=== PATIENT | female | born 1975 ===

== ENCOUNTER → 2020-09-18 08:17 | Outpatient (BNVA) | payer MEDICARE, MEDICAID, SELFPAY | PROVIDERS: PCP Internal Medicine; Visit Provider Dietitian, Registered | DX: Z76.89 Persons encountering health services in other specified circumstances (principal) ==

== ENCOUNTER 2020-11-13 10:55 | Outpatient (REF) | payer MEDICARE, MEDICAID, SELFPAY | END 2020-11-13 10:56 | disposition home or self-care (01) | LOC: HO.LAB 10:55 | PROVIDERS: Visit Provider Internal Medicine | DX: Z20.822 Contact with and (suspected) exposure to COVID-19 (principal) | CPT/HCPCS: 36415; C9803; U0003 ==

== ENCOUNTER → 2021-03-07 09:10 | Outpatient (BNVA) | payer MEDICARE, MEDICAID, SELFPAY | PROVIDERS: PCP Internal Medicine; Visit Provider Physician Assistant | DX: E66.3 Overweight (principal); L98.7 Excessive and redundant skin and subcutaneous tissue; Z68.26 Body mass index [BMI] 26.0-26.9, adult; Z98.84 Bariatric surgery status | CPT/HCPCS: 99212 ==

== ENCOUNTER 2021-03-24 08:21 | Outpatient (REF) | payer MEDICARE, MEDICAID, SELFPAY ==
[2021-03-24 08:41] LABS: MANUAL DIFF FLAG NO
[2021-03-24 08:48] LABS: Basophils Percent Auto 0.8 % (0-2); Eosinophils Absolute Auto 0.3 X10*3/uL (0.0-0.4); Eosinophils Percent Auto 6.4 % (0-4); Hematocrit 28.2 % (37-47); Hemoglobin 8.7 g/dl (12.0-16.0); Imm Gran Abs Auto 0.01 X10*3/uL (0.00-0.03); Imm Gran Pct Auto 0.3 % (0.0-0.4); Lymphocytes Absolute Auto 1.4 X10*3/uL (1.2-4.9); Lymphocytes Percent Auto 35.8 % (20-40); Mean Corpuscular HGB Conc 30.9 g/dl (31.0-35.0); Mean Corpuscular Hemoglobin 23.2 pg (27.0-33.0); Mean Corpuscular Volume 75.2 fL (80-98); Mean Platelet Volume 8.8 fL (9.4-12.3); Monocytes Absolute Auto 0.4 X10*3/uL (0.1-1.2); Monocytes Percent Auto 10.3 % (2-11); Neutrophils Absolute Auto 1.8 X10*3/uL (2.0-8.3); Neutrophils Percent Auto 46.4 % (45-73); Platelet Count 349 X10*3/uL (160-400); Red Blood Count 3.75 X10*6/uL (4.20-5.50); Red Cell Distribution Width 16.6 % (11.0-16.0); White Blood Count 3.9 X10*3/uL (4.8-10.8)
[2021-03-24 09:08] LABS: Partial Thromboplastin Time 31.4 SEC (24.1-38.0)
[2021-03-24 09:13] LABS: Estimated Average Glucose 108 mg/dL; Hemoglobin A1c % 5.4 %
[2021-03-24 09:24] LABS: Alanine Aminotransferase 14 U/L (0-31); Albumin Level 4.2 g/dL (3.5-5.0); Alkaline Phosphatase 49 U/L (39-117); Anion Gap 10 (12-20); Aspartate Amino Transferase 16 U/L (5-31); Bilirubin Total 0.5 mg/dL (0.0-1.0); Blood Urea Nitrogen 19 mg/dL (9-16); C Reactive Protein 0.03 mg/dL (< or = 0.50); Calcium 9.5 mg/dL (8.4-10.2); Carbon Dioxide 28 mmol/L (22-29); Chloride 107 mmol/L (96-108); Cholesterol 157 mg/dL; Estimated Glomerular Filt Rate > 60; Glucose Random 95 mg/dL (60-115); HDL Cholesterol 70 mg/dL; Iron 18 mcg/dL (30-160); LDL Cholesterol Calculated 80 mg/dl; Percent Iron Saturation 4 % (15-50); Sodium 141 mmol/L (135-145); Total Iron Binding Capacity 502 mcg/dL (228-428); Total Protein 6.8 g/dL (6.5-8.0); Triglycerides 38 mg/dL; Unsaturated Iron Binding 484 ug/dL
[2021-03-24 09:47] LABS: Ferritin < 1 ng/mL (10-250); TSH reflex Free T4 0.81 uIU/mL (0.32-4.0)
[2021-03-26 09:59] LABS: Folate 18.9 ng/mL (> or = 4.0); Vitamin B12 1172 pg/mL (200-900)
[2021-03-27 00:26] LABS: Zinc 78 mcg/dL (60-130)
[2021-03-27 10:27] LABS: Calcium (PTHI) 9.7 mg/dL (8.6-10.2); PTHI 13 pg/mL (14-64)
[2021-03-28 15:11] LABS: Vitamin A 34 mcg/dL (38-98)
[2021-03-28 15:56] LABS: Vitamin B1 29 nmol/L (8-30)
== END 2021-03-24 08:22 | disposition home or self-care (01) ==
LOC: HO.LAB 08:21
PROVIDERS: PCP Internal Medicine; Visit Provider Physician Assistant
DX: Z01.818 Encounter for other preprocedural examination (principal); E66.3 Overweight; Z68.35 Body mass index [BMI] 35.0-35.9, adult; Z90.3 Acquired absence of stomach [part of]; Z98.84 Bariatric surgery status; Z98.890 Other specified postprocedural states
CPT/HCPCS: 36415; 80053; 80061; 82306; 82607; 82728; 82746; 83036; 83525; 83540; 83970; 84425; 84443; 84590; 84630; 85025; 85730; 86140

== ENCOUNTER 2021-05-16 09:44 | Outpatient (REF) | payer MEDICARE, MEDICAID, SELFPAY ==
[2021-05-16 11:14] LABS: MANUAL DIFF FLAG NO
[2021-05-16 11:28] LABS: Basophils Absolute Auto 0.1 X10*3/uL (0.0-0.2); Basophils Percent Auto 0.9 % (0-2); Eosinophils Absolute Auto 0.2 X10*3/uL (0.0-0.4); Eosinophils Percent Auto 3.2 % (0-4); Hematocrit 31.8 % (37-47); Hemoglobin 9.7 g/dl (12.0-16.0); Imm Gran Abs Auto 0.01 X10*3/uL (0.00-0.03); Imm Gran Pct Auto 0.2 % (0.0-0.4); Lymphocytes Absolute Auto 1.5 X10*3/uL (1.2-4.9); Lymphocytes Percent Auto 26.8 % (20-40); Mean Corpuscular HGB Conc 30.5 g/dl (31.0-35.0); Mean Corpuscular Hemoglobin 23.9 pg (27.0-33.0); Mean Corpuscular Volume 78.3 fL (80-98); Mean Platelet Volume 9.6 fL (9.4-12.3); Monocytes Absolute Auto 0.6 X10*3/uL (0.1-1.2); Monocytes Percent Auto 11.3 % (2-11); Neutrophils Absolute Auto 3.3 X10*3/uL (2.0-8.3); Neutrophils Percent Auto 57.6 % (45-73); Platelet Count 300 X10*3/uL (160-400); Red Blood Count 4.06 X10*6/uL (4.20-5.50); Red Cell Distribution Width 21.2 % (11.0-16.0); White Blood Count 5.6 X10*3/uL (4.8-10.8)
[2021-05-22 16:42] LABS: Vitamin A 46 mcg/dL (38-98)
== END 2021-05-16 09:45 | disposition home or self-care (01) ==
LOC: HO.LAB 09:44
PROVIDERS: PCP Internal Medicine; Referring Provider Internal Medicine; Visit Provider Physician Assistant
DX: D64.9 Anemia, unspecified (principal); L98.7 Excessive and redundant skin and subcutaneous tissue; E50.9 Vitamin A deficiency, unspecified; Z98.84 Bariatric surgery status; Z90.3 Acquired absence of stomach [part of]
CPT/HCPCS: 36415; 84590; 85025; 99212

== ENCOUNTER → 2021-08-02 08:08 | Outpatient (BNVA) | payer MEDICARE, MEDICAID, SELFPAY | PROVIDERS: PCP Internal Medicine; Visit Provider Surgery | DX: E66.3 Overweight (principal); L98.7 Excessive and redundant skin and subcutaneous tissue; Z68.26 Body mass index [BMI] 26.0-26.9, adult | CPT/HCPCS: Q3014 ==

== ENCOUNTER 2021-08-16 07:59 | Inpatient (IN) | payer MEDICARE, MEDICAID, SELFPAY ==
[2021-08-03 06:17] LABS: MANUAL DIFF FLAG NO
[2021-08-03 07:17] LABS: Basophils Percent Auto 0.6 % (0-2); Eosinophils Absolute Auto 0.2 X10*3/uL (0.0-0.4); Eosinophils Percent Auto 6.2 % (0-4); Hematocrit 34.1 % (37-47); Hemoglobin 10.7 g/dl (12.0-16.0); Imm Gran Abs Auto 0.01 X10*3/uL (0.00-0.03); Imm Gran Pct Auto 0.3 % (0.0-0.4); Lymphocytes Absolute Auto 1.3 X10*3/uL (1.2-4.9); Lymphocytes Percent Auto 41.1 % (20-40); Mean Corpuscular HGB Conc 31.4 g/dl (31.0-35.0); Mean Corpuscular Hemoglobin 25.2 pg (27.0-33.0); Mean Corpuscular Volume 80.2 fL (80-98); Mean Platelet Volume 9.9 fL (9.4-12.3); Monocytes Absolute Auto 0.3 X10*3/uL (0.1-1.2); Neutrophils Absolute Auto 1.4 X10*3/uL (2.0-8.3); Neutrophils Percent Auto 42.8 % (45-73); Platelet Count 250 X10*3/uL (160-400); Red Blood Count 4.25 X10*6/uL (4.20-5.50); Red Cell Distribution Width 17.4 % (11.0-16.0); White Blood Count 3.2 X10*3/uL (4.8-10.8)
[2021-08-03 07:23] LABS: Prothrombin Time 11.9 SEC (9.9-13.0)
[2021-08-03 07:25] LABS: Estimated Average Glucose 108 mg/dL; Hemoglobin A1c % 5.4 %; Partial Thromboplastin Time 32.5 SEC (24.1-38.0)
[2021-08-03 07:43] LABS: Alanine Aminotransferase 12 U/L (0-31); Albumin Level 4.3 g/dL (3.5-5.0); Alkaline Phosphatase 60 U/L (39-117); Anion Gap 11 (12-20); Aspartate Amino Transferase 21 U/L (5-31); Bilirubin Total 0.4 mg/dL (0.0-1.0); Blood Urea Nitrogen 15 mg/dL (9-16); C Reactive Protein 0.05 mg/dL (< or = 0.50); Calcium 9.5 mg/dL (8.4-10.2); Carbon Dioxide 29 mmol/L (22-29); Chloride 104 mmol/L (96-108); Cholesterol 160 mg/dL; Estimated Glomerular Filt Rate > 60; Glucose Random 91 mg/dL (60-115); HDL Cholesterol 71 mg/dL; Iron 32 mcg/dL (30-160); LDL Cholesterol Calculated 80 mg/dl; Percent Iron Saturation 6 % (15-50); Potassium 4.2 mmol/L (3.3-5.1); Sodium 140 mmol/L (135-145); Total Iron Binding Capacity 498 mcg/dL (228-428); Total Protein 6.9 g/dL (6.5-8.0); Triglycerides 47 mg/dL; Unsaturated Iron Binding 466 ug/dL
[2021-08-03 08:05] LABS: Ferritin 8 ng/mL (10-250); TSH reflex Free T4 1.65 uIU/mL (0.32-4.0); Vitamin D 25-OH Total 40.4 ng/mL (>30)
[2021-08-03 08:40] LABS: Folate > 20.0 ng/mL (> or = 4.0); Vitamin B12 878 pg/mL (200-900)
[2021-08-03 10:33] VITALS: BMI 25.7
--- NOTE | 2021-08-05 18:31 | P.HPSUR_ITS ---
Pre-Procedural Eval Section A Date of Service: 08/05/21 The patient is an INPATIENT: No The History & Physical has been completed within 30 days and I have reviewed it.: Yes Section B Chief Complaint: Excessive and redundant skin & subcutaneous tissue Relevant Family History (Specify if Yes): No Relevant Social History: None Present Medications: None Medical History: No relevant PMH History of Previous Operations: Relevant previous surgery/procedure and date(s) (lap gastric bypass) Allergies: Allergies Allergy/AdvReac Type Severity Reaction Status Date / Time No Known Allergies Allergy Verified 08/03/21 10:33 [No Known Allergies*] Review of Systems Sugical H&P ROS: Negative: Constitution, Cardiovascular, Respiratory, Neurological, Psychiatric, Hem-Onc, Allergic/Immunologic, Gastrointestinal, Gen itourinary, Musculoskeletal, Integumentary, Endocrine and Eyes/Ears/Nose/Throat Exam Surgical H&P Exam: Normal: HEENT, Normal: Heart, Normal: Lungs, Normal: Extremities, Normal: Abdomen, Normal: Skin and Normal: Neurological Plan Diagnosis/Plan: Unchanged I have reviewed the history and physical and performed a pertinent physical examination on my patient. No changes have occurred unless specified.
[2021-08-06 13:27] LABS: Calcium (PTHI) 9.3 mg/dL (8.6-10.2); PTHI 34 pg/mL (14-64)
[2021-08-09 00:06] LABS: Zinc 87 mcg/dL (60-130)
[2021-08-09 00:12] LABS: Vitamin A 36 mcg/dL (38-98)
[2021-08-10 11:26] LABS: Vitamin B1 22 nmol/L (8-30)
--- NOTE | 2021-08-15 09:44 | HO.ANESPROP2 ---
Documented by User: Linda Arboleda NP 08/15/21 09:46 HPI - Anesthesia Eval Consult details Narrative: 46yo F for Panniculectomy, Bilateral Brachioplasty s/p gastric bypass 2017 [facility] Active Problems Active Problems: All Active Problems (Updated 08/02/21 @ 12:05 by Eyad Ambrosio MD) Overweight (BMI 25.0-29.9) (Acute) Excess skin (Acute) Vitamin A deficiency (Acute) Anemia (Acute) Cellulitis (Acute) Overweight (Acute) Hx of gastric bypass (Acute) Past Medical History Medical History (Updated 08/02/21 @ 12:05 by Eyad Ambrosio MD) Overweight Family History Family History Mother Hypertension Diabetes Asthma Father Hypertension Brother No problems noted. Brother No problems noted. Brother No problems noted. Sister No problems noted. Sister No problems noted. Sister No problems noted. Son No problems noted. Daughter No problems noted. Daughter No problems noted. Surgical History Surgical History (Updated 08/03/21 @ 10:31 by Lorena Hewitt RN) Hx of section Hx of gastric bypass Social History Social History (Updated 08/03/21 @ 10:32 by Lorena Hewitt RN) Alcohol intake: current Alcohol intake frequency: holidays/special occasions only Patient Tobacco Use Status: Never used Tobacco Use of substances other than those prescribed or required for medical reasons: No Are you DNR?: No Advance Directives: No Advance Directives Information Provided: Yes (info mailed) Advance Directives on File: No Patient : No FDLMP: 07/17/2021 : No Poor oral hygiene: No Meds Allergies Allergy/AdvReac Type Severity Reaction Status Date / Time No Known Allergies Allergy Verified 08/03/21 10:33 [No Known Allergies*] Home Medications Medication Instructions Recorded Confirmed Last Taken Type cqyptdus-[id number]-ajgk 45 mg-folic cap PO 03/07/21 Unknown History acid 800 mcg-vit K 120 mcg capsule (Bariatric Multivitamins) Exam Exam Date and Time: August 15, 2021 0944 Height,Weight and Vital Signs: Height 5 ft 2 in Weight 63.957 kg Pertinent Lab Results Pertinent Lab Results: Laboratory Tests 08/03/21 08/03/21 08/03/21 06:10 06:10 06:10 WBC 3.2 L RBC 4.25 Hgb 10.7 L Hct 34.1 L MCV 80.2 MCH 25.2 L MCHC 31.4 RDW 17.4 H Plt Count 250 MPV 9.9 Immature Gran % (Auto) 0.3 Neut % (Auto) 42.8 L Lymph % (Auto) 41.1 H [place] % (Auto) 9.0 Eos % (Auto) 6.2 H Baso % (Auto) 0.6 Lymph # (Auto) 1.3 [place] # (Auto) 0.3 Eos # (Auto) 0.2 Baso # (Auto) 0.0 Abs Immat Gran (auto) 0.01 Absolute Neuts (auto) 1.4 L Absolute Nucleated RBC 0.000 Nucleated RBC % (auto) 0.0 PT 11.9 INR 1.0 APTT 32.5 Sodium 140 Potassium 4.2 Chloride 104 Carbon Dioxide 29 Anion Gap 11 L BUN 15 Creatinine 0.72 Estim Creat Clear Calc TNP Estimated GFR > 60 Random Glucose 91 Estimat Average Glucose Hemoglobin A1c % Calcium 9.5 Iron 32 TIBC 498 H % Saturation 6 L Unsat Iron Binding 466 Ferritin 8 L Total Bilirubin 0.4 AST 21 ALT 12 Alkaline Phosphatase 60 D C-Reactive Protein 0.05 Total Protein 6.9 Albumin 4.3 Triglycerides 47 Cholesterol 160 LDL Cholesterol, Calc 80 HDL Cholesterol 71 Vitamin A Vitamin B1 Vitamin B12 25-OH Vitamin D Total 40.4 Folate TSH 1.65 PTH Intact Calcium (PTH Intact) Zinc Blood Type Antibody Screen 08/03/21 08/03/21 08/03/21 06:10 06:10 06:10 WBC RBC Hgb Hct MCV MCH MCHC RDW Plt Count MPV Immature Gran % (Auto) Neut % (Auto) Lymph % (Auto) [place] % (Auto) Eos % (Auto) Baso % (Auto) Lymph # (Auto) [place] # (Auto) Eos # (Auto) Baso # (Auto) Abs Immat Gran (auto) Absolute Neuts (auto) Absolute Nucleated RBC Nucleated RBC % (auto) PT INR APTT Sodium Potassium Chloride Carbon Dioxide Anion Gap BUN Creatinine Estim Creat Clear Calc Estimated GFR Random Glucose Estimat Average Glucose 108 Hemoglobin A1c % 5.4 Calcium Iron TIBC % Saturation Unsat Iron Binding Ferritin Total Bilirubin AST ALT Alkaline Phosphatase C-Reactive Protein Total Protein Albumin Triglycerides Cholesterol LDL Cholesterol, Calc HDL Cholesterol Vitamin A 36 L Vitamin B1 22 Vitamin B12 878 25-OH Vitamin D Total Folate > 20.0 TSH PTH Intact Calcium (PTH Intact) Zinc Blood Type Antibody Screen 08/03/21 08/03/21 08/03/21 06:10 06:10 06:10 WBC RBC Hgb Hct MCV MCH MCHC RDW Plt Count MPV Immature Gran % (Auto) Neut % (Auto) Lymph % (Auto) [place] % (Auto) Eos % (Auto) Baso % (Auto) Lymph # (Auto) [place] # (Auto) Eos # (Auto) Baso # (Auto) Abs Immat Gran (auto) Absolute Neuts (auto) Absolute Nucleated RBC Nucleated RBC % (auto) PT INR APTT Sodium Potassium Chloride Carbon Dioxide Anion Gap BUN Creatinine Estim Creat Clear Calc Estimated GFR Random Glucose Estimat Average Glucose Hemoglobin A1c % Calcium Iron TIBC % Saturation Unsat Iron Binding Ferritin Total Bilirubin AST ALT Alkaline Phosphatase C-Reactive Protein Total Protein Albumin Triglycerides Cholesterol LDL Cholesterol, Calc HDL Cholesterol Vitamin A Vitamin B1 Vitamin B12 25-OH Vitamin D Total Folate TSH PTH Intact 34 Calcium (PTH Intact) 9.3 Zinc 87 Blood Type A Positive Antibody Screen NEGATIVE Assessment and Plan Assessment Anesthesia Assessment: Chart Reviewed Documented by User: Pato Arguello MD 08/16/21 07:16 [facility] Past Medical History Medical History (Updated 08/02/21 @ 12:05 by Eyad Ambrosio MD) Overweight Family History Family History Mother Hypertension Diabetes Asthma Father Hypertension Brother No problems noted. Brother No problems noted. Brother No problems noted. Sister No problems noted. Sister No problems noted. Sister No problems noted. Son No problems noted. Daughter No problems noted. Daughter No problems noted. Family history of problems with anesthesia: No Surgical History Surgical History (Updated 08/03/21 @ 10:31 by Lorena Hewitt RN) Hx of section Hx of gastric bypass History of Problems with Anesthesia: No Social History Social History (Updated 08/03/21 @ 10:32 by Lorena Hewitt RN) Alcohol intake: current Alcohol intake frequency: holidays/special occasions only Patient Tobacco Use Status: Never used Tobacco Use of substances other than those prescribed or required for medical reasons: No Are you DNR?: No Advance Directives: No Advance Directives Information Provided: Yes (info mailed) Advance Directives on File: No Patient : No FDLMP: 07/17/2021 : No Poor oral hygiene: No Meds Allergies Allergy/AdvReac Type Severity Reaction Status Date / Time No Known Allergies Allergy Verified 08/03/21 10:33 [No Known Allergies*] Home Medications Medication Instructions Recorded Confirmed Last Taken Type liqtkpmd-ecnfzxqn-pkns 45 mg-folic cap PO 03/07/21 Unknown History acid 800 mcg-vit K 120 mcg capsule (Bariatric Multivitamins) Exam Airway Mallampati Class: II TM Dist: >3cm Neck ROM: Full Loose/Missing/Broken Teeth: No Heart: rrr+[id number] Lungs: cta b/l Assessment and Plan Final Anesthetic Review Family History of Problems with Anesthesia: No History of Problems with Anesthesia: No NPO: Yes ASA Class: II Final Preanesthetic Review: No Changes in Pt Med Stat, Meds/Allgs Chart Reviewed, Consent Obtained/Reviewed and Anes Risks/Benef Reviewed Patient Risk: Intermediate Procedure Risk: Intermediate Assessment/Block/Sedation in SS: Assess/Block/Sedation-SS Anesthetic Plan Anesthetic Plan: GA and Agree w/ Assess. and Plan Disposition: Standard PACU
[2021-08-16] VITALS (13 sets, daily range): BP systolic 103–145; BP diastolic 55–82; PULSE 61–81; RESP 12–18; TEMP 35.8–37.2; O2SAT 98–100
[2021-08-16 06:32] LABS: UPreg QC Valid YES; Urine Pregnancy NEGATIVE (NEGATIVE)
[2021-08-16] MEDS: Lactated Ringers 1,000 ML 80 ML IVCONT (06:43)
[2021-08-16 06:49] LABS: COVID-19 Test Negative (Negative)
--- NOTE | 2021-08-16 08:05 | P.BOP_ITS ---
Brief Operative Note Date of Service: 08/16/21 Pre-op diagnosis: panniculitis Post-op diagnosis: same Procedure: PROCEDURE: Panniculectomy with umbilical transposition and omental flap, bilateral brachioplasty INDICATION: This a 46 year old female who underwent laparoscopic Hugh-en-Y gastric bypass on 04/21/2018. She had an excellent result achieving a BMI of 26.3 kg/m2 with a total weight loss of 108.8lbs, or 43.5% of her TBWL. As a result, she has developed panniculitis which has not resolved despite continuous use of clotrimazole ointment as well as skin irritation and intetrigo in both upper arms. On exam she has extreme skin laxity due to massive weight loss and age with the abdominal pannus completely hiding the genitalia and the upper arms 6 cm below the level of the triceps. Panniculectomy with bilateral brachioplasty was recommended. We discussed the two options for the panniculectomy of using a combined vertical and horizontal incisions or just a horizontal (bikini) incision. It was my recommendation to do only horizontal incision based on her body habitus and skin laxity. The patient agreed with this. Risks and complications were discussed with the patient including bleeding, infection, umbilical loss, flap necrosis, asymmetry, dehiscence, seroma, VTE. The patient understood the risks and was in agreement to proceed with surgery. PROCEDURE: The incisions were appropriately marked at the preop area with the p atient standing and laying down. After induction of general anesthesia a Ricardo catheter and pneumatic compression devices were placed. The patient was prepped and draped in the usual sterile manner and the incisions were marked again and confirmed. In similar fashion both upper arms were also marked when the patient was standing. The upper arms were performed first. The skin was infiltrated with lidocaine and epinephrine. Skin was excised with the #15 blade. Cautery was used to separate the skin from subcutaneous tissues. Careful attention was paid to make sure that the plain of excision was superficial as close to the skin as possible. The right upper arm skin was 25 cm x 7 cm and the left 23 cm x 7 cm. Skin was closed in two layers using interrupted 3.0 Monocryl sutures for the dermis and 4.0 subcuticular Monocryl suture for the skin. The skin was infiltrated with lidocaine and epinephrine. The #10 blade scalpel was used for the large incisions and the #15 blade scalpel for the umbilicus. Cautery was used to divide the subcutaneous tissues until the fascia was identified. Then I used the Thunderbeat (Olympus) to separate the pannus from the fascia. The inferior incision was made initially and I mobilized the flap for a several centimeters cephalad to the umbilicus. The umbilicus was incised circumferentially and detached from the surrounding tissues all the way to the fascia while its stalk was preserved. With the patient in reflex position I confirmed that the skin flaps were appropriate and would allow for the tissues to come together with reasonable tension. At that point a horizontal incision was made 4 cm above the umbilicus. #10 blade was used for the skin, cautery for the dermis and the Thunderbeat for the remaining tissues. An omental flap was raised from the upper flap in order to fill the space under the skin and support the closure of the two flaps. In addition the inferior flap was mobilized caudally for a few centimeters to create a space for the omental flap as well as relieve tension from the closure. A circumferential incision was made at the area where the umbilicus would be re-implanted. The umbilicus was appropriately oriented and was delivered through the defect and was secured in place with a Thais. No bleeding was noted anywhere. One 15Fr Zak drain was placed from the right corner of the horizontal incision across the wound and was secured in place with a silk suture. The omental flap was secured under the inferior flap with several interrupted 3.0 Monocryl sutures. The two flaps were brought together and were attached at the midline of the horizontal incision with a #3.0 Monocryl suture. At that point the umbilicus was properly oriented and was re-approximated to the skin with 8 interrupted 3.0 Monocryl sutures. In a similar fashion the skin flaps were re-approximated with multiple 3.0 Monocryl sutures. The skin was closed in all incisions and umbilicus with 4.0 Monocryl sutures. Steri-strips, xeroform gauzes and gauzes were used to cover the incisions. An abdominal binder was also placed. The was awaken and was transferred to the recover room in a stable condition. I was present and performed the entire procedure. Ms. Marrero was the assistant corporate secretary. Rafael Ambrosio MD, PhD, FACS Surgeon: Eyad Ambrosio MD Surgeon: Eyad Ambrosio MD Anesthesia: GETA and local Was an Telecommunications Network Planner used for this Procedure?: No Telecommunications Network Planner: Amelia Marrero Estimated blood loss (mL): 10 IV fluids (mL): 1,500 Pathology: other (1) abdominal pannus, 2) left arm skin, 3) right arm skin) Condition: stable Disposition: PACU
--- NOTE | 2021-08-16 13:25 | P.DS_ITS ---
DS: Providers Provider Date of Service: 08/17/21 Date of admission: 08/16/21 07:59 Primary care physician: Dhaval Bills MD DS: Summary Hospital Course Hospital Course: DISCHARGE SUMMARY ADMITTING DIAGNOSIS: panniculitis, excess skin, s/p lapgastric bypass DISCHARGE DIAGNOSIS: The same. PAST SURGICAL HISTORY: Lap RNY gastric bypass PROCEDURE: Panniculectomy and bilteral brachioplasties HISTORY OF PRESENT ILLNESS: The patient is a 46 year-old woman with a BMI of 25.8 kg/m2 and associated co- morbidities as described previous. The patient had a laparoscopic RNYGBP and has lost a total of 108.8 lbs, or 43.5% of her initial weight and her BMI reduced to 25.8 kg/m2. As a result of the massive weight loss she developed a large abdominal pannus and persistent panniculitis with excess skin on upper arms recalcitrant to medical treatment. The patient was electively scheduled for panniculectomy and bilateral brachioplasties. Risks and complications of the surgery were discussed with the patient in advance, particularly the possibility of , pulmonary embolism, skin necrosis, loss of umbilicus, flap necrosis, wound dehiscence, flap asymmetry, bleeding requiring transfusion. The patient understood all the risks and was in agreement with the surgical plan. On postoperative day #1 the patient was started on Phase 3 bariatric diet. The Ricardo was discontinued. She was allowed to ambulate and she had no dizziness. During the first day, the patient did fairly well, having some incisional pain, but able to ambulate adequately and to tolerate liquids well. All dressings were taken down and the all incisions were inspected. There was no evidence of infection or bleeding or significant discharge. All flaps and umbilicus were viable and there was no dehiscence. KATIE drains had minimal output with serosanguinous fluid. Since the patient is doing well, we decided that the patient was ready to be discharged. The patient was given instructions to follow-up with me next week and to call my office for any fever over 101, persistent abdominal pain, nausea, vomiting, and symptoms of DVT such as calf tenderness, or leg swelling, or pulmonary embolism such as chest pain or shortness of breath. The patient was also instructed to drink 40-60 ounces of liquids per day using the 1-ounce cups and start on 3 Pure protein shakes per day. The patient was given prescription for Tylenol for pain, Zofran prn for nausea and a 10-day course of Keflex twice a day. The patient was encouraged to ambulate and use the incentive spirometer. However it was strongly recommended to do so with assistance and avoid any abdominal straining for at least one month. The patient was allowed only to do sponge baths, and encouraged to use the recliner at home and not the bed. All of these instructions were given to the patient personally. All questions were answered and the patient understood all instructions. The instructions were given to the patient in print as well. Time Spent with Patient Time attestation: Total time spent providing and/or coordinating discharge services: Discharge coordination time: Less than 30 minutes Quality: Stroke Does the patient have a stroke diagnosis?: No Physical Exam Vital Signs: Vital Signs: Last Vital Signs Temp 98.1 F 08/16/21 06:26 Pulse 62 08/16/21 06:26 Resp 16 08/16/21 06:26 BP 126/74 08/16/21 06:26 Pulse Ox 100 08/16/21 06:26 Body Mass Index 25.7 DS: Data Data Completed and Pending Pending studies at discharge: Pending at discharge 08/16/21 11:26 Surgical [PTH] Routine Labs on day of discharge: Laboratory Results - last 24 hr 08/16/21 08/16/21 06:10 06:10 Urine Test NEGATIVE COVID[place]19 ([place]) Negative COVID-19 Clin Com See Note Discharge Plan Discharge Anticipated Discharge Date/Time: 08/17/21 12:22 Patient Disposition: Home Health Service Discharge Diagnosis: s/p panniculectomy and brachioplasty Referrals: Dhaval Bills MD [Primary Care Provider] - 1 Week Discharge Medications: New oxycodone 5 mg Tablet 5 mg PO Q6H PRN (Reason: Pain, Severe (Pain Scale 7-10)) Qty: 10 RF: 0 Continued Vitron-C 65 mg iron- 125 mg tablet,delayed release (DR/EC) 1 tab PO BID Qty: 60 RF: 5 vitamin A palmitate 10,000 unit tablet 10,000 unit PO DAILY Qty: 30 RF: 0 Bariatric Multivitamins 45 mg iron- 800 mcg-120 mcg capsule PO RF: 0 cephalexin 500 mg capsule 500 mg PO Q12H Qty: 14 RF: 2 (DME) Xeroform Petrolatum Dressing 1 X 8 bandage See Rx Instructions .ROUTE .MEDSUPPLY Qty: 200 RF: 0 Discontinued clotrimazole 1 % cream 1 appl topical BID Qty: 45 RF: 2 Discharge Orders: Discharge Order (Routine); Ordered 08/17/21 Ordered By: Yoshi Jackson Diet: other Activity on Discharge: Rest with bed elevated Stand Alone Forms: Patient Portal Discharge page Activity Restrictions/Additional Instructions: 1) Start Keflex antibiotic 2) No showers. Only sponge baths 3) Avoid any tension on the arms and abdomen and always have help getting up. Keep them elevated 4) Take 1 tab of Colace and one tablespoon of Metamucil daily Diet: 4 Celebrate protein shakes with 1 scoop in 8oz of almond milk each one, or 3 shakes and one bar, or 3 shakes and one meal (2oz meat and 2oz salad) 5) Change dressings daily and send pictures to Dr. Ambrosio. Replace loose steri-strips and xeroform gauze along the incisions. 6) Supplies needed: Kerlex rolls, 4x4 dressings, xeroform gauze, 1/2'' steri- strips, paper tape. You will need to use several of the above supplies on a daily basis. 7) Avoid heavy lifting for 3 weeks 8) Take Tylenol 500mg every 4 hours, around the clock for the next 3-4 days. If pain has improved you may slowly reduce its frequency 9) Avoid aspirin, Motrin, Aleve, Advil, Naproxyn, Ibuprofen for 2 weeks 7) Call Dr. Amborsio at [phone] for fever >101F, persistent incisional pain,, discharge from any of the incisions, swelling, redness, shortness of breath, calf pain. Care Plan Goals: resolution of panniculitits Health Concerns: excess skin Plan of Treatment: see above Assessment: s/p panniculectomy and bilateral brachiplasties Discharge Date/Time: 08/17/21 13:48
[2021-08-16] MEDS: ondansetron HCL 4 MG/2 ML VIAL IVPUSH ×3 (13:43→23:16)
[2021-08-16] MEDS: Lactated Ringers 1,000 ML 100 ML IVCONT ×2 (16:19→23:12)
[2021-08-16] MEDS: ceFAZolin Sodium/Dextrose,Iso 2 GM/50 ML PIGGYBACK IV (17:19)
[2021-08-16] MEDS: 0.9 % Sodium Chloride Flush 3 ML SYRINGE IVFLUSH ×2 (17:20→23:16)
[2021-08-16] MEDS: HYDROmorphone HCl 0.5 MG/0.5 ML SYRINGE 0.25 MG IVPUSH (23:20)
[2021-08-17] MEDS: HYDROmorphone HCl 0.5 MG/0.5 ML SYRINGE 0.25 MG IVPUSH ×2 (03:26→09:40)
[2021-08-17 03:30] VITALS: BP 116/56; PULSE 53; RESP 16; TEMP 36.7; O2SAT 98
[2021-08-17 06:30] LABS: MANUAL DIFF FLAG NO
[2021-08-17 06:42] LABS: Basophils Percent Auto 0.5 % (0-2); Eosinophils Absolute Auto 0.1 X10*3/uL (0.0-0.4); Eosinophils Percent Auto 0.7 % (0-4); Hematocrit 29.1 % (37-47); Hemoglobin 9.3 g/dl (12.0-16.0); Imm Gran Abs Auto 0.03 X10*3/uL (0.00-0.03); Imm Gran Pct Auto 0.3 % (0.0-0.4); Lymphocytes Absolute Auto 1.7 X10*3/uL (1.2-4.9); Lymphocytes Percent Auto 19.1 % (20-40); Mean Corpuscular Hemoglobin 25.8 pg (27.0-33.0); Mean Corpuscular Volume 80.8 fL (80-98); Mean Platelet Volume 10.6 fL (9.4-12.3); Monocytes Absolute Auto 0.7 X10*3/uL (0.1-1.2); Monocytes Percent Auto 8.3 % (2-11); Neutrophils Absolute Auto 6.2 X10*3/uL (2.0-8.3); Neutrophils Percent Auto 71.1 % (45-73); Platelet Count 238 X10*3/uL (160-400); Red Cell Distribution Width 18.3 % (11.0-16.0); White Blood Count 8.7 X10*3/uL (4.8-10.8)
[2021-08-17 07:06] LABS: Anion Gap 10 (12-20); Blood Urea Nitrogen 7 mg/dL (9-16); Calcium 8.3 mg/dL (8.4-10.2); Carbon Dioxide 24 mmol/L (22-29); Chloride 109 mmol/L (96-108); Creatinine Clr Calc Pharmacy 97.5; Estimated Glomerular Filt Rate > 60; Glucose Random 79 mg/dL (60-115); Potassium 4.1 mmol/L (3.3-5.1); Sodium 139 mmol/L (135-145)
[2021-08-17 07:36] VITALS: BP 121/55; PULSE 57; RESP 18; TEMP 36.4; O2SAT 100
[2021-08-17] MEDS: Lactated Ringers 1,000 ML 100 ML IVCONT (09:40)
--- NOTE | 2021-08-17 10:38 | P.F2F_ITS ---
Service Date Service Date: 08/17/21 Encounter Date of encounter: 08/17/21 Reasons for Services Reason for penitentiary: postoperative assessment and/or care (daily dressing care) MD Overseeing Care: Eyad Ambrosio Homebound: Leaving the home is medically contraindicated at this time without the asist of a device and/or another person due th the listed conditions above and below. Reason homebound: pain with ambulation and pain with transfers Certification: Based on the above findings, I certify that this patient is confined to the home and needs intermittent penitentiary care, physical therapy and/or speech therapy, or continues to need occupational therapy. The patient is under my care, and I have initiated the establishment of the plan of care. The patient will be followed by a physician who will periodically review the plan of care.
[2021-08-17 10:49] VITALS: BP 108/50; PULSE 51; RESP 18; O2SAT 98
[2021-08-17] MEDS: ondansetron HCL 4 MG/2 ML VIAL IVPUSH (10:54)
[2021-08-17 12:11] VITALS: BP 146/61; PULSE 61; RESP 18; TEMP 36.1; O2SAT 99
--- NOTE | 2021-08-17 12:36 | MHC.CM.PN ---
met with pt who is being dcd today md ordered wound care dsging awaiting an accepting vna
--- NOTE | 2021-08-17 15:50 | MHC.CM.PN ---
This fha underwriter spoke with Yoshi Jackson re: new frequency for VNA visits. [facility] able to accept patient with visit tomorrow (Saturday 08/18)- Friday and Friday. Patient called and informed of plan, provided phone number for VNA agency. Yoshi Jackson aware of plan. New Face to Face provided to [facility].
--- NOTE | 2021-08-17 16:59 | HO.POSTANES ---
Post Anesthesia Evaluation Post Anesthesia Evaluation Vital Signs: Vital Signs Temp Pulse Resp BP Pulse Ox 08/17/21 12:11 97.0 F 61 18 146/61 H 99 08/17/21 10:49 51 18 108/50 L 98 08/17/21 07:36 97.5 F 57 18 121/55 L 100 Anesthesia: General Endotracheal-GETA Mental Status: Awake Pain Control: Satisfactory Nausea/Vomiting: None Hydration: Adequate Anesthesia-Related Issues: No Anes. Related Issues
== END 2021-08-17 13:48 | disposition home health service (06) | DRG 572 ==
LOC: HO.SSSA 08:06 → HO.S3 16:25
PROVIDERS: Nurse Practitioner; Physician Assistant; Admitting Provider Surgery; PCP Internal Medicine; Visit Provider Surgery
PROC: 0JB80ZZ Excision of Abdomen Subcutaneous Tissue and Fascia, Open Approach (ICD-10-PCS; CPT 15836; principal; 2021-08-16 07:30)
PROC: 0JB80ZZ Excision of Abdomen Subcutaneous Tissue and Fascia, Open Approach (ICD-10-PCS; CPT 15830; 2021-08-16 07:30)
DX: M79.3 Panniculitis, unspecified (principal); L98.7 Excessive and redundant skin and subcutaneous tissue; Z20.822 Contact with and (suspected) exposure to COVID-19; Z79.899 Other long term (current) drug therapy
CPT/HCPCS: 15830; 15847; 15836; 36415; 80048; 80053; 80061; 81025; 82306; 82607; 82728; 82746; 83036; 83540; 83970; 84425; 84443; 84590; 84630; 85025; 85610; 85730; 86140; 86850; 86900; 86901; 87635; 88304; C1758; J0131; J0690; J1100; J1170; J2250; J2405; J2550; J3010

== ENCOUNTER → 2021-08-24 08:51 | Outpatient (BNVA) | payer MEDICARE, MEDICAID, SELFPAY | PROVIDERS: PCP Internal Medicine; Referring Provider Internal Medicine; Visit Provider Surgery | DX: M79.3 Panniculitis, unspecified (principal); Z98.84 Bariatric surgery status; Z98.890 Other specified postprocedural states | CPT/HCPCS: 99212 ==

== ENCOUNTER → 2021-09-07 08:55 | Outpatient (BNVA) | payer MEDICARE, MEDICAID, SELFPAY | PROVIDERS: PCP Internal Medicine; Referring Provider Internal Medicine; Visit Provider Surgery | DX: E66.3 Overweight (principal); Z98.890 Other specified postprocedural states; Z3A.25 25 weeks gestation of pregnancy | CPT/HCPCS: 99212 ==

== ENCOUNTER → 2021-10-08 08:53 | Outpatient (BNVA) | payer MEDICARE, MEDICAID, SELFPAY | PROVIDERS: PCP Internal Medicine; Referring Provider Internal Medicine; Visit Provider Physician Assistant | DX: Z98.890 Other specified postprocedural states (principal); Z98.84 Bariatric surgery status | CPT/HCPCS: 99212 ==

== ENCOUNTER 2021-10-22 07:58 | Outpatient (REF) | payer MEDICARE, MEDICAID, SELFPAY ==
--- NOTE | ~2021-10-22 | CT_ITS ---
EXAMINATION: CT ABDOMEN AND PELVIS WITH CONTRAST CLINICAL INFORMATION: Other specified complications of surgery COMPARISON: GI series 04/23/2018 and abdominal ultrasound 03/03/2018 TECHNIQUE: Multidetector volumetric images were obtained from the superior aspect of the liver through the pubic symphysis following administration 85 mL of Omnipaque 350 intravenous contrast. Sagittal and coronal reformatted images were obtained on the technologist's workstation. This CT examination was performed using dose optimization techniques as appropriate, variously including the following: *Automated exposure control *Adjustment of mA and/or kV according to patient size (this includes techniques or standardized protocols for targeted exams where dose is matched to indication/reason for exam; i.e. extremities or head) *Use of iterative reconstruction technique DLP: 325 mGy-cm FINDINGS: Visualized lung bases are well aerated. There is minimal atelectasis versus scarring of the posterior left lung base. The liver demonstrates normal size, contour and attenuation. The gallbladder is normal in appearance. The pancreas, spleen and adrenal glands are unremarkable. Symmetrically enhancing kidneys. No hydronephrosis bilaterally. Surgical changes of the GE junction and stomach consistent with gastric bypass. Loops of small bowel are normal in caliber and well opacified with oral contrast. There is a loop of small bowel within the central abdomen which demonstrates circumferential mucosal thickening but no obstructive features, nonspecific (images 38 through , series 3). The colon is normal in caliber. Normal appendix. Normal caliber abdominal aorta. No retroperitoneal lymphadenopathy. Mild subcutaneous edema/haziness within the ventral aspect of the lower abdomen, nonspecific. The bladder is relatively decompressed but grossly unremarkable. 2.5 cm fluid attenuation structure within the cervix, nonspecific. Trace free pelvic fluid, often times physiologic. Bilateral shotty inguinal lymph nodes, nonspecific. Mild to moderate diffuse degenerative changes of the spine. CT/CT abdomen pelvis w con IMPRESSION: 1. Surgical changes of the GE junction and stomach consistent with gastric bypass. There is a loop of small bowel within the central abdomen which demonstrates circumferential mucosal thickening but no obstructive features. This is a nonspecific finding. Clinical correlation recommended. 2. Mild subcutaneous edema/haziness within the ventral aspect of the lower abdomen, also nonspecific. There are shotty bilateral inguinal lymph nodes which may be associated with this finding. 3. 2.5 cm fluid attenuation structure within the cervix. This is a nonspecific finding but may represent a nabothian cyst. This may further evaluated with dedicated pelvic ultrasound as clinically indicated. Fleischner guidelines were followed.
[2021-10-22] MEDS: iohexoL 350 MG/ML 100 ML INFUS..BTL 85 ML IV (10:46)
[2021-10-22] MEDS: Barium Sulfate Oral (Vanilla) 450 ML ORAL.SUSP 900 ML PO (10:46)
== END 2021-10-22 07:59 | disposition home or self-care (01) ==
LOC: HO.CT 07:58
PROVIDERS: PCP Internal Medicine; Visit Provider Physician Assistant
DX: T88.8XXA Other specified complications of surgical and medical care, not elsewhere classified, initial encounter (principal); X58.XXXA Exposure to other specified factors, initial encounter; Y93.9 Activity, unspecified; Y92.9 Unspecified place or not applicable; Y99.9 Unspecified external cause status
CPT/HCPCS: 74177; Q9967

== ENCOUNTER → 2021-12-05 09:41 | Outpatient (BNVA) | payer MEDICARE, MEDICAID, SELFPAY | PROVIDERS: PCP Internal Medicine; Referring Provider Internal Medicine; Visit Provider Physician Assistant | DX: T88.8XXD Other specified complications of surgical and medical care, not elsewhere classified, subsequent encounter (principal); Z98.890 Other specified postprocedural states; Z98.84 Bariatric surgery status | CPT/HCPCS: 99212 ==

== ENCOUNTER 2022-02-06 10:40 | Outpatient (REF) | payer MEDICARE, MEDICAID, SELFPAY ==
--- NOTE | ~2022-02-06 | XR_ITS ---
EXAMINATION: XR SHOULDER, LEFT CLINICAL INFORMATION: Pain COMPARISON: None TECHNIQUE: Four views of the left shoulder. FINDINGS: No fracture or dislocation. Calcifications in the soft tissues adjacent to the humeral greater tuberosity could be associated with calcific tendinosis of the rotator cuff. The acromioclavicular joint is intact with mild hypertrophic degenerative change. The visualized lung is clear. The visualized ribs are intact. XR/XR shoulder LT min 2V IMPRESSION: Suspect calcific tendinosis of the rotator cuff.
--- NOTE | ~2022-02-06 | XR_ITS ---
EXAMINATION: XR CERVICAL SPINE CLINICAL INFORMATION: Pain COMPARISON: None TECHNIQUE: 3 views of the cervical spine were obtained. FINDINGS: There are no prevertebral soft tissue or bony abnormalities demonstrated. No compression fractures or subluxations are identified. Alignment is maintained at the atlanto-axial articulation. The disc spaces are preserved. No endplate changes are seen. The prevertebral soft tissues are normal. The lung apices are clear. XR/XR cervical spine 3V IMPRESSION: Unremarkable examination.
[2022-02-06 12:06] LABS: Uric Acid 2.1 mg/dL (2.4-5.7)
[2022-02-08 01:16] LABS: Lyme Abs Screen <0.90 index
== END 2022-02-06 10:41 | disposition home or self-care (01) ==
LOC: HO.XRAY 10:40
PROVIDERS: Absent Provider Internal Medicine; PCP Internal Medicine; Visit Provider Emergency Medicine
DX: M25.512 Pain in left shoulder (principal); M54.2 Cervicalgia
CPT/HCPCS: 36415; 72040; 73030; 84550; 86617; 86618

== ENCOUNTER 2022-02-10 09:21 | Emergency (ER) | payer MEDICARE, MEDICAID, SELFPAY ==
[2022-02-10 09:29] VITALS: BP 125/76; PULSE 61; RESP 16; TEMP 36.8; O2SAT 100; BMI 25.0
--- NOTE | 2022-02-10 09:46 | ED_ITS ---
HPI - Extremity Problem General Chief complaint: Extremity Injury, Upper Stated complaint: L shoulder pain Time Seen by Provider: 02/10/22 09:38 Source: patient Mode of arrival: ambulatory Limitations: no limitations History of Present Illness HPI Narrative: 46-year-old female with past medical history bariatric surgery, panniculitis, anemia, presents to ED for left shoulder pain. Patient states having this for 1 week. Patient states pain on range of motion of left shoulder pain. Left shoulder pain radiating down arm. Patient was seen at [facility]. Patient states she had blood work done at [facility] and x-ray which showed calcific tendinitis of her shoulder. Patient denies any chest pain or shortness of breath. Related Data Home Medications Medication Instructions Recorded Confirmed [id number] 45 mg-folic cap PO 03/07/21 12/05/21 acid 800 mcg-vit K 120 mcg capsule (Bariatric Multivitamins) Previous Rx's Medication Instructions Recorded iron,carbonyl 65 mg-vitamin C 125 1 tab PO BID #60 tab 03/26/21 mg tablet,delayed release (Vitron-C) vitamin A palmitate 10,000 unit 10,000 unit PO DAILY #30 tab 04/04/21 tablet hydrocortisone 1 % topical cream 1 appl TOPICAL TID PRN #28.4 g 09/07/21 (Anti-Itch (hydrocortisone)) oxycodone-acetaminophen 5 mg-325 1 tab PO TID PRN 3 Days #9 tab 02/10/22 mg tablet (Percocet) prednisone 20 mg tablet 60 mg PO DAILY 5 Days #15 tab 02/10/22 Allergies Allergy/AdvReac Type Severity Reaction Status Date / Time No Known Allergies Allergy Verified 12/05/21 09:58 [No Known Allergies*] Review of Systems Review of Systems: Left shoulder pain Yes all other systems are reviewed and are negative PMFSH Past Medical History Medical History (Updated 02/10/22 @ 11:18 by RASHAWN Johnson) Overweight Surgical History Hx of section Hx of gastric bypass Family History Family History Mother Hypertension Diabetes Asthma Father Hypertension Brother No problems noted. Brother No problems noted. Brother No problems noted. Sister No problems noted. Sister No problems noted. Sister No problems noted. Son No problems noted. Daughter No problems noted. Daughter No problems noted. Social History Social History Alcohol intake: current Alcohol intake frequency: holidays/special occasions only Patient Tobacco Use Status: Never used Tobacco Advance Directives: No Advance Directives Information Provided: No Patient : No service: No Physical Exam Vital Signs: Vital Signs: Last Vital Signs Temp 98.2 F 02/10/22 09:29 Pulse 61 02/10/22 09:29 Resp 16 02/10/22 09:29 BP 125/76 02/10/22 09:29 Pulse Ox 100 02/10/22 09:29 BMI result Body Mass Index 25.0 Const: General: cooperative, healthy appearing, comfortable, no acute distress, well developed, alert, awake and Physically active Orientation/consciousness: oriented to time and patient oriented x3 HEENT: Head: Yes normal to inspection, Yes No palpable skull fracture present, Yes normocephalic, Yes atraumatic and No abrasion Eyes: General: appearance normal, both eyes and all related structures Neck: Neck: Yes normal visual inspection, Yes full ROM, Yes no lymphadenopathy, Yes no meningeal signs, Yes trachea midline, Yes supple, No anterior neck swelling and No tender Chest: Chest palpation & inspection: normal inspection of the chest and normal palpation of entire chest wall Resp: Effort & Inspection: normal respiratory effort and able to speak in complete sentences Auscultation: clear to auscultation bilaterally Cardio: Jugular venous distension: no JVD Heart sounds: S1 normal heart sound present and S2 normal heart sound present GI: Inspection: Yes normal to inspection and No abdominal wall ecchymosis Palpation (GI): Soft to palpation, not firm, nontender, no guarding and not rigid : General: No CVA tenderness and Yes no CVA tenderness Back/Spine/Pelvis: Back: no CVA tenderness, No CVA tenderness and No back tenderness Skin: General skin exam: no rashes or lesions noted and elasticity normal Neuro: General: oriented to time, patient oriented x3, gait normal, tone normal, moves all extremities and no meningeal signs Cranial nerves: Yes CN's II-XII intact bilaterally Extrem: General: Yes normal to inspection and Yes full ROM Shoulder/upper arm images: 1. Positive for tenderness on palpation. Negative for any ecchymosis, swelling, redness, or deformity. Significant decrease in range of motion of shoulder due to pain. Rest of left upper extremity negative for swelling, ecchymosis, erythema, deformity, warmth, coolness, or crepitus. Vascular and neuro exam motor exam intact. Once again left shoulder motor exam limited due to pain. Psych: Appearance: grossly normal, well kempt and not disheveled Course Course Course Narrative: Initially will give oxycodone and steroid. Reevaluation(s) Reevaluation #1: The patient's left shoulder pain most likely due to tendinitis but due to age will do EKG was done. EKG was negative for STEMI. Troponin negative. Patient is safe for discharge. Patient has follow-up with orthopedic for March 30 patient was informed to call them tomorrow for early appointment. Time: 11:14 MDM - Extremity (Nontraumatic) MDM Narrative Medical decision making narrative: Shoulder tendinitis Lab Data Result diagrams: 02/10/22 10:27 02/10/22 10:27 Labs: Lab Results 02/10/22 02/10/22 02/10/22 Range/Units 10:27 10:27 10:27 WBC 5.4 (4.8-10.8) X10*3/uL RBC 3.89 L (4.20-5.50) X10*6/uL Hgb 9.9 L (12.0-16.0) g/dl Hct 31.9 L (37.0-47.0) % MCV 82.0 (80.0-98.0) fL MCH 25.4 L (27.0-33.0) pg MCHC 31.0 (31.0-35.0) g/dl RDW 15.9 (11.0-16.0) % Plt Count 215 (160-400) X10*3/uL MPV 9.9 (9.4-12.3) fL Immature Gran % (Auto) 0.4 (0.0-0.4) % Neut % (Auto) 67.6 (45-73) % Lymph % (Auto) 18.6 L (20-40) % Austin % (Auto) 10.6 (2-11) % Eos % (Auto) 2.2 (0-4) % Baso % (Auto) 0.6 (0-2) % Lymph # (Auto) 1.0 L (1.2-4.9) X10*3/uL Austin # (Auto) 0.6 (0.1-1.2) X10*3/uL Eos # (Auto) 0.1 (0.0-0.4) X10*3/uL Baso # (Auto) 0.0 (0.0-0.2) X10*3/uL Abs Immat Gran (auto) 0.02 (0.00-0.03) X10*3/uL Absolute Neuts (auto) 3.6 (2.0-8.3) x10*3/uL Absolute Nucleated RBC 0.000 (0.0-0.012) X10*3/uL Nucleated RBC % (auto) 0.0 (0.0-0.2) /100WBC PT 11.6 (9.9-13.0) SEC INR 1.0 (0.9-1.1) APTT 31.9 (24.1-38.0) SEC Sodium 140 (135-145) mmol/L Potassium 4.3 (3.3-5.1) mmol/L Chloride 109 H (96-108) mmol/L Carbon Dioxide 25 (22-29) mmol/L Anion Gap 10 L (12-20) BUN 16 (9-16) mg/dL Creatinine 0.68 (0.5-1.4) mg/dL Estim Creat Clear Calc 90.5 Estimated GFR > 60 Random Glucose 99 (60-115) mg/dL Calcium 9.1 D (8.4-10.2) mg/dL Total Bilirubin 0.3 (0.0-1.0) mg/dL AST 17 (5-31) U/L ALT 13 (0-31) U/L Alkaline Phosphatase 63 (39-117) U/L Troponin I High Sens (<3.5-17.0) ng/L Total Protein 6.9 (6.5-8.0) g/dL Albumin 4.1 (3.5-5.0) g/dL 02/10/22 Range/Units 10:27 WBC (4.8-10.8) X10*3/uL RBC (4.20-5.50) X10*6/uL Hgb (12.0-16.0) g/dl Hct (37.0-47.0) % MCV (80.0-98.0) fL MCH (27.0-33.0) pg MCHC (31.0-35.0) g/dl RDW (11.0-16.0) % Plt Count (160-400) X10*3/uL MPV (9.4-12.3) fL Immature Gran % (Auto) (0.0-0.4) % Neut % (Auto) (45-73) % Lymph % (Auto) (20-40) % Austin % (Auto) (2-11) % Eos % (Auto) (0-4) % Baso % (Auto) (0-2) % Lymph # (Auto) (1.2-4.9) X10*3/uL Austin # (Auto) (0.1-1.2) X10*3/uL Eos # (Auto) (0.0-0.4) X10*3/uL Baso # (Auto) (0.0-0.2) X10*3/uL Abs Immat Gran (auto) (0.00-0.03) X10*3/uL Absolute Neuts (auto) (2.0-8.3) x10*3/uL Absolute Nucleated RBC (0.0-0.012) X10*3/uL Nucleated RBC % (auto) (0.0-0.2) /100WBC PT (9.9-13.0) SEC INR (0.9-1.1) APTT (24.1-38.0) SEC Sodium (135-145) mmol/L Potassium (3.3-5.1) mmol/L Chloride (96-108) mmol/L Carbon Dioxide (22-29) mmol/L Anion Gap (12-20) BUN (9-16) mg/dL Creatinine (0.5-1.4) mg/dL Estim Creat Clear Calc Estimated GFR Random Glucose (60-115) mg/dL Calcium (8.4-10.2) mg/dL Total Bilirubin (0.0-1.0) mg/dL AST (5-31) U/L ALT (0-31) U/L Alkaline Phosphatase (39-117) U/L Troponin I High Sens < 3.5 (<3.5-17.0) ng/L Total Protein (6.5-8.0) g/dL Albumin (3.5-5.0) g/dL ECG Data Interpretation: Normal sinus rhythm. Ventricular rate 60. Pr interval 142. QRS 86 pr QTC 375. Negative STEMI Discharge Plan Discharge Clinical Impression: Left shoulder tendinitis Patient Disposition: Home, Self-Care Instructions: Calcific Tendinitis (ED) Additional Instructions: Rick electrocardiograma y an?lisis de rico resultaron negativos para un ataque al coraz?n. Lo m?s probable es que kailey s?ntomas se deban a elliot tendinitis en el hombro babar. Llame a rick ortop?dico para elliot jill m?s temprana. Se le yohana? de sanjuanita con analg?sicos y esteroides. Regrese al servicio de urgencias si empeora el dolor en el hombro, hinchaz?n de las extremidades superiores, enrojecimiento, calor, equimosis, fiebre, escalofr?os, dolor en el pecho, dificultad para respirar, coloraci?n james azulada de las yemas de los dedos o cualquier otro s?ntoma preocupante. Prescriptions: New prednisone 20 mg tablet 60 mg PO DAILY 5 Days Qty: 15 0RF oxycodone-acetaminophen [Percocet] 5-325 mg tablet 1 tab PO TID PRN (Reason: pain) 3 Days Qty: 9 0RF Rx Instructions: side effect is drowsiness. Do not take at work or while driving. No Action Vitron-C 65 mg iron- 125 mg tablet,delayed release (DR/EC) 1 tab PO BID Qty: 60 5RF vitamin A palmitate 10,000 unit tablet 10,000 unit PO DAILY Qty: 30 0RF Bariatric Multivitamins 45 mg iron- 800 mcg-120 mcg capsule PO 0RF hydrocortisone [Anti-Itch (HC)] 1 % cream 1 appl topical TID PRN (Reason: skin irritation) Qty: 28.4 2RF Stand Alone Forms: Work/School Release Interventions: ED Discharge Assessment Last Done: 02/10/22 11:46 Discharge Date/Time: 02/10/22 11:48 Print Language: Taiwanese
--- NOTE | 2022-02-10 10:04 | ECG_ITS ---
Test Reason : LEFT SHOULDER PAIN Blood Pressure : / mmHG Vent. Rate : 060 BPM Atrial Rate : 060 BPM P-R Int : 142 ms QRS Dur : 086 ms QT Int : 376 ms P-R-T Axes : 037 030 035 degrees QTc Int : 376 ms Normal sinus rhythm Normal ECG When compared to the previous EKG of No significant changes seen Referred By: Tyrell Jasso Electronically Signed By:Hamilton Monreal
[2022-02-10] MEDS: predniSONE 20 MG TABLET 60 MG PO (10:11)
[2022-02-10] MEDS: oxyCODONE HCl Immed Release 5 MG TABLET PO (10:11)
[2022-02-10 10:32] LABS: MANUAL DIFF FLAG NO
[2022-02-10 10:34] LABS: Basophils Percent Auto 0.6 % (0-2); Eosinophils Absolute Auto 0.1 X10*3/uL (0.0-0.4); Eosinophils Percent Auto 2.2 % (0-4); Hematocrit 31.9 % (37.0-47.0); Hemoglobin 9.9 g/dl (12.0-16.0); Imm Gran Abs Auto 0.02 X10*3/uL (0.00-0.03); Imm Gran Pct Auto 0.4 % (0.0-0.4); Lymphocytes Percent Auto 18.6 % (20-40); Mean Corpuscular Hemoglobin 25.4 pg (27.0-33.0); Mean Platelet Volume 9.9 fL (9.4-12.3); Monocytes Absolute Auto 0.6 X10*3/uL (0.1-1.2); Monocytes Percent Auto 10.6 % (2-11); Neutrophils Absolute Auto 3.6 x10*3/uL (2.0-8.3); Neutrophils Percent Auto 67.6 % (45-73); Platelet Count 215 X10*3/uL (160-400); Red Blood Count 3.89 X10*6/uL (4.20-5.50); Red Cell Distribution Width 15.9 % (11.0-16.0); White Blood Count 5.4 X10*3/uL (4.8-10.8)
[2022-02-10 10:39] LABS: Prothrombin Time 11.6 SEC (9.9-13.0)
[2022-02-10 10:42] LABS: Partial Thromboplastin Time 31.9 SEC (24.1-38.0)
[2022-02-10 11:03] LABS: Alanine Aminotransferase 13 U/L (0-31); Albumin Level 4.1 g/dL (3.5-5.0); Alkaline Phosphatase 63 U/L (39-117); Anion Gap 10 (12-20); Aspartate Amino Transferase 17 U/L (5-31); Bilirubin Total 0.3 mg/dL (0.0-1.0); Blood Urea Nitrogen 16 mg/dL (9-16); Calcium 9.1 mg/dL (8.4-10.2); Carbon Dioxide 25 mmol/L (22-29); Chloride 109 mmol/L (96-108); Creatinine Clr Calc Pharmacy 90.5; Estimated Glomerular Filt Rate > 60; Glucose Random 99 mg/dL (60-115); Potassium 4.3 mmol/L (3.3-5.1); Sodium 140 mmol/L (135-145); Total Protein 6.9 g/dL (6.5-8.0)
[2022-02-10 11:06] LABS: Troponin-I High Sensitivity < 3.5 ng/L (<3.5-17.0)
== END 2022-02-10 11:48 | disposition home or self-care (01) ==
PROVIDERS: Physician Assistant; Emergency Provider Emergency Medicine; PCP Internal Medicine
DX: M25.512 Pain in left shoulder (principal); R07.89 Other chest pain; Z79.899 Other long term (current) drug therapy
CPT/HCPCS: 36415; 80053; 84484; 85025; 85610; 85730; 93005; 99284

== ENCOUNTER → 2022-02-28 09:37 | Outpatient (BNVA) | payer MEDICARE, MEDICAID, SELFPAY | PROVIDERS: PCP Internal Medicine; Visit Provider Physician Assistant | DX: M75.32 Calcific tendinitis of left shoulder (principal) | CPT/HCPCS: 20610; 99202; J1040 ==

== ENCOUNTER → 2022-04-08 09:13 | Outpatient (BNVA) | payer MEDICARE, MEDICAID, SELFPAY | PROVIDERS: PCP Internal Medicine; Visit Provider Physician Assistant | DX: T88.8XXA Other specified complications of surgical and medical care, not elsewhere classified, initial encounter (principal); Z98.84 Bariatric surgery status | CPT/HCPCS: 99212 ==

== ENCOUNTER 2022-11-18 15:16 | Outpatient (REF) | payer MEDICARE, MEDICAID, SELFPAY ==
--- NOTE | ~2022-11-18 | XR_ITS ---
EXAMINATION: XR SHOULDER, LEFT CLINICAL INFORMATION: Pain. COMPARISON: None TECHNIQUE: AP external rotation, Grashey, scapular Y, and axillary views of the left shoulder. FINDINGS: The bones and soft tissues are normal. No fracture. Glenohumeral and acromioclavicular alignment is anatomic with normal joint space. No abnormal soft tissue calcifications. XR/XR shoulder LT min 2V IMPRESSION: Unremarkable left shoulder exam.
== END 2022-11-18 15:17 | disposition home or self-care (01) ==
LOC: HO.HOSX 15:16
PROVIDERS: Visit Provider Physician Assistant
DX: M75.32 Calcific tendinitis of left shoulder (principal)
CPT/HCPCS: 20610; 73030; 99212; J1040

== ENCOUNTER 2022-12-04 08:15 | Outpatient (REF) | payer MEDICARE, MEDICAID, SELFPAY ==
[2022-12-04 10:44] LABS: Syphilis Screen Nonreactive (Nonreactive)
[2022-12-04 10:45] LABS: HBc Num1 0.07 S/CO (0.00-0.79); HIV AB/AG Nonreactive (Nonreactive); HIV Num 1 0.07 S/CO (0.00-0.99); Hepatitis B Core Antibody Nonreactive (Nonreactive); ~HepC Num1 0.08 S/CO (0.00-0.79); ~Hepatitis C Antibody Nonreactive (Nonreactive)
[2022-12-04 16:43] LABS: CT PCR NOT DETECTED (Not Detect.); NG PCR NOT DETECTED (Not Detect.)
[2022-12-05 12:42] LABS: BV Int Neg Control Negative (Negative); BV Int Pos Control Positive (Positive)
== END 2022-12-04 08:16 | disposition home or self-care (01) ==
LOC: HO.LAB 08:15
PROVIDERS: PCP Nurse Practitioner; Visit Provider Advanced Practice Midwife
DX: Z01.419 Encounter for gynecological examination (general) (routine) without abnormal findings (principal); Z11.51 Encounter for screening for human papillomavirus (HPV); Z11.4 Encounter for screening for human immunodeficiency virus [HIV]; Z20.2 Contact with and (suspected) exposure to infections with a predominantly sexual mode of transmission
CPT/HCPCS: 0353U; 86704; 86780; 86803; 87389; 87480; 87510; 87624; 87660; 88142

== ENCOUNTER 2022-12-04 08:57 | Outpatient (REF) | payer MEDICARE, MEDICAID, SELFPAY ==
[2022-12-07 07:33] LABS: HPV mRNA E6/E7 rflx Not Detected (Not Detected)
== END 2022-12-04 08:58 | disposition home or self-care (01) ==
LOC: HO.LNP 08:57
PROVIDERS: Visit Provider Advanced Practice Midwife
DX: Z13.89 Encounter for screening for other disorder (principal)
CPT/HCPCS: 87624; 88142

== ENCOUNTER 2022-12-10 08:56 | Outpatient (REF) | payer MEDICARE, MEDICAID, SELFPAY ==
[2022-12-10 11:34] LABS: Folate 19.1 ng/mL (> or = 4.0); Vitamin B12 1128 pg/mL (200-900); Vitamin D 25-OH Total 33.7 ng/mL (>30)
[2022-12-11 11:49] LABS: Calcium (PTHI) 9.7 mg/dL (8.6-10.2); PTHI 43 pg/mL (16-77)
[2022-12-13 16:09] LABS: Zinc 74 mcg/dL (60-130)
[2022-12-15 16:24] LABS: Vitamin A 39 mcg/dL (38-98)
[2022-12-16 02:10] LABS: Vitamin B1 18 nmol/L (8-30)
== END 2022-12-10 08:57 | disposition home or self-care (01) ==
LOC: HO.LAB 08:56
PROVIDERS: Absent Provider Physician Assistant; PCP Nurse Practitioner; Visit Provider Physician Assistant Surgical
DX: E66.3 Overweight (principal); Z98.84 Bariatric surgery status; Z98.890 Other specified postprocedural states
CPT/HCPCS: 36415; 82306; 82607; 82746; 83970; 84425; 84590; 84630; 99212

== ENCOUNTER 2022-12-17 13:08 | Outpatient (REF) | payer MEDICARE, MEDICAID, SELFPAY ==
--- NOTE | ~2022-12-17 | MM_ITS ---
EXAMINATION: MM SCREENING DIGITAL BREAST TOMOSYNTHESIS, BILATERAL CLINICAL INFORMATION: Screening. Asymptomatic. Intentional weight loss 135 pounds since prior mammography (bariatric surgery). The lifetime risk of breast cancer based on the Tyrer-Cuzick Model is 8%. COMPARISON: Mammography: 03/03/2018 (baseline) TECHNIQUE: Digital breast tomosynthesis is performed in both the craniocaudal and mediolateral oblique views along with computer-aided detection (CAD). Synthesized 2D images are generated from the tomosynthesis. FINDINGS: There are scattered areas of fibroglandular density (ACR BI-RADS breast composition Category b). There are no significant masses, abnormal calcifications, or other abnormalities. No developing density or architectural abnormality. The breasts are symmetrically smaller consistent with the clinical history. There are some scattered benign dermal calcifications at the posterior medial breasts. No significant changes. MM/MM tomosynthesis screening BI IMPRESSION: No mammographic evidence of malignancy. ASSESSMENT: BI-RADS 2: Benign RECOMMENDATION: Routine annual mammography screening. This patient's information was entered into a reminder system with a target due date for their next mammogram.
== END 2022-12-17 13:09 | disposition home or self-care (01) ==
LOC: HO.MAMMO 13:08
PROVIDERS: Visit Provider Advanced Practice Midwife
DX: Z12.31 Encounter for screening mammogram for malignant neoplasm of breast (principal)
CPT/HCPCS: 77063; 77067

== ENCOUNTER 2022-12-27 08:23 | Outpatient (REF) | payer MEDICARE, MEDICAID, SELFPAY ==
--- NOTE | ~2022-12-27 | CT_ITS ---
EXAMINATION: CT ABDOMEN AND PELVIS WITH CONTRAST CLINICAL INFORMATION: Previously stable seroma under panniculectomy incision- now larger and painful COMPARISON: CT abdomen pelvis 10/22/2021. TECHNIQUE: Multidetector volumetric images were obtained from the superior aspect of the liver through the pubic symphysis following administration 85 mL of Omnipaque 350 intravenous contrast. Sagittal and coronal reformatted images were obtained on the technologist's workstation. Oral contrast: No This CT examination was performed using dose optimization techniques as appropriate, variously including the following: *Automated exposure control *Adjustment of mA and/or kV according to patient size (this includes techniques or standardized protocols for targeted exams where dose is matched to indication/reason for exam; i.e. extremities or head) *Use of iterative reconstruction technique DLP: 335 mGy-cm. FINDINGS: LUNG BASES: The visualized lung bases are unremarkable. LIVER, GALLBLADDER, AND BILIARY TREE: The liver is normal in size, shape, and attenuation. No focal hepatic lesion or biliary ductal dilatation is present. The gallbladder is unremarkable with no evidence of radiopaque gallstones, gallbladder wall thickening, or obvious pericholecystic inflammatory changes. PANCREAS: Unremarkable. SPLEEN: Unremarkable. ADRENAL GLANDS: Unremarkable. KIDNEYS AND URETERS: The kidneys are normal in size, shape, and attenuation. No hydronephrosis, hydroureter, or calculi seen. No perinephric stranding. BLADDER: Unremarkable. GASTROINTESTINAL TRACT: Again seen are postsurgical changes at the GE junction and stomach consistent with gastric bypass. The previously seen thickened loop of small bowel in the central abdomen is no longer appreciated. The small and large bowel are unremarkable. The appendix is unremarkable. ABDOMINAL WALL: Streaky changes are seen in the abdominal wall in the left lower quadrant. LYMPH NODES: No retroperitoneal lymphadenopathy. VASCULAR: Unremarkable. PELVIC VISCERA: Anteverted retroflexed uterus. An abnormal adnexal mass is not seen. A cyst is present in the midline vagina which may be a Susannah's duct cyst, unchanged from prior. OSSEOUS STRUCTURES: Unremarkable. Mild degenerative changes in the spine. CT/CT abdomen pelvis w IV con IMPRESSION: No evidence of bowel obstruction. Stable postop findings. The previously seen thickened small bowel loop is no longer appreciated. Other incidental findings as described above. Fleischner guidelines were followed.
[2022-12-27] MEDS: iohexoL 350 MG/ML 100 ML INFUS..BTL 85 ML IV (09:24)
== END 2022-12-27 08:24 | disposition home or self-care (01) ==
LOC: HO.CT 08:23
PROVIDERS: PCP Nurse Practitioner; Visit Provider Physician Assistant Surgical
DX: T88.8XXA Other specified complications of surgical and medical care, not elsewhere classified, initial encounter (principal); X58.XXXA Exposure to other specified factors, initial encounter; Y93.9 Activity, unspecified; Y92.9 Unspecified place or not applicable; Y99.9 Unspecified external cause status
CPT/HCPCS: 74177; Q9967

== ENCOUNTER 2023-04-29 15:48 | Outpatient (REF) | payer MEDICARE, MEDICAID, SELFPAY ==
--- NOTE | ~2023-04-29 | XR_ITS ---
EXAMINATION: XR SHOULDER, RIGHT CLINICAL INFORMATION: Shoulder pain COMPARISON: None available. TECHNIQUE: AP external rotation, Grashey, scapular Y, and axillary views of the right shoulder. FINDINGS: No acute fracture or dislocation. Glenohumeral and acromioclavicular alignment is anatomic with normal joint space. There are multiple densities seen projected posterior to the humeral head/neck, as seen on the scapular Y view, of uncertain etiology, possibly reflecting calcific tendinitis/bursitis, or loose bodies. XR/XR shoulder RT min 2V IMPRESSION: No evidence of acute osseous abnormality. Multiple calcific densities adjacent to the humeral head/neck, of uncertain etiology, could reflect calcific tendinitis/bursitis or loose bodies.
== END 2023-04-29 15:49 | disposition home or self-care (01) ==
LOC: HO.HHCX 15:48
PROVIDERS: Visit Provider Student in an Organized Health Care Education/Training Program
DX: M25.511 Pain in right shoulder (principal)
CPT/HCPCS: 73030

== ENCOUNTER 2023-05-14 10:26 | Outpatient (REF) | payer MEDICARE, MEDICAID, SELFPAY ==
[2023-05-14 12:00] LABS: Estimated Average Glucose 105 mg/dL; Hemoglobin A1c % 5.3 %
[2023-05-14 12:31] LABS: Alanine Aminotransferase 12 U/L (0-31); Albumin Level 4.1 g/dL (3.5-5.0); Alkaline Phosphatase 62 U/L (39-117); Anion Gap 13 (12-20); Aspartate Amino Transferase 16 U/L (5-31); Bilirubin Total 0.8 mg/dL (0.0-1.0); Blood Urea Nitrogen 12 mg/dL (9-16); Carbon Dioxide 25 mmol/L (22-29); Chloride 104 mmol/L (96-108); Cholesterol 162 mg/dL; Estimated Glomerular Filt Rate > 60; Glucose Random 92 mg/dL (60-115); HDL Cholesterol 76 mg/dL; LDL Cholesterol Calculated 77 mg/dl; Potassium 3.9 mmol/L (3.3-5.1); Sodium 138 mmol/L (135-145); Triglycerides 49 mg/dL
[2023-05-14 12:47] LABS: TSH reflex Free T4 1.05 uIU/mL (0.32-4.0)
[2023-05-14 13:17] LABS: ~HepC Num1 0.06 S/CO (0.00-0.79); ~Hepatitis C Antibody Nonreactive (Nonreactive)
[2023-05-14 13:18] LABS: Syphilis Screen Nonreactive (Nonreactive)
[2023-05-17 12:44] LABS: HIV RNA PCR Qn Copies NOT DETECTED copies/mL (NOT DETECTED); HIV RNA PCR Qn Log Copies NOT DETECTED (NOT DETECTED)
== END 2023-05-14 10:27 | disposition home or self-care (01) ==
LOC: HO.HHCL 10:26
PROVIDERS: Visit Provider Nurse Practitioner Family
DX: Z00.00 Encounter for general adult medical examination without abnormal findings (principal); L63.9 Alopecia areata, unspecified
CPT/HCPCS: 36415; 80053; 80061; 83036; 84443; 86780; 86803; 87536

== ENCOUNTER 2023-12-15 07:28 | Outpatient (REF) | payer MEDICARE, MEDICAID, SELFPAY ==
--- NOTE | ~2023-12-15 | CT_ITS ---
EXAMINATION: CT HEAD WITHOUT CONTRAST CLINICAL INFORMATION: New onset diffuse headache. COMPARISON: None available. TECHNIQUE: Contiguous axial imaging was performed from the skull base to vertex without intravenous administration of contrast. This CT examination was performed using dose optimization techniques as appropriate, variously including the following: *Automated exposure control *Adjustment of mA and/or kV according to patient size (this includes techniques or standardized protocols for targeted exams where dose is matched to indication/reason for exam; i.e. extremities or head) *Use of iterative reconstruction technique DLP: 739 mGy-cm FINDINGS: The brain parenchyma has normal attenuation. The lu-white matter differentiation is well preserved. No evidence of an acute major vascular territory infarction. No intracranial hemorrhage, extra-axial fluid collection, focal mass effect or midline shift. The ventricles have normal size and configuration; no hydrocephalus. The brainstem and cerebellum have a normal appearance. The cerebellar tonsils are in normal position. The calvarium is intact. The visualized paranasal sinuses, mastoid air cells and middle ear cavities are well aerated. The orbits and globes are unremarkable. The temporomandibular joints are normal. CT/CT head/brain wo IV con IMPRESSION: No acute intracranial pathology.
== END 2023-12-15 07:29 | disposition home or self-care (01) ==
LOC: HO.CT 07:28
PROVIDERS: PCP Nurse Practitioner Family; Visit Provider Family Medicine
DX: R51.9 Headache, unspecified (principal)
CPT/HCPCS: 70450

== ENCOUNTER 2024-01-09 10:27 | Outpatient (REF) | payer MEDICARE, MEDICAID, SELFPAY ==
--- NOTE | ~2024-01-09 | XR_ITS ---
EXAMINATION: XR FOOT, LEFT CLINICAL INFORMATION: Pain of left foot, acute pain and swelling to middle toe of left foot. Patient states acute pain and swelling to middle toe of left foot for 3 days. COMPARISON: None available. TECHNIQUE: AP, lateral, and oblique views of the left foot. FINDINGS: Moderate spurring along the dorsal aspect of the calcaneus. Faint vascular calcifications. Mild degenerative changes with hypertrophic change in the first metatarsophalangeal joint. Amorphous soft tissue calcifications along the lateral mid aspect of the third toe, largest just lateral to the middle phalanx. Multiple additional smaller calcifications are seen with examples medial to the second middle phalanx head, medial to the fifth metatarsal head, along the medial aspect of the second metatarsal head and adjacent to the base of the fifth metatarsal. Some of these calcifications may represent chronic/degenerative process and/or normal variants. XR/XR foot LT min 3V IMPRESSION: 1. Amorphous soft tissue calcifications, largest 7 mm, lateral to the middle phalange of the third toe. Additional smaller soft tissue calcifications as detailed above. Correlation with clinical exam recommended to determine further management. 2. Mild degenerative changes first metatarsophalangeal joint. 3. Moderate spurring along the dorsal aspect of the calcaneus. 4. Recommend follow up imaging in 10-14 days if fracture is suspected.
== END 2024-01-09 10:28 | disposition home or self-care (01) ==
LOC: HO.HHCX 10:27
PROVIDERS: Visit Provider Nurse Practitioner Family
DX: M79.675 Pain in left toe(s) (principal)
CPT/HCPCS: 73630

== ENCOUNTER 2024-01-12 08:12 | Outpatient (REF) | payer MEDICARE, MEDICAID, SELFPAY ==
[2024-01-12 11:12] LABS: MANUAL DIFF FLAG NO
[2024-01-12 11:38] LABS: Basophils Absolute Auto 0.1 X10*3/uL (0.0-0.2); Basophils Percent Auto 1.5 % (0-2); Eosinophils Absolute Auto 0.1 X10*3/uL (0.0-0.4); Hematocrit 24.8 % (37.0-47.0); Imm Gran Abs Auto 0.01 X10*3/uL (0.00-0.03); Imm Gran Pct Auto 0.3 % (0.0-0.4); Lymphocytes Absolute Auto 1.2 X10*3/uL (1.2-4.9); Lymphocytes Percent Auto 36.4 % (20-40); Mean Corpuscular HGB Conc 29.4 g/dl (31.0-35.0); Mean Corpuscular Hemoglobin 19.6 pg (27.0-33.0); Mean Corpuscular Volume 66.7 fL (80.0-98.0); Mean Platelet Volume 9.6 fL (9.4-12.3); Monocytes Absolute Auto 0.4 X10*3/uL (0.1-1.2); Monocytes Percent Auto 11.3 % (2-11); Neutrophils Absolute Auto 1.6 x10*3/uL (2.0-8.3); Neutrophils Percent Auto 47.5 % (45-73); Platelet Count 221 X10*3/uL (160-400); Red Blood Count 3.72 X10*6/uL (4.20-5.50); Red Cell Distribution Width 19.9 % (11.0-16.0); White Blood Count 3.4 X10*3/uL (4.8-10.8)
[2024-01-12 11:54] LABS: Hemoglobin 7.3 g/dl (12.0-16.0)
[2024-01-12 12:05] LABS: Estimated Average Glucose 100 mg/dL; Hemoglobin A1c % 5.1 % (<6.0)
[2024-01-12 12:08] LABS: Alanine Aminotransferase 12 U/L (0-31); Alkaline Phosphatase 68 U/L (39-117); Anion Gap 9 (12-20); Aspartate Amino Transferase 19 U/L (5-31); Bilirubin Total 0.5 mg/dL (0.0-1.0); Blood Urea Nitrogen 11 mg/dL (9-16); Calcium 9.1 mg/dL (8.4-10.2); Carbon Dioxide 29 mmol/L (22-29); Chloride 109 mmol/L (96-108); Cholesterol 148 mg/dL (<200); Estimated Glomerular Filt Rate > 60; Glucose Random 95 mg/dL (60-115); HDL Cholesterol 62 mg/dL (>40); LDL Cholesterol Calculated 74 mg/dL (<100); Potassium 3.9 mmol/L (3.3-5.1); Sodium 143 mmol/L (135-145); Total Protein 6.8 g/dL (6.5-8.0); Triglycerides 60 mg/dL (<150)
[2024-01-12 12:24] LABS: TSH reflex Free T4 1.55 uIU/mL (0.32-4.0)
[2024-01-13 05:18] LABS: HIV AB/AG Nonreactive (Nonreactive); HIV Num 1 0.06 S/CO (0.00-0.99); ~HepC Num1 0.11 S/CO (0.00-0.79); ~Hepatitis C Antibody Nonreactive (Nonreactive)
[2024-01-14 06:48] LABS: RPR Rapid Plasma Reagin NON-REACTIVE (NON-REACTIVE)
== END 2024-01-12 08:13 | disposition home or self-care (01) ==
LOC: HO.HHCL 08:12
PROVIDERS: Visit Provider Nurse Practitioner Family
DX: Z00.00 Encounter for general adult medical examination without abnormal findings (principal); R53.83 Other fatigue; L63.9 Alopecia areata, unspecified
CPT/HCPCS: 36415; 80053; 80061; 83036; 84443; 85025; 86592; 86803; 87389

== ENCOUNTER 2024-01-12 18:40 | Emergency (ER) | payer MEDICARE, MEDICAID, SELFPAY ==
[2024-01-12 19:11] VITALS: BP 139/81; PULSE 75; RESP 14; TEMP 36.6; O2SAT 100; BMI 28.9
--- NOTE | 2024-01-12 19:22 | ED.GENADULT ---
HPI - General Adult General Chief complaint: Recheck/Abnormal Lab/Rx Stated complaint: abnormal labs, referred by pcp Time Seen by Provider: 01/13/24 00:07 Source: patient, family and environmental health technician Mode of arrival: ambulatory History of Present Illness HPI narrative: 48-year-old female with history of anemia presents with being sent in by her primary care doctor for lab work that demonstrated worsening anemia. She denies any fevers or chills. And the headache that she describes has been ongoing for months and she was diagnosed with a migraine by her primary care doctor and had an outpatient CT scan as well. Related Data Home Medications Medication Instructions Recorded Confirmed fhtcogcw-dbsnafrx-mhdf 45 mg-folic cap PO 03/07/21 12/10/22 acid 800 mcg-vit K 120 mcg capsule (Bariatric Multivitamins) cetirizine 10 mg tablet 10 mg PO DAILY PRN itch 12/04/22 12/10/22 epinephrine 0.3 mg/0.3 mL IM 12/04/22 12/10/22 injection, auto-injector Previous Rx's Medication Instructions Recorded iron,carbonyl 65 mg-vitamin C 125 1 tab PO BID #60 tabs 03/26/21 mg tablet,delayed release (Vitron-C) vitamin A palmitate 3,000 mcg 10,000 unit PO DAILY #30 tabs 04/04/21 (10,000 unit) tablet Allergies Allergy/AdvReac Type Severity Reaction Status Date / Time No Known Allergies Allergy Verified 01/12/24 19:11 [No Known Allergies*] Review of Systems Review of Systems: Pertinent positives and negatives as stated in HPI PMFSH Past Medical History Source: nursing notes reviewed Medical History Overweight Surgical History Hx of section Hx of gastric bypass Family History Family History Mother Hypertension Diabetes Asthma Father Hypertension Brother No problems noted. Brother No problems noted. Brother No problems noted. Sister No problems noted. Sister No problems noted. Sister No problems noted. Son No problems noted. Daughter No problems noted. Daughter No problems noted. Maternal Grandfather Prostate cancer Social History Social History Alcohol intake: current Alcohol intake frequency: does not drink Patient Tobacco Use Status: Never used Tobacco Smoked in Last 30 Days: No Use of substances other than those prescribed or required for medical reasons: No Advance Directives: No Advance Directives Information Provided: No Patient : No service: No Current occupational status: disabled Current occupation: left hand Physical Exam ED Vital Signs: Vital Signs - 24 hr 01/12/24 19:11 01/13/24 01:05 01/13/24 01:05 Temperature 97.9 F Pulse Rate 75 62 69 Respiratory Rate 14 Blood Pressure 139/81 124/77 129/78 Pulse Oximetry 100 Oxygen Delivery Method Room Air 01/13/24 01:06 01/13/24 02:57 01/13/24 03:27 Temperature 97.4 F 98.1 F Pulse Rate 66 67 65 Respiratory Rate 19 16 Blood Pressure 140/75 H 133/74 110/61 Pulse Oximetry 99 Oxygen Delivery Method Room Air 01/13/24 03:44 01/13/24 05:48 01/13/24 06:51 Temperature 97.9 F 97.9 F 97.9 F Pulse Rate 66 60 66 Respiratory Rate 12 15 13 Blood Pressure 127/55 L 117/74 111/60 Pulse Oximetry 99 Oxygen Delivery Method Room Air BMI result Body Mass Index 28.9 VITAL SIGNS: Reviewed. GENERAL: Well developed, well nourished, in no acute distress. HEAD: Normocephalic/atraumatic EYES: PERRLA, EOMI, pale conjunctiva EARS: Ext canals without abnormality NOSE: Nares patent bilateral OROPHARYNX: no oral lesions noted, posterior pharynx clear NECK: Supple, no adenopathy LUNGS: Normal breath sounds. No adventitious sounds or accessory muscle use. SpO2-100 CARDIOVASCULAR: Regular rate and rhythm without noted murmurs, no JVD or lower extremity edema. ABDOMEN: Soft, non-tender, non-distended with bowel sounds. MUSCULOSKELETAL: No tenderness, deformities, or effusions noted on gross inspection. EXTREMITIES: No cyanosis, clubbing or edema. SKIN: Inspection of the skin reveals no rashes NEUROLOGIC: Alert and oriented x 4. Strength and sensation to light touch were grossly intact x 4. Course Course Course Narrative: RME: 48 year old female presents to ED for headache dizziness and low blood count. Patient was sent by primary care for low hemoglobin hematocrit. Patient denies any rectal bleeding or vaginal discharge. Hemoglobin 7 0.4/24. Will order repeat. Spoke with charge nurse for patient to come to the ED. repeat labs guaiac type and screen ordered. Medications Administered Discontinued Medications Generic Name Dose Route Start Last Admin Trade Name Ag PRN Reason Stop Dose Admin Acetaminophen 975 mg 01/13/24 00:48 01/13/24 01:26 Acetaminophen 325 Mg Tablet PO 01/13/24 00:49 975 mg ONCE ONE Administration Sodium Chloride 100 mls @ 100 mls/hr 01/13/24 01:13 01/13/24 05:33 Ns IV 01/13/24 02:12 Infused ONCE ONE Infusion Ibuprofen 400 mg 01/13/24 00:48 01/13/24 01:26 Ibuprofen 400 Mg Tablet PO 01/13/24 00:49 400 mg ONCE ONE Administration Medical Decision Making Medical Decision Making [facility] Narrative: 48-year-old female with history and clinical presentation significant for prior bariatric surgery and also chronic/longstanding anemia that I suspect is secondary to iron deficiency/absorption issues, on review of vital signs I see no evidence of tachycardia or hypotension, patient's headache has been ongoing and she was recently diagnosed with migraines and I reviewed the CT scan that was done in the outpatient setting and there were no acute intracranial pathologies. I reviewed all investigations and patient has a leukopenia with microcytic anemia although the comparison lab work is from 2 years ago, there is no thrombocytopenia. Coagulation studies are within normal limits. Chemistry indices do not demonstrated KATRIN or electrolyte/liver enzyme derangements. Orthostatics are negative, there is no tachycardia or hypotension. Given patient's symptom will transfuse with 1 unit RBC. 0603: Transfusion is complete, patient feels better and is instructed follow-up with primary care doctor. Differential Diagnosis Differential Diagnoses: The differential diagnosis associated with the presentation includes Please see the discussion above Admission/Observation Consideration of admission/observation: Escalation of care including admission/observation considered Please see the discussion above Lab Data [facility] Lab Attestation statement: I reviewed the patient's lab results. Please see the discussions about 01/12/24 19:50 01/12/24 19:50 Labs: Lab Results 01/12/24 01/13/24 Range/Units 19:50 01:32 WBC 4.6 L (4.8-10.8) X10*3/uL RBC 3.80 L (4.20-5.50) X10*6/uL Hgb 7.3 L (12.0-16.0) g/dl Hct 25.0 L (37.0-47.0) % MCV 65.8 L (80.0-98.0) fL MCH 19.2 L (27.0-33.0) pg MCHC 29.2 L (31.0-35.0) g/dl RDW 19.9 H (11.0-16.0) % Plt Count 202 (160-400) X10*3/uL MPV 9.0 L (9.4-12.3) fL Immature Gran % (Auto) 0.2 (0.0-0.4) % Neut % (Auto) 49.4 (45-73) % Lymph % (Auto) 37.4 (20-40) % Bullock % (Auto) 9.1 (2-11) % Eos % (Auto) 2.8 (0-4) % Baso % (Auto) 1.1 (0-2) % Lymph # (Auto) 1.7 (1.2-4.9) X10*3/uL Bullock # (Auto) 0.4 (0.1-1.2) X10*3/uL Eos # (Auto) 0.1 (0.0-0.4) X10*3/uL Baso # (Auto) 0.1 (0.0-0.2) X10*3/uL Abs Immat Gran (auto) 0.01 (0.00-0.03) X10*3/uL Absolute Neuts (auto) 2.3 (2.0-8.3) x10*3/uL Absolute Nucleated RBC 0.000 (0.0-0.012) X10*3/uL Nucleated RBC % (auto) 0.0 (0.0-0.2) /100WBC PT 11.9 (11.1-13.3) SEC INR 1.0 (0.9-1.1) APTT 27.3 (26.0-36.8) SEC Sodium 143 (135-145) mmol/L Potassium 4.3 (3.3-5.1) mmol/L Chloride 109 H (96-108) mmol/L Carbon Dioxide 29 (22-29) mmol/L Anion Gap 9 L (12-20) BUN 12 (9-16) mg/dL Creatinine 0.75 (0.5-1.4) mg/dL Estim Creat Clear Calc 85.9 Estimated GFR > 60 Random Glucose 96 (60-115) mg/dL Calcium 9.4 (8.4-10.2) mg/dL Total Bilirubin 0.3 (0.0-1.0) mg/dL AST 19 (5-31) U/L ALT 12 (0-31) U/L Alkaline Phosphatase 72 (39-117) U/L Total Protein 7.2 (6.5-8.0) g/dL Albumin 4.2 (3.5-5.0) g/dL Blood Type A Positive Antibody Screen NEGATIVE Crossmatch See Detail External Record Review External record reviewed: Office record, Outpatient record, Prior outpatient labs and Prior outpatient radiology Chronic Conditions Chronic anemia Critical Care Time Critical Care Time Critical Care Time: Yes Total Critical Care Time: 60 Attestation: I personally attest to this time spent taking care of the patient. Discharge Plan Discharge Clinical Impression: Hx of gastric bypass, Microcytic anemia Patient Disposition: Home, Self-Care Instructions: Iron Rich Diet (ED), Anemia (ED) Additional Instructions: Seguimiento con m?dico de atenci?n primaria en los pr?ximos 1-2 d?as. Regrese a la melva de emergencias si los s?ntomas empeoran. Follow-up with primary care doctor in the next 1-2 days. Return to the ER for worsening symptoms. Prescriptions: No Action Vitron-C 65 mg iron- 125 mg tablet,delayed release (DR/EC) 1 tab PO BID Qty: 60 5RF vitamin A palmitate 10,000 unit tablet 10,000 unit PO DAILY Qty: 30 0RF Bariatric Multivitamins 45 mg iron- 800 mcg-120 mcg capsule PO cetirizine 10 mg tablet 10 mg PO DAILY PRN (Reason: itch) epinephrine 0.3 mg/0.3 mL auto-injector IM Referrals: Criselda Gallardo NP [Primary Care Provider] - Interventions: ED Discharge Assessment Last Done: 01/13/24 07:13 Discharge Date/Time: 01/13/24 07:13 Print Language: [place] Verdean
[2024-01-12 19:54] LABS: MANUAL DIFF FLAG NO
[2024-01-12 19:55] LABS: Basophils Absolute Auto 0.1 X10*3/uL (0.0-0.2); Basophils Percent Auto 1.1 % (0-2); Eosinophils Absolute Auto 0.1 X10*3/uL (0.0-0.4); Eosinophils Percent Auto 2.8 % (0-4); Hemoglobin 7.3 g/dl (12.0-16.0); Imm Gran Abs Auto 0.01 X10*3/uL (0.00-0.03); Imm Gran Pct Auto 0.2 % (0.0-0.4); Lymphocytes Absolute Auto 1.7 X10*3/uL (1.2-4.9); Lymphocytes Percent Auto 37.4 % (20-40); Mean Corpuscular HGB Conc 29.2 g/dl (31.0-35.0); Mean Corpuscular Hemoglobin 19.2 pg (27.0-33.0); Mean Corpuscular Volume 65.8 fL (80.0-98.0); Monocytes Absolute Auto 0.4 X10*3/uL (0.1-1.2); Monocytes Percent Auto 9.1 % (2-11); Neutrophils Absolute Auto 2.3 x10*3/uL (2.0-8.3); Neutrophils Percent Auto 49.4 % (45-73); Platelet Count 202 X10*3/uL (160-400); Red Cell Distribution Width 19.9 % (11.0-16.0); White Blood Count 4.6 X10*3/uL (4.8-10.8)
[2024-01-12 20:01] LABS: Prothrombin Time 11.9 SEC (11.1-13.3)
[2024-01-12 20:04] LABS: Partial Thromboplastin Time 27.3 SEC (26.0-36.8)
[2024-01-12 20:09] LABS: Alanine Aminotransferase 12 U/L (0-31); Albumin Level 4.2 g/dL (3.5-5.0); Alkaline Phosphatase 72 U/L (39-117); Anion Gap 9 (12-20); Aspartate Amino Transferase 19 U/L (5-31); Bilirubin Total 0.3 mg/dL (0.0-1.0); Blood Urea Nitrogen 12 mg/dL (9-16); Calcium 9.4 mg/dL (8.4-10.2); Carbon Dioxide 29 mmol/L (22-29); Chloride 109 mmol/L (96-108); Creatinine Clr Calc Pharmacy 85.9; Estimated Glomerular Filt Rate > 60; Glucose Random 96 mg/dL (60-115); Potassium 4.3 mmol/L (3.3-5.1); Sodium 143 mmol/L (135-145); Total Protein 7.2 g/dL (6.5-8.0)
[2024-01-13] VITALS (7 sets, daily range): BP systolic 110–140; BP diastolic 55–78; PULSE 60–69; RESP 12–19; TEMP 36.3–36.7; O2SAT 99
[2024-01-13] MEDS: Acetaminophen 325 MG TABLET 975 MG PO (01:26)
[2024-01-13] MEDS: Ibuprofen 400 MG TABLET PO (01:26)
--- NOTE | 2024-01-13 03:49 | PC.NURSE ---
One unit of RBC's started with no complications. VSS. Reports headache, 4/10. Denies chest pain or sob. Pt is tolerating it well.
--- NOTE | 2024-01-13 05:48 | PC.NURSE ---
One unit of RBC's transfused with no complication or reactions. Denies any pain or sob at this time. Pt tolerated well.
== END 2024-01-13 07:13 | disposition home or self-care (01) ==
PROVIDERS: Physician Assistant; Emergency Provider Student in an Organized Health Care Education/Training Program; PCP Nurse Practitioner Family
DX: D50.9 Iron deficiency anemia, unspecified (principal); R79.89 Other specified abnormal findings of blood chemistry; R51.9 Headache, unspecified; Z98.84 Bariatric surgery status; Z79.899 Other long term (current) drug therapy
CPT/HCPCS: 36415; 36430; 80053; 80061; 83036; 84443; 85025; 85610; 85730; 86592; 86803; 86850; 86900; 86901; 86923; 87389; 96360; 96361; 99284; P9016

== ENCOUNTER 2024-01-19 11:41 | Outpatient (REF) | payer MEDICARE, MEDICAID, SELFPAY | END 2024-01-19 11:42 | disposition home or self-care (01) | LOC: HO.MAMMO 11:41 | PROVIDERS: PCP Nurse Practitioner Family; Visit Provider Nurse Practitioner Family | DX: Z12.31 Encounter for screening mammogram for malignant neoplasm of breast (principal) | CPT/HCPCS: 77063; 77067 ==

== ENCOUNTER → 2024-01-19 12:15 | Outpatient (BNV) | payer MEDICARE, MEDICAID, SELFPAY | PROVIDERS: PCP Nurse Practitioner Family; Visit Provider Radiology Diagnostic Radiology | DX: Z12.31 Encounter for screening mammogram for malignant neoplasm of breast (principal) | CPT/HCPCS: 77063; 77067 ==

== ENCOUNTER 2024-01-21 09:22 | Outpatient (AMB) | payer MEDICARE, MEDICAID, SELFPAY ==
--- NOTE | 2024-01-21 09:24 | A.OFFVIS_ITS ---
Intake VS Expanded 01/21/24 09:33 BP 140/68 H Blood Pressure Location Rt brachial Blood Pressure Position Sitting Pulse 67 Pulse Source Pulse Oximeter Temp 97.8 F Temperature Source Tympanic Pulse Oximetry 100 Oxygen Delivery Method Room Air Height 5 ft 1.5 in Weight 152 lb 3.2 oz BMI 28.3 Body Fat % 28.0 Body Fat Mass 42.8 Fat Free Mass 109.8 Visceral Fat Rating 6.0 Body Water % 51.2 Body Water Mass 78.0 Muscle Mass/Score 104.2 Basal Metabolic Rate/Score 1,466 Intake Visit Reasons: (OV) PO GBP 04/21/18 Business Continuity Global Director Required: Yes Allergies No Known Allergies [No Known Allergies*] Allergy (Verified 01/21/24 09:25) Medication List - Last Reconciled 01/21/24 by RASHAWN Fischer cetirizine 10 mg PO DAILY PRN epinephrine IM iron,carbonyl-vitamin C 65 mg iron- 125 mg (Vitron-C) 1 tab PO BID oakoeigyjehk-ndh-crko-FA-vit K 45 mg iron- 800 mcg-120 mcg (Bariatric Multivitamins) caps PO vitamin A palmitate 10,000 units PO DAILY HPI HPI Comments History of Present Illness Details This?is a?48?yo female who is s/p RYGB 04/21/2018. Weight change of +13.6lbs since last OV 1 year ago.? No complaints of nausea, emesis, abdominal pain or reflux, or constipation. Pt reports ongoing bothersome area under previous panniculectomy incision, worse when she gets a menstrual cycle. Thinks area is a bit larger. No fevers. Recently was in ER for anemia, has appt with PCP scheduled in early February to f/u on this; currently taking PO iron. Present meal plan includes: 1 shake in am, and 2 meals of 3oz/3oz rick ggested at last office visit Exercise routine includes: finds it difficult to exercise due to pain of abdominal wall PFSH Medical History Overweight Surgical History Hx of section Hx of gastric bypass Family History Mother Hypertension Diabetes Asthma Father Hypertension Brother No problems noted. Brother No problems noted. Brother No problems noted. Sister No problems noted. Sister No problems noted. Sister No problems noted. Son No problems noted. Daughter No problems noted. Daughter No problems noted. Maternal Grandfather Prostate cancer Social History Alcohol intake: current Alcohol intake frequency: does not drink Patient Tobacco Use Status: Never used Tobacco service: No Current occupational status: disabled Current occupation: left hand Female Reproductive History Menstrual Age of Menarche: 13 Physical Exam Vital Signs: Last Vital Signs Temp 97.8 F 01/21/24 09:33 Pulse 67 01/21/24 09:33 BP 140/68 H 01/21/24 09:33 Pulse Ox 100 01/21/24 09:33 Oxygen Delivery Method Room Air 01/21/24 09:33 BMI result Body Mass Index 28.3 Const General: cooperative, comfortable and no acute distress Orientation/consciousness: patient oriented x3 GI Other: soft, nondistended, previous incisions well healed, 4x2cm firm and tender area u nder previous panniculectomy incision at midline, no open areas, no erythema, no fluctuance Neuro General: patient oriented x3 Assessment & Plan Assessment & Plan (1) S/P panniculectomy: Code(s): Z98.890 - Other specified postprocedural states (2) Overweight (BMI 25.0-29.9): Code(s): E66.3 - Overweight (3) Hx of gastric bypass: Comment: 2019 Code(s): Z98.84 - Bariatric surgery status (4) Fluid collection at surgical site: Code(s): T88.8XXA - Other specified complications of surgical and medical care, not elsewhere classified, initial encounter Plan Based on previous CT scans, there was some edematous streaking of abdominal wall but I do not believe there was a discrete collection amenable to drainage, based on report. Will repeat CT scan as pt reports possible increase in size and pain of area. On exam, the area is more firm than fluctuant, ? scar tissue. Follow up in office after CT scan complete. Patient is overweight and is not considered stable at this time. I spent a total of 30 minutes reviewing/updating records, examining the patient and counseling the patient on weight management as detailed above. Coding Level of Care Code Est Pt Level 4 (31869) Diagnoses S/P panniculectomy Z98.890 Overweight (BMI 25.0-29.9) E66.3 Hx of gastric bypass Z98.84 Fluid collection at surgical site T88.8XXA
[2024-01-21 09:33] VITALS: BP 140/68; PULSE 67; TEMP 36.6; O2SAT 100; BMI 28.3
== END 2024-01-21 10:16 | disposition home or self-care (01) ==
PROVIDERS: PCP Nurse Practitioner Family; Visit Provider Physician Assistant Surgical
DX: E66.3 Overweight (principal); Z68.28 Body mass index [BMI] 28.0-28.9, adult; Z98.84 Bariatric surgery status; T88.8XXA Other specified complications of surgical and medical care, not elsewhere classified, initial encounter
CPT/HCPCS: 99214

== ENCOUNTER → 2024-01-21 09:22 | Outpatient (BNVA) | payer MEDICARE, MEDICAID, SELFPAY | PROVIDERS: PCP Nurse Practitioner Family; Visit Provider Physician Assistant Surgical | DX: Z98.890 Other specified postprocedural states (principal) | CPT/HCPCS: 99212 ==

== ENCOUNTER 2024-02-09 14:18 | Outpatient (REF) | payer MEDICARE, MEDICAID, SELFPAY ==
[2024-02-09 16:16] LABS: MANUAL DIFF FLAG NO
[2024-02-09 16:20] LABS: Basophils Absolute Auto 0.1 X10*3/uL (0.0-0.2); Basophils Percent Auto 0.9 % (0-2); Eosinophils Absolute Auto 0.1 X10*3/uL (0.0-0.4); Eosinophils Percent Auto 2.5 % (0-4); Hematocrit 32.8 % (37.0-47.0); Hemoglobin 9.9 g/dl (12.0-16.0); Imm Gran Abs Auto 0.01 X10*3/uL (0.00-0.03); Imm Gran Pct Auto 0.2 % (0.0-0.4); Lymphocytes Absolute Auto 1.8 X10*3/uL (1.2-4.9); Lymphocytes Percent Auto 33.2 % (20-40); Mean Corpuscular HGB Conc 30.2 g/dl (31.0-35.0); Mean Corpuscular Hemoglobin 22.4 pg (27.0-33.0); Mean Corpuscular Volume 74.2 fL (80.0-98.0); Monocytes Absolute Auto 0.6 X10*3/uL (0.1-1.2); Monocytes Percent Auto 10.3 % (2-11); Neutrophils Absolute Auto 2.9 x10*3/uL (2.0-8.3); Neutrophils Percent Auto 52.9 % (45-73); Platelet Count 273 X10*3/uL (160-400); Red Blood Count 4.42 X10*6/uL (4.20-5.50); Red Cell Distribution Width 27.1 % (11.0-16.0); White Blood Count 5.5 X10*3/uL (4.8-10.8)
== END 2024-02-09 14:19 | disposition home or self-care (01) ==
LOC: HO.HHCL 14:18
PROVIDERS: Visit Provider Nurse Practitioner Family
DX: R53.83 Other fatigue (principal)
CPT/HCPCS: 36415; 85025

== ENCOUNTER 2024-02-26 09:57 | Outpatient (REF) | payer MEDICARE, MEDICAID, SELFPAY ==
[2024-02-26 13:42] LABS: CT PCR NOT DETECTED (Not Detect.); NG PCR NOT DETECTED (Not Detect.)
[2024-02-27 12:49] LABS: BV Int Neg Control Negative (Negative); BV Int Pos Control Positive (Positive)
== END 2024-02-26 09:58 | disposition home or self-care (01) ==
LOC: HO.LNP 09:57
PROVIDERS: PCP Nurse Practitioner Family; Visit Provider Advanced Practice Midwife
DX: Z01.419 Encounter for gynecological examination (general) (routine) without abnormal findings (principal); N89.8 Other specified noninflammatory disorders of vagina; N92.0 Excessive and frequent menstruation with regular cycle
CPT/HCPCS: 0353U; 87480; 87510; 87660; 99212; G0101

== ENCOUNTER 2024-02-26 09:57 | Outpatient (AMB) | payer MEDICARE, MEDICAID, SELFPAY ==
[2024-02-26 09:59] VITALS: BP 134/76; BMI 29.6
--- NOTE | 2024-02-26 09:59 | MHC.OFFVIS ---
Vital Signs 02/26/24 09:59 Height 5 ft 1.5 in Weight 159 lb BMI 29.6 BP 134/76 Intake Visit Reasons: ORDER DETAILER annual exam Intake Note: having heavy bleeding and she is anemic. Tube Former Operator Required: Yes Tube Former Operator Language: Insecticide Expert Name: Lilly [id number] Information Interpreted: non-clinical & clinical Photographic Artist: Photographic Artist Present (Mark) Allergies No Known Allergies [No Known Allergies*] Allergy (Verified 02/26/24 10:04) Is last menstrual period known: Yes Last menstrual period: 02/07/24 Post menopausal: No HPI Comments Details: She is a premenopausal woman presenting for annual examination. Doing well with no concerns. Admits to not eating healthy, she reports GI issues and a stomach mass causing her pain. She has a CT scan 03/19/24 and a follow up with her provide booked. Regular monthly menses are painful, HMB x 3/6d. She reports increased vaginal fluids, no odor or irritation. She admits to anemia and recent blood transfusion. Currently is sexually active. Denies family history of breast, ovarian or colon cancer. Last pap smear 2020, negative. Mammogram: 2023. [facility] Medical History (Updated 02/26/24 @ 10:58 by Virginie Ruelas CNM) Overweight Surgical History (Updated 02/26/24 @ 10:21 by Virginie Ruelas CNM) History of bilateral tubal ligation Hx of abdominoplasty Hx of section Hx of gastric bypass Family History Mother Hypertension Diabetes Asthma Father Hypertension Brother No problems noted. Brother No problems noted. Brother No problems noted. Sister No problems noted. Sister No problems noted. Sister No problems noted. Son No problems noted. Daughter No problems noted. Daughter No problems noted. Maternal Grandfather Prostate cancer Social History Alcohol intake: current Alcohol intake frequency: does not drink Patient Tobacco Use Status: Never used Tobacco service: No Current occupational status: disabled Current occupation: left hand Female Reproductive History Menstrual Age of Menarche: 13 Duration of menses: 3-5 days Date of last menstrual period: 02/07/24 control method: none and permanent sterilization Permanent Sterilization: Vasectomy Total pregnancies: 4 Full term: 3 Number of Living Children: 3 Ab spontaneous: 1 Date of last pap smear: 12/04/22 (negative) History of abnormal pap smear: No Date of Mammogram: 01/19/24 Review of Systems Const All systems reviewed & are unremarkable except as noted in HPI and below Reports as per HPI Eyes Reports no additional complaints ENT Reports no additional complaints Card Reports no additional complaints Resp Reports no additional complaints GI Reports as per HPI and Reports no additional complaints Reports as per HPI Musc Reports no additional complaints Skin/Breast Reports as per HPI Neuro Reports no additional complaints Psych Reports no additional complaints Endo Reports no additional complaints Cory/Lymph Reports no additional complaints Aller/Immun Reports no additional complaints Physical Exam Vital Signs: Last Vital Signs BP 134/76 02/26/24 09:59 BMI result Body Mass Index 29.6 Const General: cooperative, healthy appearing, no acute distress, well developed and alert Orientation/consciousness: patient oriented x3 HEENT Head: Yes normal to inspection Eyes General: appearance normal, both eyes and all related structures Neck Neck: Yes normal visual inspection Thyroid: Thyroid normal Chest Chest palpation & inspection: normal inspection of the chest and other (no puckering, dimpling, peau de orange, retraction, discharge, masses) Breast/axilla inspection: normal inspection of the breasts Breast/axilla palpation: normal palpation of the breasts Resp Effort & Inspection: normal respiratory effort GI Other: Scar lower transverse region with a firm, tender mass to the left side of the scar anterior wall of abdomen Inspection: Yes normal to inspection Palpation (GI): Soft to palpation Rectal Exam - Female: deferred General: Yes bladder normal to palpation External Female Exam: normal external appearance and normal appearance of the urethra Speculum Exam - Vagina: normal appearance of the vagina, normal palpation and normal vaginal discharge Speculum Exam - Cervix: normal appearance of the cervix and normal palpation Bimanual exam- vagina & uterus: normal bimanual exam, normal palpation, uterine size normal, bladder normal to palpation, normal palpation and non-tender Bimanual Exam- Adnexa, other: no masses Skin General skin exam: no rashes or lesions noted Rashes: no rashes Neuro General: patient oriented x3 Cognition (Neuro): normal cognition Extrem General: Yes normal to inspection Psych Attitude: cooperative Thought process: Normal thought process present Assessment & Plan Assessment & Plan (1) Encounter for well woman exam with routine gynecological exam: Code(s): Z01.419 - Encounter for gynecological examination (general) (routine) without abnormal findings (2) Heavy menses: Code(s): N92.0 - Excessive and frequent menstruation with regular cycle Category: Medical Qualifiers: Menorrhagia type: with regular cycle Qualified Code(s): N92.0 - Excessive and frequent menstruation with regular cycle Plan Discussed: Current recommendations for pap smears per ASCCP guidelines. Breast awareness and periodic breast exams. Maintain a healthy lifestyle including a well balanced diet and routine exercise. Workup for heavy menstrual bleeding including an ultrasound, cultures, endometrial biopsy. Patient will schedule appointments today and follow up in the office to discuss results of ultrasound, EMB same day or alternative testing if indicated. Mammogram yearly. Patient verbalizes understanding and agrees to the plan of care. She was given opportunity to ask questions and all questions were answered to the best of my ability. RTO in one year for annual shagger examination. This note is constructed using voice recognition software. While every effort has been made to ensure accuracy, fairing worker errors may have been included. Orders: Orders US pelvic and transvaginal Today N92.0 - Excessive and frequent menstruation with regular cycle Bacterial Vaginosis Panel Today N89.8 - Other specified noninflammatory disorders of vagina CT NG by PCR Today N89.8 - Other specified noninflammatory disorders of vagina Coding Level of Care Code Est Pt Prev Care 40-64y(75903) Diagnoses Encounter for well woman exam with routine gynecological exam Z01.419 Menorrhagia with regular cycle N92.0 Menorrhagia type: with regular cycle
== END 2024-02-26 10:45 | disposition home or self-care (01) ==
PROVIDERS: PCP Nurse Practitioner Family; Visit Provider Advanced Practice Midwife
DX: Z01.419 Encounter for gynecological examination (general) (routine) without abnormal findings (principal); N92.0 Excessive and frequent menstruation with regular cycle
CPT/HCPCS: 99214; G0101

== ENCOUNTER 2024-03-09 10:21 | Outpatient (REF) | payer MEDICARE, MEDICAID, SELFPAY ==
--- NOTE | ~2024-03-09 | US_ITS ---
EXAMINATION: US PELVIS COMPLETE CLINICAL INFORMATION: Excessive and frequent menstruation COMPARISON: CT abdomen pelvis 07/27/2023 TECHNIQUE: Transabdominal and transvaginal imaging was performed, though transvaginal imaging was terminated prematurely at the patient's discretion. FINDINGS: The uterus is of normal size and echogenicity measuring 12.7 x 3.8 x 7.1 cm. A regular homogeneous endometrium is identified measuring 0.9 cm. Nabothian cysts in the cervix. A 2.7 cm midline cystic lesion containing debris of uncertain etiology but previously 2.6 cm differential considerations could include a urethral diverticulum or a Susannah's duct cyst, which can be confirmed with MR if warranted clinically. Both ovaries are of normal size and echogenicity. The right measures 3.0 x 1.1 x 2.0 cm for a volume of 3.5 mL. The left measures 2.0 x 1.0 x 2.0 cm for a volume of 2.1 mL. There is no pelvic free fluid. US/US pelvic and transvaginal IMPRESSION: 1. A 2.7 cm midline cystic lesion containing debris of uncertain etiology differential considerations could include a urethral diverticulum or a Susannah's duct cyst, which can be confirmed with MR pelvis if warranted clinically, though similar in size to prior. 2. Nabothian cysts in the cervix.
== END 2024-03-09 10:22 | disposition home or self-care (01) ==
LOC: HO.US 10:21
PROVIDERS: PCP Nurse Practitioner Family; Visit Provider Advanced Practice Midwife
DX: N92.0 Excessive and frequent menstruation with regular cycle (principal)
CPT/HCPCS: 76830; 76856

== ENCOUNTER 2024-03-19 08:07 | Outpatient (REF) | payer MEDICARE, MEDICAID, SELFPAY ==
--- NOTE | ~2024-03-19 | CT_ITS ---
EXAMINATION: CT ABDOMEN AND PELVIS WITH CONTRAST CLINICAL INFORMATION: Follow-up seroma. COMPARISON: 12/27/2022 TECHNIQUE: Multidetector volumetric images were obtained from the superior aspect of the liver through the pubic symphysis following administration 85 mL of Omnipaque 350 intravenous contrast. Sagittal and coronal reformatted images were obtained on the technologist's workstation. Oral contrast: No This CT examination was performed using dose optimization techniques as appropriate, variously including the following: *Automated exposure control *Adjustment of mA and/or kV according to patient size (this includes techniques or standardized protocols for targeted exams where dose is matched to indication/reason for exam; i.e. extremities or head) *Use of iterative reconstruction technique DLP: 377 mGy-cm FINDINGS: LUNG BASES: No pleural or pericardial effusion. LIVER, GALLBLADDER, AND BILIARY TREE: The liver is normal in size and contour. No focal hepatic lesion or biliary ductal dilatation is present. The gallbladder is unremarkable with no evidence of radiopaque gallstones, gallbladder wall thickening, or obvious pericholecystic inflammatory changes. PANCREAS: Unremarkable. SPLEEN: Unremarkable. ADRENAL GLANDS: Unremarkable. KIDNEYS AND URETERS: The kidneys are symmetric in size and enhancement. No hydronephrosis or perinephric stranding. BLADDER: Underdistended. 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 GASTROINTESTINAL TRACT: Status post gastric bypass. No small bowel obstruction. Appendix is within normal limits. ABDOMINAL WALL: Postsurgical changes in the lower left anterior abdominal wall with fat necrosis measuring 6.7 x 2.5 cm in transverse. Previous measurements 7.8 x 2.2 cm. LYMPH NODES: No bulky lymphadenopathy. VASCULAR: Normal caliber abdominal aorta. PELVIC VISCERA: Unremarkable. OSSEOUS STRUCTURES: No destructive bone lesions. CT/CT abdomen pelvis w IV con IMPRESSION: Postsurgical changes in the lower left anterior abdominal wall with fat necrosis measuring 6.7 x 2.5 cm in transverse. There is infiltration of the surrounding subcutaneous tissues. 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
[2024-03-19] MEDS: iohexoL 350 MG/ML 100 ML INFUS..BTL 85 ML IV (09:13)
== END 2024-03-19 08:08 | disposition home or self-care (01) ==
LOC: HO.CT 08:07
PROVIDERS: PCP Nurse Practitioner Family; Visit Provider Physician Assistant Surgical
DX: T88.8XXA Other specified complications of surgical and medical care, not elsewhere classified, initial encounter (principal)
CPT/HCPCS: 74177; Q9967

== ENCOUNTER 2024-04-07 10:38 | Outpatient (AMB) | payer MEDICARE, MEDICAID, SELFPAY ==
--- NOTE | 2024-04-07 10:40 | MHC.OFFVISWM ---
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 Seen in followup after abdominal CT scan. Weight loss of 4.4lbs since last OV. Pt reports ongoing bothersome area under previous panniculectomy incision, worse when she gets a menstrual cycle. No fevers. Pt feels area has gotten larger since last visit. No redness or open areas over incision. Feels pain more on the left side. Present meal plan includes: 1 shake in am, and 2 meals of 3oz/3oz Exercise routine includes: finds it difficult to exercise due to pain of abdominal wall PFSH Medical History (Updated 04/07/24 @ 11:15 by RASHAWN Fischer) Overweight Surgical History (Updated 02/26/24 @ 10:21 by Virginie Ruelas CNM) History of bilateral tubal ligation Hx of abdominoplasty Hx of section Hx of gastric bypass Family History Mother Hypertension Diabetes Asthma Father Hypertension Brother No problems noted. Brother No problems noted. Brother No problems noted. Sister No problems noted. Sister No problems noted. Sister No problems noted. Son No problems noted. Daughter No problems noted. Daughter No problems noted. Maternal Grandfather Prostate cancer Social History Alcohol intake: current Alcohol intake frequency: does not drink Patient Tobacco Use Status: Never used Tobacco service: No Current occupational status: disabled Current occupation: left hand Female Reproductive History Menstrual Age of Menarche: 13 Physical Exam Vital Signs: Last Vital Signs Temp 97.7 F 04/07/24 10:45 Pulse 59 04/07/24 10:45 BP 144/84 H 04/07/24 10:45 Pulse Ox 100 04/07/24 10:45 Oxygen Delivery Method Room Air 04/07/24 10:45 BMI result Body Mass Index 28.7 GI Other: well healed panniculectomy incision, firm and tender area to left of midline measuring ~7x2cm, no overlying erythema, no open areas Results Reviewed Results Reviewed: EXAMINATION: CT ABDOMEN AND PELVIS WITH CONTRAST CLINICAL INFORMATION: Follow-up seroma. COMPARISON: 12/27/2022 TECHNIQUE: Multidetector volumetric images were obtained from the superior aspect of the liver through the pubic symphysis following administration 85 mL of Omnipaque 350 intravenous contrast. Sagittal and coronal reformatted images were obtained on the technologist's workstation. Oral contrast: No This CT examination was performed using dose optimization techniques as appropriate, variously including the following: *Automated exposure control *Adjustment of mA and/or kV according to patient size (this includes techniques or standardized protocols for targeted exams where dose is matched to indication/reason for exam; i.e. extremities or head) *Use of iterative reconstruction technique DLP: 377 mGy-cm FINDINGS: LUNG BASES: No pleural or pericardial effusion. LIVER, GALLBLADDER, AND BILIARY TREE: The liver is normal in size and contour. No focal hepatic lesion or biliary ductal dilatation is present. The gallbladder is unremarkable with no evidence of radiopaque gallstones, gallbladder wall thickening, or obvious pericholecystic inflammatory changes. PANCREAS: Unremarkable. SPLEEN: Unremarkable. ADRENAL GLANDS: Unremarkable. KIDNEYS AND URETERS: The kidneys are symmetric in size and enhancement. No hydronephrosis or perinephric stranding. BLADDER: Underdistended. 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 GASTROINTESTINAL TRACT: Status post gastric bypass. No small bowel obstruction. Appendix is within normal limits. ABDOMINAL WALL: Postsurgical changes in the lower left anterior abdominal wall with fat necrosis measuring 6.7 x 2.5 cm in transverse. Previous measurements 7.8 x 2.2 cm. LYMPH NODES: No bulky lymphadenopathy. VASCULAR: Normal caliber abdominal aorta. PELVIC VISCERA: Unremarkable. OSSEOUS STRUCTURES: No destructive bone lesions. CT/CT abdomen pelvis w IV con IMPRESSION: Postsurgical changes in the lower left anterior abdominal wall with fat necrosis measuring 6.7 x 2.5 cm in transverse. There is infiltration of the surrounding subcutaneous tissues. 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 Assessment & Plan Assessment & Plan (1) S/P panniculectomy: Code(s): Z98.890 - Other specified postprocedural states Category: Surgical (2) Overweight (BMI 25.0-29.9): Code(s): E66.3 - Overweight Category: Medical (3) Hx of gastric bypass: Comment: 2019 Code(s): Z98.84 - Bariatric surgery status Category: Surgical (4) Fat necrosis: Code(s): M79.89 - Other specified soft tissue disorders Category: Medical Plan Options discussed with patient. Discussed that area of fat necrosis is not dangerous, not infected at this time. NSAIDs not an option for pain management due to pt's history of bypass. Offered trial of lidocaine patch. Discussed risks vs benefits of surgery, including infection, poor wound healing, creation of more scar tissue, lack of complete relief of discomfort. Pt expresses understanding of risks and would like to proceed with surgical intervention due to her ongoing pain without relief. Will discuss with Dr. Arenas and contact pt. Patient is overweight with abdominal wall fat necrosis and is not considered stable at this time. I spent a total of 30 minutes reviewing/updating records, examining the patient and counseling the patient on weight management as detailed above.
[2024-04-07 10:45] VITALS: BP 144/84; PULSE 59; TEMP 36.5; O2SAT 100; BMI 28.7
== END 2024-04-07 11:41 | disposition home or self-care (01) ==
PROVIDERS: PCP Nurse Practitioner Family; Visit Provider Physician Assistant Surgical
DX: E66.3 Overweight (principal); Z68.28 Body mass index [BMI] 28.0-28.9, adult; Z98.84 Bariatric surgery status; M79.89 Other specified soft tissue disorders
CPT/HCPCS: 99214

== ENCOUNTER → 2024-04-07 10:38 | Outpatient (BNVA) | payer MEDICARE, MEDICAID, SELFPAY | PROVIDERS: PCP Nurse Practitioner Family; Visit Provider Physician Assistant Surgical | DX: E66.3 Overweight (principal); M79.89 Other specified soft tissue disorders; Z68.28 Body mass index [BMI] 28.0-28.9, adult; Z48.817 Encounter for surgical aftercare following surgery on the skin and subcutaneous tissue; Z98.84 Bariatric surgery status | CPT/HCPCS: 99212 ==

== ENCOUNTER → 2024-04-08 15:30 | Outpatient (BNVA) | payer MEDICARE, MEDICAID, SELFPAY | PROVIDERS: PCP Nurse Practitioner Family; Visit Provider Advanced Practice Midwife | DX: R35.0 Frequency of micturition (principal); R93.89 Abnormal findings on diagnostic imaging of other specified body structures | CPT/HCPCS: 81003; 99212 ==

== ENCOUNTER 2024-05-14 08:18 | Outpatient (REF) | payer MEDICARE, MEDICAID, SELFPAY ==
[2024-05-14 11:15] LABS: MANUAL DIFF FLAG NO
[2024-05-14 11:20] LABS: Basophils Absolute Auto 0.1 X10*3/uL (0.0-0.2); Basophils Percent Auto 1.1 % (0-2); Eosinophils Absolute Auto 0.2 X10*3/uL (0.0-0.4); Eosinophils Percent Auto 3.8 % (0-4); Imm Gran Abs Auto 0.01 X10*3/uL (0.00-0.03); Imm Gran Pct Auto 0.2 % (0.0-0.4); Lymphocytes Absolute Auto 1.4 X10*3/uL (1.2-4.9); Lymphocytes Percent Auto 29.2 % (20-40); Mean Corpuscular HGB Conc 32.4 g/dl (31.0-35.0); Mean Corpuscular Hemoglobin 27.8 pg (27.0-33.0); Mean Corpuscular Volume 85.9 fL (80.0-98.0); Mean Platelet Volume 10.4 fL (9.4-12.3); Monocytes Absolute Auto 0.5 X10*3/uL (0.1-1.2); Monocytes Percent Auto 11.4 % (2-11); Neutrophils Absolute Auto 2.6 x10*3/uL (2.0-8.3); Neutrophils Percent Auto 54.3 % (45-73); Platelet Count 222 X10*3/uL (160-400); Red Blood Count 3.96 X10*6/uL (4.20-5.50); Red Cell Distribution Width 16.7 % (11.0-16.0); White Blood Count 4.7 X10*3/uL (4.8-10.8)
[2024-05-14 11:40] LABS: Iron 35 mcg/dL (30-160); Percent Iron Saturation 9 % (15-50); Total Iron Binding Capacity 394 mcg/dL (228-428); Unsaturated Iron Binding 359 ug/dL
== END 2024-05-14 08:19 | disposition home or self-care (01) ==
LOC: HO.HHCL 08:18
PROVIDERS: Visit Provider Nurse Practitioner Family
DX: D64.9 Anemia, unspecified (principal); R53.83 Other fatigue
CPT/HCPCS: 36415; 83540; 85025

== ENCOUNTER 2024-05-25 07:48 | Outpatient (REF) | payer MEDICARE, MEDICAID, SELFPAY ==
--- NOTE | ~2024-05-25 | MR_ITS ---
EXAMINATION: MR PELVIS WITHOUT AND WITH CONTRAST CLINICAL INFORMATION: Possible urethral diverticulum versus vaginal cyst COMPARISON: Pelvic ultrasound 03/09/2024. CT abdomen and pelvis 03/19/2024. TECHNIQUE: Multiplanar multisequence MRI of the pelvis was performed before and after intravenous administration of 7 mL of gadavist. FINDINGS: Evaluation is slightly limited due to motion artifact. The uterus is retroflexed and normal in size measuring approximately 10 cm in length. The endometrial thickness is within normal limits measuring up to 5 mm. Junctional zone appears intact. No focal myometrial lesions. The right ovary is not well-visualized.There is a 4.8 x 3.6 cm T1 hypointense, T2 hyperintense nonenhancing left adnexal lesion favored to represent a hemorrhagic cyst. Nabothian cyst in the region of the cervix. The urinary bladder is partially distended and appears unremarkable There is a T2 hyperintense non-enhancing midline cystic structure measuring approximately 2.1 x 2 cm, 6:21 which appears to be arising from the posterior wall of the urethra with possible communication to the urethral lumen, 4:10 and favored to represent a urethral diverticulum. Included bowel loops are nondilated. No enlarged pelvic lymph nodes. Again noted postsurgical changes in the left anterior pelvic wall with fat necrosis measuring approximately 5.9 x 1.8 cm. There is infiltration of the surrounding subcutaneous tissues. No acute or suspicious osseous abnormality. MR/MR pelvis wo/w con IMPRESSION: 1. 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 2. 4.8 cm T1 hypointense, T2 hyperintense nonenhancing left adnexal lesion, may represent hemorrhagic cyst. No dedicated follow-up imaging is required in the absence of symptoms. 3. Again noted postsurgical changes in the left anterior pelvic wall with fat necrosis. Electronically signed by: Landon Malloy MD 06/24/2024 11:30 AM EDT
[2024-05-25] MEDS: gadobutroL 7.5 ML VIAL IVPUSH (09:44)
== END 2024-05-25 07:49 | disposition home or self-care (01) ==
LOC: HO.MRI 07:48
PROVIDERS: PCP Nurse Practitioner Family; Visit Provider Advanced Practice Midwife
DX: R93.89 Abnormal findings on diagnostic imaging of other specified body structures (principal)
CPT/HCPCS: 72197; A9585

== ENCOUNTER 2024-07-06 10:46 | Outpatient (AMB) | payer MEDICARE, MEDICAID, SELFPAY ==
--- NOTE | 2024-07-06 10:51 | A.OFFVIS_ITS ---
Vital Signs 3 07/06/24 10:53 Height 5 ft 1.5 in Weight 163 lb 2.273 oz BMI 30.3 BP 137/84 Blood Pressure Location Lt brachial Position Sitting Pulse 63 Intake Visit Reasons: Fatty Liver Intake Note: Michael presents as a new patient for fatty liver. 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 She is referred by [facility]. PMX - resolved after wt loss DEMETRIS Hypertension Alopecia areata * SURGICAL HISTORY Gastric bypass Abdominoplasty section Tubal ligation - ot denies * ALLERGIES: NKDA * [employer] LABS: Laboratory Tests 01/12/24 01/12/24 05/14/24 08:16 19:50 08:23 WBC 4.7 L Hgb 11.0 L Hct 34.0 L MCV 85.9 MCH 27.8 Plt Count 222 Estimated GFR > 60 Total Bilirubin 0.3 AST 19 ALT 12 Alkaline Phosphatase 72 TSH 1.55 Laboratory Tests 01/12/24 08:16 Hepatitis C Ab (EIA) Nonreactive HIV 1&2 Ab/P[address] ABD AND PELVIS 03/31/24 FINDINGS: LUNG BASES: No pleural or pericardial effusion. LIVER, GALLBLADDER, AND BILIARY TREE: The liver is normal in size and contour. No focal hepatic lesion or biliary ductal dilatation is present. The gallbladder is unremarkable with no evidence of radiopaque gallstones, gallbladder wall thickening, or obvious pericholecystic inflammatory changes. PANCREAS: Unremarkable. SPLEEN: Unremarkable. ADRENAL GLANDS: Unremarkable. KIDNEYS AND URETERS: The kidneys are symmetric in size and enhancement. No hydronephrosis or perinephric stranding. BLADDER: Underdistended. 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 GASTROINTESTINAL TRACT: Status post gastric bypass. No small bowel obstruction. Appendix is within normal limits. ABDOMINAL WALL: Postsurgical changes in the lower left anterior abdominal wall with fat necrosis measuring 6.7 x 2.5 cm in transverse. Previous measurements 7.8 x 2.2 cm. LYMPH NODES: No bulky lymphadenopathy. VASCULAR: Normal caliber abdominal aorta. PELVIC VISCERA: Unremarkable. OSSEOUS STRUCTURES: No destructive bone lesions. CT/CT abdomen pelvis w IV con IMPRESSION: Postsurgical changes in the lower left anterior abdominal wall with fat necrosis measuring 6.7 x 2.5 cm in transverse. There is infiltration of the surrounding subcutaneous tissues. 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 TODAY'S VISIT PT DOES NOT HAVE FATTY LIVER. With a normal CT and normal transaminases this is not a condition that has any need for further work up . So instead we discuss screening colonoscopy. She denies any cardiac or respiratory problems No ID problems. There are no prior problems with anesthesia or sedation. There is no known FHX or crc or polyps. PENDING SALE TO [facility] Medical History (Updated 07/06/24 @ 11:28 by HARVEY Snider) Cellulitis Fat necrosis Fluid collection at surgical site Panniculitis Overweight Surgical History (Updated 07/06/24 @ 11:28 by HARVEY Snider) Hx of gastric bypass S/P panniculectomy Hx of abdominoplasty Hx of section Family History Mother Hypertension Diabetes Asthma Father Hypertension Brother No problems noted. Brother No problems noted. Brother No problems noted. Sister No problems noted. Sister No problems noted. Sister No problems noted. Son No problems noted. Daughter No problems noted. Daughter No problems noted. Maternal Grandfather Prostate cancer Social History Alcohol intake: current Alcohol intake frequency: does not drink Patient Tobacco Use Status: Never used Tobacco service: No Current occupational status: disabled Current occupation: left hand Female Reproductive History Menstrual Age of Menarche: 13 Review of Systems Const Denies fatigue, Denies fever(s), Denies night sweats, Denies poor appetite and Denies weight loss ENT Reports Normal hearing present, Denies dysphagia, Denies odynophagia, Denies throat swelling and Denies tongue swelling Card Reports no additional complaints Resp Reports no additional complaints GI Details: Denies abdominal pain, Denies melena, Denies bloating, Denies hematochezia, Denies constipation, Denies GI cramping, Denies dysphagia, Denies excessive flatus, Denies early satiety, Reports heartburn, Denies diarrhea, Denies nausea, Denies odynophagia, Denies vomiting and Denies hematemesis Skin/Breast Denies pruritus, Denies lesions, Denies rash and Denies jaundice Neuro Reports Normal hearing present and Denies Abnormal speech present Endo Denies fatigue Aller/Immun Denies throat swelling and Denies tongue swelling Physical Exam Const General: cooperative, no acute distress, well developed and well groomed Nutritional Appearance: average body habitus and well nourished Orientation/consciousness: oriented to person, oriented to place and oriented to time Limitations: language barrier HEENT Head: Yes normocephalic and Yes atraumatic Eyes General: appearance normal, both eyes and all related structures Pupils: Equal, round and reactive pupils present Neck Neck: Yes normal visual inspection and Yes no lymphadenopathy Thyroid: Thyroid normal Resp Effort & Inspection: normal respiratory effort and able to speak in complete sentences Auscultation: clear to auscultation bilaterally Cardio Rate: regular rate Rhythm: regular rhythm Heart sounds: Normal, physiologic split S2 sound present Peripheral pulses: radial pulses present and posterior tibial pulses present GI Inspection: No distended and No Abdominal panniculus present Palpation (GI): Soft to palpation, nontender, no guarding, not rigid and No hepatosplenomegaly present Percussion: Yes normal to percussion Auscultation: normal bowel sounds Rectal Exam - Female: deferred Abdomen image: 2 1. surgical scars 2. Skin General skin exam: no rashes or lesions noted, turgor normal, skin not dry, no jaundice, No spider nevi and no striae Rashes: no rashes Nails: normal Neuro General: oriented to person, oriented to place and oriented to time Cranial nerves: Yes Equal, round and reactive pupils present and Yes Normal hearing present Speech: No Abnormal speech present Extrem General: Yes normal to inspection, No clubbing, No cyanosis and No edema Psych Appearance: grossly normal and well kempt Mental Status: mental status grossly normal Speech and movement: Normal speech and movement present Affect: normal affect Attitude: cooperative Thought process: Normal thought process present and not confabulating Thought content: Normal thought content present Insight: Limited insight present (Psych) Judgement: Limited judgement present (Psych) Results Reviewed Results Reviewed: Laboratory Tests 01/12/24 01/12/24 05/14/24 08:16 19:50 08:23 WBC 4.7 L Hgb 11.0 L Hct 34.0 L MCV 85.9 MCH 27.8 Plt Count 222 Estimated GFR > 60 Total Bilirubin 0.3 AST 19 ALT 12 Alkaline Phosphatase 72 TSH 1.55 Laboratory Tests 01/12/24 08:16 Hepatitis C Ab (EIA) Nonreactive HIV 1&2 Ab/P[address] ABD AND PELVIS 03/31/24 FINDINGS: LUNG BASES: No pleural or pericardial effusion. LIVER, GALLBLADDER, AND BILIARY TREE: The liver is normal in size and contour. No focal hepatic lesion or biliary ductal dilatation is present. The gallbladder is unremarkable with no evidence of radiopaque gallstones, gallbladder wall thickening, or obvious pericholecystic inflammatory changes. PANCREAS: Unremarkable. SPLEEN: Unremarkable. ADRENAL GLANDS: Unremarkable. KIDNEYS AND URETERS: The kidneys are symmetric in size and enhancement. No hydronephrosis or perinephric stranding. BLADDER: Underdistended. 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 GASTROINTESTINAL TRACT: Status post gastric bypass. No small bowel obstruction. Appendix is within normal limits. ABDOMINAL WALL: Postsurgical changes in the lower left anterior abdominal wall with fat necrosis measuring 6.7 x 2.5 cm in transverse. Previous measurements 7.8 x 2.2 cm. LYMPH NODES: No bulky lymphadenopathy. VASCULAR: Normal caliber abdominal aorta. PELVIC VISCERA: Unremarkable. OSSEOUS STRUCTURES: No destructive bone lesions. CT/CT abdomen pelvis w IV con IMPRESSION: Postsurgical changes in the lower left anterior abdominal wall with fat necrosis measuring 6.7 x 2.5 cm in transverse. There is infiltration of the surrounding subcutaneous tissues. 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 With a normal CT and normal transaminases this is not a condition that has any need for further work up . So instead we discuss screening colonoscopy. She denies any cardiac or respiratory problems No ID problems. There are no prior problems with anesthesia or sedation. There is no known FHX or crc or polyps. Coding Level of Care Code New Pt Level 3 (21539) Diagnoses Pre-op examination Z01.818
[2024-07-06 10:53] VITALS: BP 137/84; PULSE 63; BMI 30.3
== END 2024-07-06 11:25 | disposition home or self-care (01) ==
PROVIDERS: PCP Nurse Practitioner Family; Visit Provider Nurse Practitioner
DX: Z01.818 Encounter for other preprocedural examination (principal); Z12.11 Encounter for screening for malignant neoplasm of colon
CPT/HCPCS: 99024

== ENCOUNTER → 2024-07-06 10:46 | Outpatient (BNVA) | payer MEDICARE, MEDICAID, SELFPAY | PROVIDERS: PCP Nurse Practitioner Family; Visit Provider Nurse Practitioner | DX: Z01.818 Encounter for other preprocedural examination (principal) | CPT/HCPCS: 99212 ==

== ENCOUNTER 2024-08-05 14:22 | Outpatient (REF) | payer MEDICARE, MEDICAID, SELFPAY | END 2024-08-05 14:23 | disposition home or self-care (01) | LOC: HO.LAB 14:22 | PROVIDERS: PCP Nurse Practitioner Family; Visit Provider Advanced Practice Midwife | DX: N93.9 Abnormal uterine and vaginal bleeding, unspecified (principal); N36.1 Urethral diverticulum; N92.0 Excessive and frequent menstruation with regular cycle | CPT/HCPCS: 58100; 81025; 88305 ==

== ENCOUNTER 2024-08-05 14:22 | Outpatient (AMB) | payer MEDICARE, MEDICAID, SELFPAY ==
--- NOTE | 2024-08-05 14:30 | A.OFFVIS_ITS ---
Vital Signs 08/05/24 14:41 BP 112/76 Intake Visit Reasons: MRI follow up/EMB Hydraulic Miner Required: Yes Hydraulic Miner Language: Pest Controller Assistant Name: Estella Information Interpreted: non-clinical & clinical Apparel Designer: Apparel Designer Present (Estella) Allergies No Known Allergies [No Known Allergies*] Allergy (Verified 08/05/24 14:30) Is last menstrual period known: Yes Last menstrual period: 07/19/24 HPI Comments Details: Patient is here today for a follow up pelvic MRI, previous pelvic ultrasound was abnormal findings with possible urethral diverticulum versus Susannah cyst. Additionally EMB is planned today due to HMB, history of anemia currently on iron therapy. PFSH Medical History (Updated 08/05/24 @ 15:17 by Virginie Ruelas CNM) Cellulitis Fat necrosis Fluid collection at surgical site Panniculitis Overweight Surgical History (Updated 07/06/24 @ 11:28 by HARVEY Snider) Hx of gastric bypass S/P panniculectomy Hx of abdominoplasty Hx of section Family History Mother Hypertension Diabetes Asthma Father Hypertension Brother No problems noted. Brother No problems noted. Brother No problems noted. Sister No problems noted. Sister No problems noted. Sister No problems noted. Son No problems noted. Daughter No problems noted. Daughter No problems noted. Maternal Grandfather Prostate cancer Social History Alcohol intake: current Alcohol intake frequency: does not drink Patient Tobacco Use Status: Never used Tobacco service: No Current occupational status: disabled Current occupation: left hand Female Reproductive History Menstrual Age of Menarche: 13 Date of last menstrual period: 07/19/24 Review of Systems Const All systems reviewed & are unremarkable except as noted in HPI and below Physical Exam Vital Signs: Last Vital Signs BP 112/76 08/05/24 14:41 Const General: cooperative, healthy appearing and no acute distress Orientation/consciousness: patient oriented x3 GI Inspection: Yes normal to inspection Palpation (GI): Soft to palpation and Other GI palpation findings present (Nontender) Rectal Exam - Female: visual inspection normal General: Yes bladder normal to palpation External Female Exam: normal appearance of the urethra Speculum Exam - Vagina: normal appearance of the vagina, normal palpation and normal vaginal discharge Speculum Exam - Cervix: normal appearance of the cervix and normal palpation Bimanual exam- vagina & uterus: normal bimanual exam, normal palpation, uterine size normal, bladder normal to palpation, normal palpation, uterine shape normal and non-tender Bimanual Exam- Adnexa, other: normal adnexae Neuro General: patient oriented x3 Office Procedures Endometrial Biopsy Details: The patient is here today for an endometrial biopsy due to AUB to rule out any pathology including atypical, hyperplasia or cancer cells of the uterus. She was counseled regarding anticipatory guidance for the procedure including the risks for pain, infection, bleeding, perforation, potential injury to the tissues may include the cervix, uterus, tubes, bladder and bowels. These injuries may include further treatment and evaluation including surgery, blood transfusions, antibiotics, hospitalizations and anesthesia. Permanent injury and scarring can occur. She was consented for the procedure, and the consent forms were signed. She is agreeable to have the procedure today. All questions were answered. Endometrial Biopsy Procedure: The patient was placed in the dorsal lithotomy position and a sterile speculum inserted. Using aseptic technique for the procedure. The cervix was cleansed with Betadine x 3 swabs. A single toothed tenaculum was placed on the cervix for stabilization and the uterus was sounded to 8 cm with a 4mm pipelle, and tissue sample obtained. Minimal bleeding was observed. The tissue sample was placed in formalin in a patient labeled container by staff assisting and sent to the pathology department for processing and interpretation. The patient tolerate the procedure well and was in good condition when leaving the department. Endometrial Biopsy Post Procedure Care: Nothing in the vagina including: tampons, douching or intimacy until all the bleeding has subsided. There may be some post procedure bleeding for several days, this bleeding is usually light and may turn to a light brown or pink color. Mild cramps may occurs. Nothing in the vaginal including: tampons, douching, or intimacy until all the bleeding has subsided. You may take an over the counter mild analgesic such as Tylenol or Advil (if no allergies) per the manufactures recommendation on dosing, frequency, and follow the directions completely. Call the office if any: fever (over 100.4), flu like symptoms, abdominal pain (worse than cramping), foul smelling, infected appearing vaginal discharge, or heavy bleeding. No intimacy for 1-2 weeks until bleeding has subsided. Return to the office in 2 weeks for results and plan of care. This note is constructed using voice recognition software. While every effort has been made to ensure accuracy, computer network engineer errors may have been included. [id number] Biopsy Results AMB Test Urine AMB Test Urine Negative Last Edit by LISY Patricia on 08/05/24 14:44 Results Reviewed Results Reviewed: Laboratory Last Values Tst Clinic Negative 08/05/24 14:[address] [address] Magnetic Resonance Report Signed Patient: Michael Shirley MR#: [id number] : 1975 Acct:[id number] Age/Sex: 49 / F ADM Date: 05/25/24 Loc: HO.MRI Attending Dr: Virginie Ruelas CNM Ordering Physician: Virginie Ruelas CNM Date of Service: 05/25/24 Procedure(s): MR pelvis wo/w con Accession Number(s): [id number] cc: Criselda Gallardo SCREEN AND CYCLONE REPAIRER; Virginie Ruelas CNM~ EXAMINATION: MR PELVIS WITHOUT AND WITH CONTRAST CLINICAL INFORMATION: Possible urethral diverticulum versus vaginal cyst COMPARISON: Pelvic ultrasound 03/09/2024. CT abdomen and pelvis 03/19/2024. TECHNIQUE: Multiplanar multisequence MRI of the pelvis was performed before and after intravenous administration of 7 mL of gadavist. FINDINGS: Evaluation is slightly limited due to motion artifact. The uterus is retroflexed and normal in size measuring approximately 10 cm in length. The endometrial thickness is within normal limits measuring up to 5 mm. Junctional zone appears intact. No focal myometrial lesions. The right ovary is not well-visualized.There is a 4.8 x 3.6 cm T1 hypointense, T2 hyperintense nonenhancing left adnexal lesion favored to represent a hemorrhagic cyst. Nabothian cyst in the region of the cervix. The urinary bladder is partially distended and appears unremarkable There is a T2 hyperintense non-enhancing midline cystic structure measuring approximately 2.1 x 2 cm, 6:21 which appears to be arising from the posterior wall of the urethra with possible communication to the urethral lumen, 4:10 and favored to represent a urethral diverticulum. Included bowel loops are nondilated. No enlarged pelvic lymph nodes. Again noted postsurgical changes in the left anterior pelvic wall with fat necrosis measuring approximately 5.9 x 1.8 cm. There is infiltration of the surrounding subcutaneous tissues. No acute or suspicious osseous abnormality. MR/MR pelvis wo/w con IMPRESSION: 1. 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 2. 4.8 cm T1 hypointense, T2 hyperintense nonenhancing left adnexal lesion, may represent hemorrhagic cyst. No dedicated follow-up imaging is required in the absence of symptoms. 3. Again noted postsurgical changes in the left anterior pelvic wall with fat necrosis. 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 See endometrial biopsy procedure notes. Discuss treatment for cycle control recommended to consider the Mirena IUD, booklet dispensed, plan further discussion at her follow-up in 2 weeks. All of her questions and concerns were addressed to the best of my ability and shared decision making. She is agreeable to the plan of care. This note is constructed using voice recognition software. While every effort has been made to ensure accuracy, computer network engineer errors may have been included. Orders: Orders Surgical Today N93.9 - Abnormal uterine and vaginal bleeding, unspecified AMB HCG Urine Test Today N92.0 - Excessive and frequent menstruation with regular cycle Referrals Urology Referral N36.1 - Urethral diverticulum Coding Level of Care Code Procedure Only Diagnoses Encounter to discuss test results Z71.2 Urethral diverticulum N36.1 Abnormal uterine bleeding (AUB) N93.9 CPT Codes Endometrial Biopsy - CPT: 63132-[id number] Biopsy ([id number])
[2024-08-05 14:41] VITALS: BP 112/76
== END 2024-08-05 15:20 | disposition home or self-care (01) ==
PROVIDERS: PCP Nurse Practitioner Family; Visit Provider Advanced Practice Midwife
DX: N36.1 Urethral diverticulum (principal); N93.9 Abnormal uterine and vaginal bleeding, unspecified; N92.0 Excessive and frequent menstruation with regular cycle; Z32.02 Encounter for pregnancy test, result negative
CPT/HCPCS: 58100

== ENCOUNTER 2024-08-13 03:25 | Emergency (ER) | payer MEDICARE, MEDICAID, SELFPAY ==
[2024-08-13 04:02] VITALS: BP 135/83; PULSE 60; RESP 16; TEMP 36.8; O2SAT 100
--- NOTE | 2024-08-13 04:05 | MHC.EDTECH ---
this tech assumed care of this pt at 0400, VS taken and were stable, pt was giving ice pacl for her eye irritation per her request. Resting quietly and appears to be in no apparent distress. Breathing is equal and unlabored. Call light given for safety, verbal reassurance given.
[2024-08-13 04:12] VITALS: BP 135/80; PULSE 58; RESP 18; TEMP 36.9; O2SAT 100; BMI 28.3
--- NOTE | 2024-08-13 04:33 | ED.GENADULT ---
HPI - General Adult General Chief complaint: Allergic Reaction Stated complaint: eye irritation/swelling Time Seen by Provider: 08/13/24 05:39 Source: patient Mode of arrival: ambulatory Limitations: no limitations History of Present Illness ED Provider: Dr. Savita Brown HPI narrative: Patient comes to the emergency room complaining of itching around her face right eye, nose that started 2 days ago. Patient states that she has been pitting her house and since then she started having an allergic like reaction. Patient states that 2 years ago when she pain in her how she had the same reaction. Patient denies any lip swelling tongue swelling or difficulty breathing. Related Data Home Medications ?Medication ?Instructions ?Recorded ?Confirmed [id number] 45 mg-folic cap PO 03/07/21 04/07/24 acid 800 mcg-vit K 120 mcg capsule (Bariatric Multivitamins) cetirizine 10 mg tablet 10 mg PO DAILY PRN itch 12/04/22 04/07/24 epinephrine 0.3 mg/0.3 mL IM 12/04/22 04/07/24 injection, auto-injector Previous Rx's ?Medication ?Instructions ?Recorded iron,carbonyl 65 mg-vitamin C 125 1 tab PO BID #60 tabs 03/26/21 mg tablet,delayed release (Vitron-C) pantoprazole 40 mg tablet,delayed 40 mg PO DAILY #90 tabs 04/07/24 release fexofenadine 180 mg tablet 180 mg PO DAILY #10 tabs 08/13/24 ([facility]) prednisone 50 mg tablet 50 mg PO DAILY #5 tabs 08/13/24 Allergies Allergy/AdvReac Type Severity Reaction Status Date / Time No Known Allergies Allergy Verified 08/13/24 04:17 [No Known Allergies*] Review of Systems Review of Systems: Constitutional : No Weight loss, No Fever, No Chills, No Night Sweats, No Fatigue, No Malaise ENT/Mouth : Complaining of itchy eyes No Hearing loss, No Ear Pain, No Nasal Congestion, No Sinus Pain, No Hoarseness, No sore throat, No Rhinorrhea, No Swallowing Difficulty Eyes: No Eye Pain, No Swelling, No Redness, No Foreign Body, No Discharge, No Vision Changes Cardiovascular : No Chest Pain, No SOB, No Dyspnea on Exertion, No Orthopnea, No Edema, No Palpitations Respiratory : No Cough, No Sputum, No Wheezing, No Smoke Exposure, No Dyspnea Gastrointestinal : No Nausea, No Vomiting, No Diarrhea, No Constipation, No abdominal Pain, No Hematochezia, No Melena Genitourinary : no irregular bleeding, No Dysuria, No Urinary Frequency, No Hematuria, No Urinary Incontinence, No Urgency, No Flank Pain, No Urinary Flow Changes, No Hesitancy Musculoskeletal : No joint pain, No Myalgias, No Joint Swelling Skin : Complaining of itchy she skin around the face No Skin Lesions, No rash Neuro : No Weakness, No Numbness, No Paresthesias, No Loss of Consciousness, No Dizziness, No Headache Psych : No Anxiety/Panic, No Depression, No SI/HI/AH/VH, No Social Issues, Heme/Lymph: No Bruising, No Bleeding,No Lymphadenopathy Endocrine : No Polyuria, No Polydipsia, No Temperature Intolerance PMFSH Past Medical History Medical History Cellulitis Fat necrosis Fluid collection at surgical site Panniculitis Overweight Surgical History (Updated 07/06/24 @ 11:28 by HARVEY Snider) Hx of gastric bypass S/P panniculectomy Hx of abdominoplasty Hx of section Family History Family History Mother Hypertension Diabetes Asthma Father Hypertension Brother No problems noted. Brother No problems noted. Brother No problems noted. Sister No problems noted. Sister No problems noted. Sister No problems noted. Son No problems noted. Daughter No problems noted. Daughter No problems noted. Maternal Grandfather Prostate cancer Social History Social History Alcohol intake: current Alcohol intake frequency: does not drink Patient Tobacco Use Status: Never used Tobacco Smoked in Last 30 Days: No Use of substances other than those prescribed or required for medical reasons: No Advance Directives: No Do you have a plan to hurt others: No Plan Patient : No service: No Current occupational status: disabled Current occupation: left hand Physical Exam ED Vital Signs: Vital Signs - 24 hr 08/13/24 04:02 08/13/24 04:12 08/13/24 06:13 Temperature 98.3 F 98.4 F 98.2 F Pulse Rate 60 58 62 Respiratory Rate 16 18 16 Blood Pressure 135/83 135/80 147/78 H Pulse Oximetry 100 100 100 Oxygen Delivery Method Room Air Room Air Room Air BMI result Body Mass Index 28.3 Const Other: Appearance: Alert. Oriented X3. No acute distress. Eyes: Pupils equal, round and reactive to light. patient has mild periorbital edema in the upper eyelid on the right side ENT: Pharynx normal. Neck: Normal inspection. Neck supple. No lymph nodes noted. No crepitus CVS: Normal heart rate and rhythm. Pulses normal. Normal S1 and S2 Respiratory: No respiratory distress. Breath sounds normal. No Wheezing. No rales Abdomen: Soft and nontender. No rigidity. No distention. Skin: Skin warm and dry. Normal skin color. Normal skin turgor. Patient's seems to have contact dermatitis around the face from the eyes down to the chin Extremities: No lower extremity edema. No Lacerations. No Rash Neuro: Oriented X 3. No motor deficit. No sensory deficit. Moving all extremities. No slurred speech. CN 2 through 12 grossly intact Psych: calm, cooperative, normal affect Medications Administered Discontinued Medications Generic Name Dose Route Start Last Admin Trade Name Freq PRN Reason Stop Dose Admin Diphenhydramine HCl 50 mg 08/13/24 05:44 08/13/24 05:51 Diphenhydramine Hcl 50 Mg/Ml Vial IVPUSH 08/13/24 05:45 50 mg ONCE ONE Administration Famotidine 20 mg 08/13/24 05:44 08/13/24 05:51 Famotidine/Pf 20 Mg/2 Ml Vial IVPUSH 08/13/24 05:45 20 mg ONCE ONE Administration Methylprednisolone Sodium Succinate 125 mg 08/13/24 05:44 08/13/24 05:51 Methylprednisolone Sod Succ 125 Mg/2 Ml Vial IVPUSH 08/13/24 05:45 125 mg ONCE ONE Administration Medical Decision Making Medical Decision Making [facility] Narrative: Patient was given IV medication, Solu-Medrol, Pepcid and Benadryl. -patient likely has an allergic reaction versus contact dermatitis. -discussed with the patient that it will take a few days for the symptoms to resolve. At this time, patient has no airway compromise Differential Diagnosis Differential Diagnoses: The differential diagnosis associated with the presentation includes (As above) Critical Care Time Critical Care Time Critical Care Time: Yes Total Critical Care Time: 35 Attestation: I have personally provided critical care time. Time includes review of lab data, radiology results, discussion with consultants, and monitoring for potential decompensation. Intervention performed as documented. Discharge Plan Discharge Clinical Impression: Contact dermatitis Patient Disposition: Home, Self-Care Instructions: Contact Dermatitis (ED) Additional Instructions: Please follow-up with your primary care physician tomorrow. If you have any worsening or new symptoms, please return to the emergency room or call 911 Prescriptions: New prednisone 50 mg tablet 50 mg PO DAILY Qty: 5 0RF fexofenadine [Shelby Allergy] 180 mg tablet 180 mg PO DAILY Qty: 10 0RF No Action Vitron-C 65 mg iron- 125 mg tablet,delayed release (DR/EC) 1 tab PO BID Qty: 60 5RF Bariatric Multivitamins 45 mg iron- 800 mcg-120 mcg capsule PO cetirizine 10 mg tablet 10 mg PO DAILY PRN (Reason: itch) epinephrine 0.3 mg/0.3 mL auto-injector IM pantoprazole 40 mg tablet,delayed release (DR/EC) 40 mg PO DAILY Qty: 90 3RF Print Language: Turkmen
[2024-08-13] MEDS: methylPREDNISolone Sod Succ 125 MG/2 ML VIAL IVPUSH (05:51)
[2024-08-13] MEDS: Famotidine/PF 20 MG/2 ML VIAL IVPUSH (05:51)
[2024-08-13] MEDS: diphenhydrAMINE HCL 50 MG/ML VIAL IVPUSH (05:51)
[2024-08-13 06:13] VITALS: BP 147/78; PULSE 62; RESP 16; TEMP 36.8; O2SAT 100
[2024-08-13 07:04] VITALS: BP 142/76; PULSE 60; RESP 18; TEMP 36.7; O2SAT 100
== END 2024-08-13 07:05 | disposition home or self-care (01) ==
PROVIDERS: Emergency Provider Emergency Medicine; PCP Nurse Practitioner Family
DX: L25.9 Unspecified contact dermatitis, unspecified cause (principal); L29.9 Pruritus, unspecified
CPT/HCPCS: 96374; 96375; 99284; J1200; J2919

== ENCOUNTER 2024-09-17 08:08 | Outpatient (AMB) | payer MEDICARE, MEDICAID, SELFPAY ==
--- NOTE | 2024-09-17 08:06 | MHC.OFFVIS ---
Intake Visit Reasons: TV EMB Results Well Drill Operator Cable Tool Required: Yes Well Drill Operator Cable Tool Language: Dam Tender Assistant Services: Well Drill Operator Cable Tool Present (in person) Well Drill Operator Cable Tool Name: Estella WASSERMAN Information Interpreted: non-clinical & clinical Allergies No Known Allergies [No Known Allergies*] Allergy (Verified 08/13/24 04:17) HPI Comments Details: Tele saltese visit 08:13-08:23. visit. I spent 10 minutes speaking with the patient on the phone plus an additional 5 minutes reviewing the chart and 5 minutes updating the medical record for a total of 20 minutes. Patient declined video portion of tele. Patient presents via phone to discuss: Endometrial biopsy results, history of AUB. Hemoglobin 11.0. [facility] Medical History Cellulitis Fat necrosis Fluid collection at surgical site Panniculitis Overweight Surgical History (Updated 07/06/24 @ 11:28 by HARVEY Snider) Hx of gastric bypass S/P panniculectomy Hx of abdominoplasty Hx of section Family History Mother Hypertension Diabetes Asthma Father Hypertension Brother No problems noted. Brother No problems noted. Brother No problems noted. Sister No problems noted. Sister No problems noted. Sister No problems noted. Son No problems noted. Daughter No problems noted. Daughter No problems noted. Maternal Grandfather Prostate cancer Social History Alcohol intake: current Alcohol intake frequency: does not drink Patient Tobacco Use Status: Never used Tobacco service: No Current occupational status: disabled Current occupation: left hand Female Reproductive History Menstrual Age of Menarche: 13 Telehealth Telehealth Telehealth Platform: Telephone Location of provider rendering services: practice address Location of patient: address on file Patient Identification confirmed using: Name, : Yes Telehealth method: voice only Patient verbally consented to treatment: Yes Patient verbally consented to billing insurance company: Yes Patient informed of any privacy concerns related to visit: Yes Results Reviewed Results Reviewed: Surgical Pathology [id number] Name: Travis ValeriaMichael Age/Sex: 49/F Attending: Virginie Ruelas CNM : 1975 Submitted by: Virginie Ruelas CNM Copies to: Criselda Gallardo NP MR #: [id number] Status: DEP REF Collected: 08/05/24 Location: [facility] Received: 08/06/24 Diagnosis Endometrium, biopsy: Benign proliferative endometrium and benign endocervical glandular mucosa; no atypia or carcinoma. Clinical History AUB Microscopic Description Microscopic sections reviewed. Material Received Endometrial biopsy Gross Description Received in formalin is a 2.0 x 2.0 x 0.5 cm aggregrate of castillo, glistening, irregular soft tissue admixed with clotted blood and gelatinous tissue. The specimen is totally submitted in cassette A1. (BUBBA) Copies To Criselda Gallardo NP [address] [place] [address] Virginie Ruelas CNM [facility] [address] [place] [id number] NOTE: Unless otherwise stated, all tissue is formalin-fixed and paraffin-embedded. Some or all of the immunohistochemical tests reported herein may have been developed and their performance characteristics determined by [facility]. They have not been cleared or approved by the U.S. Food and Drug Administration (FDA). However, the FDA has determined that such clearance or approval is not necessary. This laboratory is certified under the Clinical Laboratory Improvement Amendments of 1988 (CLIA) as qualified to perform high complexity clinical laboratory testing. Electronically Signed By: Lorena Rocha 08/09/24 5585 Patient: Michael Shirley Age/Sex: 49/F MR#: [id number] Page 1 of 1 Assessment & Plan Assessment & Plan (1) Heavy menses: Code(s): N92.0 - Excessive and frequent menstruation with regular cycle Category: Medical Qualifiers: Menorrhagia type: with regular cycle Qualified Code(s): N92.0 - Excessive and frequent menstruation with regular cycle (2) Encounter to discuss test results: Code(s): Z71.2 - Person consulting for explanation of examination or test findings Plan Discussed: Endometrial biopsy results no atypia or carcinoma. She reports having her cycle today not feeling great, is not taking her iron supplements. Counseled regarding options to treat her cycles she is adamant not to use any control as she does not like any of the side effects. She is open to having a consult for a uterine ablation, arrangements will be made to speak with Dr. Ding regarding the procedure. Advised to hydrate well. Importance of maintaining iron intake on a regular basis. Reviewed symptoms of when to call if anemia worsens such as lightheadedness, dizziness, shortness of breath, chest pain, feeling faint, to go to the emergency room immediately for evaluation. Yeast Maker annual is booked for February of 2025. All of her questions and concerns were addressed to the best of my ability and shared decision making. She is agreeable to the plan of care. This note is constructed using voice recognition software. While every effort has been made to ensure accuracy, adjunct instructor chemistry errors may have been included. Coding Level of Care Code Tele Est Pt Level 3 (21733) Diagnoses Menorrhagia with regular cycle N92.0 Menorrhagia type: with regular cycle Encounter to discuss test results Z71.2
== END 2024-09-17 09:50 | disposition home or self-care (01) ==
LOC: HO.HWS 08:08
PROVIDERS: PCP Nurse Practitioner Family; Visit Provider Advanced Practice Midwife
DX: N92.0 Excessive and frequent menstruation with regular cycle (principal); Z71.2 Person consulting for explanation of examination or test findings
CPT/HCPCS: 99441

== ENCOUNTER 2024-09-27 09:26 | Outpatient (AMB) | payer MEDICARE, MEDICAID, SELFPAY ==
--- NOTE | 2024-09-27 09:29 | A.OFFVIS_ITS ---
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 She has had CT and MRI imaging-findings consistent with urethral diverticulum. The patient was referred by customer acquisition specialist, being worked up for heavy menstrual bleeding, she had complains of dysuria and difficulty with urinary stream. The patient complains of pain with urination persistent, denies blood in the urine. She declines pelvic exam today, states she is not prepared for exam but we will reschedule. Discussed trial of doxycycline for urethritis. Follow-up cystoscopy with pelvic exam. [facility] Medical History Cellulitis Fat necrosis Fluid collection at surgical site Panniculitis Overweight Surgical History Hx of gastric bypass S/P panniculectomy Hx of abdominoplasty Hx of section Family History Mother Hypertension Diabetes Asthma Father Hypertension Brother No problems noted. Brother No problems noted. Brother No problems noted. Sister No problems noted. Sister No problems noted. Sister No problems noted. Son No problems noted. Daughter No problems noted. Daughter No problems noted. Maternal Grandfather Prostate cancer Social History Alcohol intake: current Alcohol intake frequency: does not drink Patient Tobacco Use Status: Never used Tobacco service: No Current occupational status: disabled Current occupation: left hand Female Reproductive History Menstrual Age of Menarche: 13 Review of Systems Const All systems reviewed & are unremarkable except as noted in HPI and below Reports no additional complaints Eyes Reports no additional complaints ENT Reports no additional complaints Card Reports no additional complaints Resp Reports no additional complaints GI Reports no additional complaints Reports as per HPI Musc Reports no additional complaints Skin/Breast Reports system reviewed and no additional complaints, except as documented Neuro Reports no additional complaints Psych Reports no additional complaints Endo Reports no additional complaints Cory/Lymph Reports no additional complaints Aller/Immun Reports no additional complaints Physical Exam Const General: cooperative, healthy appearing and no acute distress Orientation/consciousness: patient oriented x3 HEENT Head: Yes normal to inspection, Yes normocephalic and Yes atraumatic Eyes Conjunctivae: conjunctivae normal Neck Neck: Yes normal visual inspection and Yes trachea midline Chest Chest palpation & inspection: normal inspection of the chest Resp Effort & Inspection: normal respiratory effort Cardio Rate: regular rate GI Inspection: Yes normal to inspection Skin General skin exam: no rashes or lesions noted Neuro General: patient oriented x3 Extrem General: No edema Psych Appearance: grossly normal Results AMB Urinalysis, Automated UA Leukoctes 70 Austen/uL Last Edit by RADHA Leggett on 09/27/24 09:53 UA Nitrite Negative Last Edit by RADHA Leggett on 09/27/24 09:53 UA Urobilinogen 0.2 mg/dL Last Edit by RADHA Leggett on 09/27/24 09:5 3 UA Protein 15 mg/dL Last Edit by RADHA Leggett on 09/27/24 09:53 UA pH 6.5 Last Edit by RADHA Leggett on 09/27/24 09:53 UA Blood 0 Baudilio/uL Last Edit by RADHA Leggett on 09/27/24 09:53 UA Specific [place] 1.015 Last Edit by RADHA Leggett on 09/27/24 09: 53 UA Ketone Negative Last Edit by RADHA Leggett on 09/27/24 09:53 UA Bilirubin 0 mg/dL Last Edit by RADHA Leggett on 09/27/24 09:53 UA Glucose 0 mg/dL Last Edit by RADHA Leggett on 09/27/24 09:53 Results Reviewed Results Reviewed: Date of Service: 05/25/24 MR PELVIS WITHOUT AND WITH CONTRAST CLINICAL INFORMATION: Possible urethral diverticulum versus vaginal cyst COMPARISON: Pelvic ultrasound 03/09/2024. CT abdomen and pelvis 03/19/2024. TECHNIQUE: Multiplanar multisequence MRI of the pelvis was performed before and after intravenous administration of 7 mL of gadavist. FINDINGS: Evaluation is slightly limited due to motion artifact. The uterus is retroflexed and normal in size measuring approximately 10 cm in length. The endometrial thickness is within normal limits measuring up to 5 mm. Junctional zone appears intact. No focal myometrial lesions. The right ovary is not well-visualized.There is a 4.8 x 3.6 cm T1 hypointense, T2 hyperintense nonenhancing left adnexal lesion favored to represent a hemorrhagic cyst. Nabothian cyst in the region of the cervix. The urinary bladder is partially distended and appears unremarkable There is a T2 hyperintense non-enhancing midline cystic structure measuring approximately 2.1 x 2 cm, 6:21 which appears to be arising from the posterior wall of the urethra with possible communication to the urethral lumen, 4:10 and favored to represent a urethral diverticulum. Included bowel loops are nondilated. No enlarged pelvic lymph nodes. Again noted postsurgical changes in the left anterior pelvic wall with fat necrosis measuring approximately 5.9 x 1.8 cm. There is infiltration of the surrounding subcutaneous tissues. No acute or suspicious osseous abnormality. IMPRESSION: 1. 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 2. 4.8 cm T1 hypointense, T2 hyperintense nonenhancing left adnexal lesion, may represent hemorrhagic cyst. No dedicated follow-up imaging is required in the absence of symptoms. 3. Again noted postsurgical changes in the left anterior pelvic wall with fat necrosis. Date of Service: 03/19/24 CT ABDOMEN AND PELVIS WITH CONTRAST CLINICAL INFORMATION: Follow-up seroma. COMPARISON: 12/27/2022 TECHNIQUE: Multidetector volumetric images were obtained from the superior aspect of the liver through the pubic symphysis following administration 85 mL of Omnipaque 350 intravenous contrast. Sagittal and coronal reformatted images were obtained on the technologist's workstation. Oral contrast: No This CT examination was performed using dose optimization techniques as appropriate, variously including the following: *Automated exposure control *Adjustment of mA and/or kV according to patient size (this includes techniques or standardized protocols for targeted exams where dose is matched to indication/reason for exam; i.e. extremities or head) *Use of iterative reconstruction technique DLP: 377 mGy-cm FINDINGS: LUNG BASES: No pleural or pericardial effusion. LIVER, GALLBLADDER, AND BILIARY TREE: The liver is normal in size and contour. No focal hepatic lesion or biliary ductal dilatation is present. The gallbladder is unremarkable with no evidence of radiopaque gallstones, gallbladder wall thickening, or obvious pericholecystic inflammatory changes. PANCREAS: Unremarkable. SPLEEN: Unremarkable. ADRENAL GLANDS: Unremarkable. KIDNEYS AND URETERS: The kidneys are symmetric in size and enhancement. No hydronephrosis or perinephric stranding. BLADDER: Underdistended. 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 GASTROINTESTINAL TRACT: Status post gastric bypass. No small bowel obstruction. Appendix is within normal limits. ABDOMINAL WALL: Postsurgical changes in the lower left anterior abdominal wall with fat necrosis measuring 6.7 x 2.5 cm in transverse. Previous measurements 7.8 x 2.2 cm. LYMPH NODES: No bulky lymphadenopathy. VASCULAR: Normal caliber abdominal aorta. PELVIC VISCERA: Unremarkable. OSSEOUS STRUCTURES: No destructive bone lesions. IMPRESSION: Postsurgical changes in the lower left anterior abdominal wall with fat necrosis measuring 6.7 x 2.5 cm in transverse. There is infiltration of the surrounding subcutaneous tissues. 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 Assessment & Plan Assessment & Plan (1) Urethral diverticulum: Code(s): N36.1 - Urethral diverticulum Category: Medical (2) Urethritis: Code(s): N34.2 - Other urethritis Category: Medical (3) Pain with urination: Code(s): R30.9 - Painful micturition, unspecified Category: Medical Plan She declines pelvic exam today, states she is not prepared for exam but we will reschedule. Discussed trial of doxycycline for urethritis. Follow-up cystoscopy with pelvic exam. Orders: Orders AMB Urinalysis Automated Today Z13.9 - Encounter for screening, unspecified Urine Culture Today N39.0 - Urinary tract infection, site not specified Medications: New doxycycline hyclate 100 mg PO BID 7 days 14 tabs 0RF urethral irritation Patient Instructions: The patient had an opportunity to ask questions regarding treatment plan. The patient expressed understanding and agreement with the above treatment plan. The patient is aware they should contact our office by phone for worsening of their current condition or the appearance of new symptoms. Compliance is encouraged with any medications and followup testing that is ordered. It is a privilege to be allowed the opportunity to participate in the urologic care of your patient. If you have any questions or concerns regarding treatment for the above conditions please do not hesitate to contact me. The office telephone contact is [phone]. This note is constructed in part using voice recognition software. While every effort has been made to ensure accuracy transporter radiology errors may have been included. Yours sincerely, Nicolas Barrientos MD Coding Level of Care Code New Pt Level 4 (12522) Diagnoses Urethral diverticulum N36.1 Urethritis N34.2 Pain with urination R30.9
== END 2024-09-27 10:17 | disposition home or self-care (01) ==
PROVIDERS: PCP Nurse Practitioner Family; Visit Provider Urology
DX: N36.1 Urethral diverticulum (principal); N34.2 Other urethritis; R30.9 Painful micturition, unspecified; Z13.9 Encounter for screening, unspecified
CPT/HCPCS: 99204

== ENCOUNTER 2024-09-27 09:26 | Outpatient (REF) | payer MEDICARE, MEDICAID, SELFPAY | END 2024-09-27 09:27 | disposition home or self-care (01) | LOC: HO.LNP 09:26 | PROVIDERS: PCP Nurse Practitioner Family; Visit Provider Urology | DX: N36.1 Urethral diverticulum (principal); N34.2 Other urethritis | CPT/HCPCS: 81003; 87086; 99202 ==

== ENCOUNTER 2024-12-03 08:11 | Outpatient (REF) | payer MEDICARE, MEDICAID, SELFPAY ==
--- OUTSIDE RECORDS SUMMARY | 2024-12-03 08:13 | XMS_ITS | Encounter Summary ---
Author Organization [employer] Address [address] [facility] [address] [place] [address] Care Team Providers Care Dairy Feed Worker Name Role Phone Eun Reed NP Primary Care Provider [phone] Reason for Visit * Reason Onset Date Comments Chart Prep 11/17/2024 Encounter Details Date Type Department Care Team ([facility] st Contact Info) Description 11/17/2024 Telephone [facility] [address] [place] [address] Maryan Stinson MA Chart Prep Social History Tobacco Use Types Packs/Day Years Used Date Smoking Tobacco: Never Passive Smoke Exposure: Never Smokeless Tobacco: Never Alcohol Use Standard Drinks/Week Comments Yes 0 (1 standard drink = 0.6 oz pur e alcohol) sometimes Depression Answer Date Recorded Patient Health Questionnaire-9 Score 9 01/09/2024 Patient Health Questionnaire-9 Score 9 01/09/2024 Last PHQ-9: Questionnaire Data Not on file 0 01/09/2024 Housing Stability Answer Date Recorded What is your housing situation today? I have kita alberto 09/01/[address] you li ve. Do you have problems with any of the following? None of the above 09/01/2023 Food Insecurity Answer Date Recorded Within the past 12 months, y ou worried that your food would run out before you got money to buy more: Never True 09/01/2023 Within the past 12 months,th e food you bought just didn't last and you didn't have enough money to get more: Never True Transportation Answer Date Recorded In the past 12 months, has l ack of transportation kept you from medical appts, meetings, work or from getting things needed for daily living? No 09/01/2023 Utilities Answer Date Recorded In the past 12 months, has t he electric, gas, oil or water company threatened to shut off services in your home? No 09/01/2023 Depression Answer Date Recorded Patient Health Questionnaire-2 Score 2 01/09/2024 Comments No Sex and Gender Information Value Date Recorded Sex Assigned at Female 09/02/2022 10:18 AM EDT Legal Sex Female 10:18 AM EDT Gender Identity Female 09/02/2022 10:18 AM EDT Sexual Orientation Choose not to disclose 2021 10:18 AM EDT documented as of this encounter Miscellaneous Notes * Telephone Encounter - Maryan Stinson MA - 11/17/2024 3:50 PM EST Chart Prep Labs: done Images: done Vaccines due: Covid Due, Tdap Due, Hep B Due, and Flu Due Referrals: Garage Laborer pending appt Screenings: Colonoscopy Overdue care gaps: Sbirt, SDOH, PHQ-9, and Oral Health documented in this encounter Plan of Treatment Upcoming Encounters Date Type Department Care Team (Late st Contact Info) Description 01/04/2025 10:00 AM EST Office Visit [facility] ADULT DENTAL [address] [place] [address] Diomedes Laboy documented as of this encounter Visit Diagnoses Not on filedocumented in this encounter Additional Health Concerns Assessment Noted Time PHQ-9 Depression Total Score: 9 01/09/20 10:42 AM EST documented as of this encounter Care Teams Dairy Feed Worker Relationship Specialty Start Date End Date Eun Reed NP [address] [place] [id number] PCP - General Family Medicine 07/06/24 documented as of this encounter
--- OUTSIDE RECORDS SUMMARY | 2024-12-03 08:14 | XMS_ITS | Encounter Summary ---
Author Organization [employer] Address [address] [facility] 7[address] [place] [address] Care Team Providers Care Mortician Supplies Sales Representative Name Role Phone Dhaval Osborn MD Primary Care Provide r Salvadro Yeager TAPPER HELPER Primary Care Provider Emily Seay MD Primary Care Provider [phone] Criselda Gallardo TAPPER HELPER Primary Care Provider [phone] Eun Reed NP Primary Care Provider [phone] Encounter Details Date Type Department Care Team (Latest Contact Info) Description 03/05/2022 Abstract [facility] CONVERSIONS Dental, Provider, DDS Social History Tobacco Use Types Packs/Day Years Used Date Smoking Tobacco: Never Assessed Comments Unknown Sex and Gender Information Value Date Recorded Sex Assigned at Female 09/02/2022 10:18 AM EDT Legal Sex Female 10:18 AM EDT Gender Identity Female 09/02/2022 10:18 AM EDT Sexual Orientation Choose not to disclose 2021 10:18 AM EDT documented as of this encounter Plan of Treatment Upcoming Encounters Date Type Department Care Team (Late st Contact Info) Description 01/04/2025 10:00 AM EST Office Visit [facility] ADULT D[facility]AL [address] [place], [place] [phone] Diomedes Laboy documented as of this encounter Visit Diagnoses Not on filedocumented in this encounter Care Teams Mortician Supplies Sales Representative Relationship Specialty Start Date End Date Dhaval Osborn MD [address] [place] [address] PCP - General Internal Medicine 05/12/18 10/29/22 Salvador Yeager FNP [address] [place] [address] PCP - General Family Medicine 10/30/22 01/01/23 Emily Tapia MD [address] [place] [address] PCP - General Family Medicine 01/02/23 01/05/23 Criselda Gallardo FNP [address] [place] [address] PCP - General Family Medicine 01/06/23 07/05/24 Eun Reed NP [address] [place] [address] PCP - General Family Medicine 07/06/24 documented as of this encounter
--- OUTSIDE RECORDS SUMMARY | 2024-12-03 08:14 | XMS_ITS | Encounter Summary ---
Author Organization [employer] Address [address] [facility] [address] [place] [address] Care Team Providers Care Pullman Conductor Name Role Phone Eun Reed NP Primary Care Provider [phone] Reason for Visit * Reason Comments Pre-visit Planning (Unable to reach for PVP screening, LVM) Encounter Details Date Type Department Care Team ([facility] st Contact Info) Description 11/18/2024 Patient Outreach [facility] [address] [place] [address] Eun Reed NP [address] [place] [address] Pre-visit Planning ((Unable to reach for PVP screening, LVM)) Social History Tobacco Use Types Packs/Day Years [...] AM EDT documented as of this encounter Progress Notes * Chantal Oquendo - 11/18/2024 9:30 AM EST CC Chantal placed successful outbound call to patient for pre-visit planning. Patient name and confirmed. Patient confirms appt date and time, and has transportation. Biggest concern for appointment at this time is none Patient advised to bring to appointment a photo id and insurance card. Appropriate screenings completed in anticipation of appointment. documented in this encounter Plan of Treatment Upcoming Encounters Date Type Department Care Team (Late st Contact Info) Description 01/04/2025 10:00 AM EST Office Visit [facility] ADULT DENTAL [address] [place] [address] Diomedes Laboy documented as of this encounter Visit Diagnoses Not on filedocumented in this encounter Additional Health Concerns Assessment Noted Time PHQ-9 Depression Total Score: 9 01/09/20 10:42 AM EST documented as of this encounter Care Teams Pullman Conductor Relationship Specialty Start Date End Date Eun Reed NP [address] [place] [address] PCP - General Family Medicine 07/06/24 documented as of this encounter
--- OUTSIDE RECORDS SUMMARY | 2024-12-03 08:14 | XMS_ITS | Encounter Summary ---
Author Organization [employer] Address [address] [facility] [address] [place] [address] Care Team Providers Care Passport Support Associate Name Role Phone Criselda GallardoP Primary Care Provider [phone] Eun Reed NP Primary Care Provider [phone] Reason for Visit * Reason Onset Date Comments Nurse Triage 05/01/2023 Encounter Details Date Type Department Care Team ([facility] st Contact Info) Description 05/01/2023 Telephone [facility] [address] [place] [address] Criselda Gallardo FNP [address] [place], [place] [phone] Nurse Triage Social History Tobacco Use Types Packs/Day Years Used Date Smoking Tobacco: Never Passive Smoke Exposure: Never Smokeless Tobacco: Never Alcohol Use Standard Drinks/Week Comments Yes 0 (1 standard drink = 0.6 oz pur e alcohol) sometimes Depression Answer Date Recorded Patient Health Questionnaire-2 Score 0 01/08/2023 Comments Unknown Sex and Gender Information Value Date Recorded Sex Assigned at Female 09/02/2022 10:18 AM EDT Legal Sex Female 10:18 AM EDT Gender Identity Female 09/02/2022 10:18 AM EDT Sexual Orientation Choose not to disclose 2021 10:18 AM EDT COVID-19 Exposure Response Date Recorded In the last 10 days, have yo u been in contact with someone who was confirmed or suspected to have Coronavirus/COVID-19? No / Unsure 05/01/2023 1:15 PM EDT documented as of this encounter Miscellaneous Notes * Telephone Encounter - Nena Che RN - 05/01/2023 11:38 AM EDT Triage call with [employer] Machine Operator Id [id number] Pt reports severe right arm pain. Pt was seen in [facility] 04/29 and started ibuprofen and flexeril. Pt reports pain has gotten worse, the flexeril only makes Pt tired doesn't relieve pain. Pt is unable touse arm normally and can't raise arm at all. Pt is requesting injection. Pt has transfer Pt appt with PCP 05/14 but, is unable to wait that long due to pain. No apts with other providers today or tomorrow. Pt is advised to come to [facility] again to be seen by provider and Pt agrees with this disposition. Protocol Used: Arm Pain (Adult) Protocol-Based Disposition: Go to Office or Video Visit Now Video visit not offered Positive Triage Questions: * Severe pain (e.g., excruciating, unable to do any normal activities) * Arm pain is a chronic symptom (recurrent or ongoing AND lasting > 4 weeks) * All higher-acuity triage questions were negative Care Advice Discussed: * Pain Medicines * Pain Medicines - Extra Notes and Warnings * Reasons To Call Back - Moderate pain (e.g., interferes with normal activities) lasts more than 3 days - Mild pain lasts more than 7 days - Arm swelling occurs - Signs of infection occur (e.g., spreading redness, warmth, fever) - You become worse * Use a Cold Pack for Pain * Use Heat on Area After 48 Hours * Telephone Encounter - Henna Cardona - 05/01/2023 10:49 AM EDT Symptom: Arm Pain - Not From Injury Outcome: Schedule an urgent appointment (within 1 hour) or talk to a nurse or provider soon Reason: Can't use the arm normally The caller accepted this outcome Please contact pt at [phone] (Indonesian speaker) documented in this encounter Plan of Treatment Upcoming Encounters Date Type Department Care Team (Late st Contact Info) Description 01/04/2025 10:00 AM EST Office Visit [facility] ADULT DENTAL [address] [place] [address] Diomedes Laboy documented as of this encounter Visit Diagnoses Not on filedocumented in this encounter Care Teams Passport Support Associate Relationship Specialty Start Date End Date Criselda Gallardo FNP [address] [place] [address] PCP - General Family Medicine 01/06/23 07/05/24 Eun Reed NP [address] [place] [address] PCP - General Family Medicine 07/06/24 documented as of this encounter
--- OUTSIDE RECORDS SUMMARY | 2024-12-03 08:14 | XMS_ITS | Encounter Summary ---
Author Organization [employer] Address [address] [place] [address] Care Team Providers Care Household Personal Assistant Name Role Phone Eun Reed NP Primary Care Provider [phone] Encounter Details Date Type Department Care Team (Latest Contact Info) Description 11/30/2024 Travel Social History Tobacco Use Types Packs/Day Years Used Date Smoking Tobacco: Never Passive Smoke Exposure: Never Smokeless Tobacco: Never Alcohol Use Standard Drinks/Week Comments Yes 0 (1 standard drink = 0.6 oz pur e alcohol) sometimes Depression Answer Date Recorded Patient Health Questionnaire-9 Score 12 11/30/2024 Patient Health Questionnaire-9 Score 12 11/30/2024 Last PHQ-9: Questionnaire Data Not on file 0 11/30/2024 Housing Stability Answer Date Recorded What is your housing situation today? I have kita alberto 11/30/[address] you li ve. Do you have problems with any of the following? None of the above 11/30/2024 Food Insecurity Answer Date Recorded Within the past 12 months, y ou worried that your food would run out before you got money to buy more: Never True 11/30/2024 Within the past 12 months,th e food you bought just didn't last and you didn't have enough money to get more: Never True Transportation Answer Date Recorded In the past 12 months, has l ack of transportation kept you from medical appts, meetings, work or from getting things needed for daily living? No 11/30/2024 Utilities Answer Date Recorded In the past 12 months, has t he electric, gas, oil or water company threatened to shut off services in your home? I am not sure 11/30/2024 Depression Answer Date Recorded Patient Health Questionnaire-2 Score 2 11/30/2024 Internet Access Answer Date Recorded Internet Access Q1 Yes 11/30/2024 Internet Access Q2 Not on file 11/30/2024 Comments No Sex and Gender Information Value [...] Description 01/04/2025 10:00 AM EST Office Visit [facility] ADULT D[facility] [address] [place] [address] Diomedes Laboy documented as of this encounter Visit Diagnoses Not on filedocumented in this encounter Additional Health Concerns Assessment Noted Time PHQ-9 Depression Total Score: 12 025 11:43 AM EST documented as of this encounter Care Teams Household Personal Assistant Relationship Specialty Start Date End Date Eun Reed NP [address] [place] [address] PCP - General Family Medicine 07/06/24 documented as of this encounter
--- OUTSIDE RECORDS SUMMARY | 2024-12-03 08:14 | XMS_ITS | Encounter Summary ---
Author Organization [employer] Address [address] [facility] [address] [place] [address] Care Team Providers Care Floor Surfacer Name Role Phone Criselda GallardoP Primary Care Provider [phone] Eun Reed NP Primary Care Provider [phone] Reason for Visit * Reason Onset Date Comments Appointment Request 05/01/2023 Encounter Details Date Type Department Care Team ([facility] st Contact Info) Description 05/01/2023 Telephone [facility] [address] [place] [address] Criselda Gallardo FNP [address] [place], [place] [phone] Appointment Request Social History Tobacco Use Types Packs/Day Years [...] encounter Miscellaneous Notes * Telephone Encounter - Cira Suárez RN - 05/02/2023 10:53 AM EDT Pt was referred to Orthopedics at appointment yesterday. * Telephone Encounter - Crista Beltran - 05/01/2023 9:16 AM EDT Tc from patient states she was seen at the [facility] on 04/29/23 for right arm pain and was told if pain persist or gets worse she can call to get a injection. Patient is requesting a appt for the injection. Patient speaks austrian. documented in this encounter Plan of Treatment Upcoming Encounters Date Type Department Care Team (Late st Contact Info) Description 01/04/2025 10:00 AM EST Office Visit [facility] ADULT DENTAL [address] [place] [address] Diomedes Laboy documented as of this encounter Visit Diagnoses Not on filedocumented in this encounter Care Teams Floor Surfacer Relationship Specialty Start Date End Date Criselda Gallardo FNP [address] [place] [address] PCP - General Family Medicine 01/06/23 07/05/24 Eun Reed NP [address] [place] [address] PCP - General Family Medicine 07/06/24 documented as of this encounter
--- OUTSIDE RECORDS SUMMARY | 2024-12-03 08:14 | XMS_ITS | Encounter Summary ---
Author Organization [employer] Address [address] [facility] 7[address] [place] [address] Care Team Providers Care Cafe Server Name Role Phone Criselda Gallardo Primary Care Provider [phone] Eun Reed NP Primary Care Provider [phone] Encounter Details Date Type Department Care Team (Late st Contact Info) Description 02/24/2024 Orders Only [facility] [address] [place] [address] Criselda Gallardo FNP [address] [place] [address] Fatigue, unspecified type (Primary Dx); Low hemoglobin and low hematocrit Social History Tobacco Use Types Packs/Day Years [...] Description 01/04/2025 10:00 AM EST Office Visit [facility] ADULT DENTAL [address] [place] [address] Diomedes Laboy documented as of this encounter Procedures Procedure Name Priority Date/Time Associated Diagnosis Comments CBC WITH AUTO DIFFERENTIAL Routine 05/14/2024 8:23 AM EDT Fatigue, unspecified type IRON AND TOTAL IRON BINDING CAPACITY Routine 05/14/2024 8:23 AM EDT Low hemoglobin and low hematocrit documented in this encounter Results * (ABNORMAL) Iron And Total Iron Binding Capacity (05/14/2024 8:23 AM EDT) Iron 35 30 - 160 mcg/dL [facility] Total Iron Binding Capacity 394 228 - 428 mcg/dL [facility] Percent Iron Saturation 9(L) 15 - 50 % [facility] Unsaturated Iron Binding 359 ug/dL [facility] Blood Venous blood specimen / Unknown 05/14/2024 8:23 AM EDT 05/14/2024 11:06 AM EDT Criselda Gallardo [facility] LAB BLOOD ORDERABLES Final Resu lt [facility] [address] [place], [place] [phone] * (ABNORMAL) CBC auto differential (05/14/2024 8:23 AM EDT) White Blood Count 4.7(L) 4.8 - 10.8 X10*3/uL [facility] Red Blood Count 3.96(L) 4.20 - 5.50 X10*6/uL [facility] Hemoglobin 11.0(L) 12.0 - 16.0 g/dl [facility] Hematocrit 34.0(L) 37.0 - 47.0 % [facility] Mean Corpuscular Volume 85.9 80.0 - 98.0 fL [facility] Mean Corpuscular Hemoglobin 27.8 27.0 - 33.0 pg [facility] Mean Corpuscular HGB Conc 32.4 31.0 - 35.0 g/dl [facility] Red Cell Distribution Width 16.7(H) 11.0 - 16.0 % [facility] Platelet Count 222 160 - 400 X10*3/uL [facility] Mean Platelet Volume 10.4 9.4 - 12.3 fL [facility] Neutrophils Percent Auto 54.3 45 - 73 % [facility] Imm Gran Pct Auto 0.2 0.0 - 0.4 % [facility] Lymphocytes Percent Auto 29.2 20 - 40 % [facility] Monocytes Percent Auto 11.4(H) 2 - 11 % [facility] Eosinophils Percent Auto 3.8 0 - 4 % [facility] Basophils Percent Auto 1.1 0 - 2 % [facility] NRBC Pct Auto 0.0 0.0 - 0.2 /100WBC [facility] Neutrophils Absolute Auto 2.6 2.0 - 8.3 x10*3/uL [facility] Imm Gran Abs Auto 0.01 0.00 - 0.03 X10*3/uL [facility] Lymphocytes Absolute Auto 1.4 1.2 - 4.9 X10*3/uL [facility] Monocytes Absolute Auto 0.5 0.1 - 1.2 X10*3/uL [facility] Eosinophils Absolute Auto 0.2 0.0 - 0.4 X10*3/uL [facility] Basophils Absolute Auto 0.1 0.0 - 0.2 X10*3/uL [facility] NRBC Abs Auto 0.000 0.0 - 0.012 X10*3/uL [facility] Blood Venous blood specimen / Unknown 05/14/2024 8:23 AM EDT 05/14/2024 11:11 AM EDT Criselda RG LAB BLOOD ORDERABLES Final Resu lt [facility] [address] [place] [address] [phone] documented in this encounter Visit Diagnoses Diagnosis Fatigue, unspecified type- Primary Low hemoglobin and low hematocrit documented in this encounter Additional Health Concerns Assessment Noted Time PHQ-9 Depression Total Score: 9 01/09/20 24 10:42 AM EST documented as of this encounter Care Teams Cafe Server Relationship Specialty Start Date End Date Criselda Gallardo FNP [address] [place] [address] PCP - General Family Medicine 01/06/23 07/05/24 Eun Reed NP [address] [place] [address] PCP - General Family Medicine 07/06/24 documented as of this encounter
--- OUTSIDE RECORDS SUMMARY | 2024-12-03 08:14 | XMS_ITS | Encounter Summary ---
Author Organization [employer] Address [address] [facility] 7[address] [place] [address] Care Team Providers Care Dispatcher Motor Vehicle Name Role Phone Dhaval Osborn MD Primary Care Provide r Salvador Yeager MANAGER COMMODITIES Primary Care Provider Emily Seay MD Primary Care Provider [phone] Criselda Gallardo MANAGER COMMODITIES Primary Care Provider [phone] Eun Reed NP Primary Care Provider [phone] Encounter Details Date Type Department Care Team (Latest Contact Info) Description 06/14/2019 Abstract [facility] CONVERSIONS Dental, Provider, DDS Social History Tobacco [...] 01/04/2025 10:00 AM EST Office Visit [facility] AD[facility] D[facility] [address] [place], [place] [phone] Diomedes Laboy documented as of this encounter Visit Diagnoses Not on filedocumented in this encounter Care Teams Dispatcher Motor Vehicle Relationship Specialty Start Date End Date Dhaval Osborn MD [address] [place], [place] [phone] PCP - General Internal Medicine 05/12/18 10/29/22 Salvador Yeager FNP [address] [facility] [place] [address] PCP - General Family Medicine 10/30/22 01/01/23 Emily Tapia MD [address] [place] [address] PCP - General Family Medicine 01/02/23 01/05/23 Criselda Gallardo FNP [address] [place] [address] PCP - General Family Medicine 01/06/23 07/05/24 Eun Reed NP [address] [place] [address] PCP - General Family Medicine 07/06/24 documented as of this encounter
--- OUTSIDE RECORDS SUMMARY | 2024-12-03 08:14 | XMS_ITS | Encounter Summary ---
Author Organization [employer] Address [address] [facility] 7[address] [place] [address] Care Team Providers Care Cdl B Driver Name Role Phone Eun Reed NP Primary Care Provider Encounter Details Date Type Department Care Team ([facility] st Contact Info) Description 11/30/2024 11:00 AM EST Office Visit [facility] [address] [place], [place] [phone] Eun Reed NP [address] [place], [place] [phone] Urethral diverticulum (Primary Dx); Dietary counseling; Exercise counseling; Encounter for screening for malignant neoplasm of colon; Screening for colon cancer; Healthcare maintenance; Obesity (BMI 30-39.9); Fat necrosis; Elevated BP without diagnosis of hypertension Social History Tobacco Use Types Packs/Day Years [...] AM EDT documented as of this encounter Last Filed Vital Signs Vital Sign Reading Time Taken Comments Blood Pressure 160/94 11/30/2024 10:57 AM EST Pulse 65 11/30/2024 10:57 AM EST Temperature 35.2 ??C (95.3 ??F) 11/30/2024 10:[address] Respiratory Rate 16 11/30/2024 10:57 AM EST Oxygen Saturation 98% 11/30/2024 10:57 AM EST Inhaled Oxygen Concentration - - Weight 74.8 kg (165 lb) 11/30/2024 10:57 AM EST Height 157.5 cm (5' 2 ) 11/30/2024 10:57 AM EST Body Mass Index 30.18 11/30/2024 10:57 AM EST documented in this encounter Progress Notes * Eun Reed NP - 11/30/2024 11:00 AM EST Subjective: Michael Robles is a 49 y.o. female who presents to the office for a transfer patient visit. Interim history: Htn- at home measure regularly at goal of 120/70s only high here Mental health- no concerns Current concerns: Weight gain, hx of gastric bypass 2018 Has gained weight over 1 year, has been eating a bit more of less healthy foods, 30 lbs Would like to be referred to a plastic surgeon or general surgeon for left lower quadrant Sometimes hurts, and gets inflamed and fills with liquid, not certain weather it fills with pus or blood Initially they were going to empty it with a procedure, then was referred to radiologist, not sure where process stands now Patient Active Problem List Diagnosis Acute pain of right shoulder Alopecia areata Dental calculus Dental plaque Angio-edema Spasm of thoracic back muscle Urethral diverticulum Encounter for screening for malignant neoplasm of colon Dietary counseling Exercise counseling Obesity (BMI 30-39.9) Fat necrosis Elevated BP without diagnosis of hypertension Past Surgical History: Procedure Laterality Date SECTION, CLASSIC x 3 COSMETIC SURGERY GASTRIC BYPASS N/A Family History Problem Relation Name Age of Onset Diabetes type II Mother Hypertension Mother Hypertension Maternal Grandmother Diabetes type II Maternal Grandmother Prostate cancer Maternal Grandfather Social History Living situation: daughter Employment/Education: unemployed Diet/exercise: nothing, sometimes Substance use: -alcohol sometimes -tobacco none -opioids none Sexual activity: Mental health: Patient Health Questionnaire-9 Score: 12 (11/30/2024 11:43 AM) Patient Health Questionnaire-2 Score: 2 (11/30/2024 11:43 AM) Thoughts that you would be better off or hurting yourself in some way: Not at all (11/30/2024 11:43 AM) ANNIKA-7 Total Score: 16 (11/30/2024 11:43 AM) Pt denies concerns re mh, Declines counselor No LMP recorded. Monthly No Known Allergies Review of Systems Constitutional: Negative for activity change and appetite change. Eyes: Negative for discharge and itching. Respiratory: Negative for apnea. Genitourinary: Negative for difficulty urinating. Musculoskeletal: Negative for arthralgias. Vitals: 11/30/24 1057 BP: (!) 160/94 BP Location: Left arm Patient Position: Sitting BP Cuff Size: Adult Pulse: 65 Resp: 16 Temp: 95.3 ??F (35.2 ??C) TempSrc: Temporal SpO2: 98% Weight: 165 lb (74.8 kg) Height: 5' 2 (1.575 m) Physical Exam Vitals reviewed. HENT: Head: Normocephalic and atraumatic. Nose: Nose normal. Eyes: Conjunctiva/sclera: Conjunctivae normal. Cardiovascular: Rate and Rhythm: Normal rate and regular rhythm. Heart sounds: Normal heart sounds. Pulmonary: Effort: Pulmonary effort is normal. Breath sounds: Normal breath sounds. Musculoskeletal: Cervical back: Normal range of motion and neck supple. Neurological: General: No focal deficit present. Mental Status: She is alert. Problem List Items Addressed This Visit Urethral diverticulum - Primary Encounter for screening for malignant neoplasm of colon Dietary counseling Current Assessment & Plan Encouraged minimizing processed foods and increasing whole foods particularly vegetables Exercise counseling Current Assessment & Plan Encouraged daily movement, working up to 30 minutes daily Obesity (BMI 30-39.9) Current Assessment & Plan Pt reports she knows what she needs to do, declines nutrition today, Will set activity goals Follow up in 6 months Fat necrosis Current Assessment & Plan Care coordinated with weight management team who advised pt call office Elevated BP without diagnosis of hypertension Current Assessment & Plan Pt with elevated bp reading with home bp measurements consistently at goal Continue home bp readings Call for readings >130/>80 Other Visit Diagnoses Screening for colon cancer Relevant Orders Cologuard?? colon cancer screening Healthcare maintenance Relevant Orders Lipid Panel, Standard Comprehensive Metabolic Panel CBC auto differential Iron And Total Iron Binding Capacity TSH W/Reflex to FT4 Hemoglobin A1c Routine Screening and Health Maintenance ASCVD risk: 49 y.o. femaleobese Lab Review: orders written for new lab studies as appropriate; see orders Routine Cancer Screening Breast CA: 02/24 Cervical CA: pap 2022 Colon CA: never, cologuard ordered Current Outpatient Medications Medication Sig Dispense Refill Blood Pressure Monitor kit 1 kit 2 times daily. 1 kit 0 cetirizine (ZyrTEC) 10 MG tablet Take 1 tablet (10 mg) by mouth Once per day. 30 tablet 2 EPINEPHrine (Epipen) 0.3 MG/0.3ML injection syringe Inject 0.3 mL into the shoulder, thigh, or buttocks. ferrous sulfate (Fe Tabs) 325 (65 Fe) MG EC tablet Take one tab po every other day. Do not crush, chew, or split. 30 tablet 0 Multiple Vitamins-Minerals (Opurity Bypass Optimized) chewable tablet pantoprazole (ProtoNix) 40 MG EC tablet TOME ARELI TABLETA POR V A ORAL TODOS LOS D tiZANidine (Zanaflex) 4 MG tablet Take 1 tablet (4 mg) by mouth every 8 (eight) hours if needed formuscle spasms. 30 tablet 1 triamcinolone (Kenalog) 0.025 % cream Apply topically every 12 (twelve) hours. No current facility-administered medications for this visit. Immunization History Administered Date(s) Administered Hep B, Adolescent or Pediatric 10/12/2009, 01/12/2010 Influenza injectable quadrivalent preservative free 08/12/2019, 08/31/2020, 07/21/2023 Influenza, IIV3, injectable 10/03/2011 Influenza, Split (incl. purified surface antigen) 08/03/2013 Moderna Covid-19 Vaccine 12+ 03/03/2021, 03/31/2021, 11/20/2021 Tdap 10/03/2011 Pt declines immunizations today Visit Conducted in: Portuguese Translation by: Provided by [employer] Phone Service ID # [id number] documented in this encounter Miscellaneous Notes * Assessment & Plan Note - Eun Reed NP - 11/30/2024 12:30 PM ESTAssociated Problem(s): Elevated BP without diagnosis of hypertension Pt with elevated bp reading with home bp measurements consistently at goal Continue home bp readings Call for readings >130/>80 * Assessment & Plan Note - Eun Reed NP - 11/30/2024 12:28 PM ESTAssociated Problem(s): Exercise counseling Encouraged daily movement, working up to 30 minutes daily * Assessment & Plan Note - Eun Reed NP - 11/30/2024 12:28 PM ESTAssociated Problem(s): Dietary counseling Encouraged minimizing processed foods and increasing whole foods particularly vegetables * Assessment & Plan Note - Eun Reed NP - 11/30/2024 12:28 PM ESTAssociated Problem(s): Fat necrosis Care coordinated with weight management team who advised pt call office * Assessment & Plan Note - Eun Reed NP - 11/30/2024 12:28 PM ESTAssociated Problem(s): Obesity (BMI 30-39.9) Pt reports she knows what she needs to do, declines nutrition today, Will set activity goals Follow up in 6 months documented in this encounter Plan of Treatment Upcoming Encounters Date Type Department Care Team (Late st Contact Info) Description 01/04/2025 10:00 AM EST Office Visit [facility] ADULT DENTAL [address] [place] [address] Diomedes Laboy Scheduled Orders Name Type Priority Associated Diagnoses Orde r Schedule Cologuard?? colon cancer screening Lab Routine Screening for colon cancer Ordered: 11/30/2024 Lipid Panel, Standard Lab Routine Healthcare maintenance Expected: 11/30/2024 (Approximate), Expires: 11/30/2025 Comprehensive Metabolic Panel Lab Routine Healthcare maintenance Expected: 11/30/2024 (Approximate), Expires: 11/30/2025 CBC auto differential Lab Routine Healthcare maintenance Expected: 11/30/2024 (Approximate), Expires: 11/30/2025 Iron And Total Iron Binding Capacity Lab Routine Healthcare maintenance Expected: 11/30/2024, Expires: 11/30/2025 TSH W/Reflex to FT4 Lab Routine Healthcare maintenance Expected: 11/30/2024 (Approximate), Expires: 11/30/2025 Hemoglobin A1c Lab Routine Healthcare maintenance Expected: 11/30/2024 (Approximate), Expires: 11/30/2025 documented as of this encounter Visit Diagnoses Diagnosis Urethral diverticulum- Primary Dietary counseling Dietary surveillance and counseling Exercise counseling Encounter for screening for malignant neoplasm of colon Screening for colon cancer Special screening for malignant neoplasms, colon Healthcare maintenance Obesity (BMI 30-39.9) 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
--- OUTSIDE RECORDS SUMMARY | 2024-12-03 08:14 | XMS_ITS | Clinical Summary ---
Author Organization [employer] Address [address] [facility] [address] [place] [address] Care Team Providers Care Steel Chipper Name Role Phone Eun Reed NP Primary Care Provider [phone] Allergies No known active allergies Medications EPINEPHrine (Epipen) 0.3 MG/0.3ML injection syringe Inject 0.3 mL into the shoulder, thigh, or buttocks. 2 Active Multiple Vitamins-Minera ls (Opurity Bypass Optimized) chewable tablet Acti ve triamcinolone (Kenalog) 0.025 % cream Apply topically every 12 (twelve) hours. 8 Active tiZANidine (Zanaflex) 4 MG tabletIndicatio ns:Acute pain of right shoulder Take 1 tablet (4 mg) by mouth every 8 (eight) hours if needed for muscle spasms. 30 tablet 1 3 Active Blood Pressure Monitor kit 1 kit 2 times daily. 1 kit 4 Active ferrous sulfate (Fe Tabs) 325 (65 Fe) MG EC tablet Take one tab po every other day. Do not crush, chew, or split. 30 tablet 4 Active pantoprazole (ProtoNix) 40 MG EC tablet TOME ARELI TABLETA POR V A ORAL TODOS LOS D 4 Active cetirizine (ZyrTEC) 10 MG tablet Take 1 tablet (10 mg) by mouth Once per day. 30 tablet 2 4 12/19/19 25 Active Active Problems Problem Noted Date Diagnosed Date Encounter for screening for malignant neoplasm o f colon 11/30/2024 Dietary counseling 11/30/2024 Assessment & Plan (11/30/2024 12:28 PM EST): Encouraged minimizing processed foods and increasing whole foods particularly vegetables Exercise counseling 11/30/2024 Assessment & Plan (11/30/2024 12:28 PM EST): Encouraged daily movement, working up to 30 minutes daily Obesity (BMI 30-39.9) 11/30/2024 Assessment & Plan (11/30/2024 12:28 PM EST): Pt reports she knows what she needs to do, declines nutrition today, Will set activity goals Follow up in 6 months Fat necrosis 11/30/2024 Assessment & Plan (11/30/2024 12:28 PM EST): Care coordinated with weight management team who advised pt call office Elevated BP without diagnosis of hypertension Assessment & Plan (11/30/2024 12:30 PM EST): Pt with elevated bp reading with home bp measurements consistently at goal Continue home bp readings Call for readings >130/>80 Urethral diverticulum 11/29/2024 Angio-edema 09/20/2024 Assessment & Plan (09/20/2024 10:28 AM EST): Very mild sxs today. Rx medrol pack, continue Zyrtec. Advised to wash clothing and bed sheets with anti allergenic soap, avoid contact with potential allergens. Refer to global sourcing manager. Spasm of thoracic back muscle 09/20/2024 Assessment & Plan (09/20/2024 9:41 AM EST): Apply heat to affected area, use diclofenac gel bid Advised to do stretching exercises bid Take Tylenol TID prn, re consult prn to refer to PT if sxs last more than 2w Dental calculus 07/06/2024 Dental plaque 07/06/2024 Alopecia areata 05/16/2023 Acute pain of right shoulder 05/01/2023 Resolved Problems Problem Noted Date Diagnosed Date Resolved Date Essential hypertension 09/11/201701/08 Obesity 08/03/2013 01/08/2023 Sleep apnea 08/03/2013 01/08/2023 Steatosis of liver 08/03/2013 Encounters Date Type Department Care Team Description 11/30/2024 11:00 AM EST Office Visit [facility] [address] [place] [phone] Eun Reed NP Urethral diverticulum (Primary Dx); Dietary counseling; Exercise counseling; Encounter for screening for malignant neoplasm of colon; Screening for colon cancer; Healthcare maintenance; Obesity (BMI 30-39.9); Fat necrosis; Elevated BP without diagnosis of hypertension 11/30/2024 Travel 11/18/2024 Patient Outreach [facility] [address] [place] [phone] Eun Reed NP Pre-visit Planning ((Unable to reach for PVP screening, LVM)) 11/17/[address] [address] Maryan Stinson MA Chart Prep 09/27/2024 Orders Only GENERIC EXTERNAL DATA DEPARTMENT Provider, Generic External Data 09/20/2024 9:20 AM EST Office Visit [facility] [address] [place] [phone] Patrica Desai MD Angioedema, initial encounter (Primary Dx); Spasm of thoracic back muscle from Last 3 Months Immunizations Name Administration Dates Next Due Hep B, Adolescent or Pediatric 01/12/2010,2008 Influenza injectable quadriv alent preservative free 07/21/2023,08/31/2020,08/12/2019 Influenza, IIV3, injectable 10/03/2011 Influenza, Split (incl. bobby fied surface antigen) 08/03/2013 Tdap 10/03/2011 Family History Medical History Relation Name Comments Prostate cancer Maternal Grandfather Diabetes type II Maternal Grandmother Hypertension Maternal Grandmother Diabetes type II Mother Hypertension Mother Relation Name Status Comments Maternal Grandfather Maternal Grandmother Mother Social History Tobacco Use Types Packs/Day Years Used Date Smoking Tobacco: Never Passive Smoke Exposure: Never Smokeless Tobacco: Never Tobacco Cessation:Counseling Given: Not Answered Alcohol Use Standard Drinks/Week Comments Yes 0 [...] not to disclose 2021 10:18 AM EDT Last Filed Vital Signs Vital Sign Reading [...] Mass Index 30.18 11/30/2024 10:57 AM EST Plan of Treatment Upcoming Encounters Date Type Department Care Team (Late st Contact Info) Description 01/04/2025 10:00 AM EST Office Visit [facility] [address] [place] [address] Diomedes Laboy Health Maintenance Due Date Last Done Comments CT Colonography 1975 Colonoscopy 1975 Colorectal Cancer Screening 1975 FIT DNA/Cologuard 1975 FIT 1975 FOBT 1975 Sigmoidoscopy 1975 Family Planning (PISQ) 02/22/1991 Hepatitis B Vaccines (1 of 3 - 19+ 3-dose series) 02/22/1995 01/12/2010, 10/12/2009 DTaP/Tdap/Td Vaccines (2 - Td or Tdap) 10/03/2021 10/03/2011 COVID-19 Vaccine ( season) 2024 11/20/2021, 03/31/2021, 03/03/2021 Influenza Vaccine (#1) 2024 3, 08/31/2020, 08/12/2019, Additional history exists Dental Oral Exam 01/04/2025 07/06/2024, 01/2022, 06/14/2019, Additional history exists Dental Prophylaxis 01/04/2025 07/06/2024, 0 03/05/2022, 12/21/2019, Additional history exists Dental X-Ray: Full Mouth 03/06/2025 022, 10/07/2017, 09/07/2009 Depression Monitoring (PHQ-9) 05/30/2025 11/30/2024, 11/30/2024 Dental X-Ray: Bitewings 07/07/2025 07/06/20 24, 03/05/2022, 06/14/2019, Additional history exists Alcohol/Substance Use Screening 11/30/2025 11/30/2024 Depression Screening 11/30/2025 11/30/2024, 11/30/19 25 SDOH Screening 11/30/2025 11/30/2024 Tobacco Screening 11/30/2025 11/30/2024 Pap Smear 12/04/2025 12/04/2022 Mammogram 01/18/2026 01/19/2024 Zoster Vaccines (1 of 2) 02/22/2026 Cervical Cancer Screening 12/04/2027 HPV/Cotest 12/04/2027 12/04/2022 Lipid Panel 01/11/2029 01/12/2024, 05/14/2023 RSV Patients and Patients Aged 60 years or older (1 - 1-dose 75+ series) 02/22/2051 HIV Screening Completed 01/12/2024, 05/14/2023 Hepatitis C Screening Completed 01/12/2024, 023 HIB Vaccines Aged Out No longer eligi ble based on patient's age to complete this topic HPV Vaccines Aged Out No longer eligi ble based on patient's age to complete this topic Hepatitis A Vaccines Aged Out No long er eligible based on patient's age to complete this topic IPV Vaccines Aged Out No longer eligi ble based on patient's age to complete this topic Meningococcal Vaccine Aged Out No leena blake eligible based on patient's age to complete this topic Pneumococcal Vaccine: Pediatrics (0 to 5 Years) and At-Risk Patients (6 to 49) Years) Aged Out No longer eligible based on patient's age to complete this topic RSV under 20 months Aged Out No longe r eligible based on patient's age to complete this topic Rotavirus Vaccines Aged Out No longer eligible based on patient's age to complete this topic Procedures Procedure Name Priority Date/Time Associated Diagnosis Comments CULTURE, URINE, ROUTINE Routine 09/27/2024 4:14 PM EST PROPHYLAXIS - ADULT Routine 07/06/2024 8 :00 AM EDT BITEWINGS - 4 RADIOGRAPHIC IMAGES Routine 07/06/2024 8:00 AM EDT PERIODIC ORAL EVALUATION - ESTABLISHED PATIENT Routine 07/06/2024 8:00 AM EDT BI MAMMOGRAM SCREENING TOMOSYNTHESIS BILATERAL Routine 01/19/2024 12:00 PM EDT HEPATITIS C AB W/REFL TO HCV RNA, QN, PCR Routine 01/12/2024 8:16 AM EDT HIV 1/2 ANTIGEN/ANTIBODY, FOURTH GENERATION W/RFL Routine 01/12/2024 8:16 AM EDT LIPID PANEL, STANDARD Routine 01/12/2024 8:16 AM EDT HPV MRNA E6/E7 REFLEX TO HPV 16, 18/45 Routine 12/04/2022 8:57 AM EST BV (bacterial vaginosis) PAP SMEAR Routine 12/04/2022 8:57 AM EST BV (bacterial vaginosis) DIAGNOSTIC - DIAGNOSTIC IMAGING - INTRAORAL - COMPREHENSIVE SERIES OF RADIOGRAPHIC IMAGES Routine 03/05/2022 12:00 AM EDT from Last 3 Months or Most Recently Relevant to Health Maintenance Results * Culture, Urine, Routine (09/27/2024 4:14 PM EST) Urine Urine specimen obtained by clean catch procedure / Unknown 09/27/2024 4:14 PM EST 09/27/2024 4:25 PM EST Comment:UACC Narrative [facility] - 09/29/2024 11:07 AM EST Urine Culture No growth. Specimen Source: Urine clean catch us Generic External Data Provider LAB MICROBIOLOGY - GENERAL ORDERABLES Final Result [facility] [address] [place] [address] [phone] * BI Mammogram Screening Tomosynthesis Bilateral (01/19/2024 12:00 PM EDT) Anatomical Region Laterality Modality Breast Bilateral Mammography 01/19/2024 12:0 0 PM EDT Narrative 02/10/2024 11:18 PM EDT ? [facility] [place] ? [address] ?[place] [address] ? Mammography Report ? Signed ? Patient: Travis Carrasquill,Sachalyn ? MR#: [id number] ? : 1975 ?Acct:[id number] ? Age/Sex: 48 / F ?ADM Date: 03/18/24 ? Loc: HO.MAMMO ? Attending Dr: Criselda Gallardo COLLEGE SPORTS COACH ? Ordering Physician: Criselda Gallardo COLLEGE SPORTS COACH ?Results: 1Negativ ?? e ? Date of Service: 01/19/24 ?Follow Up: 1 Year From Orig ?? inal Mammogram ? Procedure(s): MM tomosynthesis screening BI ?? Accession Number(s): [id number] ? cc: Criselda Gallardo COLLEGE SPORTS COACH ? EXAMINATION: ?? MM SCREENING DIGITAL BREAST TOMOSYNTHESIS, BILATERAL ? CLINICAL INFORMATION: ? Screening. Asymptomatic. ? COMPARISON: ?? Mammography: This study is compared with prior exams dating back to ?? 2018. ? TECHNIQUE: ?? Digital breast tomosynthesis is performed in both the craniocaudal and ?? mediolateral oblique views along with computer-aided detection (CAD). ?? Synthesized 2D images are generated from the tomosynthesis. ? FINDINGS: ?? There are scattered areas of fibroglandular density (ACR BI-RADS breast ?? composition Category b). ? There are no significant masses, abnormal calcifications, or other ?? abnormalities. ? MM/MM tomosynthesis screening BI ?? IMPRESSION: ?? No mammographic evidence of malignancy. ? ASSESSMENT: ? BI-RADS BI-RADS 1 - Negative ? RECOMMENDATION: ?? Routine annual mammography screening. ? 1 year F/U ? This examination should not preclude the clinical evaluation of a ?? suspicious palpable abnormality. ? This patient's information was entered into a reminder system with a ?? target due date for their next mammogram. ? Dictated By: ?Heather Etienne MD ? Signed By: ?<Electronically signed by Heather Etienne MD in OV> ? 02/10/244 ? DD/ 1200 ? TD/TT: ? Language Arts Teacher: ? Procedure Note Donyarater, Image - 02/10/2024 Martine [facility] [address] [place] [address] Mammography Report Signed Patient: Michael Shirley MR#: [id number] : 1975Acct:[id number] Age/Sex: 48 / FADM Date: 01/19/24 Loc: HO.MAMMO Attending Dr: Criselda Gallardo COLLEGE SPORTS COACH Ordering Physician: Criselda Gallardo NPResults: 1Negativ e Date of Service: 01/19/24Follow Up: 1 Year From Orig inal Mammogram Procedure(s): MM tomosynthesis screening BI Accession Number(s): [id number] cc: Criselda Gallardo NP EXAMINATION: MM SCREENING DIGITAL BREAST TOMOSYNTHESIS, BILATERAL CLINICAL INFORMATION: Screening. Asymptomatic. COMPARISON: Mammography: This study is compared with prior exams dating back to 2018. TECHNIQUE: Digital breast tomosynthesis is performed in both the craniocaudal and mediolateral oblique views along with computer-aided detection (CAD). Synthesized 2D images are generated from the tomosynthesis. FINDINGS: There are scattered areas of fibroglandular density (ACR BI-RADS breast composition Category b). There are no significant masses, abnormal calcifications, or other abnormalities. MM/MM tomosynthesis screening BI IMPRESSION: No mammographic evidence of malignancy. ASSESSMENT: BI-RADS BI-RADS 1 - Negative RECOMMENDATION: Routine annual mammography screening. 1 year F/U This examination should not preclude the clinical evaluation of a suspicious palpable abnormality. This patient's information was entered into a reminder system with a target due date for their next mammogram. Dictated By: Heather Etienne MD Signed By: <Electronically signed by Heather Etienne MD in OV> 02/10/24 2314 DD/ 1200 TD/TT: Language Arts Teacher: Criselda Gallardo [facility] BI PROCEDURES Final Result * Hepatitis C Antibody with Reflex to HCV, RNA, Quantitative, Real-Time PCR (01/12/2024 8:16 AM EDT) Hepatitis C Antibody Nonreactive Nonreactive [facility] Comment:Antibodies to HCV no t detected; does not exclude early acuteHCV infection. 01/12/2024 8:16 AM EDT 01/12/2024 11:04 AM EDT [facility] LAB BLOOD ORDERABLES Final Resu lt [facility] [address] [place] [phone] * HIV-1/2 Antigen and Antibodies, Fourth Generation, with Reflexes (01/12/2024 8:16 AM EDT) HIV AB/AG Nonreactive Nonreactive [facility] Comment:HIV-1 p24 Ag and/or HIV-1/HIV-2 Ab not detected.A test result that is nonreactive does not exclude thepossibility of exposure to or infection with HIV-1 and/orHIV-2. Nonreactive results in this assay for individualswith prior exposure to HIV-1 and/or HIV-2 may be due toantigen and antibody levels that are below the limit ofdetection of this assay.The Zipnosis HIV Ag/Ab Combo assay result andsupplemental assay results should be interpreted inconjunction with the patient's clinical presentation,history and other laboratory results. If the results areinconsistent with clinical evidence, additional testing issuggested to confirm the result. 01/12/2024 8:16 AM EDT 01/12/2024 11:04 AM EDT Criselda [facility] LAB BLOOD ORDERABLES Final Resu lt Performing Organization Address City/[facility]/ZIP Co de Phone Number [facility] [address] [place] [address] [phone] * Lipid Panel, Standard (01/12/2024 8:16 AM EDT) Triglycerides 60 <150 mg/dL [facility] Comment:Desirable Triglyceri de: less than 150 mg/dLBorderline High Triglyceride 150-199 mg/dLHigh Triglyceride: 200-499 mg/dLVery High Triglyceride: greater than or equal to 5OO mg/dL Cholesterol 148 <200 mg/dL [facility] Comment:Desirable Cholestero l: less than 200 mg/dLBorderline High Cholesterol: 200-239 mg/dLHigh Cholesterol: greater than 239 mg/dL LDL Cholesterol Calculated 74 <100 mg/dL [facility] Comment:Desirable LDL: less than 100 mg/dLNear Optimal/Above Optimal LDL: 110- 129 mg/dLBorderline High LDL: 130-159 mg/dLHigh LDL: 160-189 mg/dLVery High LDL: greater than or equal to 190 mg/dL HDL Cholesterol 62 >40 mg/dL [facility] Comment:Desirable HDL: great er than 40 mg/dL Note: This HDL assay may give artificially low results in patients with liver disease. 01/12/2024 8:16 AM EDT 01/12/2024 11:04 AM EDT Criselda [facility] LAB BLOOD ORDERABLES Final Resu lt Performing Organization Address City/[facility]/ZIP Co de Phone Number [facility] [address] [place] [address] [phone] * HPV mRNA E6/E7 w/Reflex to HPV Genotypes 16, 18/45 (12/04/2022 8:57 AM EST) HPV nRNA E6/E7 Not Detected Not Detected [facility] Comment:Methodology: Transcr iption-Mediated AmplificationThis assay detects E6/E7 viral messenger RNA (mRNA) from 14high-risk HPV types (16,18,31,33,35,39,45,51,52,56,58,59,66,68).Cervical sources are required for HPV testing.If a vaginal source from a patient who has had atotal hysterectomy with removal of cervix wassubmitted, please contact the testing laboratoryfor alternative testing options.For additional information, please refer tohttp://education.Raptr/faq/WMK588l0(This link if provided for information/educational purposes only.)THIS TEST WAS PERFORMED AT:[facility] [place] [address] (1)[place] [phone] MCNEAL MD HPV mRNA E6/E7 [facility] HPV 16 RNA [facility] HPV 18/45 RNA [facility] 12/04/2022 8:57 AM EST 12/04/2022 4:00 PM EST [facility] External Provider LAB CYT OLOGY ORDERABLES Final Result Performing Organization Address City/State/[facility] Co de Phone Number [facility] [address] [place] [phone] * Pap Smear (12/04/2022 8:57 AM EST) 12/04/2022 8:57 AM EST 12/04/2022 4:00 PM EST Narrative [facility] - 12/07/2022 1:40 PM EST ----- ------- Name: Michael Shirley ? Age/Sex: 47/F ? : 1975 Unit#: [id number] ?? Attend Dr: Virginie Ruelas CNM ?Re12/04/22 ?Status: DEP REF ? Location: HO.LNP ?Disch: ? ----- ------- SPEC : [id number] ? RECD: 12/04/22-1599 ? STATUS: ??SOUT ? REQ NUM: [id number] ? AMARA: 12/04/22 ? SUBM DR: Virginie Ruelas CNM ? ENTERED: ??12/04/22 ?SP TYPE: Pap Smr ?OTHR DR: ? ORDERED: ??Pap Smear ? Interpretation ?? Satisfactory for evaluation. ?? Negative for intraepithelial lesion or malignancy. ? HPV mRNA E6/E7: ?NOT DETECTED ? This assay detects E6/E7 viral messenger RNA (mRNA) from 14 high-risk HPV types (16, 18, ?? 31, 33, 35, 39, 45, 51, 52, 56, 58, 59, 66, 68) ? HPV testing performed by [facility], [place], [place]. ??See reference laboratory ?? portion of the EMR for entire report. ?Clinical Information LMP: 11/03/22 Previous PAP test: 2017, WNL ? Material Received ?? ThinPrep-Cervical ----- ------- Signed (signature on file) Catalina Argueta 12/07/22 1340 ? ----- ------- ? END OF REPORT ? [facility] External Provider LAB CYT OLOGY ORDERABLES Final Result [facility] [address] [place] [address] [phone] from Last 3 Months or Most Recently Relevant to Health Maintenance Insurance [facility] STANDARD MEDICARE Member Subscriber Plan / Payer (Ef fective 2023-Present) Name:Mitchell Roblesstevensrtuhi Member ID:[id number] Relation to Subscriber:Self Name:Michael Robles Subscriber ID:[id number] Payer ID:STATE Group ID:Not on file Type:Medicare Address: [facility].[address] [address] [facility] MEDICAID STAND ADULT Care Teams Steel Chipper Relationship Specialty Start Date End Date Eun Reed NP [address] [place] [address] PCP - General Family Medicine 07/06/24
[2024-12-03 11:56] LABS: MANUAL DIFF FLAG NO
[2024-12-03 12:35] LABS: Basophils Absolute Auto 0.1 X10*3/uL (0.0-0.2); Basophils Percent Auto 0.9 % (0-2); Eosinophils Absolute Auto 0.2 X10*3/uL (0.0-0.4); Eosinophils Percent Auto 3.1 % (0-4); Hematocrit 34.7 % (37.0-47.0); Hemoglobin 11.1 g/dl (12.0-16.0); Imm Gran Abs Auto 0.01 X10*3/uL (0.00-0.03); Imm Gran Pct Auto 0.2 % (0.0-0.4); Lymphocytes Absolute Auto 1.4 X10*3/uL (1.2-4.9); Lymphocytes Percent Auto 25.6 % (20-40); Mean Corpuscular Hemoglobin 26.5 pg (27.0-33.0); Mean Corpuscular Volume 82.8 fL (80.0-98.0); Mean Platelet Volume 10.5 fL (9.4-12.3); Monocytes Absolute Auto 0.6 X10*3/uL (0.1-1.2); Neutrophils Absolute Auto 3.2 x10*3/uL (2.0-8.3); Neutrophils Percent Auto 59.2 % (45-73); Platelet Count 244 X10*3/uL (160-400); Red Blood Count 4.19 X10*6/uL (4.20-5.50); Red Cell Distribution Width 15.8 % (11.0-16.0); White Blood Count 5.5 X10*3/uL (4.8-10.8)
[2024-12-03 12:47] LABS: Estimated Average Glucose 105 mg/dL; Hemoglobin A1C 102.1266 umol/L; Hemoglobin A1c % 5.3 % (<6.0)
[2024-12-03 12:49] LABS: Alanine Aminotransferase 11 U/L (0-31); Albumin Level 4.3 g/dL (3.5-5.0); Alkaline Phosphatase 70 U/L (39-117); Anion Gap 13 (12-20); Aspartate Amino Transferase 24 U/L (5-31); Bilirubin Total 0.6 mg/dL (0.0-1.0); Blood Urea Nitrogen 13 mg/dL (9-16); Calcium 9.7 mg/dL (8.4-10.2); Carbon Dioxide 26 mmol/L (22-29); Chloride 106 mmol/L (96-108); Cholesterol 153 mg/dL (<200); Estimated Glomerular Filt Rate > 60; Glucose Random 93 mg/dL (60-115); HDL Cholesterol 67 mg/dL (>40); Iron 67 mcg/dL (30-160); LDL Cholesterol Calculated 77 mg/dL (<100); Percent Iron Saturation 15 % (15-50); Potassium 4.1 mmol/L (3.3-5.1); Sodium 141 mmol/L (135-145); Total Iron Binding Capacity 456 mcg/dL (228-428); Total Protein 7.5 g/dL (6.5-8.0); Triglycerides 47 mg/dL (<150); Unsaturated Iron Binding 389 ug/dL
[2024-12-03 13:20] LABS: TSH reflex Free T4 1.02 uIU/mL (0.32-4.0)
== END 2024-12-03 08:12 | disposition home or self-care (01) ==
LOC: HO.HHCL 08:11
PROVIDERS: Visit Provider Nurse Practitioner Family
DX: Z00.00 Encounter for general adult medical examination without abnormal findings (principal); Z13.1 Encounter for screening for diabetes mellitus; Z13.6 Encounter for screening for cardiovascular disorders
CPT/HCPCS: 36415; 80053; 80061; 83036; 83540; 84443; 85025

== ENCOUNTER 2025-01-17 09:13 | Outpatient (AMB) | payer MEDICARE, MEDICAID, SELFPAY ==
--- NOTE | 2025-01-17 09:51 | MHC.OFFVIS ---
Intake Visit Reasons: Cysto Intake Note: Patient is present to office today for a cysto Urology Medication:none Antibiotic Allergy:none Blood Thinner:vitamin k Rice Farmworker Required: No Rice Farmworker Name: Crystal Hanks Information Interpreted: non-clinical & clinical Allergies No Known Allergies [No Known Allergies*] Allergy (Verified 01/24/25 08:34) Medication List - Last Reconciled 01/17/25 by Nicolas Barrientos MD cetirizine 10 mg PO DAILY PRN doxycycline hyclate 100 mg PO BID 7 days epinephrine IM estradiol 0.01%(0.1mg/gram) (Estrace) 1 g vaginally apply a pea sized amount to fingertip and apply qhs vaginally; fexofenadine ([facility]) 180 mg PO DAILY iron,carbonyl-vitamin C 65 mg iron- 125 mg (Vitron-C) 1 tab PO BID xviecirxxytq-bvn-vyty-FA-vit K 45 mg iron- 800 mcg-120 mcg (Bariatric Multivitamins) caps PO pantoprazole 40 mg PO DAILY prednisone 50 mg PO DAILY HPI Comments Details: 01/17/25--Here for office cystoscopy: Cystoscopy findings: WNL, no suspicious bladder lesions visualized exam: tenderness on palpation urethra, no cyst/bulge noted. 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 Imaging studies conducted earlier this year, including a CT scan on 03/19/24 and an MRI on 05/25/24, demonstrated findings consistent with urethral diverticulum. Presenting symptoms include episodic pain during urination and sensations of incomplete voiding, with reports of these symptoms becoming more frequent over time. Previously, doxycycline treatment provided relief but resulted in mild stomach upset. The patient also experiences vaginal atrophy, managed with an estrogen cream. She has not reported other urinary symptoms or incontinence in the discussion. The primary plan involves referral to a urogynecologist for further evaluation of the urethral diverticulum depicted on imaging. In the interim, I have prescribed doxycycline to manage potential infections and Estrace cream for vaginal atrophy symptoms. 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 She has had CT and MRI imaging-findings consistent with urethral diverticulum. The patient was referred by drafter cartographic, being worked up for heavy menstrual bleeding, she had complains of dysuria and difficulty with urinary stream. The patient complains of pain with urination persistent, denies blood in the urine. She declines pelvic exam today, states she is not prepared for exam but we will reschedule. Discussed trial of doxycycline for urethritis. Follow-up cystoscopy with pelvic exam. [facility] Medical History Cellulitis Fat necrosis Fluid collection at surgical site Panniculitis Overweight Surgical History Hx of gastric bypass S/P panniculectomy Hx of abdominoplasty Hx of section Family History Mother Hypertension Diabetes Asthma Father Hypertension Brother No problems noted. Brother No problems noted. Brother No problems noted. Sister No problems noted. Sister No problems noted. Sister No problems noted. Son No problems noted. Daughter No problems noted. Daughter No problems noted. Maternal Grandfather Prostate cancer Social History Alcohol intake: current Alcohol intake frequency: does not drink Patient Tobacco Use Status: Never used Tobacco service: No Current occupational status: disabled Current occupation: left hand Female Reproductive History Menstrual Age of Menarche: 13 Review of Systems Const All systems reviewed & are unremarkable except as noted in HPI and below Reports no additional complaints Eyes Reports no additional complaints ENT Reports no additional complaints Card Reports no additional complaints Resp Reports no additional complaints GI Reports no additional complaints Reports as per HPI Musc Reports no additional complaints Skin/Breast Reports system reviewed and no additional complaints, except as documented Neuro Reports no additional complaints Psych Reports no additional complaints Endo Reports no additional complaints Cory/Lymph Reports no additional complaints Aller/Immun Reports no additional complaints Physical Exam Other: tenderness on palpation urethra, no cyst/bulge noted. Office Procedures Cystoscopy Consent Discussed risk and benefit or proposed procedure with the patient. Information consent for procedure given to the patient. Discussed technical aspects, risks, benefits and alternatives in full. Addressed all of the patient's questions and concerns regarding the procedure. The patient demonstrated knowledge and understanding. They wish to proceed with this procedure. Preparation The patient was prepped in the usual manner. A development technician was present and in the room. Genitalia was prepped with betadine solution in a sterile manner. Lidocaine Jelly 2% was placed into the urethra and 16Fr flexible Olympus cystoscope was inserted into the meatus after adequate lubrication. Procedure Time out per protocol performed. Bladder Inspection Bladder Inspection: The bladder was inspected in its entirety with utilization retroflexion displaying: Tumor(s): no suspicious bladder lesions visualized Trabeculation: NA Mucosal Erthema: NA Orifices: normal shape and position Urethra: normal Cystoscopy findings: WNL, no suspicious bladder lesions visualized [id number] DISPOSABLE SCOPE URO-G FLEXIBLE SCOPE Procedure code (CPT) selection complete Office Meds lidocaine HCl 2 % mucosal jelly in applicator Performing Provider: Nicolas Barrientos MD [place] [facility] [place] [facility] Administered by: Juan Briones LPN on 01/17/25 10:13 Dose Route Admin Location Dispensed Lot Number Expiration Date ND Solar Field Service Technician 10 mL intra-urethral 10 mL ciprofloxacin HCl 500 mg tablet Performing Provider: Nicolas Barrientos MD [place] [facility] [place] [facility] Administered by: Juan Briones LPN on 01/17/25 10:13 Dose Route Admin Location Dispensed Lot Number Expiration Date ND Solar Field Service Technician 500 mg PO 1 tab phenazopyridine 200 mg tablet Performing Provider: Nicolas Barrientos MD [place] [facility] [place] [facility] Administered by: Juan Briones LPN on 01/17/25 10:13 Dose Route Admin Location Dispensed Lot Number Expiration Date NDC Solar Field Service Technician 200 mg PO 1 tab Results AMB Urinalysis, Automated UA Leukoctes 0 Austen/uL Last Edit by Ling Altman on 01/17/25 11:27 UA Nitrite Negative Last Edit by Ling Altman on 01/17/25 11:27 UA Urobilinogen 3.5 mg/dL Last Edit by Ling Altman on 01/17/25 11:27 UA Protein 1 mg/dL Last Edit by Ling Agapito on 01/17/25 11:27 UA pH 5.5 Last Edit by Ling Agapito on 01/17/25 11:27 UA Blood 0 Baudilio/uL Last Edit by Ling Altman on 01/17/25 11:27 UA Specific [place] 1.025 Last Edit by Ling Altman on 01/17/25 11:27 UA Ketone Negative Last Edit by Ling Agapito on 01/17/25 11:27 UA Bilirubin 17 mg/dL Last Edit by Ling Altman on 01/17/25 11:27 UA Glucose 0 mg/dL Last Edit by Ling Altman on 01/17/25 11:27 Results Reviewed Results Reviewed: Laboratory Last Values Urine pH (Auto) 5.5 01/17/25 10:47 Specific [place] (Auto) 1.025 01/17/25 10:47 Urine Protein (Auto) 1 mg/dL 01/17/25 10:47 Glucose (UA)(Auto) 0 mg/dL 01/17/25 10:47 Urine Ketones (Auto) Negative 01/17/25 10:47 Urine Blood (Auto) 0 Baudilio/uL 01/17/25 10:47 Urine Nitrite (Auto) Negative 01/17/25 10:47 Urine Bilirubin (Auto) 17 mg/dL 01/17/25 10:47 Urine Urobilinogen (Auto) 3.5 mg/dL 01/17/25 10:47 Leukocyte Esterase (Auto) 0 Austen/uL 01/17/25 10:47 Date of Service: 05/25/24 MR PELVIS WITHOUT AND WITH CONTRAST CLINICAL INFORMATION: Possible urethral diverticulum versus vaginal cyst COMPARISON: Pelvic ultrasound 03/09/2024. CT abdomen and pelvis 03/19/2024. TECHNIQUE: Multiplanar multisequence MRI of the pelvis was performed before and after intravenous administration of 7 mL of gadavist. FINDINGS: Evaluation is slightly limited due to motion artifact. The uterus is retroflexed and normal in size measuring approximately 10 cm in length. The endometrial thickness is within normal limits measuring up to 5 mm. Junctional zone appears intact. No focal myometrial lesions. The right ovary is not well-visualized.There is a 4.8 x 3.6 cm T1 hypointense, T2 hyperintense nonenhancing left adnexal lesion favored to represent a hemorrhagic cyst. Nabothian cyst in the region of the cervix. The urinary bladder is partially distended and appears unremarkable There is a T2 hyperintense non-enhancing midline cystic structure measuring approximately 2.1 x 2 cm, 6:21 which appears to be arising from the posterior wall of the urethra with possible communication to the urethral lumen, 4:10 and favored to represent a urethral diverticulum. Included bowel loops are nondilated. No enlarged pelvic lymph nodes. Again noted postsurgical changes in the left anterior pelvic wall with fat necrosis measuring approximately 5.9 x 1.8 cm. There is infiltration of the surrounding subcutaneous tissues. No acute or suspicious osseous abnormality. IMPRESSION: 1. 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 2. 4.8 cm T1 hypointense, T2 hyperintense nonenhancing left adnexal lesion, may represent hemorrhagic cyst. No dedicated follow-up imaging is required in the absence of symptoms. 3. Again noted postsurgical changes in the left anterior pelvic wall with fat necrosis. Date of Service: 03/19/24 CT ABDOMEN AND PELVIS WITH CONTRAST CLINICAL INFORMATION: Follow-up seroma. COMPARISON: 12/27/2022 TECHNIQUE: Multidetector volumetric images were obtained from the superior aspect of the liver through the pubic symphysis following administration 85 mL of Omnipaque 350 intravenous contrast. Sagittal and coronal reformatted images were obtained on the technologist's workstation. Oral contrast: No This CT examination was performed using dose optimization techniques as appropriate, variously including the following: *Automated exposure control *Adjustment of mA and/or kV according to patient size (this includes techniques or standardized protocols for targeted exams where dose is matched to indication/reason for exam; i.e. extremities or head) *Use of iterative reconstruction technique DLP: 377 mGy-cm FINDINGS: LUNG BASES: No pleural or pericardial effusion. LIVER, GALLBLADDER, AND BILIARY TREE: The liver is normal in size and contour. No focal hepatic lesion or biliary ductal dilatation is present. The gallbladder is unremarkable with no evidence of radiopaque gallstones, gallbladder wall thickening, or obvious pericholecystic inflammatory changes. PANCREAS: Unremarkable. SPLEEN: Unremarkable. ADRENAL GLANDS: Unremarkable. KIDNEYS AND URETERS: The kidneys are symmetric in size and enhancement. No hydronephrosis or perinephric stranding. BLADDER: Underdistended. 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 GASTROINTESTINAL TRACT: Status post gastric bypass. No small bowel obstruction. Appendix is within normal limits. ABDOMINAL WALL: Postsurgical changes in the lower left anterior abdominal wall with fat necrosis measuring 6.7 x 2.5 cm in transverse. Previous measurements 7.8 x 2.2 cm. LYMPH NODES: No bulky lymphadenopathy. VASCULAR: Normal caliber abdominal aorta. PELVIC VISCERA: Unremarkable. OSSEOUS STRUCTURES: No destructive bone lesions. IMPRESSION: Postsurgical changes in the lower left anterior abdominal wall with fat necrosis measuring 6.7 x 2.5 cm in transverse. There is infiltration of the surrounding subcutaneous tissues. 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 Assessment & Plan Assessment & Plan (1) Urethral diverticulum: Code(s): N36.1 - Urethral diverticulum Category: Medical (2) Urethritis: Code(s): N34.2 - Other urethritis Category: Medical (3) Pain with urination: Code(s): R30.9 - Painful micturition, unspecified Category: Medical (4) Perimenopausal atrophic vaginitis: Code(s): N95.2 - Postmenopausal atrophic vaginitis Category: Medical Plan Discussion Notes We discussed the findings from her CT and MRI scans, which are consistent with a urethral diverticulum. I explained that during today's cystoscopy, no definitive cyst was visible; however, these structures can potentially collapse and refill, misleading direct visualization. I recommended a referral to a specialist in urogynecology for further evaluation and to consider surgical intervention if necessary. Repeat doxycycline, cont estrace cream Orders: Orders AMB Urinalysis Automated 01/17/25 Z13.9 - Encounter for screening, unspecified AMB Cystoscopy 01/17/25 R30.9 - Painful micturition, unspecified, N34.2 - Other urethritis Referrals Urogynecology Referral N36.1 - Urethral diverticulum Medications: New estradiol 0.01%(0.1mg/gram) (Estrace) 1 g vaginally apply a pea sized amount to fingertip and apply qhs vaginally; 42.5 grams 0RF Refilled doxycycline hyclate 100 mg PO BID 14 tabs 0RF urethral irritation 7 days Patient Instructions: The patient had an opportunity to ask questions regarding treatment plan. The patient expressed understanding and agreement with the above treatment plan. The patient is aware they should contact our office by phone for worsening of their current condition or the appearance of new symptoms. Compliance is encouraged with any medications and followup testing that is ordered. It is a privilege to be allowed the opportunity to participate in the urologic care of your patient. If you have any questions or concerns regarding treatment for the above conditions please do not hesitate to contact me. The office telephone contact is [phone]. This note is constructed in part using voice recognition software. While every effort has been made to ensure accuracy suspect artist supervisor errors may have been included. Yours sincerely, Nicolas Barrientos MD Scribe Plan - Not visible on output: Patient was informed and verbally consented to the use of an ambient scribe for clinic note documentation during this visit. Coding Level of Care Code Est Pt Level 4 (32603) Diagnoses Urethral diverticulum N36.1 Urethritis N34.2 Pain with urination R30.9 Perimenopausal atrophic vaginitis N95.2 CPT Codes Cystoscopy - CPT: [id number] ([id number])
== END 2025-01-17 11:25 | disposition home or self-care (01) ==
LOC: HO.HUSH 09:14
PROVIDERS: PCP Nurse Practitioner Family; Visit Provider Urology
DX: N36.1 Urethral diverticulum (principal); N34.2 Other urethritis; R30.9 Painful micturition, unspecified; N95.2 Postmenopausal atrophic vaginitis
CPT/HCPCS: 52000; 99214

== ENCOUNTER → 2025-01-17 09:13 | Outpatient (BNVA) | payer MEDICARE, MEDICAID, SELFPAY | PROVIDERS: PCP Nurse Practitioner Family; Visit Provider Urology | DX: N36.1 Urethral diverticulum (principal); N34.2 Other urethritis; N95.2 Postmenopausal atrophic vaginitis; R30.9 Painful micturition, unspecified | CPT/HCPCS: 52000; 81003; 99212 ==

== ENCOUNTER 2025-01-24 08:13 | Outpatient (AMB) | payer MEDICARE, MEDICAID, SELFPAY ==
--- NOTE | 2025-01-24 08:28 | MHC.OFFVIS ---
Vital Signs 01/24/25 08:33 Height 5 ft 2 in Weight 155 lb BMI 28.3 BP 110/80 Intake Visit Reasons: Ablation consult/DO NOT RS Senior Java Programmer Required: Yes Senior Java Programmer Language: Cotton Ball Bagger Services: Senior Java Programmer Present (in person) Senior Java Programmer Name: Estella WASSERMAN Information Interpreted: non-clinical & clinical Accompanied by: Self / Same As Patient Allergies No Known Allergies [No Known Allergies*] Allergy (Verified 01/24/25 08:34) Is last menstrual period known: Yes Last menstrual period: 12/11/24 HPI Comments Details: The patient is presenting for follow-up to discuss the results of her abnormal uterine bleeding workup and options of treatment. The following workup was done.: H&H= 11.1/34.7 TSH within normal GC/CT negative 12/26 co testing negative TSH, hCG, GC and chlamydia were negative. 01/24 mammogram BI-RADS 1, the patient is scheduled for next screening mammogram on 01/31/202508/26 Endometrial biopsy pathology showed following: Benign proliferative endometrium and benign endocervical glandular mucosa; no atypia or carcinoma Pelvic ultrasound showed the followin/24 pelvic ultrasound showed the following: IMPRESSION: 1. A 2.7 cm midline cystic lesion containing debris of uncertain etiology differential considerations could include a urethral diverticulum or a Susannah's duct cyst, which can be confirmed with MR pelvis if warranted clinically, though similar in size to prior. 2. Nabothian cysts in the cervix. 06/26 pelvic MRI showed the following: IMPRESSION: 1. 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 2. 4.8 cm T1 hypointense, T2 hyperintense nonenhancing left adnexal lesion, may represent hemorrhagic cyst. No dedicated follow-up imaging is required in the absence of symptoms. 3. Again noted postsurgical changes in the left anterior pelvic wall with fat necrosis. The patient has a vasectomy PFSH Medical History Cellulitis Fat necrosis Fluid collection at surgical site Panniculitis Overweight Surgical History Hx of gastric bypass S/P panniculectomy Hx of abdominoplasty Hx of section Family History Mother Hypertension Diabetes Asthma Father Hypertension Brother No problems noted. Brother No problems noted. Brother No problems noted. Sister No problems noted. Sister No problems noted. Sister No problems noted. Son No problems noted. Daughter No problems noted. Daughter No problems noted. Maternal Grandfather Prostate cancer Social History Alcohol intake: current Alcohol intake frequency: does not drink Patient Tobacco Use Status: Never used Tobacco service: No Current occupational status: disabled Current occupation: left hand Female Reproductive History Menstrual Age of Menarche: 13 Date of last menstrual period: 12/11/24 Review of Systems Const All systems reviewed & are unremarkable except as noted in HPI and below Reports as per HPI and Reports no additional complaints GI Reports no additional complaints Reports no additional complaints Physical Exam Vital Signs: Last Vital Signs BP 110/80 01/24/25 08:33 BMI result Body Mass Index 28.3 Assessment & Plan Assessment & Plan (1) Abnormal uterine bleeding (AUB): Code(s): N93.9 - Abnormal uterine and vaginal bleeding, unspecified Category: Medical Plan: Iron sulfate 325 mg p.o. q.d., CBC to be repeated in 3 months, order placed. Discussed with the patient the results of the work up done and options of treatment including Lysteda, BCP's, Mirena IUD, endometrial ablation and hysterectomy. All pros, cons, risks and benefits if each option was discussed with the patient and the patient decided to go ahead with Lysteda , so a more detailed discussion re: Lysteda including mechanism of action, benefits, risks including but not limited to thrombosis and strokes, Instructions were given on how to use, 2 tablets p.o. 3 times a day day 1 up to 3-5 days of menses and to schedule a 3 months follow-up appointment. The patient verbalized understanding and agreed with the plan. (2) Urethral diverticulum: Code(s): N36.1 - Urethral diverticulum Category: Medical Plan: The patient has seen Urology (3) Ovarian cyst: Code(s): N83.209 - Unspecified ovarian cyst, unspecified side Category: Medical Plan: Will repeat pelvic ultrasound, order placed. Instructions given the patient to schedule an ultrasound follow-up appointment in few weeks. Orders: Orders US pelvic and transvaginal Today N83.209 - Unspecified ovarian cyst, unspecified side Complete Blood Count no Diff 3 Months N93.9 - Abnormal uterine and vaginal bleeding, unspecified Medications: New tranexamic acid Start 1st day of menses and take it up to 3-5 days of menses. 1,300 mg (2 x 650 mg) PO TID 5 days 30 tabs 2RF Coding Level of Care Code Est Pt Level 3 (94822) Diagnoses Abnormal uterine bleeding (AUB) N93.9 Urethral diverticulum N36.1 Ovarian cyst N83.209
[2025-01-24 08:33] VITALS: BP 110/80; BMI 28.3
== END 2025-01-24 08:59 | disposition home or self-care (01) ==
LOC: HO.HWS 08:14
PROVIDERS: PCP Nurse Practitioner Family; Visit Provider Obstetrics & Gynecology
DX: N93.9 Abnormal uterine and vaginal bleeding, unspecified (principal); N36.1 Urethral diverticulum; N83.209 Unspecified ovarian cyst, unspecified side
CPT/HCPCS: 99213

== ENCOUNTER → 2025-01-24 08:13 | Outpatient (BNVA) | payer MEDICARE, MEDICAID, SELFPAY | PROVIDERS: PCP Nurse Practitioner Family; Visit Provider Obstetrics & Gynecology | DX: N93.9 Abnormal uterine and vaginal bleeding, unspecified (principal); N36.1 Urethral diverticulum; N83.209 Unspecified ovarian cyst, unspecified side | CPT/HCPCS: 99212 ==

== ENCOUNTER 2025-01-31 11:03 | Outpatient (REF) | payer MEDICARE, MEDICAID, SELFPAY ==
--- OUTSIDE RECORDS SUMMARY | 2025-01-31 12:35 | XMS_ITS | Encounter Summary ---
Author Organization [employer] Address [address] [place] [address] Care Team Providers Care Manager Transition Name Role Phone Criselda GallardoP Primary Care Provider [phone] Eun Reed NP Primary Care Provider [phone] Reason for Visit * Reason Onset Date Comments Appointment Request 05/01/2023 Encounter Details Date Type Department Care Team ([facility] st Contact Info) Description 05/01/2023 Telephone [facility] [address] [place] [address] Criselda Gallardo FNP [address], [place] [id number] Appointment Request Social History Tobacco Use Types [...] patient states she was seen at the [facility] on 04/29/23 for right arm pain and was told if pain persist or gets worse she can call to get a injection. Patient is requesting a appt for the injection. Patient speaks bulgarian. documented in this encounter Plan of Treatment Upcoming Encounters Date Type Department Care Team (Late st Contact Info) Description 06/06/2025 9:00 AM EDT Office Visit [facility] [address] [place], [place] [phone] ButchAlexandria day, OD [address] [place] [address] documented as of this encounter Visit Diagnoses Not on filedocumented in this encounter Care Teams Manager Transition Relationship Specialty Start Date End Date Criselda Gallardo FNP [address] [place] [address] PCP - General Family Medicine 01/06/23 07/05/24 Eun Reed NP [address] [place] [address] PCP - General Family Medicine 07/06/24 documented as of this encounter
--- OUTSIDE RECORDS SUMMARY | 2025-01-31 12:36 | XMS_ITS | Encounter Summary ---
Author Organization [employer] Address [address] [facility] [address] [place] [address] Care Team Providers Care Modeling Manager Name Role Phone Criselda Gallardo Primary Care Provider [phone] Eun Reed NP Primary Care Provider [phone] Encounter Details Date Type Department Care Team (Late st Contact Info) Description 02/24/2024 Orders Only [facility] [address] [place] [address] Criselda Gallardo FNP [address] [place] [address] Fatigue, unspecified type (Primary Dx); Low hemoglobin [...] Description 06/06/2025 9:00 AM EDT Office Visit [facility] [address] [place] [address] Butch, [place], OD [address] [place] [address] documented as of this encounter Procedures Procedure [...] EDT) Iron 35 30 - 160 mcg/dL [facility] Total Iron Binding Capacity 394 228 - 428 mcg/dL [facility] Percent Iron Saturation 9(L) 15 - 50 % [facility] Unsaturated Iron Binding 359 ug/dL [facility] Blood Venous blood specimen / Unknown 05/14/2024 8:23 AM EDT 05/14/2024 11:06 AM EDT us Criselda Gallardo REVENUE COLLECTOR LAB BLOOD ORDERABLES Final Resu lt [facility] [address] [place] [address] [phone] * (ABNORMAL) CBC auto differential (05/14/2024 8:23 AM EDT) White Blood Count 4.7(L) 4.8 - 10.8 X10*3/uL [facility] Red Blood Count 3.96(L) 4.20 - 5.50 X10*6/uL [facility] Hemoglobin 11.0(L) 12.0 - 16.0 g/dl [facility] Hematocrit 34.0(L) 37.0 - 47.0 % [facility] Mean Corpuscular Volume 85.9 80.0 - 98.0 fL [facility] Mean Corpuscular Hemoglobin 27.8 27.0 - 33.0 pg [facility] Mean Corpuscular HGB Conc 32.4 31.0 - 35.0 g/dl [facility] Red Cell Distribution Width 16.7(H) 11.0 - 16.0 % [facility] Platelet Count 222 160 - 400 X10*3/uL [facility] Mean Platelet Volume 10.4 9.4 - 12.3 fL [facility] Neutrophils Percent Auto 54.3 45 - 73 % [facility] Imm Gran Pct Auto 0.2 0.0 - 0.4 % [facility] Lymphocytes Percent Auto 29.2 20 - 40 % [facility] Monocytes Percent Auto 11.4(H) 2 - 11 % [facility] Eosinophils Percent Auto 3.8 0 - 4 % [facility] Basophils Percent Auto 1.1 0 - 2 % [facility] NRBC Pct Auto 0.0 0.0 - 0.2 /100WBC [facility] Neutrophils Absolute Auto 2.6 2.0 - 8.3 x10*3/uL [facility] Imm Gran Abs Auto 0.01 0.00 - 0.03 X10*3/uL [facility] Lymphocytes Absolute Auto 1.4 1.2 - 4.9 X10*3/uL [facility] Monocytes Absolute Auto 0.5 0.1 - 1.2 X10*3/uL [facility] Eosinophils Absolute Auto 0.2 0.0 - 0.4 X10*3/uL [facility] Basophils Absolute Auto 0.1 0.0 - 0.2 X10*3/uL [facility] NRBC Abs Auto 0.000 0.0 - 0.012 X10*3/uL [facility] Blood Venous blood specimen / Unknown 05/14/2024 8:23 AM EDT 05/14/2024 11:11 AM EDT us Criselda RG LAB BLOOD ORDERABLES Final Resu lt Performing Organization Address City/State/[facility] Co de Phone Number [facility] [address] [place] [address] [phone] documented in this encounter Visit Diagnoses Diagnosis Fatigue, unspecified type- Primary Low hemoglobin and low hematocrit documented in this encounter Additional Health Concerns Assessment Noted Time PHQ-9 Depression Total Score: 9 01/09/20 24 10:42 AM EST documented as of this encounter Care Teams Modeling Manager Relationship Specialty Start Date End Date Criselda Gallardo FNP [address] [place] [address] PCP - General Family Medicine 01/06/23 07/05/24 Eun Reed NP [address] [place] [address] PCP - General Family Medicine 07/06/24 documented as of this encounter
--- OUTSIDE RECORDS SUMMARY | 2025-01-31 12:36 | XMS_ITS | Encounter Summary ---
Author Organization [employer] Address [address] [facility] [address] [place] [address] Care Team Providers Care Shovel Handle Assembler Name Role Phone Eun Reed NP Primary Care Provider [phone] Reason for Visit * Reason Comments Filling #27, #29, #30 Encounter Details Date Type Department Care Team ([facility] Contact Info) Description 01/31/2025 9:00 AM EDT Office Visit [facility] [address] [place] [address] Nik Alvares [address] [place] [address] Social History Tobacco Use Types Packs/Day Years [...] is your housing situation today? I have kitabrayan alberto 11/30/[address] you [...] Sign Reading Time Taken Comments Blood Pressure 118/70 01/31/2025 9:15 AM EDT Pulse - - Temperature - - Respiratory Rate - - Oxygen Saturation - - Inhaled Oxygen Concentration - - Weight - - Height - - Body Mass Index - - documented in this encounter Progress Notes * Nik Alvares - 01/31/2025 9:00 AM EDT Patient ID: Michael Robles is a 49 y.o. female. Time Out: Timeout Date: 01/31/25 (restorations #27, #29, #30), Timeout Time: 09 Location: [facility] Tooth: #27, #29, and #30 Procedure: [place] Verified the above with patient, assistant service manager, and provider. Confirmed via patient's chart, intraorally and by radiographs. Wrapper Selector: Yes. Language: Korean. Wrapper Selector's Name: Pt can understand Comoran partially Chief Complaint Patient presents with Filling #27, #29, #30 Medical Hx: Vitals: Blood pressure 118/70. Medications, Med Hx reviewed with patient and updated in chart. Consent Obtained: The risks, benefits, indications, potential complications, and alternatives were explained to the patient and informed consent was obtained with good understanding. Treatment Provided: Dental procedures in this visit [id number] - RESIN-BASED COMPOSITE - 1 SURF, ANTERIOR 27 F(V) (Completed) Service provider: Nik Alvares Billing provider: Nik Alvares [id number] - RESIN-BASED COMPOSITE - 1 SURF, POSTERIOR 29 B(V) (Completed) Service provider: Nik Alvares Billing provider: Ginawayne Alvares [id number] - RESIN-BASED COMPOSITE - 1 SURF, POSTERIOR 30 B(V) (Completed) Service provider: Nik Alvares Billing provider: Nik Alvares [id number] - CASE PRESENTATION, DETAILED AND EXTENSIVE TREATMENT PLANNING (Completed) Service provider: Nik Alvares Billing provider: Nik Alvares Diagnosis: Cervical abrasion causing sensitivity to cold Topical: 20% Benzocaine Anesthesia: 4% Septocaine (Articaine) w/ 1:200,000 epinephrine Number of Cartridges: 1 Injection Type: Buccal infiltration Confirmed profound anesthesia. Isolation: high speed suction and cotton rolls and bite block Prep: Preparation finalized Matrix: None Etch: 37% Phosphoric Acid Etch Desensitizer: Gluma Liner/Base: None Daniel: I-Daniel Latter Day Material: Voco [employer] Packable Shade: A4 Polished. Occlusion & contacts verified. Patient satisfied with comfort and esthetics. Patient tolerated procedure well. Post-operative instructions were given. Pt was advised to do lukewarm water rinses and avoid eating anything hard, crunchy and sticky food. Patient departed alert, oriented, and in stable condition. NOTE- Pt was informed that if any tooth becomes symptomatic or any other dental concerns, schedule appointment and patient care will be provided as needed. Pt understood and agreed. All questions answered. NV: periodic exam Model Technician: Ilana Newberry Dentist: Dr. Nik Alvares, DMD documented in this encounter Plan of Treatment Upcoming Encounters Date Type Department Care Team (Late st Contact Info) Description 06/06/2025 9:00 AM EDT Office Visit [facility] [address] [place] [address] [place] Rae, OD [address] [place], [place] [phone] Scheduled Orders Name Type Priority Associated Diagnoses Orde r Schedule PROPHYLAXIS - ADULT Dental Routine 1 Occ urrences starting 01/31/2025 documented as of this encounter Procedures Procedure Name Priority Date/Time Associated Diagnosis Comments 30 B(V) RESIN-BASED COMPOSITE - 1 SURF, POSTERIOR Routine 01/31/2025 9:00 AM EDT 29 B(V) RESIN-BASED COMPOSITE - 1 SURF, POSTERIOR Routine 01/31/2025 9:00 AM EDT 27 F(V) RESIN-BASED COMPOSITE - 1 SURF, ANTERIOR Routine 01/31/2025 9:00 AM EDT CASE PRESENTATION, DETAILED AND EXTENSIVE TREATMENT PLANNING Routine 01/31/2025 9:00 AM EDT documented in this encounter Visit Diagnoses Not on filedocumented in this encounter Additional Health Concerns Assessment Noted Time PHQ-9 Depression Total Score: 12 025 11:43 AM EST documented as of this encounter Care Teams Shovel Handle Assembler Relationship Specialty Start Date End Date Eun Reed NP [address] [place] [phone] PCP - General Family Medicine 07/06/24 documented as of this encounter
--- OUTSIDE RECORDS SUMMARY | 2025-01-31 12:36 | XMS_ITS | Clinical Summary ---
Author Organization [employer] Address [address] [facility] [address] [place] [address] Care Team Providers Care Bean Roaster Name Role Phone Eun Reed NP Primary Care Provider [phone] Allergies No known active allergies Medications EPINEPHrine [...] Once per day. 30 tablet 2 4 Active Active Problems Problem Noted Date Diagnosed [...] avoid contact with potential allergens. Refer to hog killer. Spasm of thoracic back muscle 09/20/2024 Assessment [...] Encounters Date Type Department Care Team Description 01/31/2025 9:00 AM EDT Office Visit [facility] ADULT DENTAL [address] [place] [address] Dia Ginaelizabetet 01/14/2025 Population Health Risk Score [facility] (C3) Department [address] [place] [phone] Provider, Population Health Generic 01/13/2025 2:30 PM EDT Office Visit [facility] OPT[facility] [address] [place] [address] Alexandria Rae, OD Presbyopia of both eyes (Primary Dx) 01/05/2025 2:00 PM EST Office Visit [facility] ADULT D[facility] [address] [place] [address] Gina Alvaresanpreet 01/04/2025 10:00 AM EST Office Visit [facility] AD[facility] [address] [place] [address] Diomedes Laboy Dental calculus (Primary Dx) 12/06/2024 9:30 AM EST Office Visit [facility] [address] [place] [address] Alexandria Rae, OD Glaucoma suspect of both eyes (Primary Dx); White without pressure, peripheral retina, left eye; Presbyopia of both eyes 12/06/2024 Travel 11/30/2024 11:00 AM EST Office Visit [facility] [address] [place] [phone] Eun Reed NP Urethral diverticulum (Primary Dx); Dietary counseling; Exercise counseling; Encounter for screening for malignant neoplasm of colon; Screening for colon cancer; Healthcare maintenance; Obesity (BMI 30-39.9); Fat necrosis; Elevated BP without diagnosis of hypertension 11/30/2024 Travel 11/18/2024 Patient Outreach [address] [address] Eun Reed NP Pre-visit Planning ((Unable to reach for PVP screening, LVM)) 11/17/[address] [place] [address] Maryan Stinson MA Chart Prep from Last 3 Months Immunizations Name Administration [...] Pressure 118/70 01/31/2025 9:15 AM EDT Pulse 70 01/04/2025 9:56 AM EST Temperature 35.2 ??C (95.3 ??F) [...] Description 06/06/2025 9:00 AM EDT Office Visit [facility] [address] [place] [address] Butch, Alexandria, OD [address] [place] [address] Health Maintenance Due Date Last Done Comments CT Colonography 1975 Colonoscopy 1975 FIT 1975 FOBT 1975 Sigmoidoscopy 1975 Family Planning (PISQ) 02/22/1991 Hepatitis B Vaccines (1 of 3 - 19+ 3-dose series) 02/22/1995 01/12/2010, 10/12/2009 DTaP/Tdap/Td Vaccines (2 - Td or Tdap) 10/03/2021 10/03/2011 COVID-19 Vaccine ( season) 2024 11/20/2021, 03/31/2021, 03/03/2021 Influenza Vaccine (#1) 2024 , 08/31/2020, 08/12/2019, Additional history exists Dental Oral Exam 01/04/2025 07/06/2024, 01/2022, 06/14/2019, Additional history exists Dental X-Ray: Full Mouth 03/06/2025 022, 10/07/2017, 09/07/2009 Depression Monitoring (PHQ-9) 05/30/2025 11/30/2024, 11/30/2024 Dental Prophylaxis 07/08/2025 01/04/2025, 0 07/06/2024, 03/05/2022, Additional history exists Alcohol/Substance Use Screening 11/30/2025 11/30/2024 Depression Screening 11/30/2025 11/30/2024, 11/30/19 SDOH Screening 11/30/2025 11/30/2024 Pap Smear 12/04/2025 12/04/2022 Dental X-Ray: Bitewings 01/06/2026 01/06/20 25, 07/06/2024, 03/05/2022, Additional history exists Mammogram 01/18/2026 01/19/2024 Tobacco Screening 01/31/2026 01/31/2025 Zoster Vaccines (1 of 2) 02/22/2026 Cervical Cancer Screening 12/04/2027 HPV/Cotest 12/04/2027 12/04/2022 Colorectal Cancer Screening 12/06/2027 FIT DNA/Cologuard 12/06/2027 12/06/2024 Lipid Panel 12/03/2029 12/03/2024, 0311/2023, 05/14/2023 RSV Patients and Patients Aged 60 [...] Procedure Name Priority Date/Time Associated Diagnosis Comments CASE PRESENTATION, DETAILED AND EXTENSIVE TREATMENT PLANNING Routine 01/31/2025 9:00 AM EDT 30 B(V) RESIN-BASED COMPOSITE - 1 SURF, POSTERIOR Routine 01/31/2025 9:00 AM EDT 29 B(V) RESIN-BASED COMPOSITE - 1 SURF, POSTERIOR Routine 01/31/2025 9:00 AM EDT 27 F(V) RESIN-BASED COMPOSITE - 1 SURF, ANTERIOR Routine 01/31/2025 9:00 AM EDT CASE PRESENTATION, DETAILED AND EXTENSIVE TREATMENT PLANNING Routine 01/05/2025 2:00 PM EST BITEWING - SINGLE RADIOGRAPHIC IMAGE Routine 01/05/2025 2:00 PM EST LIMITED ORAL EVALUATION - PROBLEM FOCUSED Routine 01/05/2025 2:00 PM EST INTRAORAL - PERIAPICAL FIRST RADIOGRAPHIC IMAGE Routine 01/05/2025 2:00 PM EST ORAL HYGIENE INSTRUCTIONS Routine 01/04/2025 10:00 AM EST Full PROPHYLAXIS - ADULT Routine 01/04/2025 10:00 AM EST CASE PRESENTATION, DETAILED AND EXTENSIVE TREATMENT PLANNING Routine 01/04/2025 10:00 AM EST OCT, OPTIC NERVE - OU - BOTH EYES Routine 12/06/2024 9:30 AM EST Glaucoma suspect of both eyes LAB COLOGUARD?? COLON CANCER SCREEN Routine 12/06/2024 4:45 AM EST Screening for colon cancer HEMOGLOBIN A1C Routine 12/03/2024 8:13 AM EST Healthcare maintenance TSH W/REFLEX TO FT4 Routine 12/03/2024 8 :13 AM EST Healthcare maintenance IRON AND TOTAL IRON BINDING CAPACITY Routine 12/03/2024 8:13 AM EST Healthcare maintenance CBC WITH AUTO DIFFERENTIAL Routine 12/03/2024 8:13 AM EST Healthcare maintenance COMPREHENSIVE METABOLIC PANEL Routine 12/03/2024 8:13 AM EST Healthcare maintenance LIPID PANEL, STANDARD Routine 12/03/2024 8:13 AM EST Healthcare maintenance PERIODIC ORAL EVALUATION - ESTABLISHED PATIENT Routine 07/06/2024 8:00 AM EDT BI MAMMOGRAM SCREENING TOMOSYNTHESIS BILATERAL Routine 01/19/2024 12:00 PM EDT HEPATITIS C AB W/REFL TO HCV RNA, QN, PCR Routine 01/12/2024 8:16 AM EDT HIV 1/2 ANTIGEN/ANTIBODY, FOURTH GENERATION W/RFL Routine 01/12/2024 8:16 AM EDT HPV MRNA E6/E7 REFLEX TO HPV 16, 18/45 Routine 12/04/2022 8:57 AM EST BV (bacterial vaginosis) PAP SMEAR Routine 12/04/2022 8:57 AM EST BV (bacterial vaginosis) INTRAORAL - COMPLETE SERIES OF RADIOGRAPHIC IMAGES Routine 03/05/2022 12:00 AM EDT from Last 3 Months or Most Recently Relevant to Health Maintenance Results * Cologuard?? colon cancer screening (12/06/2024 4:45 AM EST) Cologuard Result Negative Negative 12/10/19 25 7:20 PM EST [employer] (CLIA #:[id number]) Comment: NEGATIVE TEST RESULT. A negative Cologuard result indicates a low likelihood that a colorectal cancer (CRC) or advanced adenoma (adenomatous polyps with more advanced pre-malignant features) ??is present. The chance that a person with a negative Cologuard test has a colorectal cancer is less than 1 in 1500 (negative predictive value >99.9%) or has an ??advanced adenoma is less than ??5.3% (negative predictive value 94.7%). These data are based on a prospective cross-sectional study of 10,000 individuals at average risk for colorectal cancer who were screened with both Cologuard and colonoscopy. (Bernard Varner al, N Engl J Med 2014;370(14):1286- 1297) The normal value (reference range) for this assay is negative. COLOGUARD RE-SCREENING RECOMMENDATION: Periodic colorectal cancer screening is an important part of preventive healthcare for asymptomatic individuals at average risk for colorectal cancer. ??Following a negative Cologuard result, the [place] [employer] and U.S. Multi-Society Task Force screening guidelines recommend a Cologuard re-screening interval of 3 years. References: [place] [employer] Guideline for Colorectal Cancer Screening: https://www.cancer.org/cancer/cszam-mctftz-dbvjuq/uekdhltev-kogxlsgab-ffjwgbp/ac s-rec ommendations.html.; Tom ROWE, Ren SANTORO, Lyn KaminskiK, Colorectal Cancer Screening: Recommendations for Physicians and Patients from the U.S. Multi-Society Task Force on Colorectal Cancer Screening , Am J Gastroenterology 2017; 112:0220-7676. TEST DESCRIPTION: Composite algorithmic analysis of stool DNA-biomarkers with hemoglobin immunoassay. ?? Quantitative values of individual biomarkers are not reportable and are not associated with individual biomarker result reference ranges. Cologuard is intended for colorectal cancer screening of adults of either sex, 45 years or older, who are at average-risk for colorectal cancer (CRC). Cologuard has been approved for use by the U.S. FDA. The performance of Cologuard was established in a cross sectional study of average-risk adults aged 50-84. Cologuard performance in patients ages 45 to 49 years was estimated by sub-group analysis of near-age groups. Colonoscopies performed for a positive result may find as the most clinically significant lesion: colorectal cancer [4.0%], advanced adenoma (including sessile serrated polyps greater than or equal to 1cm diameter) [20%] or non- advanced adenoma [31%]; or no colorectal neoplasia [45%]. These estimates are derived from a prospective cross-sectional screening study of 10,000 individuals at average risk for colorectal cancer who were screened with both Cologuard and colonoscopy. (Bernard Varner al, N Engl J Med 2014;370(14):3112-5591.) Cologuard may produce a false negative or false positive result (no colorectal cancer or precancerous polyp present at colonoscopy follow up). A negative Cologuard test result does not guarantee the absence of CRC or advanced adenoma (pre-cancer). The current Cologuard screening interval is every 3 years. ([place] [employer] and U.S. Multi-Society Task Force). Cologuard performance data in a 10,000 patient pivotal study using colonoscopy as the reference method can be accessed at the following location: www.[employer]/results. Additional description of the Cologuard test process, warnings and precautions can be found at www.[employer].SOASTA. Stool specimen (specimen) 12/06/2024 4:45 AM EST 12/07/2024 10:51 AM EST Eun Reed NP LAB MOLECULAR DIAGNOSTICS ORDERA BLES Final Result [employer] (CLIA #:[id number]) [place] [address], * TSH W/Reflex to FT4 (12/03/2024 8:13 AM EST) TSH reflex Free T4 1.02 0.32 - 4.0 uIU/mL [facility] Blood Venous blood specimen / Unknown 12/03/2024 8:13 AM EST 12/03/2024 11:56 AM EST Eun Reed NP LAB BLOOD ORDERABLES Final Resul t [facility] [address] [place] [phone] * (ABNORMAL) CBC auto differential (12/03/2024 8:13 AM EST) White Blood Count 5.5 4.8 - 10.8 X10*3/uL [facility] Red Blood Count 4.19(L) 4.20 - 5.50 X10*6/uL [facility] Hemoglobin 11.1(L) 12.0 - 16.0 g/dl [facility] Hematocrit 34.7(L) 37.0 - 47.0 % [facility] Mean Corpuscular Volume 82.8 80.0 - 98.0 fL [facility] Mean Corpuscular Hemoglobin 26.5(L) 27.0 - 33.0 pg [facility] Mean Corpuscular HGB Conc 32.0 31.0 - 35.0 g/dl [facility] Red Cell Distribution Width 15.8 11.0 - 16.0 % [facility] Platelet Count 244 160 - 400 X10*3/uL [facility] Mean Platelet Volume 10.5 9.4 - 12.3 fL [facility] Neutrophils Percent Auto 59.2 45 - 73 % [facility] Imm Gran Pct Auto 0.2 0.0 - 0.4 % [facility] Lymphocytes Percent Auto 25.6 20 - 40 % [facility] Monocytes Percent Auto 11.0 2 - 11 % [facility] Eosinophils Percent Auto 3.1 0 - 4 % [facility] Basophils Percent Auto 0.9 0 - 2 % [facility] NRBC Pct Auto 0.0 0.0 - 0.2 /100WBC [facility] Neutrophils Absolute Auto 3.2 2.0 - 8.3 x10*3/uL [facility] Imm Gran Abs Auto 0.01 0.00 - 0.03 X10*3/uL [facility] Lymphocytes Absolute Auto 1.4 1.2 - 4.9 X10*3/uL [facility] Monocytes Absolute Auto 0.6 0.1 - 1.2 X10*3/uL [facility] Eosinophils Absolute Auto 0.2 0.0 - 0.4 X10*3/uL [facility] Basophils Absolute Auto 0.1 0.0 - 0.2 X10*3/uL [facility] NRBC Abs Auto 0.000 0.0 - 0.012 X10*3/uL [facility] Blood Venous blood specimen / Unknown 12/03/2024 8:13 AM EST 12/03/2024 11:54 AM EST us Eun Reed SENIOR NETWORK ARCHITECT LAB BLOOD ORDERABLES Final Resul t Performing Organization Address [facility] Co de Phone Number [facility] [address] [place] [phone] * (ABNORMAL) Iron And Total Iron Binding Capacity (12/03/2024 8:13 AM EST) Iron 67 30 - 160 mcg/dL [facility] Total Iron Binding Capacity 456(H) 228 - 428 mcg/dL [facility] Percent Iron Saturation 15 15 - 50 % [facility] Unsaturated Iron Binding 389 ug/dL [facility] Blood Venous blood specimen / Unknown 12/03/2024 8:13 AM EST 12/03/2024 11:56 AM EST us Eun Reed SENIOR NETWORK ARCHITECT LAB BLOOD ORDERABLES Final Resul t Performing Organization Address [facility] Co de Phone Number [facility] [address] [place] [phone] * Hemoglobin A1c (12/03/2024 8:13 AM EST) Hemoglobin A1c 5.3 <6.0 % [facility] Comment:Hemoglobin A1C Refer ence Range Adults: 4.8 - 6.0 % Non diabetic: < 6.0 % Goal: < 7.0 %Additional Action Suggested: > 8.0 %Note: Hemoglobin A1c results are invalid for patients with abnormal amounts of HbF. Blood transfusions may impact the HbA1c concentration in the patient sample. Estimated Average Glucose 105 mg/dL [facility] Comment:eAG = Estimated ave rage glucose which is %A1C expressed asaverage glucose, using the formula of the G7A-BgwxrnqEdkqtlm Glucose study (ADAG), Diabetes Care, Vol.31,#8,2007 Blood Venous blood specimen / Unknown 12/03/2024 8:13 AM EST 12/03/2024 11:56 AM EST us Eun Reed SENIOR NETWORK ARCHITECT LAB BLOOD ORDERABLES Final Resul t Performing Organization Address [facility] Co de Phone Number [facility] [address] [place] [phone] [phone] * Lipid Panel, Standard (12/03/2024 8:13 AM EST) Triglycerides 47 <150 mg/dL [facility] Comment:Desirable Triglyceri de: less than 150 mg/dLBorderline High Triglyceride 150-199 mg/dLHigh Triglyceride: 200-499 mg/dLVery High Triglyceride: greater than or equal to 5OO mg/dL Cholesterol 153 <200 mg/dL [facility] Comment:Desirable Cholestero l: less than 200 mg/dLBorderline High Cholesterol: 200-239 mg/dLHigh Cholesterol: greater than 239 mg/dL LDL Cholesterol Calculated 77 <100 mg/dL [facility] Comment:Desirable LDL: less than 100 mg/dLNear Optimal/Above Optimal LDL: 110- 129 mg/dLBorderline High LDL: 130-159 mg/dLHigh LDL: 160-189 mg/dLVery High LDL: greater than or equal to 190 mg/dL HDL Cholesterol 67 >40 mg/dL [facility] Comment:Desirable HDL: great er than 40 mg/dL Note: This HDL assay may give artificially low results in patients with liver disease. Blood Venous blood specimen / Unknown 12/03/2024 8:13 AM EST 12/03/2024 11:56 AM EST us Eun Reed SENIOR NETWORK ARCHITECT LAB BLOOD ORDERABLES Final Resul t Performing Organization Address City/[facility]/ZIP Co de Phone Number [facility] [address] [place] [phone] [phone] * Comprehensive Metabolic Panel (12/03/2024 8:13 AM EST) Sodium 141 135 - 145 mmol/L [facility] Potassium 4.1 3.3 - 5.1 mmol/L [facility] Chloride 106 96 - 108 mmol/L [facility] Carbon Dioxide 26 22 - 29 mmol/L [facility] Anion Gap 13 12 - 20 [facility] Urea Nitrogen (BUN) 13 9 - 16 mg/dL [facility] Creatinine, Serum 0.66 0.5 - 1.4 mg/dL [facility] Estimated Glomerular Filt Rate >60 [facility] Comment:Chronic Kidney Disea se: Estimated GFR < 60 mL/min/1.38q5Psomaw Kidney Disease: Estimated GFR < 15 mL/min/1.73m2 Glucose 93 60 - 115 mg/dL [facility] Calcium 9.7 8.4 - 10.2 mg/dL [facility] Bilirubin, Total 0.6 0.0 - 1.0 mg/dL [facility] Aspartate Amino Transferase 24 5 - 31 U/L [facility] Alanine Aminotransferase 11 0 - 31 U/L [facility] Total Protein 7.5 6.5 - 8.0 g/dL [facility] Albumin Level 4.3 3.5 - 5.0 g/dL [facility] Alkaline Phosphatase 70 39 - 117 U/L [facility] Blood Venous blood specimen / Unknown 12/03/2024 8:13 AM EST 12/03/2024 11:56 AM EST us Eun Reed NP LAB BLOOD ORDERABLES Final Resul t [facility] [address] [place] [phone] [phone] * BI Mammogram Screening Tomosynthesis Bilateral (01/19/2024 12:00 PM EDT) Anatomical Region Laterality Modality Breast Bilateral Mammography 01/19/2024 12:0 0 PM EDT Narrative 02/10/2024 11:18 PM EDT ? [facility] ? [address] ?[place] [address] ? Mammography Report ? Signed ? Patient: Travis Carrasquill,Sachalyn ? MR#: [id number] ? : 1975 ?Acct:[id number] ? Age/Sex: 48 / F ?ADM Date: 01/19/24 ? Loc: HO.MAMMO ? Attending Dr: Criselda Gallardo SENIOR NETWORK ARCHITECT ? Ordering Physician: Criselda Gallardo SENIOR NETWORK ARCHITECT ?Results: 1Negativ ?? e ? Date of Service: 01/19/24 ?Follow Up: 1 Year From Orig ?? inal Mammogram ? Procedure(s): MM tomosynthesis screening BI ?? Accession Number(s): [id number] ? cc: Criselda Gallardo SENIOR NETWORK ARCHITECT ? EXAMINATION: ?? MM SCREENING DIGITAL BREAST [...] by Heather Etienne MD in OV> ? 02/10/24 2314 ? DD/ 1200 ? TD/TT: ? Double Bass Player: ? Procedure Note Donchristian, Image - 02/10/2024 [facility] [address] [place], [place] [address] Mammography Report Signed Patient: Michael Shirley MR#: [id number] : 1975Acct:[id number] Age/Sex: 48 / FADM Date: 01/19/24 Loc: HO.MAMMO Attending Dr: Criselda Gallardo SENIOR NETWORK ARCHITECT Ordering Physician: Criselda Gallardo NPResults: 1Negativ e Date of Service: 01/19/24Follow Up: 1 Year From Orig inal Mammogram Procedure(s): MM tomosynthesis screening BI Accession Number(s): [id number] cc: Criselda Gallardo SENIOR NETWORK ARCHITECT EXAMINATION: MM SCREENING DIGITAL BREAST TOMOSYNTHESIS, BILATERAL [...] in OV> 02/10/24 2314 DD/ 1200 TD/TT: Double Bass Player: Criselda Gallardo [facility] BI PROCEDURES Final Result * Hepatitis C Antibody with Reflex to HCV, RNA, Quantitative, Real-Time PCR (01/12/2024 8:16 AM EDT) Hepatitis C Antibody Nonreactive Nonreactive [facility] Comment:Antibodies to HCV no t detected; does not exclude early acuteHCV infection. 01/12/2024 8:16 AM EDT 01/12/2024 11:04 AM EDT [facility] BLOOD ORDERABLES Final Resu lt [facility] [address] [place] [address] [phone] * HIV-1/2 Antigen and Antibodies, Fourth Generation, with Reflexes (01/12/2024 8:16 AM EDT) HIV AB/AG Nonreactive Nonreactive [facility] Comment:HIV-1 p24 Ag and/or HIV-1/HIV-2 Ab not detected.A test result that is nonreactive does not exclude thepossibility of exposure to or infection with HIV-1 and/orHIV-2. Nonreactive results in this assay for individualswith prior exposure to HIV-1 and/or HIV-2 may be due toantigen and antibody levels that are below the limit ofdetection of this assay.The [employer] HIV Ag/Ab Combo assay result andsupplemental assay results should be interpreted inconjunction with the patient's clinical presentation,history and other laboratory results. If the results areinconsistent with clinical evidence, additional testing issuggested to confirm the result. 01/12/2024 8:16 AM EDT 01/12/2024 11:04 AM EDT Criselda Sami BROKER IN CHARGE LAB BLOOD ORDERABLES Final Resu lt Performing Organization Address City/[facility]/ZIP Co de Phone Number [facility] [address] [place] [phone] [phone] * HPV mRNA E6/E7 w/Reflex to HPV Genotypes 16, 18/45 (12/04/2022 8:57 AM EST) HPV nRNA E6/E7 Not Detected Not Detected [facility] Comment:Methodology: Transcr iption-Mediated AmplificationThis assay detects E6/E7 viral messenger RNA (mRNA) from 14high-risk HPV types (16,18,31,33,35,39,45,51,52,56,58,59,66,68).Cervical sources are required for HPV testing.If a vaginal source from a patient who has had atotal hysterectomy with removal of cervix wassubmitted, please contact the testing laboratoryfor alternative testing options.For additional information, please refer tohttp://education.[employer]/faq/SRB968k7(This link if provided for information/educational purposes only.)THIS TEST WAS PERFORMED AT:[facility] [place] [address] ([address] [phone] MCNEAL MD HPV mRNA E6/E7 TNP [facility] HPV 16 RNA [facility] HPV 18/45 RNA [facility] 12/04/2022 8:57 AM EST 12/04/2022 4:00 PM EST [facility] External Provider LAB CYT OLOGY ORDERABLES Final Result [facility] [address] [place] [address] [phone] * Pap Smear (12/04/2022 8:57 AM EST) 12/04/2022 8:57 AM EST 12/04/2022 4:00 PM EST [facility] - 12/07/2022 1:40 PM EST ----- ------- Name: Michael Shirley ? Age/Sex: 47/F ? : 1975 Unit#: [id number] ?? Attend Dr: Virginie Ruelas CNM ?Re12/04/22 ?Status: DEP REF ? Location: HO.LNP ?Disch: ? ----- ------- SPEC : [id number] ? RECD: 12/04/22-1599 ? STATUS: ??SOUT ? REQ NUM: [id number] ? AMARA: 12/04/22 ? SUBM DR: Virginie Ruelas CNM ? ENTERED: ??12/04/22 ?SP TYPE: Pap Smr ?OTHR : ? ORDERED: ??Pap Smear ? Interpretation ?? Satisfactory for evaluation. ?? Negative for intraepithelial lesion or malignancy. ? HPV mRNA E6/E7: ?NOT DETECTED ? This assay detects E6/E7 viral messenger RNA (mRNA) from 14 high-risk HPV types (16, 18, ?? 31, 33, 35, 39, 45, 51, 52, 56, 58, 59, 66, 68) ? HPV testing performed by [employer], [place], [place]. ??See reference laboratory ?? portion of the EMR for entire report. ?Clinical Information LMP: 11/03/22 Previous PAP test: 2017, WNL ? Material Received ?? ThinPrep-Cervical ----- ------- Signed (signature on file) Catalina Gonzáles Kendall 12/07/22 2920 ? ----- ------- ? END OF REPORT ? [facility] External Provider LAB CYT OLOGY ORDERABLES Final Result [facility] [address] [place] [phone] from Last 3 Months or Most Recently Relevant to Health Maintenance Insurance [facility] STANDARD MEDICARE [facility] ST[facility] ADULT Care Teams Bean Roaster Relationship Specialty Start Date End Date Eun Reed NP [address] [place] [phone] PCP - General Family Medicine 07/06/24
--- OUTSIDE RECORDS SUMMARY | 2025-01-31 12:36 | XMS_ITS | Encounter Summary ---
Author Organization [employer] Address [address] [facility] 7t [place] [address] Care Team Providers Care Account Adjuster Name Role Phone Criselda GallardoP Primary Care Provider [phone] Eun Reed NP Primary Care Provider [phone] Reason for Visit * Reason Onset Date Comments Nurse Triage 05/01/2023 Encounter Details Date Type Department Care Team ([facility] st Contact Info) Description 05/01/2023 Telephone [facility] MEDICINE [address] [place] [address] Criselda Gallardo FNP [address] [place], [place] [phone] Nurse Triage Social History Tobacco Use Types [...] 11:38 AM EDT 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 Pt was seen in [facility] 04/29 and started ibuprofen and flexeril. Pt [...] tomorrow. Pt is advised to come to [facility] again to be seen by provider and [...] accepted this outcome Please contact pt at [phone] (Sami speaker) documented in this encounter Plan of Treatment Upcoming Encounters Date Type Department Care Team (Late st Contact Info) Description 06/06/2025 9:00 AM EDT Office Visit [facility] OPTOMETRY [address] [place] [address] Alexandria Rae, OD [address] [place] [address] documented as of this encounter Visit Diagnoses Not on filedocumented in this encounter Care Teams Account Adjuster Relationship Specialty Start Date End Date Criselda Gallardo FNP [address] [place] [address] PCP - General Family Medicine 01/06/23 07/05/24 Eun Reed NP [address] [place] [address] PCP - General Family Medicine 07/06/24 documented as of this encounter
--- OUTSIDE RECORDS SUMMARY | 2025-01-31 12:36 | XMS_ITS | Encounter Summary ---
Author Organization [employer] Address [address] [facility] 7t [place] [address] Care Team Providers Care Beater Lead Name Role Phone Dhaval Osborn MD Primary Care Provide r Salvador Yeager PRIMARY CARE PEDIATRICIAN Primary Care Provider Emily Seay MD Primary Care Provider [phone] Criselda Gallardo PRIMARY CARE PEDIATRICIAN Primary Care Provider [phone] Eun Reed NP Primary Care Provider [phone] Encounter Details Date Type Department Care Team (Latest Contact Info) Description 03/05/2022 Abstract [facility] CONVERSIONS Dental, Provider, DDS Social History Tobacco [...] Description 06/06/2025 9:00 AM EDT Office Visit [facility] OPTOMETRY [address] [place], [place] [phone] Alexandria Rae, OD [address] [place], [place] [phone] documented as of this encounter Visit Diagnoses Not on filedocumented in this encounter Care Teams Beater Lead Relationship Specialty Start Date End Date Dhaval Osborn MD [address] [facility] [place] [address] PCP - General Internal Medicine 05/12/18 10/29/22 Salvador Yeager FNP [facility] [place] [address] PCP - General Family Medicine 10/30/22 01/01/23 Emily Tapia MD [place] [facility] [place] [address] PCP - General Family Medicine 01/02/23 01/05/23 Criselda Gallardo FNP [place] [facility] [place] [address] PCP - General Family Medicine 01/06/23 07/05/24 Eun Reed NP [place] [facility] [place] [address] PCP - General Family Medicine 07/06/24 documented as of this encounter
--- OUTSIDE RECORDS SUMMARY | 2025-01-31 12:36 | XMS_ITS | Encounter Summary ---
Author Organization [employer] Address [address] [facility] 7t [place] [address] Care Team Providers Care Cabinetmaker Apprentice Name Role Phone Dhaval Osborn MD Primary Care Provide r Salvador Yeager SPAGHETTI MACHINE OPERATOR Primary Care Provider Emily Seay MD Primary Care Provider [phone] Criselda Gallardo SPAGHETTI MACHINE OPERATOR Primary Care Provider [phone] Eun Reed NP Primary Care Provider [phone] Encounter Details Date Type Department Care Team (Latest Contact Info) Description 06/14/2019 Abstract [facility] CONVERSIONS Dental, Provider, DDS Social History Tobacco [...] Description 06/06/2025 9:00 AM EDT Office Visit [facility] OPTOMETRY [address] [place], [place] [phone] Alexandria Rae, OD [address] [place], [place] [phone] documented as of this encounter Visit Diagnoses Not on filedocumented in this encounter Care Teams Cabinetmaker Apprentice Relationship Specialty Start Date End Date Dhaval Osborn MD [address] [place] [address] PCP - General Internal Medicine 05/12/18 10/29/22 [place] [address] PCP - General Family Medicine 10/30/22 01/01/23 Emily Tapia MD [address] [place] [address] PCP - General Family Medicine 01/02/23 01/05/23 Criselda [place] [address] PCP - General Family Medicine 01/06/23 07/05/24 Eun Reed NP [address] [place] [address] PCP - General Family Medicine 07/06/24 documented as of this encounter
== END 2025-01-31 11:04 | disposition home or self-care (01) ==
LOC: HO.MAMMO 11:03
PROVIDERS: PCP Nurse Practitioner Family; Visit Provider Nurse Practitioner Family
DX: Z12.31 Encounter for screening mammogram for malignant neoplasm of breast (principal)
CPT/HCPCS: 77063; 77067

== ENCOUNTER → 2025-01-31 11:45 | Outpatient (BNV) | payer MEDICARE, MEDICAID, SELFPAY | PROVIDERS: PCP Nurse Practitioner Family; Visit Provider Internal Medicine | DX: Z12.31 Encounter for screening mammogram for malignant neoplasm of breast (principal) | CPT/HCPCS: 77063; 77067 ==

== ENCOUNTER 2025-02-25 10:35 | Outpatient (REF) | payer MEDICARE, MEDICAID, SELFPAY ==
--- NOTE | ~2025-02-25 | US_ITS ---
EXAMINATION: US PELVIS CLINICAL INFORMATION: Unspecified ovarian cyst. COMPARISON: Ultrasound dated March 09, 2024. Correlated to MRI pelvis dated May 25, 2024 reporting a 4.8 cm probable hemorrhagic cyst, left adnexa.. TECHNIQUE: Ultrasound of the pelvis is performed using both transabdominal transducer along with Doppler. . FINDINGS: Uterus: The uterus is anteverted and measures 10 x 3 x 5 cm. Volume: 80 cc. The double wall endometrial thickness is 1 mm. The uterus is smooth in contour and has normal myometrial echogenicity. No visible fibroid. Adnexa: The right adnexa is not identified.. The left adnexa is identified . Left ovary measures 2 x 1 x 2 cm. Volume: 2.4 cc. No solid or cystic lesion. US/US pelvic complete IMPRESSION: Right ovary is not identified. Left ovary is normal. Electronically signed by: Sudeep Bowman MD 02/28/2025 02:39 PM EDT
--- OUTSIDE RECORDS SUMMARY | 2025-02-25 11:13 | XMS_ITS | Encounter Summary ---
Author Organization [employer] Address [address] [facility] 7t [place] [address] Care Team Providers Care Pastry Cook Apprentice Name Role Phone Criselda GallardoP Primary Care Provider [phone] Eun Reed NP Primary Care Provider [phone] Reason for Visit * Reason Onset Date Comments Appointment Request 05/01/2023 Encounter Details Date Type Department Care Team ([facility] st Contact Info) Description 05/01/2023 Telephone [facility] MEDICINE [address] [place] [address] Criselda Gallardo FNP [address] [place], [place] [phone] Appointment Request Social History Tobacco Use Types [...] a appt for the injection. Patient speaks tamazight. documented in this encounter Plan of Treatment Upcoming Encounters Date Type Department Care Team (Late st Contact Info) Description 06/06/2025 9:00 AM EDT Office Visit [facility] OPTOMETRY [address] [place], [place] [phone] ButchAlexandria day, OD [address] [place] [address] documented as of this encounter Visit Diagnoses Not on filedocumented in this encounter Care Teams Pastry Cook Apprentice Relationship Specialty Start Date End Date Criselda Gallardo FNP [address] [place] [address] PCP - General Family Medicine 01/06/23 07/05/24 Eun Reed NP [address] [place] [address] PCP - General Family Medicine 07/06/24 documented as of this encounter
--- OUTSIDE RECORDS SUMMARY | 2025-02-25 11:13 | XMS_ITS | Encounter Summary ---
Author Organization [employer] Address [address] [facility] 7t [place] [address] Care Team Providers Care Bindery Machine Setter Name Role Phone Dhaval Osborn MD Primary Care Provide r Salvador Yeager TEACHER Primary Care Provider Emily Seay MD Primary Care Provider [phone] Criselda Gallardo TEACHER Primary Care Provider [phone] Eun Reed NP Primary Care Provider [phone] Encounter Details Date Type Department Care Team (Latest Contact Info) Description 06/14/2019 Abstract [facility] CONVERSIONS Dental, Provider, DDS Social History Tobacco [...] Description 06/06/2025 9:00 AM EDT Office Visit [facility] OPTOMETRY [address] [place], [place] [phone] Alexandria Rae, OD [address] [place], [place] [phone] documented as of this encounter Visit Diagnoses Not on filedocumented in this encounter Care Teams Bindery Machine Setter Relationship Specialty Start Date End Date Dhaval Osborn MD [address] [place] [address] PCP - General Internal Medicine 05/12/18 10/29/22 [place] [address] PCP - General Family Medicine 10/30/22 01/01/23 Emily Tapia MD [address] [place] [address] PCP - General Family Medicine 01/02/23 01/05/23 Crisel[place] [address] PCP - General Family Medicine 01/06/23 07/05/24 Eun Reed NP [address] [place] [address] PCP - General Family Medicine 07/06/24 documented as of this encounter
--- OUTSIDE RECORDS SUMMARY | 2025-02-25 11:13 | XMS_ITS | Encounter Summary ---
Author Organization [employer] Address [address] [facility] [address]t [place] [address] Care Team Providers Care Fitter'S Assistant Name Role Phone Criselda Gallardo Primary Care Provider [phone] Eun Reed NP Primary Care Provider [phone] Encounter Details Date Type Department Care Team (Late st Contact Info) Description 02/24/2024 Orders Only [facility] [address] [place] [address] Criselda Gallardo FNP [address] [place] [address] Fatigue, unspecified type (Primary Dx); Low hemoglobin [...] Description 06/06/2025 9:00 AM EDT Office Visit [facility] OPTOMETRY [address] [place] [address] Butch, Alexandria, OD [address] [place] [address] documented as of this encounter Procedures Procedure [...] EDT) Iron 35 30 - 160 mcg/dL [facility] Total Iron Binding Capacity 394 228 - 428 mcg/dL [facility] Percent Iron Saturation 9(L) 15 - 50 % [facility] Unsaturated Iron Binding 359 ug/dL [facility] Blood Venous blood specimen / Unknown 05/14/2024 8:23 AM EDT 05/14/2024 11:06 AM EDT us Criselda Gallardo [facility] BLOOD ORDERABLES Final Resu lt [facility] [address] [place] [address] [phone] * (ABNORMAL) CBC auto differential (05/14/2024 8:23 AM EDT) White Blood Count 4.7(L) 4.8 - 10.8 X10*3/uL [facility] Red Blood Count 3.96(L) 4.20 - 5.50 X10*6/uL [facility] Hemoglobin 11.0(L) 12.0 - 16.0 g/dl [facility] Hematocrit 34.0(L) 37.0 - 47.0 % [facility] Mean Corpuscular Volume 85.9 80.0 - 98.0 fL [facility] Mean Corpuscular Hemoglobin 27.8 27.0 - 33.0 pg [facility] Mean Corpuscular HGB Conc 32.4 31.0 - 35.0 g/dl [facility] Red Cell Distribution Width 16.7(H) 11.0 - 16.0 % [facility] Platelet Count 222 160 - 400 X10*3/uL [facility] Mean Platelet Volume 10.4 9.4 - 12.3 fL [facility] Neutrophils Percent Auto 54.3 45 - 73 % [facility] Imm Gran Pct Auto 0.2 0.0 - 0.4 % [facility] Lymphocytes Percent Auto 29.2 20 - 40 % [facility] Monocytes Percent Auto 11.4(H) 2 - 11 % [facility] Eosinophils Percent Auto 3.8 0 - 4 % [facility] Basophils Percent Auto 1.1 0 - 2 % [facility] NRBC Pct Auto 0.0 0.0 - 0.2 /100WBC [facility] Neutrophils Absolute Auto 2.6 2.0 - 8.3 x10*3/uL [facility] Imm Gran Abs Auto 0.01 0.00 - 0.03 X10*3/uL [facility] Lymphocytes Absolute Auto 1.4 1.2 - 4.9 X10*3/uL [facility] Monocytes Absolute Auto 0.5 0.1 - 1.2 X10*3/uL [facility] Eosinophils Absolute Auto 0.2 0.0 - 0.4 X10*3/uL [facility] Basophils Absolute Auto 0.1 0.0 - 0.2 X10*3/uL [facility] NRBC Abs Auto 0.000 0.0 - 0.012 X10*3/uL [facility] Blood Venous blood specimen / Unknown 05/14/2024 8:23 AM EDT 05/14/2024 11:11 AM EDT us Criselda RG LAB BLOOD ORDERABLES Final Resu lt Performing Organization Address City/State/[facility] Co de Phone Number [facility] [address] [place] [address] [phone] documented in this encounter Visit Diagnoses Diagnosis Fatigue, unspecified type- Primary Low hemoglobin and low hematocrit documented in this encounter Additional Health Concerns Assessment Noted Time PHQ-9 Depression Total Score: 9 01/09/20 24 10:42 AM EST documented as of this encounter Care Teams Fitter'S Assistant Relationship Specialty Start Date End Date Criselda Gallardo FNP [address] [place] [address] PCP - General Family Medicine 01/06/23 07/05/24 Eun Reed NP [address] [place] [address] PCP - General Family Medicine 07/06/24 documented as of this encounter
--- OUTSIDE RECORDS SUMMARY | 2025-02-25 11:13 | XMS_ITS | Encounter Summary ---
Author Organization [employer] Address [address] [facility] 7t [place] [address] Care Team Providers Care Lockstitch Pocket Setter Name Role Phone Dhaval Osborn MD Primary Care Provide r Salvador Yeager SLAG DUMPER Primary Care Provider Emily Seay MD Primary Care Provider [phone] Criselda Gallardo SLAG DUMPER Primary Care Provider [phone] Eun Reed NP Primary Care Provider [phone] Encounter Details Date Type Department Care Team (Latest Contact Info) Description 03/05/2022 Abstract [facility] CONVERSIONS Dental, Provider, DDS Social [...] Description 06/06/2025 9:00 AM EDT Office Visit [facility] OPTOMETRY [address] [place], [place] [phone] Alexandria Rae, OD [address] [place], [place] [phone] documented as of this encounter Visit Diagnoses Not on filedocumented in this encounter Care Teams Lockstitch Pocket Setter Relationship Specialty Start Date End Date Dhaval Osborn MD [address] [facility] [place] [address] PCP - General Internal Medicine 05/12/18 10/29/22 Salvador Yeager FNP [facility] [place] [address] PCP - General Family Medicine 10/30/22 01/01/23 Emily Tapia MD [facility] [place] [address] PCP - General Family Medicine 01/02/23 01/05/23 Criselda Gallardo FNP [facility] [place] [address] PCP - General Family Medicine 01/06/23 07/05/24 Eun Reed NP [facility] [place] [address] PCP - General Family Medicine 07/06/24 documented as of this encounter
--- OUTSIDE RECORDS SUMMARY | 2025-02-25 11:13 | XMS_ITS | Encounter Summary ---
Author Organization [employer] Address [address] [facility] 7t [place] [address] Care Team Providers Care Editorial Project Manager Name Role Phone Criselda GallardoP Primary Care Provider [phone] Eun Reed NP Primary Care Provider [phone] Reason for Visit * Reason Onset Date Comments Nurse Triage 05/01/2023 Encounter Details Date Type Department Care Team ([facility] st Contact Info) Description 05/01/2023 Telephone [facility] MEDICINE [address] [place] [address] Criselda Gallardo FNP [address] [place], [place] [phone] Nurse Triage Social History Tobacco Use Types [...] 11:38 AM EDT Triage call with pacific Guard Manager Id [id number] Pt reports severe right arm pain. Pt [...] accepted this outcome Please contact pt at [phone] (Bulgarian speaker) documented in this encounter Plan of Treatment Upcoming Encounters Date Type Department Care Team (Late st Contact Info) Description 06/06/2025 9:00 AM EDT Office Visit [facility] OPTOMETRY [address] [place] [address] Alexandria Rae, OD [address] [place] [address] documented as of this encounter Visit Diagnoses Not on filedocumented in this encounter Care Teams Editorial Project Manager Relationship Specialty Start Date End Date Criselda Gallardo FNP [address] [place] [address] PCP - General Family Medicine 01/06/23 07/05/24 Eun Reed NP [address] [place] [address] PCP - General Family Medicine 07/06/24 documented as of this encounter
--- OUTSIDE RECORDS SUMMARY | 2025-02-25 11:13 | XMS_ITS | Clinical Summary ---
Author Organization [employer] Address [address] [facility] [address] [place] [address] Care Team Providers Care Optical Effects Camera Operator Name Role Phone Eun Reed NP Primary Care Provider [phone] Allergies No known active allergies Medications EPINEPHrine [...] avoid contact with potential allergens. Refer to environmental tech. Spasm of thoracic back muscle 09/20/2024 Assessment [...] Description 01/31/2025 9:00 AM EDT Office Visit [facility] [address] [place] [address] Nik Alvares 01/31/2025 Orders Only [facility] [address] [place] [address] Criselda Gallardo FNP 01/14/2025 Population Health Risk Score [facility] Department [address] [phone] Provider, Population Health Generic 01/13/2025 2:30 PM EDT Office Visit [facility] [address] [place] [address] Jam Raen, OD Presbyopia of both eyes (Primary Dx) 01/05/2025 2:00 PM EST Office Visit [facility] [address] [place] [address] Sreekanth Alvarespreet 01/04/2025 10:00 AM EST Office Visit [facility] [address] [place] [address] Diomedes Laboy Dental calculus (Primary Dx) 12/06/2024 9:30 AM EST Office Visit [facility] [address] [place] [address] Jam Raen, OD Glaucoma suspect of both eyes (Primary Dx); White without pressure, peripheral retina, left eye; Presbyopia of both eyes 12/06/2024 Travel 11/30/2024 11:00 AM EST Office Visit [facility] [address] [place] [address] Eun Reed NP Urethral diverticulum (Primary Dx); Dietary counseling; Exercise counseling; Encounter for screening for malignant neoplasm of colon; Screening for colon cancer; Healthcare maintenance; Obesity (BMI 30-39.9); Fat necrosis; Elevated BP without diagnosis of hypertension 11/30/2024 Travel from Last 3 Months Immunizations Name Administration [...] Description 06/06/2025 9:00 AM EDT Office Visit [facility] [address] [place] [address] Butch, [place], OD [address] [place] [address] Health Maintenance Due Date Last Done Comments CT Colonography 1975 Colonoscopy 1975 FIT 1975 FOBT 1975 Sigmoidoscopy 1975 Family Planning (PISQ) 02/22/1991 Hepatitis B Vaccines (1 of 3 - 19+ 3-dose series) 02/22/1995 01/12/2010, 10/12/2009 DTaP/Tdap/Td Vaccines (2 - Td or Tdap) 10/03/2021 10/03/2011 COVID-19 Vaccine ( - season) 2024 11/20/2021, 03/31/2021, 03/03/2021 Influenza Vaccine (#1) 2024 , 08/31/2020, 08/12/2019, Additional history exists Dental Oral Exam 01/04/2025 07/06/2024, 01/2022, 06/14/2019, Additional history exists Dental X-Ray: Full Mouth 03/06/2025 022, 10/07/2017, 09/07/2009 Dental Prophylaxis 07/08/2025 01/04/2025, 0 07/06/2024, 03/05/2022, Additional history exists Alcohol/Substance Use Screening 11/30/2025 11/30/2024 Depression Screening 11/30/2025 11/30/2024, 11/30/19 25 SDOH Screening 11/30/2025 11/30/2024 Pap Smear 12/04/2025 12/04/2022 Dental X-Ray: Bitewings 01/06/2026 01/06/20, 07/06/2024, 03/05/2022, Additional history exists Tobacco Screening 01/31/2026 01/31/2025 Zoster Vaccines (1 of 2) 02/22/2026 Mammogram 01/31/2027 01/31/2025, 01/19/2024 Cervical Cancer Screening 12/04/2027 HPV/Cotest 12/04/2027 12/04/2022 Colorectal Cancer Screening 12/06/2027 FIT DNA/Cologuard 12/06/2027 12/06/2024 Lipid Panel 12/03/2029 12/03/2024, 01/01, 05/14/2023 RSV Patients and Patients Aged 60 [...] Procedure Name Priority Date/Time Associated Diagnosis Comments BI MAMMOGRAM SCREENING TOMOSYNTHESIS BILATERAL Routine 01/31/2025 11:35 AM EDT CASE PRESENTATION, DETAILED AND EXTENSIVE [...] ESTABLISHED PATIENT Routine 07/06/2024 8:00 AM EDT HEPATITIS C AB W/REFL TO HCV [...] Recently Relevant to Health Maintenance Results * BI Mammogram Screening Tomosynthesis Bilateral (01/31/2025 11:35 AM EDT) Anatomical Region Laterality Modality Breast Bilateral Mammography 01/31/2025 11:3 5 AM EDT Narrative 02/06/2025 11:51 AM EDT ? [facility] ? [address] ?[place] [address] ?[phone] ? Mammography Report ? Signed ? Patient: Travis Carrasquill,Sachalyn ? MR#: [id number] ? : 1975 ?Acct:[id number] ? Age/Sex: 49 / F ?ADM Date: 03/31/25 ? Loc: HO.MAMMO ? Attending Dr: Criselda Botas FINISH MIXER ? Ordering Physician: Criselda Gallardo FINISH MIXER ?Results: 1Negativ ?? e ? Date of Service: 01/31/25 ?Follow Up: 1 Year From Orig ?? inal Mammogram ? Procedure(s): MM tomosynthesis screening BI ?? Accession Number(s): [id number] ? cc: Criselda Gallardo FINISH MIXER ? EXAMINATION: ?? MM SCREENING DIGITAL BREAST TOMOSYNTHESIS, BILATERAL ? CLINICAL INFORMATION: ? Screening. Asymptomatic. ? COMPARISON: ?? Mammography: Comparison is made with available priors ? TECHNIQUE: ?? Digital breast mammography with tomosynthesis is performed in both the ?? craniocaudal and mediolateral oblique views along with computer-aided ?? detection (CAD). ? FINDINGS: ?? There are scattered areas [...] due date for their next mammogram. ? Electronically signed by: ??Maria Guadalupe Barraza DO ??02/06/2025 11:48 AM EDT ?? RP ? Dictated By: ?Maria Guadalupe Barraza DO ? Signed By: ?<Electronically signed by Maria Guadalupe Barraza, DO in OV> ? 02/06/25 1148 ? DD/ 1135 ? TD/TT: 01/31/25 1153 ? Woods Boss: ? Procedure Note Donchristian, Image - 02/06/2025 [facility] [address] [place] [address] Mammography Report Signed Patient: Michael Shirley MR#: [id number] : 1975Acct:[id number] Age/Sex: 49 / FADM Date: 01/31/25 Loc: HO.MAMMO Attending Dr: Criselda Gallardo FINISH MIXER Ordering Physician: Criselda Gallardo NPResults: 1Negativ e Date of Service: 01/31/25Follow Up: 1 Year From Orig inal Mammogram Procedure(s): MM tomosynthesis screening BI Accession Number(s): [id number] cc: Criselda Gallardo FINISH MIXER EXAMINATION: MM SCREENING DIGITAL BREAST TOMOSYNTHESIS, BILATERAL CLINICAL INFORMATION: Screening. Asymptomatic. COMPARISON: Mammography: Comparison is made with available priors TECHNIQUE: Digital breast mammography with tomosynthesis is performed in both the craniocaudal and mediolateral oblique views along with computer-aided detection (CAD). FINDINGS: There are scattered areas of fibroglandular [...] target due date for their next mammogram. Electronically signed by: Maria Guadalupe Barraza DO 02/06/2025 11:48 AM EDT Dictated By: Maria Guadalupe Barraza DO Signed By: <Electronically signed by Maria Guadalupe Barraza DO in OV> 02/06/25 1148 DD/ 1135 TD/TT: 01/31/25 1153 Woods Boss: Criselda Gallardo BRANCH ACCOUNT MANAGER IMG BI PROCEDURES Final Result * Cologuard?? colon cancer screening (12/06/2024 4:45 AM EST) Cologuard Result Negative Negative 12/10/19 7:20 PM EST [facility] (CLIA #:[id number]) Comment: NEGATIVE TEST RESULT. A negative Cologuard [...] screened with both Cologuard and colonoscopy. (Bernard Ballesteros et al, N Engl J Med 2014;370(14):1286- 1297) The normal value (reference range) for this assay is negative. COLOGUARD RE-SCREENING RECOMMENDATION: Periodic colorectal cancer screening is an important part of preventive healthcare for asymptomatic individuals at average risk for colorectal cancer. ??Following a negative Cologuard result, the [place] [employer] Society and U.S. Multi-Society Task Force screening guidelines recommend a Cologuard re-screening interval of 3 years. References: [place] [employer] Guideline for Colorectal Cancer Screening: https://www.cancer.org/cancer/wsmpo-kuayiy-hbpjav/qhjwucbfh-xfrjqubee-iqtkwts/ac s-rec ommendations.html.; Tom DK, Ren CR, Lyn KaminskiK, Colorectal Cancer Screening: Recommendations for Physicians and Patients from the U.S. Multi-Society Task Force on Colorectal Cancer Screening , Am J Gastroenterology 2017; 112:5628-7433. TEST DESCRIPTION: Composite algorithmic analysis of stool [...] (Bernard Varner al, N Engl J Med 2014;370(14):7795-0650.) Cologuard may produce a false negative or false positive result (no colorectal cancer or precancerous polyp present at colonoscopy follow up). A negative Cologuard test result does not guarantee the absence of CRC or advanced adenoma (pre-cancer). The current Cologuard screening interval is every 3 years. ([place] [employer] Society and U.S. Multi-Society Task Force). Cologuard performance data in a 10,000 patient pivotal study using colonoscopy as the reference method can be accessed at the following location: www.[employer].TurningArt/results. Additional description of the Cologuard test process, warnings and precautions can be found at www.[employer]ik[employer].com. Stool specimen (specimen) 12/06/2024 4:45 AM EST 12/07/2024 10:51 AM EST us Eun Reed NP LAB MOLECULAR DIAGNOSTICS ORDERA BLES Final Result [facility] (CLIA #:[id number]) [place] [address], * TSH W/Reflex to FT4 (12/03/2024 8:13 AM EST) Pathologist [facility] TSH reflex Free T4 1.02 0.32 - 4.0 uIU/mL [facility] Blood Venous blood specimen / Unknown 12/03/2024 8:13 AM EST 12/03/2024 11:56 AM EST us Eun Reed FINISH MIXER LAB BLOOD ORDERABLES Final Resul t Performing Organization Address City/State/[facility] Co de Phone Number [facility] [address] [place] [phone] * (ABNORMAL) CBC auto differential (12/03/2024 8:13 AM EST) [facility] White Blood Count 5.5 4.8 - 10.8 X10*3/uL [facility] Red Blood Count 4.19(L) 4.20 - 5.50 X10*6/uL [facility] Hemoglobin 11.1(L) 12.0 - 16.0 g/dl [facility] Hematocrit 34.7(L) 37.0 - 47.0 % [facility] Mean Corpuscular Volume 82.8 80.0 - 98.0 fL [facility] Mean Corpuscular Hemoglobin 26.5(L) 27.0 - 33.0 pg [facility] Mean Corpuscular HGB Conc 32.0 31.0 - 35.0 g/dl [facility] Red Cell Distribution Width 15.8 11.0 - 16.0 % [facility] Platelet Count 244 160 - 400 X10*3/uL [facility] Mean Platelet Volume 10.5 9.4 - 12.3 fL [facility] Neutrophils Percent Auto 59.2 45 - 73 % [facility] Imm Gran Pct Auto 0.2 0.0 - 0.4 % [facility] Lymphocytes Percent Auto 25.6 20 - 40 % [facility] Monocytes Percent Auto 11.0 2 - 11 % [facility] Eosinophils Percent Auto 3.1 0 - 4 % [facility] Basophils Percent Auto 0.9 0 - 2 % [facility] NRBC Pct Auto 0.0 0.0 - 0.2 /100WBC [facility] Neutrophils Absolute Auto 3.2 2.0 - 8.3 x10*3/uL [facility] Imm Gran Abs Auto 0.01 0.00 - 0.03 X10*3/uL [facility] Lymphocytes Absolute Auto 1.4 1.2 - 4.9 X10*3/uL [facility] Monocytes Absolute Auto 0.6 0.1 - 1.2 X10*3/uL [facility] Eosinophils Absolute Auto 0.2 0.0 - 0.4 X10*3/uL [facility] Basophils Absolute Auto 0.1 0.0 - 0.2 X10*3/uL [facility] NRBC Abs Auto 0.000 0.0 - 0.012 X10*3/uL [facility] Blood Venous blood specimen / Unknown 12/03/2024 8:13 AM EST 12/03/2024 11:54 AM EST us Eun Reed FINISH MIXER LAB BLOOD ORDERABLES Final Resul t Performing Organization Address City/[facility]/ZIP Co de Phone Number [facility] [address] [place] [phone] * (ABNORMAL) Iron And Total Iron Binding Capacity (12/03/2024 8:13 AM EST) Iron 67 30 - 160 mcg/dL [facility] Total Iron Binding Capacity 456(H) 228 - 428 mcg/dL [facility] Percent Iron Saturation 15 15 - 50 % [facility] Unsaturated Iron Binding 389 ug/dL [facility] Blood Venous blood specimen / Unknown 12/03/2024 8:13 AM EST 12/03/2024 11:56 AM EST us Eun Reed FINISH MIXER LAB BLOOD ORDERABLES Final Resul t Performing Organization Address City/[facility]/ZIP Co de Phone Number [facility] [address] [place] [phone] * Hemoglobin A1c (12/03/2024 8:13 AM EST) Hemoglobin A1c 5.3 <6.0 % [facility] Comment:Hemoglobin A1C Refer ence Range Adults: 4.8 - 6.0 % Non diabetic: < 6.0 % Goal: < 7.0 %Additional Action Suggested: > 8.0 %Note: Hemoglobin A1c results are invalid for patients with abnormal amounts of HbF. Blood transfusions may impact the HbA1c concentration in the patient sample. Estimated Average Glucose 105 mg/dL [facility] Comment:eAG = Estimated ave rage glucose which is %A1C expressed asaverage glucose, using the formula of the K8A-WahawkiCkpnxvz Glucose study (ADAG), Diabetes Care, Vol.31,#8,Jun. 2007 Blood Venous blood specimen / Unknown 12/03/2024 8:13 AM EST 12/03/2024 11:56 AM EST us Eun Reed FINISH MIXER LAB BLOOD ORDERABLES Final Resul t [facility] [address] [place] [phone] * Lipid Panel, Standard (12/03/2024 8:13 AM EST) Triglycerides 47 <150 mg/dL [facility] Comment:Desirable Triglyceri de: less than 150 mg/dLBorderline High Triglyceride 150-199 mg/dLHigh Triglyceride: 200-499 mg/dLVery High Triglyceride: greater than or equal to 5OO mg/dL Cholesterol 153 <200 mg/dL [facility] Comment:Desirable Cholestero l: less than 200 mg/dLBorderline High Cholesterol: 200-239 mg/dLHigh Cholesterol: greater than 239 mg/dL LDL Cholesterol Calculated 77 <100 mg/dL [facility] Comment:Desirable LDL: less than 100 mg/dLNear Optimal/Above Optimal LDL: 110- 129 mg/dLBorderline High LDL: 130-159 mg/dLHigh LDL: 160-189 mg/dLVery High LDL: greater than or equal to 190 mg/dL HDL Cholesterol 67 >40 mg/dL [facility] Comment:Desirable HDL: great er than 40 mg/dL Note: This HDL assay may give artificially low results in patients with liver disease. Blood Venous blood specimen / Unknown 12/03/2024 8:13 AM EST 12/03/2024 11:56 AM EST us Eun Reed FINISH MIXER LAB BLOOD ORDERABLES Final Resul t [facility] [address] [place] [phone] [phone] * Comprehensive Metabolic Panel (12/03/2024 8:13 AM EST) Sodium 141 135 - 145 mmol/L [facility] Potassium 4.1 3.3 - 5.1 mmol/L [facility] Chloride 106 96 - 108 mmol/L [facility] Carbon Dioxide 26 22 - 29 mmol/L [facility] Anion Gap 13 12 - 20 [facility] Urea Nitrogen (BUN) 13 9 - 16 mg/dL [facility] Creatinine, Serum 0.66 0.5 - 1.4 mg/dL [facility] Estimated Glomerular Filt Rate >60 [facility] Comment:Chronic Kidney Disea se: Estimated GFR < 60 mL/min/1.25s9Ahhaqx Kidney Disease: Estimated GFR < 15 mL/min/1.73m2 Glucose 93 60 - 115 mg/dL [facility] Calcium 9.7 8.4 - 10.2 mg/dL [facility] Bilirubin, Total 0.6 0.0 - 1.0 mg/dL [facility] Aspartate Amino Transferase 24 5 - 31 U/L [facility] Alanine Aminotransferase 11 0 - 31 U/L [facility] Total Protein 7.5 6.5 - 8.0 g/dL [facility] Albumin Level 4.3 3.5 - 5.0 g/dL [facility] Alkaline Phosphatase 70 39 - 117 U/L [facility] Blood Venous blood specimen / Unknown 12/03/2024 8:13 AM EST 12/03/2024 11:56 AM EST us Eun Reed FINISH MIXER LAB BLOOD ORDERABLES Final Resul t Performing Organization Address [facility] Co de Phone Number [facility] [address] [place] [phone] * Hepatitis C Antibody with Reflex to HCV, RNA, Quantitative, Real-Time PCR (01/12/2024 8:16 AM EDT) Hepatitis C Antibody Nonreactive Nonreactive [facility] Comment:Antibodies to HCV no t detected; does not exclude early acuteHCV infection. 01/12/2024 8:16 AM EDT 01/12/2024 11:04 AM EDT us Criselda Gallardo BRANCH ACCOUNT MANAGER LAB BLOOD ORDERABLES Final Resu lt Performing Organization Address [facility] de Phone Number [facility] [address] [place] [phone] * HIV-1/2 Antigen and Antibodies, Fourth Generation, with Reflexes (01/12/2024 8:16 AM EDT) HIV AB/AG Nonreactive Nonreactive [facility] Comment:HIV-1 p24 Ag and/or HIV-1/HIV-2 Ab not detected.A test result that is nonreactive does not exclude thepossibility of exposure to or infection with HIV-1 and/orHIV-2. Nonreactive results in this assay for individualswith prior exposure to HIV-1 and/or HIV-2 may be due toantigen and antibody levels that are below the limit ofdetection of this assay.The [employer] HIV Ag/Ab Combo assay result andsupplemental assay results should be interpreted inconjunction with the patient's clinical presentation,history and other laboratory results. If the results areinconsistent with clinical evidence, additional testing issuggested to confirm the result. 01/12/2024 8:16 AM EDT 01/12/2024 11:04 AM EDT Criselda Sami BRANCH ACCOUNT MANAGER LAB BLOOD ORDERABLES Final Resu lt Performing Organization Address City/[facility]/ZIP Co de Phone Number [facility] [address] [place] [phone] * HPV mRNA E6/E7 w/Reflex to HPV Genotypes 16, 18/45 (12/04/2022 8:57 AM EST) HPV nRNA E6/E7 Not Detected Not Detected [facility] Comment:Methodology: Transcr iption-Mediated AmplificationThis assay detects E6/E7 viral messenger RNA (mRNA) from 14high-risk HPV types (16,18,31,33,35,39,45,51,52,56,58,59,66,68).Cervical sources are required for HPV testing.If a vaginal source from a patient who has had atotal hysterectomy with removal of cervix wassubmitted, please contact the testing laboratoryfor alternative testing options.For additional information, please refer tohttp://education.Recurve/faq/OWS765u7(This link if provided for information/educational purposes only.)THIS TEST WAS PERFORMED AT:[employer] [place] [address] ([address] [phone] MCNEAL MD HPV mRNA E6/E7 TNP [facility] HPV 16 RNA [facility] HPV 18/45 RNA [facility] 12/04/2022 8:57 AM EST 12/04/2022 4:00 PM EST [facility] External Provider LAB CYT OLOGY ORDERABLES Final Result Performing Organization Address City/[facility]/ZIP Co de Phone Number [facility] [address] [place] [phone] * Pap Smear (12/04/2022 8:57 AM EST) 12/04/2022 8:57 AM EST 12/04/2022 4:00 PM EST Narrative [facility] - 12/07/2022 1:40 PM EST ----- ------- Name: Michael Shirley ? Age/Sex: 47/F ? : 1975 Unit#: [id number] ?? Attend Dr: Virginie Ruelas CNM ?Re12/04/22 ?Status: DEP REF ? Location: HO.LNP ?Disch: ? ----- ------- SPEC : [id number] ? RECD: 12/04/22-1599 ? STATUS: ??SOUT ? REQ NUM: [id number] ? AMARA: 12/04/22 ? SUBM DR: Virginie [...] 66, 68) ? HPV testing performed by [facility], [place], [place]. ??See reference laboratory ?? portion of the EMR for entire report. ?Clinical Information LMP: 11/03/22 Previous PAP test: 2017, WNL ? Material Received ?? ThinPrep-Cervical ----- ------- Signed (signature on file) Catalina Gonzáles Kendall 12/07/22 1340 ? ----- ------- ? END OF REPORT ? [facility] External Provider LAB CYT OLOGY ORDERABLES Final Result [facility] [address] [place] [address] [phone] from Last 3 Months or Most Recently Relevant to Health Maintenance Insurance [facility] STANDARD [place] [address] [place] [id number] DENTAL-[facility] MEDICAID STAND ADULT Care Teams Optical Effects Camera Operator Relationship Specialty Start Date End Date Eun Reed NP [address] [place] [phone] PCP - General Family Medicine 07/06/24
== END 2025-02-25 10:36 | disposition home or self-care (01) ==
LOC: HO.US 10:35
PROVIDERS: PCP Nurse Practitioner Family; Visit Provider Obstetrics & Gynecology
DX: N83.209 Unspecified ovarian cyst, unspecified side (principal)
CPT/HCPCS: 76856

== ENCOUNTER 2025-03-02 10:47 | Outpatient (AMB) | payer MEDICARE, MEDICAID, SELFPAY ==
--- NOTE | 2025-03-02 10:48 | A.OFFVIS_ITS ---
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 Doing well with program planner concerns: pelvic pain, burning w/urination intermittently. 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 LMP early 12/2024. Having some hot flashes. Currently is sexually active. She tries to eat healthy, no regular exercise. Denies family history of breast, ovarian or colon cancer. Last pap smear 2022, negative. Mammogram: 2024. [place]oGard completed. [facility] Medical History Pelvic pain Cellulitis Fat necrosis Fluid collection at surgical site Panniculitis Overweight Surgical History Hx of gastric bypass S/P panniculectomy Hx of abdominoplasty Hx of section Family History Mother Hypertension Diabetes Asthma Father Hypertension Brother No problems noted. Brother No problems noted. Brother No problems noted. Sister No problems noted. Sister No problems noted. Sister No problems noted. Son No problems noted. Daughter No problems noted. Daughter No problems noted. Maternal Grandfather Prostate cancer Social History Alcohol intake: current Alcohol intake frequency: does not drink Patient Tobacco Use Status: Never used Tobacco service: No Current occupational status: disabled Current occupation: left hand Female Reproductive History Menstrual Age of Menarche: 13 control method: permanent sterilization Permanent Sterilization: BTL Total pregnancies: 4 Full term: 3 Number of Living Children: 3 Ab spontaneous: 1 Date of last pap smear: 12/04/22 (neg pap and hpv) Date of Mammogram: 01/31/25 (Birad 1) Review of Systems Const All systems reviewed & are unremarkable except as noted in HPI and below Reports as per HPI Eyes Reports no additional complaints ENT Reports no additional complaints Card Reports no additional complaints Resp Reports no additional complaints GI Reports as per HPI and Reports no additional complaints Reports as per HPI Musc Reports no additional complaints Skin/Breast Reports as per HPI Neuro Reports no additional complaints Psych Reports no additional complaints Endo Reports no additional complaints Cory/Lymph Reports no additional complaints Aller/Immun Reports no additional complaints Physical Exam Vital Signs: Last Vital Signs BP 140/86 H 03/02/25 10:50 BMI result Body Mass Index 28.3 Const General: cooperative, healthy appearing, no acute distress, well developed and alert Orientation/consciousness: patient oriented x3 HEENT Head: Yes normal to inspection Eyes General: appearance normal, both eyes and all related structures Neck Neck: Yes normal visual inspection Thyroid: Thyroid normal Chest Chest palpation & inspection: normal inspection of the chest and other (no puckering, dimpling, peau de orange, retraction, discharge, masses) Breast/axilla inspection: normal inspection of the breasts Breast/axilla palpation: normal palpation of the breasts Resp Effort & Inspection: normal respiratory effort GI Inspection: Yes normal to inspection and Yes scar Palpation (GI): Soft to palpation Rectal Exam - Female: deferred General: Yes bladder normal to palpation External Female Exam: normal external appearance and normal appearance of the urethra Speculum Exam - Vagina: normal appearance of the vagina, normal palpation, normal vaginal discharge and abnormal vaginal discharge frothy Speculum Exam - Cervix: normal appearance of the cervix and normal palpation Bimanual exam- vagina & uterus: normal bimanual exam, normal palpation, uterine size normal, bladder normal to palpation, normal palpation and non-tender Bimanual Exam- Adnexa, other: no masses Skin General skin exam: no rashes or lesions noted Rashes: no rashes Neuro General: patient oriented x3 Cognition (Neuro): normal cognition Extrem General: Yes normal to inspection Psych Attitude: cooperative Thought process: Normal thought process present Results AMB Urinalysis, Automated UA Leukoctes 0 Austen/uL Last Edit by LISY Patricia on 03/02/25 11:03 UA Nitrite Negative Last Edit by LISY Patricia on 03/02/25 11:03 UA Urobilinogen 0 mg/dL Last Edit by LISY Patricia on 03/02/25 11:0 3 UA Protein 0 mg/dL Last Edit by Florinda Augusto August A on 03/02/25 11:03 UA pH 6.0 Last Edit by Florinda Augusto August A on 03/02/25 11:03 UA Blood 0 Baudilio/uL Last Edit by Florinda Augusto Otonielgreg A on 03/02/25 11:03 UA Specific [place] 1.020 Last Edit by Florinda Augusto August [facility] on 03/02/25 11:03 UA Ketone Negative Last Edit by Florinda Augusto August A on 03/02/25 11:03 UA Bilirubin 0 mg/dL Last Edit by Florinda Augusto August A on 03/02/25 11:03 UA Glucose 0 mg/dL Last Edit by Florinda Augusto August [facility] on 03/02/25 11:03 Results Reviewed Results Reviewed: Laboratory Last Values Urine pH (Auto) 6.0 03/02/25 11:02 Specific [place] (Auto) 1.020 03/02/25 11:02 Urine Protein (Auto) 0 mg/dL 03/02/25 11:02 Glucose (UA)(Auto) 0 mg/dL 03/02/25 11:02 Urine Ketones (Auto) Negative 03/02/25 11:02 Urine Blood (Auto) 0 Baudilio/uL 03/02/25 11:02 Urine Nitrite (Auto) Negative 03/02/25 11:02 Urine Bilirubin (Auto) 0 mg/dL 03/02/25 11:02 Urine Urobilinogen (Auto) 0 mg/dL 03/02/25 11:02 Leukocyte Esterase (Auto) 0 Austen/uL 03/02/25 11:[address] [address] Ultrasound Report Signed Patient: Michael Shirley MR#: [id number] : 1975 Acct:[id number] Age/Sex: 50 / F ADM Date: 02/25/25 Loc: HO.US Attending Dr: Salomón Ding MD Ordering Physician: Salomón Ding MD Date of Service: 02/25/25 Procedure(s): US pelvic complete Accession Number(s): [id number] cc: Criselda Gallardo NP; Salomón Ding MD~ EXAMINATION: US PELVIS CLINICAL INFORMATION: Unspecified ovarian cyst. COMPARISON: Ultrasound dated March 09, 2024. Correlated to MRI pelvis dated May 25, 2024 reporting a 4.8 cm probable hemorrhagic cyst, left adnexa.. TECHNIQUE: Ultrasound of the pelvis is performed using both transabdominal transducer along with Doppler. . FINDINGS: Uterus: The uterus is anteverted and measures 10 x 3 x 5 cm. Volume: 80 cc. The double wall endometrial thickness is 1 mm. The uterus is smooth in contour and has normal myometrial echogenicity. No visible fibroid. Adnexa: The right adnexa is not identified.. The left adnexa is identified . Left ovary measures 2 x 1 x 2 cm. Volume: 2.4 cc. No solid or cystic lesion. US/US pelvic complete IMPRESSION: Right ovary is not identified. Left ovary is normal. Electronically signed by: Sudeep Bowman MD 02/28/2025 02:39 PM EDT Dictated By: Sudeep Sinha MD Signed By: <Electronically signed by Sudeep [place] MD in OV> 02/28/25 1436 Assessment & Plan Assessment & Plan (1) Encounter for well woman exam with routine gynecological exam: Code(s): Z01.419 - Encounter for gynecological examination (general) (routine) without abnormal findings Category: Medical Plan: Discussed: Current recommendations for pap smears per ASCCP guidelines. Breast awareness and periodic breast exams. Mammogram yearly. Maintain a healthy lifestyle including a well balanced diet and routine exercise. Patient verbalizes understanding and agrees to the plan of care. She was given opportunity to ask questions and all questions were answered to the best of my ability. RTO in one year for annual program planner examination. This note is constructed using voice recognition software. While every effort has been made to ensure accuracy, binding cutter errors may have been included. (2) Pelvic pain: Code(s): R10.2 - Pelvic and perineal pain Category: Medical Plan Plan GC chlamydia and BV panel. Recent ultrasound reviewed. Follow up pending results. The patient expressed understanding and agreement with the plan of care. All of her questions and concerns were addressed to the best of my ability. Total time I personally spent on visit and management today: ?10 minutes. Time spent included review of pertinent office notes in the electronic health record; review of laboratory and imaging results; review of personal family medical history; performing physical exam; discussing diagnosis and plan of care with the patient; documenting the encounter in the EMR. This note is constructed using voice recognition software. While every effort has been made to ensure accuracy, binding cutter errors may have been included. Orders: Orders AMB Urinalysis Automated Today R10.2 - Pelvic and perineal pain Coding Level of Care Code Est Pt Level 2 (50931) Est Pt Prev Care 40-64y(92781) Diagnoses Encounter for well woman exam with routine gynecological exam Z01.419 Pelvic pain R10.2
[2025-03-02 10:50] VITALS: BP 140/86; BMI 28.3
--- OUTSIDE RECORDS SUMMARY | 2025-03-02 12:10 | XMS_ITS | Encounter Summary ---
Author Organization [email or web address] Address [address] [facility] [address] [place] [address] Care Team Providers Care Buccaro Name Role Phone Criselda GallardoP Primary Care Provider [phone] Eun Reed NP Primary Care Provider [phone] Reason for Visit * Reason Onset Date Comments Nurse Triage 05/01/2023 Encounter Details Date Type Department Care Team ([facility] st Contact Info) Description 05/01/2023 Telephone [facility] MEDICINE [address] [place] [address] Criselda Gallardo FNP [address], [place] [phone] Nurse Triage Social History Tobacco Use Types [...] 11:38 AM EDT Triage call with pacific Supervisor Audit Clerks Id [id number] Pt reports severe right arm pain. Pt was seen in [facility] 04/29 and started ibuprofen and [...] tomorrow. Pt is advised to come to [facility] again to be seen by [...] accepted this outcome Please contact pt at [phone] (Urdu speaker) documented in this encounter Plan of Treatment Upcoming Encounters Date Type Department Care Team (Late st Contact Info) Description 06/06/2025 9:00 AM EDT Office Visit [facility] OPTOMETRY [address] [place] [address] Alexandria Rae, OD [address] [place] [address] documented as of this encounter Visit Diagnoses Not on filedocumented in this encounter Care Teams Buccaro Relationship Specialty Start Date End Date Criselda Gallardo FNP [address] [place] [address] PCP - General Family Medicine 01/06/23 07/05/24 Eun Reed NP [address] [place] [address] PCP - General Family Medicine 07/06/24 documented as of this encounter
--- OUTSIDE RECORDS SUMMARY | 2025-03-02 12:10 | XMS_ITS | Encounter Summary ---
Author Organization [employer] Address [address] [facility] [address] [place] [address] Care Team Providers Care Core Winding Operator Name Role Phone Criselda GallardoP Primary Care Provider [phone] Eun Reed NP Primary Care Provider [phone] Reason for Visit * Reason Onset Date Comments Appointment Request 05/01/2023 Encounter Details Date Type Department Care Team ([facility] st Contact Info) Description 05/01/[address] [facility] MEDICINE [address] [place] [address] Criselda Gallardo FNP [address] [place], [place] [phone] Appointment Request Social History Tobacco Use Types [...] patient states she was seen at the [facility] on 04/29/23 for right arm pain and was told if pain persist or gets worse she can call to get a injection. Patient is requesting a appt for the injection. Patient speaks french. documented in this encounter Plan of Treatment Upcoming Encounters Date Type Department Care Team (Late st Contact Info) Description 06/06/2025 9:00 AM EDT Office [address] [facility] OPTOMETRY [address] [place], [place] [phone] ButchAlexandria day, OD [address] [place] [address] documented as of this encounter Visit Diagnoses Not on filedocumented in this encounter Care Teams Core Winding Operator Relationship Specialty Start Date End Date Criselda Gallardo FNP [address] [place] [address] PCP - General Family Medicine 01/06/23 07/05/24 Eun Reed NP [address] [place] [address] PCP - General Family Medicine 07/06/24 documented as of this encounter
--- OUTSIDE RECORDS SUMMARY | 2025-03-02 12:10 | XMS_ITS | Encounter Summary ---
Author Organization [employer] Address [address] [facility] 7t [place] [address] Care Team Providers Care Pharmacy Operations Manager Name Role Phone Criselda Gallardo Primary Care Provider [phone] Eun Reed NP Primary Care Provider [phone] Encounter Details Date Type Department Care Team (Late st Contact Info) Description 02/24/2024 Orders Only [facility] [address] [place] [address] Criselda Gallardo FNP [address] [place] [address] Fatigue, unspecified type (Primary Dx); Low hemoglobin [...] 06/06/2025 9:00 AM EDT Office Visit [facility] OPTOMETRY [address] [place] [address] Butch, Alexandria, OD [address] [place] [address] documented as of this encounter Procedures Procedure [...] EDT) Iron 35 30 - 160 mcg/dL [facility] Total Iron Binding Capacity 394 228 - 428 mcg/dL [facility] Percent Iron Saturation 9(L) 15 - 50 % [facility] Unsaturated Iron Binding 359 ug/dL [facility] Blood Venous blood specimen / Unknown 05/14/2024 8:23 AM EDT 05/14/2024 11:06 AM EDT us Criselda Gallardo SENIOR WEB SERVICES DEVELOPER LAB BLOOD ORDERABLES Final Resu lt [facility] [address] [place] [address] [phone] * (ABNORMAL) CBC auto differential (05/14/2024 8:23 AM EDT) White Blood Count 4.7(L) 4.8 - 10.8 X10*3/uL [facility] Red Blood Count 3.96(L) 4.20 - 5.50 X10*6/uL [facility] Hemoglobin 11.0(L) 12.0 - 16.0 g/dl [facility] Hematocrit 34.0(L) 37.0 - 47.0 % [facility] Mean Corpuscular Volume 85.9 80.0 - 98.0 fL [facility] Mean Corpuscular Hemoglobin 27.8 27.0 - 33.0 pg [facility] Mean Corpuscular HGB Conc 32.4 31.0 - 35.0 g/dl [facility] Red Cell Distribution Width 16.7(H) 11.0 - 16.0 % [facility] Platelet Count 222 160 - 400 X10*3/uL [facility] Mean Platelet Volume 10.4 9.4 - 12.3 fL [facility] Neutrophils Percent Auto 54.3 45 - 73 % [facility] Imm Gran Pct Auto 0.2 0.0 - 0.4 % [facility] Lymphocytes Percent Auto 29.2 20 - 40 % [facility] Monocytes Percent Auto 11.4(H) 2 - 11 % [facility] Eosinophils Percent Auto 3.8 0 - 4 % [facility] Basophils Percent Auto 1.1 0 - 2 % [facility] NRBC Pct Auto 0.0 0.0 - 0.2 /100WBC [facility] Neutrophils Absolute Auto 2.6 2.0 - 8.3 x10*3/uL [facility] Imm Gran Abs Auto 0.01 0.00 - 0.03 X10*3/uL [facility] Lymphocytes Absolute Auto 1.4 1.2 - 4.9 X10*3/uL [facility] Monocytes Absolute Auto 0.5 0.1 - 1.2 X10*3/uL [facility] Eosinophils Absolute Auto 0.2 0.0 - 0.4 X10*3/uL [facility] Basophils Absolute Auto 0.1 0.0 - 0.2 X10*3/uL [facility] NRBC Abs Auto 0.000 0.0 - 0.012 X10*3/uL [facility] Blood Venous blood specimen / Unknown 05/14/2024 8:23 AM EDT 05/14/2024 11:11 AM EDT us Criselda RG LAB BLOOD ORDERABLES Final Resu lt Performing Organization Address City/State/[facility] Co de Phone Number [facility] [address] [place] [address] [phone] documented in this encounter Visit Diagnoses Diagnosis Fatigue, unspecified type- Primary Low hemoglobin and low hematocrit documented in this encounter Additional Health Concerns Assessment Noted Time PHQ-9 Depression Total Score: 9 01/09/20 24 10:42 AM EST documented as of this encounter Care Teams Pharmacy Operations Manager Relationship Specialty Start Date End Date Criselda Gallardo FNP [address] [place] [address] PCP - General Family Medicine 01/06/23 07/05/24 Eun Reed NP [address] [place] [address] PCP - General Family Medicine 07/06/24 documented as of this encounter
--- OUTSIDE RECORDS SUMMARY | 2025-03-02 12:10 | XMS_ITS | Encounter Summary ---
Author Organization [employer] Address [address] [facility] [address] [place] [address] Care Team Providers Care Irrigation Engineer Name Role Phone Dhaval Osborn MD Primary Care Provide r Salvador Yeager CORN GRINDER Primary Care Provider Emily Seay MD Primary Care Provider [phone] Criselda Gallardo CORN GRINDER Primary Care Provider [phone] Eun Reed NP Primary Care Provider [phone] Encounter Details Date Type Department Care Team (Latest Contact Info) Description 03/05/2022 Abstract [facility] CONVERSIONS Dental, Provider, DDS Social History [...] Description 06/06/2025 9:00 AM EDT Office Visit [facility] OPTOMETRY [address] [place], [place] [phone] Alexandria Rae, OD [address] [place], [place] [phone] documented as of this encounter Visit Diagnoses Not on filedocumented in this encounter Care Teams Irrigation Engineer Relationship Specialty Start Date End Date Dhaval Osborn MD [address] [facility] [place] [address] PCP - General Internal Medicine 05/12/18 10/29/22 Salvador Yeager FNP [facility] [place] [address] PCP - General Family Medicine 10/30/22 01/01/23 Emily Tapia MD [facility] [place] [address] PCP - General Family Medicine 01/02/23 01/05/23 Criselda Gallardo FNP [address] [facility] [place] [address] PCP - General Family Medicine 01/06/23 07/05/24 Eun Reed NP [address] [facility] [place] [address] PCP - General Family Medicine 07/06/24 documented as of this encounter
--- OUTSIDE RECORDS SUMMARY | 2025-03-02 12:10 | XMS_ITS | Encounter Summary ---
Author Organization [employer] Address [address] [facility] [address] [place] [address] Care Team Providers Care Camp Dishwasher Name Role Phone Dhaval Osborn MD Primary Care Provide r Salvador Yeager FINAL ASSEMBLY INSPECTOR Primary Care Provider Emily Seay MD Primary Care Provider [phone] Criselda Gallardo FINAL ASSEMBLY INSPECTOR Primary Care Provider [phone] Eun Reed NP Primary Care Provider [phone] Encounter Details Date Type Department Care Team (Latest Contact Info) Description 06/14/2019 Abstract [facility] CONVERSIONS Dental, Provider, DDS Social History Tobacco [...] Description 06/06/2025 9:00 AM EDT Office Visit [facility] OPTOMETRY [address] [place], [place] [phone] Alexandria Rae, OD [address] [place], [place] [phone] documented as of this encounter Visit Diagnoses Not on filedocumented in this encounter Care Teams Camp Dishwasher Relationship Specialty Start Date End Date Dhaval Osborn MD [address] [place] [address] PCP - General Internal Medicine 05/12/18 10/29/22 [place] [address] PCP - General Family Medicine 10/30/22 01/01/23 Emily Tapia MD [address] [place] [address] PCP - General Family Medicine 01/02/23 01/05/23 Crisel[place] [address] PCP - General Family Medicine 01/06/23 07/05/24 Eun Reed NP [address] [place] [address] PCP - General Family Medicine 07/06/24 documented as of this encounter
--- OUTSIDE RECORDS SUMMARY | 2025-03-02 12:10 | XMS_ITS | Clinical Summary ---
Author Organization [employer] Address [address] [facility] [address] [place] [address] Care Team Providers Care Teacher Of Family And Consumer Science Name Role Phone Eun Reed NP Primary Care Provider [phone] Allergies No known active allergies Medications EPINEPHrine [...] avoid contact with potential allergens. Refer to infection control nurse. Spasm of thoracic back muscle 09/20/2024 Assessment [...] Description 01/31/2025 9:00 AM EDT Office Visit [facility] [address] [place] [address] Nik Alvares 01/31/2025 Orders Only [facility] [address] [place] [address] Criselda Gallardo FNP 01/14/2025 Population Health Risk Score [facility] Department [address] [phone] Provider, Population Health Generic 01/13/2025 2:30 PM EDT Office Visit [facility] [address] [place] [address] Butch, [place], OD Presbyopia of both eyes (Primary Dx) 01/05/2025 2:00 PM EST Office Visit [facility] [address] [place] [address] Sreekanth Alvarespreet 01/04/2025 10:00 AM EST Office Visit [facility] [address] [place] [address] Diomedes Laboy Dental calculus (Primary Dx) 12/06/2024 9:30 AM EST Office Visit [facility] [address] [place] [address] Butch [place], OD Glaucoma suspect of both eyes (Primary Dx); White without pressure, peripheral retina, left eye; Presbyopia of both eyes 12/06/2024 Travel from Last 3 Months Immunizations Name [...] your housing situation today? I have kita dolly 11/30/[address] you li [...] Description 06/06/2025 9:00 AM EDT Office Visit [facility] [address] [place], [place] [phone] Butch, Alexandria, OD [address] [place] [address] Health Maintenance Due Date Last Done Comments [...] Procedure Name Priority Date/Time Associated Diagnosis Comments US PELVIS COMPLETE Routine 02/25/2025 10 :57 AM EDT BI MAMMOGRAM SCREENING TOMOSYNTHESIS BILATERAL Routine 01/31/2025 [...] Recently Relevant to Health Maintenance Results * Us Pelvis complete (02/25/2025 10:57 AM EDT) Anatomical Region Laterality Modality Pelvis Ultrasound 02/25/2025 10:5 7 AM EDT Narrative 02/28/2025 2:42 PM EDT ? [facility] ?[address] ?[place] [address] ? Ultrasound Report ? Signed ? Patient: Michael Shirley ? MR#: [id number] ? : 1975 ?Acct:[id number] ? Age/Sex: 50 / F ?ADM Date: 02/25/25 ? Loc: HO.US ? Attending Dr: Salomón Ding MD ? Ordering Physician: Salomón Ding MD ?? Date of Service: 02/25/25 ?? Procedure(s): US pelvic complete ?? Accession Number(s): [id number] ? cc: Criselda Gallardo SERVICE DELIVERY SUPERVISOR; Salomón Ding MD ? EXAMINATION: ? US PELVIS ? CLINICAL INFORMATION: ? Unspecified ovarian cyst. ? COMPARISON: ?? Ultrasound dated March 09, 2024. ?? Correlated to MRI pelvis dated May 25, 2024 reporting a 4.8 cm ?? probable hemorrhagic cyst, left adnexa.. ? TECHNIQUE: ?? Ultrasound of the pelvis is performed using both transabdominal ?? transducer along with Doppler. . ? FINDINGS: ?? Uterus: ?? The uterus is anteverted and measures 10 x 3 x 5 cm. ??Volume: 80 cc. ? The double wall endometrial thickness is 1 mm. ? The uterus is smooth in contour and has normal myometrial echogenicity. ?No visible fibroid. ? Adnexa: ?? The right adnexa is not identified.. ??The left adnexa is identified . ? Left ovary measures 2 x 1 x 2 cm. Volume: 2.4 cc. No solid or cystic ?? lesion. ? US/US pelvic complete ?? IMPRESSION: ?? Right ovary is not identified. ?? Left ovary is normal. ? Electronically signed by: ??Sudeep Bowman MD ??02/28/2025 02:39 PM ?? EDT RP ? Dictated By: ?Sudeep Sinha MD ? Signed By: ?<Electronically signed by Sudeep Clark MD in OV> ? 02/28/25 1439 ? DD/ 1057 ? TD/TT: 02/25/25 1103 ? Wood Cabinet Finisher: ? Procedure Note Donchristian, Image - 02/28/2025 [place] [address] Ultrasound Report Signed Patient: Michael Shirley MR#: [id number] : 1975Acct:[id number] Age/Sex: 50 / FADM Date: 02/25/25 Loc: HO.US Attending Dr: Salomón Ding MD Ordering Physician: Salomón Ding MD Date of Service: 02/25/25 Procedure(s): US pelvic complete Accession Number(s): [id number] cc: Criselda Gallardo SERVICE DELIVERY SUPERVISOR; Salomón Ding MD EXAMINATION: US PELVIS CLINICAL INFORMATION: Unspecified ovarian cyst. COMPARISON: Ultrasound dated March 09, 2024. Correlated to MRI pelvis dated May 25, 2024 reporting a 4.8 cm probable hemorrhagic cyst, left adnexa.. TECHNIQUE: Ultrasound of the pelvis is performed using both transabdominal transducer along with Doppler. . FINDINGS: Uterus: The uterus is anteverted and measures 10 x 3 x 5 cm. Volume: 80 cc. The double wall endometrial thickness is 1 mm. The uterus is smooth in contour and has normal myometrial echogenicity. No visible fibroid. Adnexa: The right adnexa is not identified.. The left adnexa is identified . Left ovary measures 2 x 1 x 2 cm. Volume: 2.4 cc. No solid or cystic lesion. US/US pelvic complete IMPRESSION: Right ovary is not identified. Left ovary is normal. Electronically signed by: Sudeep Bowman MD 02/28/2025 02:39 PM EDT RP Dictated By: Sudeep Sinha MD Signed By: <Electronically signed by Sudeep Clark MDin OV> 02/28/25 1439 DD/ 1057 TD/TT: 02/25/25 1103 Wood Cabinet Finisher: [facility] External Provider IMG US PROCEDURES Final Result * BI Mammogram Screening Tomosynthesis Bilateral (01/31/2025 11:35 AM EDT) Anatomical Region Laterality Modality Breast Bilateral Mammography 01/31/2025 11:3 5 AM EDT Narrative 02/06/2025 11:51 AM EDT ? [facility] ? [address] ?[place] [address] ?[phone] ? Mammography Report ? Signed ? Patient: Travis Valeria,Michael ? MR#: [id number] ? : 1975 ?Acct:[id number] ? Age/Sex: 49 / F ?ADM Date: 03/31/25 ? Loc: HO.MAMMO ? Attending Dr: Criselda Gallardo SERVICE DELIVERY SUPERVISOR ? Ordering Physician: Criselda Gallardo SERVICE DELIVERY SUPERVISOR ?Results: 1Negativ ?? e ? Date of Service: 01/31/25 ?Follow Up: 1 Year From Orig ?? inal Mammogram ? Procedure(s): MM tomosynthesis screening BI ?? Accession Number(s): [id number] ? cc: Criselda Gallardo SERVICE DELIVERY SUPERVISOR ? EXAMINATION: ?? MM SCREENING DIGITAL BREAST [...] DD/ 1135 ? TD/TT: 01/31/25 1153 ? Wood Cabinet Finisher: ? Procedure Note Donotuseinterpreter, Image - 02/06/2025 [facility] [address] [place] [address] Mammography Report Signed Patient: Michael Shirley MR#: [id number] : 1975Acct:[id number] Age/Sex: 49 / FADM Date: 01/31/25 Loc: HO.MAMMO Attending Dr: Criselda Gallardo SERVICE DELIVERY SUPERVISOR Ordering Physician: Criselda Gallardo NPResults: 1Negativ e Date of Service: 01/31/25Follow Up: 1 Year From Orig inal Mammogram Procedure(s): MM tomosynthesis screening BI Accession Number(s): [id number] cc: Criselda Gallardo SERVICE DELIVERY SUPERVISOR EXAMINATION: MM SCREENING DIGITAL BREAST TOMOSYNTHESIS, BILATERAL [...] 02/06/25 1148 DD/ 1135 TD/TT: 01/31/25 1153 Wood Cabinet Finisher: Criselda Gallardo BENCH GRINDER IMG BI PROCEDURES Final Result * Cologuard?? colon cancer screening (12/06/2024 4:45 AM EST) Cologuard Result Negative Negative 12/10/19 7:20 PM EST after[facility] (CLIA #:[id number]) Comment: NEGATIVE TEST RESULT. A negative Cologuard [...] cancer. ??Following a negative Cologuard result, the [place] Cancer Society and U.S. Multi-Society Task Force screening guidelines recommend a Cologuard re-screening interval of 3 years. References: [employer] Cancer Society Guideline for Colorectal Cancer Screening: https://www.cancer.org/cancer/zabwg-fhqtml-fujqzf/tcgsgathm-okroaydlu-lzlhjah/ac s-rec ommendations.html.; Tom ROWE, Ren SANTORO, Lyn KaminskiK, Colorectal Cancer Screening: Recommendations for Physicians and Patients from the U.S. Multi-Society Task Force on Colorectal Cancer Screening , Am J Gastroenterology 2017; 112:0915-2402. TEST DESCRIPTION: Composite algorithmic analysis of stool [...] Ballesteros et al, N Engl J Med 2014;370(14):8133-6451.) Cologuard may produce a false negative or false positive result (no colorectal cancer or precancerous polyp present at colonoscopy follow up). A negative Cologuard test result does not guarantee the absence of CRC or advanced adenoma (pre-cancer). The current Cologuard screening interval is every 3 years. (Greek Cancer Society and U.S. Multi-Society Task Force). Cologuard performance data in a 10,000 patient pivotal study using colonoscopy as the reference method can be accessed at the following location: www.[employer]/results. Additional description of the Cologuard test process, warnings and precautions can be found at www.[employer]d.com. Stool specimen (specimen) 12/06/2024 4:45 AM EST 12/07/2024 10:51 AM EST us Eun Reed NP LAB MOLECULAR DIAGNOSTICS ORDERA BLES Final Result [facility] (CLIA #:[id number]) [place] [address], * TSH W/Reflex to FT4 (12/03/2024 8:13 AM EST) TSH reflex Free T4 1.02 0.32 - 4.0 uIU/mL [facility] Blood Venous blood specimen / Unknown 12/03/2024 8:13 AM EST 12/03/2024 11:56 AM EST us Eun Derek SERVICE DELIVERY SUPERVISOR LAB BLOOD ORDERABLES Final Resul t [facility] [address] [place] [address] [phone] * (ABNORMAL) CBC auto differential (12/03/2024 8:13 AM EST) White Blood Count 5.5 4.8 - 10.8 X10*3/uL [facility] Red Blood Count 4.19(L) 4.20 - 5.50 X10*6/uL [facility] Hemoglobin 11.1(L) 12.0 - 16.0 g/dl [facility] Hematocrit 34.7(L) 37.0 - 47.0 % [facility] Mean Corpuscular Volume 82.8 80.0 - 98.0 fL [facility] Mean Corpuscular Hemoglobin 26.5(L) 27.0 - 33.0 pg [facility] Mean Corpuscular HGB Conc 32.0 31.0 - 35.0 g/dl [facility] Red Cell Distribution Width 15.8 11.0 - 16.0 % [facility] Platelet Count 244 160 - 400 X10*3/uL [facility] Mean Platelet Volume 10.5 9.4 - 12.3 fL [facility] Neutrophils Percent Auto 59.2 45 - 73 % [facility] Imm Gran Pct Auto 0.2 0.0 - 0.4 % [facility] Lymphocytes Percent Auto 25.6 20 - 40 % [facility] Monocytes Percent Auto 11.0 2 - 11 % [facility] Eosinophils Percent Auto 3.1 0 - 4 % [facility] Basophils Percent Auto 0.9 0 - 2 % [facility] NRBC Pct Auto 0.0 0.0 - 0.2 /100WBC [facility] Neutrophils Absolute Auto 3.2 2.0 - 8.3 x10*3/uL [facility] Imm Gran Abs Auto 0.01 0.00 - 0.03 X10*3/uL [facility] Lymphocytes Absolute Auto 1.4 1.2 - 4.9 X10*3/uL [facility] Monocytes Absolute Auto 0.6 0.1 - 1.2 X10*3/uL [facility] Eosinophils Absolute Auto 0.2 0.0 - 0.4 X10*3/uL [facility] Basophils Absolute Auto 0.1 0.0 - 0.2 X10*3/uL [facility] NRBC Abs Auto 0.000 0.0 - 0.012 X10*3/uL [facility] Blood Venous blood specimen / Unknown 12/03/2024 8:13 AM EST 12/03/2024 11:54 AM EST us Eun Reed NP LAB BLOOD ORDERABLES Final Resul t Performing Organization Address City/[facility]/ZIP Co de Phone Number [facility] [address] [place] [address] [phone] * (ABNORMAL) Iron And Total Iron Binding Capacity (12/03/2024 8:13 AM EST) Iron 67 30 - 160 mcg/dL [facility] Total Iron Binding Capacity 456(H) 228 - 428 mcg/dL [facility] Percent Iron Saturation 15 15 - 50 % [facility] Unsaturated Iron Binding 389 ug/dL [facility] Blood Venous blood specimen / Unknown 12/03/2024 8:13 AM EST 12/03/2024 11:56 AM EST Eun Reed NP LAB BLOOD ORDERABLES Final Resul t Performing Organization Address City/[facility]/ZIP Co de Phone Number [facility] [address] [place] [phone] [phone] * Hemoglobin A1c (12/03/2024 8:13 AM EST) Hemoglobin A1c 5.3 <6.0 % [facility] Comment:Hemoglobin A1C Refer ence Range Adults: 4.8 - 6.0 % Non diabetic: < 6.0 % Goal: < 7.0 %Additional Action Suggested: > 8.0 %Note: Hemoglobin A1c results are invalid for patients with abnormal amounts of HbF. Blood transfusions may impact the HbA1c concentration in the patient sample. Estimated Average Glucose 105 mg/dL [facility] Comment:eAG = Estimated ave rage glucose which is %A1C expressed asaverage glucose, using the formula of the R1Y-YbsxrmpDxicwdv Glucose study (ADAG), Diabetes Care, Vol.31,#8,Jun. 2007 Blood Venous blood specimen / Unknown 12/03/2024 8:13 AM EST 12/03/2024 11:56 AM EST us Eun Reed NP LAB BLOOD ORDERABLES Final Resul t [facility] [address] [place] [phone] * Lipid Panel, Standard (12/03/2024 8:13 AM EST) Triglycerides 47 <150 mg/dL [facility] Comment:Desirable Triglyceri de: less than 150 mg/dLBorderline High Triglyceride 150-199 mg/dLHigh Triglyceride: 200-499 mg/dLVery High Triglyceride: greater than or equal to 5OO mg/dL Cholesterol 153 <200 mg/dL [facility] Comment:Desirable Cholestero l: less than 200 mg/dLBorderline High Cholesterol: 200-239 mg/dLHigh Cholesterol: greater than 239 mg/dL LDL Cholesterol Calculated 77 <100 mg/dL [facility] Comment:Desirable LDL: less than 100 mg/dLNear Optimal/Above Optimal LDL: 110- 129 mg/dLBorderline High LDL: 130-159 mg/dLHigh LDL: 160-189 mg/dLVery High LDL: greater than or equal to 190 mg/dL HDL Cholesterol 67 >40 mg/dL [facility] Comment:Desirable HDL: great er than 40 mg/dL Note: This HDL assay may give artificially low results in patients with liver disease. Blood Venous blood specimen / Unknown 12/03/2024 8:13 AM EST 12/03/2024 11:56 AM EST us Eun Reed NP LAB BLOOD ORDERABLES Final Resul t [facility] [address] [place] [address] [phone] * Comprehensive Metabolic Panel (12/03/2024 8:13 AM EST) Sodium 141 135 - 145 mmol/L [facility] Potassium 4.1 3.3 - 5.1 mmol/L [facility] Chloride 106 96 - 108 mmol/L [facility] Carbon Dioxide 26 22 - 29 mmol/L [facility] Anion Gap 13 12 - 20 [facility] Urea Nitrogen (BUN) 13 9 - 16 mg/dL [facility] Creatinine, Serum 0.66 0.5 - 1.4 mg/dL [facility] Estimated Glomerular Filt Rate >60 [facility] Comment:Chronic Kidney Disea se: Estimated GFR < 60 mL/min/1.13e2Xvdbmz Kidney Disease: Estimated GFR < 15 mL/min/1.73m2 Glucose 93 60 - 115 mg/dL [facility] Calcium 9.7 8.4 - 10.2 mg/dL [facility] Bilirubin, Total 0.6 0.0 - 1.0 mg/dL [facility] Aspartate Amino Transferase 24 5 - 31 U/L [facility] Alanine Aminotransferase 11 0 - 31 U/L [facility] Total Protein 7.5 6.5 - 8.0 g/dL [facility] Albumin Level 4.3 3.5 - 5.0 g/dL [facility] Alkaline Phosphatase 70 39 - 117 U/L [facility] Blood Venous blood specimen / Unknown 12/03/2024 8:13 AM EST 12/03/2024 11:56 AM EST Result [facility] Eun Reed NP LAB BLOOD ORDERABLES Final Resul t Performing Organization Address [facility]/[employer] Co de Phone Number [facility] [address] [place] [phone] * Hepatitis C Antibody with Reflex to HCV, RNA, Quantitative, Real-Time PCR (01/12/2024 8:16 AM EDT) Hepatitis C Antibody Nonreactive Nonreactive [facility] Comment:Antibodies to HCV no t detected; does not exclude early acuteHCV infection. 01/12/2024 8:16 AM EDT 01/12/2024 11:04 AM EDT Result [facility] Criselda Gallardo [facility] LAB BLOOD ORDERABLES Final Resu lt Performing Organization Address [facility] Co de Phone Number [facility] [address] [place] [phone] * HIV-1/2 Antigen and Antibodies, Fourth Generation, with Reflexes (01/12/2024 8:16 AM EDT) HIV AB/AG Nonreactive Nonreactive [facility] Comment:HIV-1 p24 Ag and/or HIV-1/HIV-2 Ab not detected.A test result that is nonreactive does not exclude thepossibility of exposure to or infection with HIV-1 and/orHIV-2. Nonreactive results in this assay for individualswith prior exposure to HIV-1 and/or HIV-2 may be due toantigen and antibody levels that are below the limit ofdetection of this assay.The [employer] HIV Ag/Ab Combo assay result andsupplemental assay results should be interpreted inconjunction with the patient's clinical presentation,history and other laboratory results. If the results areinconsistent with clinical evidence, additional testing issuggested to confirm the result. 01/12/2024 8:16 AM EDT 01/12/2024 11:04 AM EDT Result [facility] Criselda Gallardo BENCH GRINDER LAB BLOOD ORDERABLES Final Resu lt [facility] [address] [place] [phone] [phone] * HPV mRNA E6/E7 w/Reflex to HPV Genotypes 16, 18/45 (12/04/2022 8:57 AM EST) HPV nRNA E6/E7 Not Detected Not Detected [facility] Comment:Methodology: Transcr iption-Mediated AmplificationThis assay detects E6/E7 viral messenger RNA (mRNA) from 14high-risk HPV types (16,18,31,33,35,39,45,51,52,56,58,59,66,68).Cervical sources are required for HPV testing.If a vaginal source from a patient who has had atotal hysterectomy with removal of cervix wassubmitted, please contact the testing laboratoryfor alternative testing options.For additional information, please refer tohttp://education.[employer]/faq/VAE947c1(This link if provided for information/educational purposes only.)THIS TEST WAS PERFORMED AT:[employer] [place] [address] ([facility] [address]EJYJCAPOORVA MCNEAL MD HPV mRNA E6/E7 [facility] HPV 16 RNA [facility] HPV 18/45 RNA [facility] 12/04/2022 8:57 AM EST 12/04/2022 4:00 PM EST [facility] External Provider LAB CYT OLOGY ORDERABLES Final Result Performing Organization Address City/[facility]/ZIP Co de Phone Number [facility] [address] [place] [phone] * Pap Smear (12/04/2022 8:57 AM EST) 12/04/2022 8:57 AM EST 12/04/2022 4:00 PM EST Narrative [facility] - 12/07/2022 1:40 PM EST ----- ------- Name: Michael Shirley ? Age/Sex: 47/F ? : 1975 Unit#: [id number] ?? Attend Dr: Virginie Ruelas CNM ?Re12/04/22 ?Status: DEP REF ? Location: HO.LNP ?Disch: ? ----- ------- SPEC : [id number] ? RECD: 12/04/22 ? STATUS: ??SOUT ? REQ NUM: [id number] ? AMARA: 12/04/22 ? SUBM DR: Virginie [...] 66, 68) ? HPV testing performed by [facility], [place], [place]. ??See reference laboratory ?? portion of the EMR for entire report. ?Clinical Information LMP: 11/03/22 Previous PAP test: 2017, WNL ? Material Received ?? ThinPrep-Cervical ----- ------- Signed (signature on file) Catalina Gonzáles Kendall 12/07/22 4850 ? ----- ------- ? END OF REPORT ? us [facility] External Provider LAB CYT OLOGY ORDERABLES Final Result [facility] [address] [place] [address] [phone] from Last 3 Months or Most Recently Relevant to Health Maintenance Insurance [facility] STANDARD MEDICARE DENTAL-[facility] MEDICAID STAND ADULT Care Teams Teacher Of Family And Consumer Science Relationship Specialty Start Date End Date Eun Reed NP [address] [place] [phone] PCP - General Family Medicine 07/06/24
== END 2025-03-02 11:42 | disposition home or self-care (01) ==
LOC: HO.HWS 10:47
PROVIDERS: PCP Nurse Practitioner Family; Visit Provider Advanced Practice Midwife
DX: Z01.419 Encounter for gynecological examination (general) (routine) without abnormal findings (principal); R10.2 Pelvic and perineal pain
CPT/HCPCS: 99212; G0101

== ENCOUNTER 2025-03-02 10:47 | Outpatient (REF) | payer MEDICARE, MEDICAID, SELFPAY ==
--- OUTSIDE RECORDS SUMMARY | 2025-03-02 13:11 | XMS_ITS | Encounter Summary ---
Author Organization [employer] Address [address] [facility] [address] [place] [address] Care Team Providers Care Plastics And Composites Inspector Name Role Phone Criselda GallardoP Primary Care Provider [phone] Eun Reed NP Primary Care Provider [phone] Reason for Visit * Reason Onset Date Comments Nurse Triage 05/01/2023 Encounter Details Date Type Department Care Team ([facility] st Contact Info) Description 05/01/2023 Telephone [facility] [address] [place] [address] Criselda Gallardo FNP [address], [place] [phone] Nurse Triage Social History Tobacco Use Types [...] 11:38 AM EDT Triage call with pacific Acid Operator Id [id number] Pt reports severe right arm pain. Pt was seen in [facility] 04/29 and started ibuprofen and flexeril. [...] tomorrow. Pt is advised to come to [facility] again to be seen by provider [...] accepted this outcome Please contact pt at [phone] (Macedonian speaker) documented in this encounter Plan of Treatment Upcoming Encounters Date Type Department Care Team (Late st Contact Info) Description 06/06/2025 9:00 AM EDT Office Visit [facility] [address] [place] [address] [place] Rae, OD [address] [place] [address] documented as of this encounter Visit Diagnoses Not on filedocumented in this encounter Care Teams Plastics And Composites Inspector Relationship Specialty Start Date End Date Criselda Gallardo FNP [address] [place] [address] PCP - General Family Medicine 01/06/23 07/05/24 Eun Reed NP [address] [place] [address] PCP - General Family Medicine 07/06/24 documented as of this encounter
--- OUTSIDE RECORDS SUMMARY | 2025-03-02 13:11 | XMS_ITS | Clinical Summary ---
Author Organization [employer] Address [address] [facility] [address]t [place] [address] Care Team Providers Care Vault Mechanic Name Role Phone Eun Reed NP Primary Care Provider [phone] Allergies No known active allergies Medications EPINEPHrine [...] avoid contact with potential allergens. Refer to tumbling and rolling supervisor. Spasm of thoracic back muscle 09/20/2024 Assessment [...] 01/31/2025 9:00 AM EDT Office Visit [facility] [address] [place] [address] Nik Alvares 01/31/2025 Orders Only [facility] MED[facility] [address] [place] [address] Criselda Gallardo FNP 01/14/2025 Population Health Risk Score [facility] Department [address] [phone] Provider, Population Health Generic 01/13/2025 2:30 PM EDT Office Visit [facility] OPTOMETRY [address] [place] [address] Butch, Alexandria, OD Presbyopia of both eyes (Primary Dx) 01/05/2025 2:00 PM EST Office Visit [facility] [address] [place] [address] Sreekanth Alvarespreet 01/04/2025 10:00 AM EST Office Visit [facility] [address] [place] [address] Diomedes Laboy Dental calculus (Primary Dx) 12/06/2024 9:30 AM EST Office Visit [facility] OPTOMETRY [address] [place] [address] Butch [place], OD Glaucoma suspect of both [...] Description 06/06/2025 9:00 AM EDT Office Visit [facility] OPTOMETRY [address] [place], [place] [phone] Butch, Alexandria, OD [address] [place] [address] Health Maintenance Due Date Last Done Comments [...] EDT Narrative 02/28/2025 2:42 PM EDT ? [facility] ?[address] ?[place] [address] ? Ultrasound Report ? Signed ? Patient: Michael Shirley ? MR#: [id number] ? : 1975 ?Acct:[id number] ? Age/Sex: 50 / F ?ADM Date: 02/25/25 ? Loc: HO.US ? Attending Dr: Salomón Ding MD ? Ordering Physician: Salomón Ding MD ?? Date of Service: 02/25/25 ?? Procedure(s): US pelvic complete ?? Accession Number(s): [id number] ? cc: Criselda Gallardo CLINICAL LEADER; Salomón Ding MD ? EXAMINATION: ? US [...] DD/ 1057 ? TD/TT: 02/25/25 1103 ? Homeland Security Program Specialist: ? Procedure Note Donchristian, Image - 02/28/2025 [place] [address] Ultrasound Report Signed Patient: Michael Shirley MR#: [id number] : 1975Acct:[id number] Age/Sex: 50 / FADM Date: 02/25/25 Loc: HO.US Attending Dr: Salomón Ding MD Ordering Physician: Salomón Ding MD Date of Service: 02/25/25 Procedure(s): US pelvic complete Accession Number(s): [id number] cc: Criselda Gallardo CLINICAL LEADER; Salomón Ding MD EXAMINATION: US PELVIS CLINICAL [...] 02/28/25 1439 DD/ 1057 TD/TT: 02/25/25 1103 Homeland Security Program Specialist: [facility] External Provider IMG US PROCEDURES Final Result * BI Mammogram Screening Tomosynthesis Bilateral (01/31/2025 11:35 AM EDT) Anatomical Region Laterality Modality Breast Bilateral Mammography 01/31/2025 11:3 5 AM EDT Narrative 02/06/2025 11:51 AM EDT ? [facility] [place] ? [address] ?[place] [address] ?[phone] ? Mammography Report ? Signed ? Patient: Travis Valeria,Michael ? MR#: [id number] ? : 1975 ?Acct:[id number] ? Age/Sex: 49 / F ?ADM Date: 03/31/25 ? Loc: HO.MAMMO ? Attending Dr: Criselda Gallardo CLINICAL LEADER ? Ordering Physician: Criselda Gallardo CLINICAL LEADER ?Results: 1Negativ ?? e ? Date of Service: 01/31/25 ?Follow Up: 1 Year From Orig ?? inal Mammogram ? Procedure(s): MM tomosynthesis screening BI ?? Accession Number(s): [id number] ? cc: Criselda Gallardo CLINICAL LEADER ? EXAMINATION: ?? MM SCREENING DIGITAL BREAST [...] DD/ 1135 ? TD/TT: 01/31/25 1153 ? Homeland Security Program Specialist: ? Procedure Note Donotuseinterpreter, Image - 02/06/2025 [facility] [address] [place] [address] Mammography Report Signed Patient: Michael Shirley MR#: [id number] : 1975Acct:[id number] Age/Sex: 49 / FADM Date: 01/31/25 Loc: HO.MAMMO Attending Dr: Criselda Gallardo CLINICAL LEADER Ordering Physician: Criselda Gallardo NPResults: 1Negativ e Date of Service: 01/31/25Follow Up: 1 Year From Orig inal Mammogram Procedure(s): MM tomosynthesis screening BI Accession Number(s): [id number] cc: Criselda Gallardo CLINICAL LEADER EXAMINATION: MM SCREENING DIGITAL BREAST TOMOSYNTHESIS, BILATERAL [...] 02/06/25 1148 DD/ 1135 TD/TT: 01/31/25 1153 Homeland Security Program Specialist: Criselda Gallardo COMMERCIAL GREEN BUILDING ARCHITECT IMG BI PROCEDURES Final Result * Cologuard?? colon cancer screening (12/06/2024 4:45 AM EST) Cologuard Result Negative Negative 12/10/19 7:20 PM EST [facility] (CLIA #:[id number]) Comment: NEGATIVE TEST RESULT. A negative Cologuard [...] cancer. ??Following a negative Cologuard result, the [place] [employer] and U.S. Multi-Society Task Force screening guidelines recommend a Cologuard re-screening interval of 3 years. References: [place] [employer] Guideline for Colorectal Cancer Screening: https://www.cancer.org/cancer/ppbsq-blnibl-edqlsf/exkfvsrqx-cqhtzuvsp-omilcqg/ac s-rec ommendations.html.; Tom ROWE, Ren SANTORO, Lyn KaminskiK, Colorectal Cancer Screening: Recommendations for Physicians and Patients from the U.S. Multi-Society Task Force on Colorectal Cancer Screening , Am J Gastroenterology 2017; 112:2803-7475. TEST DESCRIPTION: Composite algorithmic analysis of stool [...] Ballesteros et al, N Engl J Med 2014;370(14):4693-0208.) Cologuard may produce a false negative or false positive result (no colorectal cancer or precancerous polyp present at colonoscopy follow up). A negative Cologuard test result does not guarantee the absence of CRC or advanced adenoma (pre-cancer). The current Cologuard screening interval is every 3 years. ([place] [employer] and U.S. Multi-Society Task Force). Cologuard performance data in a 10,000 patient pivotal study using colonoscopy as the reference method can be accessed at the following location: www.[employer]/results. Additional description of the Cologuard test process, warnings and precautions can be found at www.[employer].com. Stool specimen (specimen) 12/06/2024 4:45 AM EST 12/07/2024 10:51 AM EST us Eun Reed NP LAB MOLECULAR DIAGNOSTICS ORDERA BLES Final Result [facility] (CLIA #:[id number]) [place] [address], * TSH W/Reflex to FT4 (12/03/2024 8:13 AM EST) TSH reflex Free T4 1.02 0.32 - 4.0 uIU/mL [facility] Blood Venous blood specimen / Unknown 12/03/2024 8:13 AM EST 12/03/2024 11:56 AM EST us Eun Derek CLINICAL LEADER LAB BLOOD ORDERABLES Final Resul t [facility] [address] [place] [address] [phone] * (ABNORMAL) CBC auto differential (12/03/2024 8:13 AM EST) White Blood Count 5.5 4.8 - 10.8 X10*3/uL [facility] Red Blood Count 4.19(L) 4.20 - 5.50 X10*6/uL [facility] Hemoglobin 11.1(L) 12.0 - 16.0 g/dl [facility] Hematocrit 34.7(L) 37.0 - 47.0 % [facility] Mean Corpuscular Volume 82.8 80.0 - 98.0 fL [facility] Mean Corpuscular Hemoglobin 26.5(L) 27.0 - 33.0 pg [facility] Mean Corpuscular HGB Conc 32.0 31.0 - 35.0 g/dl [facility] Red Cell Distribution Width 15.8 11.0 - 16.0 % [facility] Platelet Count 244 160 - 400 X10*3/uL [facility] Mean Platelet Volume 10.5 9.4 - 12.3 fL [facility] Neutrophils Percent Auto 59.2 45 - 73 % [facility] Imm Gran Pct Auto 0.2 0.0 - 0.4 % [facility] Lymphocytes Percent Auto 25.6 20 - 40 % [facility] Monocytes Percent Auto 11.0 2 - 11 % [facility] Eosinophils Percent Auto 3.1 0 - 4 % [facility] Basophils Percent Auto 0.9 0 - 2 % [facility] NRBC Pct Auto 0.0 0.0 - 0.2 /100WBC [facility] Neutrophils Absolute Auto 3.2 2.0 - 8.3 x10*3/uL [facility] Imm Gran Abs Auto 0.01 0.00 - 0.03 X10*3/uL [facility] Lymphocytes Absolute Auto 1.4 1.2 - 4.9 X10*3/uL [facility] Monocytes Absolute Auto 0.6 0.1 - 1.2 X10*3/uL [facility] Eosinophils Absolute Auto 0.2 0.0 - 0.4 X10*3/uL [facility] Basophils Absolute Auto 0.1 0.0 - 0.2 X10*3/uL [facility] NRBC Abs Auto 0.000 0.0 - 0.012 X10*3/uL [facility] Blood Venous blood specimen / Unknown 12/03/2024 8:13 AM EST 12/03/2024 11:54 AM EST us Eun Reed NP LAB BLOOD ORDERABLES Final Resul t Performing Organization Address City/[facility]/ZIP Co de Phone Number [facility] [address] [place] [address] [phone] * (ABNORMAL) Iron And Total Iron Binding Capacity (12/03/2024 8:13 AM EST) Iron 67 30 - 160 mcg/dL [facility] Total Iron Binding Capacity 456(H) 228 - 428 mcg/dL [facility] Percent Iron Saturation 15 15 - 50 % [facility] Unsaturated Iron Binding 389 ug/dL [facility] Blood Venous blood specimen / Unknown 12/03/2024 8:13 AM EST 12/03/2024 11:56 AM EST Eun Reed NP LAB BLOOD ORDERABLES Final Resul t Performing Organization Address City/[facility]/ZIP Co de Phone Number [facility] [address] [place] [address] [phone] * Hemoglobin A1c (12/03/2024 8:13 AM EST) Hemoglobin A1c 5.3 <6.0 % [facility] Comment:Hemoglobin A1C Refer ence Range Adults: 4.8 - 6.0 % Non diabetic: < 6.0 % Goal: < 7.0 %Additional Action Suggested: > 8.0 %Note: Hemoglobin A1c results are invalid for patients with abnormal amounts of HbF. Blood transfusions may impact the HbA1c concentration in the patient sample. Estimated Average Glucose 105 mg/dL [facility] Comment:eAG = Estimated ave rage glucose which is %A1C expressed asaverage glucose, using the formula of the R4J-UzrmfmdTsnfrnj Glucose study (ADAG), Diabetes Care, Vol.31,#8,Jun. 2007 Blood Venous blood specimen / Unknown 12/03/2024 8:13 AM EST 12/03/2024 11:56 AM EST us Eun Reed NP LAB BLOOD ORDERABLES Final Resul t [facility] [address] [place] [phone] * Lipid Panel, Standard (12/03/2024 8:13 AM EST) Triglycerides 47 <150 mg/dL [facility] Comment:Desirable Triglyceri de: less than 150 mg/dLBorderline High Triglyceride 150-199 mg/dLHigh Triglyceride: 200-499 mg/dLVery High Triglyceride: greater than or equal to 5OO mg/dL Cholesterol 153 <200 mg/dL [facility] Comment:Desirable Cholestero l: less than 200 mg/dLBorderline High Cholesterol: 200-239 mg/dLHigh Cholesterol: greater than 239 mg/dL LDL Cholesterol Calculated 77 <100 mg/dL [facility] Comment:Desirable LDL: less than 100 mg/dLNear Optimal/Above Optimal LDL: 110- 129 mg/dLBorderline High LDL: 130-159 mg/dLHigh LDL: 160-189 mg/dLVery High LDL: greater than or equal to 190 mg/dL HDL Cholesterol 67 >40 mg/dL [facility] Comment:Desirable HDL: great er than 40 mg/dL Note: This HDL assay may give artificially low results in patients with liver disease. Blood Venous blood specimen / Unknown 12/03/2024 8:13 AM EST 12/03/2024 11:56 AM EST us Eun Reed NP LAB BLOOD ORDERABLES Final Resul t [facility] [address] [place] [address] [phone] * Comprehensive Metabolic Panel (12/03/2024 8:13 AM EST) Sodium 141 135 - 145 mmol/L [facility] Potassium 4.1 3.3 - 5.1 mmol/L [facility] Chloride 106 96 - 108 mmol/L [facility] Carbon Dioxide 26 22 - 29 mmol/L [facility] Anion Gap 13 12 - 20 [facility] Urea Nitrogen (BUN) 13 9 - 16 mg/dL [facility] Creatinine, Serum 0.66 0.5 - 1.4 mg/dL [facility] Estimated Glomerular Filt Rate >60 [facility] Comment:Chronic Kidney Disea se: Estimated GFR < 60 mL/min/1.27c0Mwjoeu Kidney Disease: Estimated GFR < 15 mL/min/1.73m2 Glucose 93 60 - 115 mg/dL [facility] Calcium 9.7 8.4 - 10.2 mg/dL [facility] Bilirubin, Total 0.6 0.0 - 1.0 mg/dL [facility] Aspartate Amino Transferase 24 5 - 31 U/L [facility] Alanine Aminotransferase 11 0 - 31 U/L [facility] Total Protein 7.5 6.5 - 8.0 g/dL [facility] Albumin Level 4.3 3.5 - 5.0 g/dL [facility] Alkaline Phosphatase 70 39 - 117 U/L [facility] Blood Venous blood specimen / Unknown 12/03/2024 8:13 AM EST 12/03/2024 11:56 AM EST Result [facility] Eun Reed NP LAB BLOOD ORDERABLES Final Resul t Performing Organization Address [facility] Co de Phone Number [facility] [address] [place] [phone] * Hepatitis C Antibody with Reflex to HCV, RNA, Quantitative, Real-Time PCR (01/12/2024 8:16 AM EDT) Hepatitis C Antibody Nonreactive Nonreactive [facility] Comment:Antibodies to HCV no t detected; does not exclude early acuteHCV infection. 01/12/2024 8:16 AM EDT 01/12/2024 11:04 AM EDT Result [facility] Criselda Gallardo [facility] LAB BLOOD ORDERABLES Final Resu lt Performing Organization Address [facility] Co de Phone Number [facility] [address] [place] [phone] * HIV-1/2 Antigen and Antibodies, Fourth Generation, with Reflexes (01/12/2024 8:16 AM EDT) HIV AB/AG Nonreactive Nonreactive [facility] Comment:HIV-1 p24 Ag and/or HIV-1/HIV-2 Ab not detected.A test result that is nonreactive does not exclude thepossibility of exposure to or infection with HIV-1 and/orHIV-2. Nonreactive results in this assay for individualswith prior exposure to HIV-1 and/or HIV-2 may be due toantigen and antibody levels that are below the limit ofdetection of this assay.The [employer] HIV Ag/Ab Combo assay result andsupplemental assay results should be interpreted inconjunction with the patient's clinical presentation,history and other laboratory results. If the results areinconsistent with clinical evidence, additional testing issuggested to confirm the result. 01/12/2024 8:16 AM EDT 01/12/2024 11:04 AM EDT Result [facility] Criselda Gallardo [employer] BUILDING ARCHITECT LAB BLOOD ORDERABLES Final Resu lt [facility] [address] [place] [address] [phone] * HPV mRNA E6/E7 w/Reflex to HPV Genotypes 16, 18/45 (12/04/2022 8:57 AM EST) HPV nRNA E6/E7 Not Detected Not Detected [facility] Comment:Methodology: Transcr iption-Mediated AmplificationThis assay detects E6/E7 viral messenger RNA (mRNA) from 14high-risk HPV types (16,18,31,33,35,39,45,51,52,56,58,59,66,68).Cervical sources are required for HPV testing.If a vaginal source from a patient who has had atotal hysterectomy with removal of cervix wassubmitted, please contact the testing laboratoryfor alternative testing options.For additional information, please refer tohttp://education.[employer]/faq/QNT158s9(This link if provided for information/educational purposes only.)THIS TEST WAS PERFORMED AT:[employer] [address] [employer] [place] [address] (FORMERLY [facility])[place] [address]SNPZWAPOORVA MCNEAL MD HPV mRNA E6/E7 [facility] HPV 16 RNA [facility] HPV 18/45 RNA [facility] 12/04/2022 8:57 AM EST 12/04/2022 4:00 PM EST [facility] External Provider LAB CYT OLOGY ORDERABLES Final Result Performing Organization Address City/[facility]/ZIP Co de Phone Number [facility] [address] [place] [phone] * Pap Smear (12/04/2022 8:57 AM EST) 12/04/2022 8:57 AM EST 12/04/2022 4:00 PM EST Narrative [facility] - 12/07/2022 1:40 PM EST ----- ------- Name: Michael Shirley ? Age/Sex: 47/F ? : 1975 Unit#: [id number] ?? Attend Dr: Virginie Ruelas CNM ?Re12/04/22 ?Status: DEP REF ? Location: HO.LNP ?Disch: ? ----- ------- SPEC : [id number] ? RECD: 12/04/22 ? STATUS: ??SOUT ? REQ NUM: [id number] ? AMARA: 12/04/22 ? SUBM DR: Virginie [...] 66, 68) ? HPV testing performed by [facility], [place], [place]. ??See reference laboratory ?? portion of the EMR for entire report. ?Clinical Information LMP: 11/03/22 Previous PAP test: 2017, WNL ? Material Received ?? ThinPrep-Cervical ----- ------- Signed (signature on file) Catalina Gonzáles Kendall 12/07/22 6410 ? ----- ------- ? END OF REPORT ? us [facility] External Provider LAB CYT OLOGY ORDERABLES Final Result [facility] [address] [place] [address] [phone] from Last 3 Months or Most Recently Relevant to Health Maintenance Insurance [facility] STANDARD [place]IC[place] [id number] [address]-[facility] MEDICAID STAND ADULT Care Teams Vault Mechanic Relationship Specialty Start Date End Date Eun Reed NP [address] [place] [address] PCP - General Family Medicine 07/06/24
--- OUTSIDE RECORDS SUMMARY | 2025-03-02 13:11 | XMS_ITS | Encounter Summary ---
Author Organization [employer] Address [address] [facility] 7t [place] [address] Care Team Providers Care Button Tacker Name Role Phone Dhaval Osborn MD Primary Care Provide r Salvador Yeager LABOR ECONOMIST Primary Care Provider Emily Seay MD Primary Care Provider [phone] Criselda Gallardo LABOR ECONOMIST Primary Care Provider [phone] Eun Reed NP Primary Care Provider [phone] Encounter Details Date Type Department Care Team (Latest Contact Info) Description 06/14/2019 Abstract [facility] CONVERSIONS Dental, Provider, DDS Social History Tobacco [...] Description 06/06/2025 9:00 AM EDT Office Visit [facility] OPTOMETRY [address] [place], [place] [phone] [place] Rae, OD [address] [place], [place] [phone] documented as of this encounter Visit Diagnoses Not on filedocumented in this encounter Care Teams Button Tacker Relationship Specialty Start Date End Date Dhaval Osborn MD [address] [place] [address] PCP - General Internal Medicine 05/12/18 10/29/22 [place] [address] PCP - General Family Medicine 10/30/22 01/01/23 Emily Tapia MD [address] [place] [address] PCP - General Family Medicine 01/02/23 01/05/23 Criselda [place] [address] PCP - General Family Medicine 01/06/23 07/05/24 Eun Reed NP [address] [place] [address] PCP - General Family Medicine 07/06/24 documented as of this encounter
--- OUTSIDE RECORDS SUMMARY | 2025-03-02 13:11 | XMS_ITS | Encounter Summary ---
Author Organization [employer] Address [address] [facility] [address]t [place] [address] Care Team Providers Care Licensed Clinical Social Worker Name Role Phone Dhaval Osborn MD Primary Care Provide r Salvador Yeager HOOK AND EYE ATTACHER Primary Care Provider Emily Seay MD Primary Care Provider [phone] Criselda Gallardo HOOK AND EYE ATTACHER Primary Care Provider [phone] Eun Reed NP Primary Care Provider [phone] Encounter Details Date Type Department Care Team (Latest Contact Info) Description 03/05/2022 Abstract [facility] CONVERSIONS Dental, Provider, DDS Social [...] Description 06/06/2025 9:00 AM EDT Office Visit [facility] OPTOMETRY [address] [place], [place] [phone] [place] Rae, OD [address] [place], [place] [phone] documented as of this encounter Visit Diagnoses Not on filedocumented in this encounter Care Teams Licensed Clinical Social Worker Relationship Specialty Start Date End Date Dhaval Osborn MD [address] [facility] [place] [address] PCP - General Internal Medicine 05/12/18 10/29/22 Salvador [facility]ager [facility] [place] [address] PCP - General Family Medicine 10/30/22 01/01/23 Emily Tapia [facility] [place] [address] PCP - General Family Medicine 01/02/23 01/05/23 Criselda Gallardo FNP [facility] [place] [address] PCP - General Family Medicine 01/06/23 07/05/24 Eun Reed NP [address] [facility] [place] [address] PCP - General Family Medicine 07/06/24 documented as of this encounter
--- OUTSIDE RECORDS SUMMARY | 2025-03-02 13:11 | XMS_ITS | Encounter Summary ---
Author Organization [employer] Address [address] [facility] 7t [place] [address] Care Team Providers Care Master Cook Name Role Phone Criselda GallardoP Primary Care Provider [phone] Eun Reed NP Primary Care Provider [phone] Reason for Visit * Reason Onset Date Comments Appointment Request 05/01/2023 Encounter Details Date Type Department Care Team ([facility] st Contact Info) Description 05/01/2023 Telephone [facility] MED[facility] [address] [place] [address] Criselda Gallardo FNP [address] [place], [place] [phone] Appointment Request Social History Tobacco Use Types [...] patient states she was seen at the [facility] on 04/29/23 for right arm pain and was told if pain persist or gets worse she can call to get a injection. Patient is requesting a appt for the injection. Patient speaks tamazight. documented in this encounter Plan of Treatment Upcoming Encounters Date Type Department Care Team (Late st Contact Info) Description 06/06/2025 9:00 AM EDT Office Visit [facility] OPTOMETRY [address] [place], [place] [phone] ButchAlexandria day, OD [address] [place] [address] documented as of this encounter Visit Diagnoses Not on filedocumented in this encounter Care Teams Master Cook Relationship Specialty Start Date End Date Criselda Gallardo FNP [address] [place] [address] PCP - General Family Medicine 01/06/23 07/05/24 Eun Reed NP [address] [place] [address] PCP - General Family Medicine 07/06/24 documented as of this encounter
--- OUTSIDE RECORDS SUMMARY | 2025-03-02 13:11 | XMS_ITS | Encounter Summary ---
Author Organization [employer] Address [address] [facility] [address] [place] [address] Care Team Providers Care Pt Sitter Name Role Phone Criselda Gallardo Primary Care Provider [phone] Eun Reed NP Primary Care Provider [phone] Encounter Details Date Type Department Care Team (Late st Contact Info) Description 02/24/2024 Orders Only [facility] [address] [place] [address] Criselda Gallardo FNP [address] [place] [address] Fatigue, unspecified type (Primary Dx); Low hemoglobin [...] Description 06/06/2025 9:00 AM EDT Office Visit [facility] [address] [place] [address] Butch, [place], OD [address] [place] [address] documented as of this encounter Procedures Procedure [...] EDT) Iron 35 30 - 160 mcg/dL [facility] Total Iron Binding Capacity 394 228 - 428 mcg/dL [facility] Percent Iron Saturation 9(L) 15 - 50 % [facility] Unsaturated Iron Binding 359 ug/dL [facility] Blood Venous blood specimen / Unknown 05/14/2024 8:23 AM EDT 05/14/2024 11:06 AM EDT us Criselda Gallardo [employer] LAB BLOOD ORDERABLES Final Resu lt [facility] [address] [place] [address] [phone] * (ABNORMAL) CBC auto differential (05/14/2024 8:23 AM EDT) White Blood Count 4.7(L) 4.8 - 10.8 X10*3/uL [facility] Red Blood Count 3.96(L) 4.20 - 5.50 X10*6/uL [facility] Hemoglobin 11.0(L) 12.0 - 16.0 g/dl [facility] Hematocrit 34.0(L) 37.0 - 47.0 % [facility] Mean Corpuscular Volume 85.9 80.0 - 98.0 fL [facility] Mean Corpuscular Hemoglobin 27.8 27.0 - 33.0 pg [facility] Mean Corpuscular HGB Conc 32.4 31.0 - 35.0 g/dl [facility] Red Cell Distribution Width 16.7(H) 11.0 - 16.0 % [facility] Platelet Count 222 160 - 400 X10*3/uL [facility] Mean Platelet Volume 10.4 9.4 - 12.3 fL [facility] Neutrophils Percent Auto 54.3 45 - 73 % [facility] Imm Gran Pct Auto 0.2 0.0 - 0.4 % [facility] Lymphocytes Percent Auto 29.2 20 - 40 % [facility] Monocytes Percent Auto 11.4(H) 2 - 11 % [facility] Eosinophils Percent Auto 3.8 0 - 4 % [facility] Basophils Percent Auto 1.1 0 - 2 % [facility] NRBC Pct Auto 0.0 0.0 - 0.2 /100WBC [facility] Neutrophils Absolute Auto 2.6 2.0 - 8.3 x10*3/uL [facility] Imm Gran Abs Auto 0.01 0.00 - 0.03 X10*3/uL [facility] Lymphocytes Absolute Auto 1.4 1.2 - 4.9 X10*3/uL [facility] Monocytes Absolute Auto 0.5 0.1 - 1.2 X10*3/uL [facility] Eosinophils Absolute Auto 0.2 0.0 - 0.4 X10*3/uL [facility] Basophils Absolute Auto 0.1 0.0 - 0.2 X10*3/uL [facility] NRBC Abs Auto 0.000 0.0 - 0.012 X10*3/uL [facility] Blood Venous blood specimen / Unknown 05/14/2024 8:23 AM EDT 05/14/2024 11:11 AM EDT us Criselda RG LAB BLOOD ORDERABLES Final Resu lt Performing Organization Address City/State/RUST Co de Phone Number [facility] [address] [place] [address] [phone] documented in this encounter Visit Diagnoses Diagnosis Fatigue, unspecified type- Primary Low hemoglobin and low hematocrit documented in this encounter Additional Health Concerns Assessment Noted Time PHQ-9 Depression Total Score: 9 01/09/20 24 10:42 AM EST documented as of this encounter Care Teams Pt Sitter Relationship Specialty Start Date End Date Criselda Gallardo FNP [address] [place] [address] PCP - General Family Medicine 01/06/23 07/05/24 Eun Reed NP [address] [place] [address] PCP - General Family Medicine 07/06/24 documented as of this encounter
[2025-03-02 17:25] LABS: Bacterial Vaginosis PCR NEGATIVE (Negative); Candida Group PCR NOT DETECTED (Not Detect); Candida glab krusei PCR NOT DETECTED (Not Detect); Trichomonas vaginalis PCR NOT DETECTED (Not Detect)
== END 2025-03-02 10:48 | disposition home or self-care (01) ==
LOC: HO.LAB 10:47
PROVIDERS: PCP Nurse Practitioner Family; Visit Provider Advanced Practice Midwife
DX: Z01.419 Encounter for gynecological examination (general) (routine) without abnormal findings (principal); R10.2 Pelvic and perineal pain
CPT/HCPCS: 81003; 81515; 99212; G0101

== ENCOUNTER 2025-04-28 08:38 | Outpatient (AMB) | payer MEDICARE, MEDICAID, SELFPAY ==
--- NOTE | 2025-04-28 08:57 | MHC.OFFVIS ---
Vital Signs 04/28/25 09:00 BP 124/72 Intake Visit Reasons: medication and u/s follow up Intake Note: Per patient, stopped taking the Estradiol. Got her period in Dec, didn't see it again so stopped medication to regulate her period . Life Insurance Actuary Required: Yes Life Insurance Actuary Language: High Frequency Mill Operator Services: Life Insurance Actuary Present (in person) Life Insurance Actuary Name: Estella Stark ABIMAELNivia Information Interpreted: non-clinical & clinical Real Estate Administrator: Real Estate Administrator Present (LISY Washington) Accompanied by: Self / Same As Patient Allergies No Known Allergies (No Known Allergies*) Allergy (Verified 04/28/25 08:58) HPI Comments Details: Presenting for TXA follow-up regarding AUB and pelvic ultrasound follow-up regarding left 4.8 cm possible hemorrhagic ovarian cyst seen on pelvic MRI 02/25 pelvic ultrasound showed the following: Uterus: The uterus is anteverted and measures 10 x 3 x 5 cm. Volume: 80 cc. The double wall endometrial thickness is 1 mm. The uterus is smooth in contour and has normal myometrial echogenicity. No visible fibroid. Adnexa: The right adnexa is not identified.. The left adnexa is identified . Left ovary measures 2 x 1 x 2 cm. Volume: 2.4 cc. No solid or cystic lesion. The patient has stopped having her menstrual cycles over the last six-months and therefore did not take tranexamic acid. [facility] Medical History Pelvic pain Cellulitis Fat necrosis Fluid collection at surgical site Panniculitis Overweight Surgical History Hx of gastric bypass S/P panniculectomy Hx of abdominoplasty Hx of section Family History Mother Hypertension Diabetes Asthma Father Hypertension Brother No problems noted. Brother No problems noted. Brother No problems noted. Sister No problems noted. Sister No problems noted. Sister No problems noted. Son No problems noted. Daughter No problems noted. Daughter No problems noted. Maternal Grandfather Prostate cancer Social History Alcohol intake: current Alcohol intake frequency: does not drink Patient Tobacco Use Status: Never used Tobacco service: No Current occupational status: disabled Current occupation: left hand Female Reproductive History Menstrual Age of Menarche: 13 Review of Systems Const All systems reviewed & are unremarkable except as noted in HPI and below Reports as per HPI and Reports no additional complaints GI Reports no additional complaints Reports no additional complaints Physical Exam Vital Signs: Last Vital Signs BP 124/72 04/28/25 09:00 Assessment & Plan Assessment & Plan (1) Ovarian cyst: Code(s): N83.209 - Unspecified ovarian cyst, unspecified side Category: Medical Plan: Discussed with the patient ultrasound findings showing the previously identified hemorrhagic left ovarian cyst seen on MRI has resolved by recent ultrasound. The patient was instructed to call if symptoms recur. All questions were answered the patient verbalized understanding. (2) Abnormal uterine bleeding (AUB): Comment: Resolved Code(s): N93.9 - Abnormal uterine and vaginal bleeding, unspecified Category: Medical Plan: Will order CBC with hCG, FSH/LH in order to determine if the patient needs iron sulfate and if the patient has menopause or not. Instructions given the patient to schedule a follow-up appointment within 2 weeks. All questions answered, the patient verbalized understanding Orders: Orders Complete Blood Count no Diff Today N93.9 - Abnormal uterine and vaginal bleeding, unspecified Follicle Stimulating Hormone Today N91.2 - Amenorrhea, unspecified, N93.9 - Abnormal uterine and vaginal bleeding, unspecified Lutenizing Hormone Today N91.2 - Amenorrhea, unspecified, N93.9 - Abnormal uterine and vaginal bleeding, unspecified HCG Quantitative Today N91.2 - Amenorrhea, unspecified Coding Level of Care Code Est Pt Level 3 (18330) Diagnoses Ovarian cyst N83.209 Abnormal uterine bleeding (AUB) N93.9
[2025-04-28 09:00] VITALS: BP 124/72
--- OUTSIDE RECORDS SUMMARY | 2025-04-28 09:06 | XMS_ITS | Encounter Summary ---
Author Organization [employer] Address [address] [place] [address] [address] [place] [address] Care Team Providers Care Safety Equipment Testing Specialist Name Role Phone Criselda GallardoP Primary Care Provider [phone] Eun Reed NP Primary Care Provider [phone] Reason for Visit * Reason Onset Date Comments Appointment Request 05/01/2023 Encounter Details Date Type Department Care Team ([facility] st Contact Info) Description 05/01/2023 Telephone [facility] MEDICINE [address] [place] [address] Criselda Gallardo FNP [address] [place], [place] [phone] Appointment Request Social History Tobacco Use Types [...] patient states she was seen at the [facility] on 04/29/23 for right arm pain and was told if pain persist or gets worse she can call to get a injection. Patient is requesting a appt for the injection. Patient speaks yoruba. documented in this encounter Plan of Treatment Upcoming Encounters Date Type Department Care Team (Late st Contact Info) Description 05/20/2025 9:30 AM EDT Office Visit [facility] [address] [place] [address] Eun Reed, MATY [address] [place] [address] 06/06/2025 9:00 AM EDT Office Visit [facility] OPTOMETRY [address] [place] [address] Butch, [place], OD [address] [place] [address] documented as of this encounter Visit Diagnoses Not on filedocumented in this encounter Care Teams Safety Equipment Testing Specialist Relationship Specialty Start Date End Date Criselda Gallardo FNP [address] [place] [address] PCP - General Family Medicine 01/06/23 07/05/24 Eun Reed NP [address] [place] [address] PCP - General Family Medicine 07/06/24 documented as of this encounter
== END 2025-04-28 09:08 | disposition home or self-care (01) ==
LOC: HO.HWS 08:38
PROVIDERS: PCP Nurse Practitioner Family; Visit Provider Obstetrics & Gynecology
DX: N83.209 Unspecified ovarian cyst, unspecified side (principal); N93.9 Abnormal uterine and vaginal bleeding, unspecified
CPT/HCPCS: 99213

== ENCOUNTER 2025-04-28 08:38 | Outpatient (REF) | payer MEDICARE, MEDICAID, SELFPAY ==
[2025-04-28 09:43] LABS: Hematocrit 33.9 % (37.0-47.0); Hemoglobin 10.9 g/dl (12.0-16.0); Mean Corpuscular HGB Conc 32.2 g/dl (31.0-35.0); Mean Corpuscular Hemoglobin 26.8 pg (27.0-33.0); Mean Corpuscular Volume 83.5 fL (80.0-98.0); Platelet Count 248 X10*3/uL (160-400); Red Blood Count 4.06 X10*6/uL (4.20-5.50); Red Cell Distribution Width 16.9 % (11.0-16.0)
[2025-04-28 10:14] LABS: HCG Quantitative < 2 mIU/mL
[2025-04-30 02:24] LABS: Follicle Stimulating Hormone 22.7 mIU/mL; Lutenizing Hormone 9.6 mIU/mL
== END 2025-04-28 08:39 | disposition home or self-care (01) ==
LOC: HO.LAB 08:38
PROVIDERS: PCP Nurse Practitioner Family; Visit Provider Obstetrics & Gynecology
DX: N83.209 Unspecified ovarian cyst, unspecified side (principal); N93.9 Abnormal uterine and vaginal bleeding, unspecified; N91.2 Amenorrhea, unspecified
CPT/HCPCS: 36415; 83001; 83002; 84702; 85027; 99212

== ENCOUNTER 2025-06-08 11:30 | Outpatient (AMB) | payer MEDICARE, MEDICAID, SELFPAY ==
--- NOTE | 2025-06-08 10:36 | A.OFFVIS_ITS ---
Intake Visit Reasons: TV PO GBP 04/21/18 Floors Buffer Required: Yes Floors Buffer Name: [id number] David Tyler Information Interpreted: clinical only Allergies No Known Allergies (No Known Allergies*) Allergy (Verified 04/28/25 08:58) Medication List - Last Reconciled 06/08/25 by RASHAWN Fischer cetirizine 10 mg PO DAILY PRN epinephrine IM estradiol 0.01%(0.1mg/gram) (Estrace) 1 g vaginally apply a pea sized amount to fingertip and apply qhs vaginally; fexofenadine ([facility]) 180 mg PO DAILY iron,carbonyl-vitamin C 65 mg iron- 125 mg (Vitron-C) 1 tab PO BID emxatrkpuxsz-ugk-guvo-FA-vit K 45 mg iron- 800 mcg-120 mcg (Bariatric Multivitamins) caps PO pantoprazole 40 mg PO DAILY tranexamic acid 1,300 mg (2 x 650 mg) PO TID 5 days HPI Comments Details: This?is a?50?yo female who is s/p RYGB 04/21/2018. At last visit, options were explored for her ongoing lower abdominal pain under panniculectomy Present meal plan includes: 1 shake in am, and 2 meals of 3oz/3oz Exercise routine includes: finds it difficult to exercise due to pain of abdominal wall PFSH Medical History Pelvic pain Cellulitis Fat necrosis Fluid collection at surgical site Panniculitis Overweight Surgical History Hx of gastric bypass S/P panniculectomy Hx of abdominoplasty Hx of section Family History Mother Hypertension Diabetes Asthma Father Hypertension Brother No problems noted. Brother No problems noted. Brother No problems noted. Sister No problems noted. Sister No problems noted. Sister No problems noted. Son No problems noted. Daughter No problems noted. Daughter No problems noted. Maternal Grandfather Prostate cancer Social History Alcohol intake: current Alcohol intake frequency: does not drink Patient Tobacco Use Status: Never used Tobacco service: No Current occupational status: disabled Current occupation: left hand Female Reproductive History Menstrual Age of Menarche: 13
--- NOTE | 2025-06-08 11:07 | A.OFFVIS_ITS ---
VS Expanded 06/08/25 11:23 Height 5 ft 2 in Weight 155 lb BMI 28.3 Intake Visit Reasons: TV PO GBP 04/21/18 Fountain Waitress/Waiter Required: Yes Fountain Waitress/Waiter Name: Julee Rooney Information Interpreted: clinical only Allergies No Known Allergies (No Known Allergies*) Allergy (Verified 04/28/25 08:58) Medication List - Last Reconciled 06/08/25 by RASHAWN Fischer cetirizine 10 mg PO DAILY PRN epinephrine IM estradiol 0.01%(0.1mg/gram) (Estrace) 1 g vaginally apply a pea sized amount to fingertip and apply qhs vaginally; fexofenadine ([facility]) 180 mg PO DAILY iron,carbonyl-vitamin C 65 mg iron- 125 mg (Vitron-C) 1 tab PO BID fekygbgzvcnk-pey-vpmj-FA-vit K 45 mg iron- 800 mcg-120 mcg (Bariatric Multivitamins) caps PO pantoprazole 40 mg PO DAILY tranexamic acid 1,300 mg (2 x 650 mg) PO TID 5 days HPI Comments Details: This?is a?50?yo female who is s/p RYGB 04/21/2018. At last visit options for fat necrosis under previous panniculectomy incision were discussed. Pt reports ongoing bothersome area under previous panniculectomy incision, thinks it is larger. Pt was referred to Dr. Eugene Cope for possible IR procedure. However she reports that she did not follow up with his office and did not receive the information. She says that if the doctor is not close to [place] she will not go to see him. Occasional abdominal pain, no tobacco, rare NSAIDs. Takes PPI daily. Present meal plan includes: 1 shake in am, and 2 meals of 3oz/3oz -has not been consistent with this Exercise routine includes: finds it difficult to exercise due to pain of abdominal wall PFSH Medical History (Updated 06/08/25 @ 11:20 by RASHAWN Fischer) Fat necrosis Pelvic pain Cellulitis Fluid collection at surgical site Panniculitis Overweight Surgical History Hx of gastric bypass S/P panniculectomy Hx of abdominoplasty Hx of section Family History Mother Hypertension Diabetes Asthma Father Hypertension Brother No problems noted. Brother No problems noted. Brother No problems noted. Sister No problems noted. Sister No problems noted. Sister No problems noted. Son No problems noted. Daughter No problems noted. Daughter No problems noted. Maternal Grandfather Prostate cancer Social History Alcohol intake: current Alcohol intake frequency: does not drink Patient Tobacco Use Status: Never used Tobacco service: No Current occupational status: disabled Current occupation: left hand Female Reproductive History Menstrual Age of Menarche: 13 Telehealth Telehealth Telehealth Platform: Telephone Location of provider rendering services: other Location of patient: address on file Patient Identification confirmed using: Name, : Yes Telehealth method: voice only Patient verbally consented to treatment: Yes Patient verbally consented to billing insurance company: Yes Patient informed of any privacy concerns related to visit: Yes Minutes spent on Phone/Video with Pt.: 22 Assessment & Plan Assessment & Plan (1) Overweight (BMI 25.0-29.9): Code(s): E66.3 - Overweight Category: Medical Plan Pt will think about whether she wants to pursue intervention with Dr. Cope. I encouraged her to consider at least a consultation visit to discuss options. Labs ordered. Pt requests info on traveling nurse and support group, will provide. RTC 6mo. Orders: Orders Vitamin D 25-OH Total Today E66.3 - Overweight C Reactive Protein Today E66.3 - Overweight Vitamin B1 Today E66.3 - Overweight Comprehensive Met. Panel Today E66.3 - Overweight Lipid Panel Today E66.3 - Overweight IRON PROFILE Today E66.3 - Overweight Ferritin Today E66.3 - Overweight TSH reflex Free T4 Today E66.3 - Overweight Vitamin A Today E66.3 - Overweight Zinc Today E66.3 - Overweight Vitamin B12 and Folate Today E66.3 - Overweight Complete Blood Count Auto Diff Today E66.3 - Overweight Hemoglobin A1c Today E66.3 - Overweight Insulin Today E66.3 - Overweight
[2025-06-08 11:23] VITALS: BMI 28.3
--- OUTSIDE RECORDS SUMMARY | 2025-06-08 12:19 | XMS_ITS | Encounter Summary ---
Author Organization [employer] Address [address] [place] [address] [address] [place] [address] Care Team Providers Care Restaurant And Bar Manager Name Role Phone Criselda GallardoP Primary Care Provider Eun Reed NP Primary Care Provider [phone] Reason for Visit * Reason Onset Date Comments Appointment Request 05/01/2023 Encounter Details Date Type Department Care Team ([facility] st Contact Info) Description 05/01/2023 Telephone [facility] MEDICINE [address] [place] [address] Criselda Gallardo FNP [address] [place], [place] [phone] Appointment Request Social History Tobacco Use Types [...] patient states she was seen at the [facility] on 04/29/23 for right arm pain and was told if pain persist or gets worse she can call to get a injection. Patient is requesting a appt for the injection. Patient speaks english. documented in this encounter Plan of Treatment Not on file documented as of this encounter Visit Diagnoses Not on filedocumented in this encounter Care Teams Restaurant And Bar Manager Relationship Specialty Start Date End Date Criselda Gallardo FNP [address] [place] [address] PCP - General Family Medicine 01/06/23 07/05/24 Eun Reed NP [address] [place] [address] PCP - General Family Medicine 07/06/24 documented as of this encounter
== END 2025-06-08 11:32 | disposition home or self-care (01) ==
LOC: HO.HBS 11:30
PROVIDERS: PCP Nurse Practitioner Family; Visit Provider Physician Assistant Surgical
DX: E66.3 Overweight (principal)
CPT/HCPCS: 99214; G2211

== ENCOUNTER 2025-06-08 16:09 | Outpatient (AMB) | payer MEDICARE, MEDICAID, SELFPAY ==
--- NOTE | 2025-06-08 16:05 | MHC.OFFVIS ---
Intake Visit Reasons: labs results Allergies No Known Allergies (No Known Allergies*) Allergy (Verified 04/28/25 08:58) HPI Comments Details: The patient scheduled a telehealth visit for follow-up. H&H 10.9/33.9 FSH/LH 22.7/9.6 TSH, hCG negative GC/CT negative Pelvic ultrasound done in 02/25 showed the following: Uterus: The uterus is anteverted and measures 10 x 3 x 5 cm. Volume: 80 cc. The double wall endometrial thickness is 1 mm. The uterus is smooth in contour and has normal myometrial echogenicity. No visible fibroid. Adnexa: The right adnexa is not identified.. The left adnexa is identified . Left ovary measures 2 x 1 x 2 cm. Volume: 2.4 cc. No solid or cystic lesion. EMB in 08/26 showed the following: Endometrium, biopsy: Benign proliferative endometrium and benign endocervical glandular mucosa; no atypia or carcinoma Last co testing in 12/26 was negative Last Mammo was BIRADS 1 in 01/25 [facility] Medical History (Updated 06/08/25 @ 16:23 by Salomón Ding MD) Fat necrosis Pelvic pain Cellulitis Fluid collection at surgical site Panniculitis Overweight Surgical History Hx of gastric bypass S/P panniculectomy Hx of abdominoplasty Hx of section Family History Mother Hypertension Diabetes Asthma Father Hypertension Brother No problems noted. Brother No problems noted. Brother No problems noted. Sister No problems noted. Sister No problems noted. Sister No problems noted. Son No problems noted. Daughter No problems noted. Daughter No problems noted. Maternal Grandfather Prostate cancer Social History Alcohol intake: current Alcohol intake frequency: does not drink Patient Tobacco Use Status: Never used Tobacco service: No Current occupational status: disabled Current occupation: left hand Female Reproductive History Menstrual Age of Menarche: 13 Review of Systems Const All systems reviewed & are unremarkable except as noted in HPI and below Reports as per HPI and Reports no additional complaints GI Reports no additional complaints Reports no additional complaints Telehealth Telehealth Telehealth Platform: Telephone Location of provider rendering services: practice address Location of patient: address on file Patient Identification confirmed using: Name, : Yes Telehealth method: video Patient verbally consented to treatment: Yes Patient verbally consented to billing insurance company: Yes Patient informed of any privacy concerns related to visit: Yes Minutes spent on Phone/Video with Pt.: 6 Assessment & Plan Assessment & Plan (1) Abnormal uterine bleeding (AUB): Code(s): N93.9 - Abnormal uterine and vaginal bleeding, unspecified Category: Medical Plan: Discussed with the patient the results of the work up done and options of treatment including but not limited to BCP's, cyclic Progesterone, Mirena IUD, endometrial ablation and hysterectomy. All pros, cons, risks and benefits of each option were discussed with the patient and the patient decided to go ahead with cyclic Provera, so a more detailed discussion re: Progesterone treatment including mechanism of action, benefits (regular menses, endometrial protection form unopposed estrogen and reduction in the risk of endometrial hyperplasia and/or cancer ...), risks (Thrombosis, mood changes, weight gain, breast soreness, ? increased breast ca, others). Instructions were given to use a back- up method for contraception since this is not a method control, take the medication 1 tablet daily starting day 15-24 and to schedule a 3 months follow-up appointment; patient verbalized understanding and agreed with the plan. I spent a total of 20 minutes reviewing the chart, talking to the patient via video and documenting in the medical record. Medications: New medroxyprogesterone (Provera) start Provera 1 tablet daily from day 15-24 cyclically every months, day 1 being 1st day of menses 10 mg PO DAILY 30 tabs 0RF 90 days Discontinued tranexamic acid Start 1st day of menses and take it up to 3-5 days of menses. Discontinued Reason: Doctor's Order 1,300 mg (2 x 650 mg) PO TID 5 days 30 tabs 2RF Coding Level of Care Code Tele Est Pt Level 3 (41469) Diagnoses Abnormal uterine bleeding (AUB) N93.9
== END 2025-06-08 16:34 | disposition home or self-care (01) ==
LOC: HO.HWS 16:09
PROVIDERS: PCP Nurse Practitioner Family; Visit Provider Obstetrics & Gynecology
DX: N93.9 Abnormal uterine and vaginal bleeding, unspecified (principal)
CPT/HCPCS: 99213